=== PATIENT | female | born 2005 | race Caucasian/White ===

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

== ENCOUNTER 2023-03-08 16:07 | Emergency (ER) | payer OTHER, SELFPAY | END 2023-03-08 17:59 | disposition left against medical advice (07) | PROVIDERS: Emergency Provider Emergency Medicine | DX: R10.30 Lower abdominal pain, unspecified (principal) ==

== ENCOUNTER 2023-05-15 05:40 | Emergency (ER) | payer OTHER, SELFPAY ==
--- NOTE | 2023-05-15 | ECG_ITS ---
Test Reason : OVERDOSE Blood Pressure : / mmHG Vent. Rate : 074 BPM Atrial Rate : 074 BPM P-R Int : 146 ms QRS Dur : 082 ms QT Int : 388 ms P-R-T Axes : 053 084 045 degrees QTc Int : 430 ms Normal sinus rhythm Normal ECG When compared with ECG of 26-OCT-2022 12:05, T wave inversion no longer evident in Inferior leads Referred By: Generic ED Physician Electronically Signed By:LORA PALMER
[2023-05-15 05:58] VITALS: BP 118/90; PULSE 114; O2SAT 98; BMI 17.9
[2023-05-15 06:08] VITALS: BP 127/84; PULSE 82; RESP 18; TEMP 36.2; O2SAT 98
[2023-05-15 06:31] LABS: Basophils Percent Auto 0.6 % (0-2); Eosinophils Absolute Auto 0.5 X10*3/uL (0.0-0.4); Eosinophils Percent Auto 7.7 % (0-4); Imm Gran Abs Auto 0.01 X10*3/uL (0.00-0.03); Imm Gran Pct Auto 0.1 % (0.0-0.4); Lymphocytes Absolute Auto 2.5 X10*3/uL (1.2-4.9); Lymphocytes Percent Auto 36.8 % (20-40); MANUAL DIFF FLAG NO; Mean Corpuscular HGB Conc 34.1 g/dl (31.0-35.0); Mean Corpuscular Hemoglobin 27.5 pg (27.0-33.0); Mean Corpuscular Volume 80.6 fL (80.0-98.0); Mean Platelet Volume 10.6 fL (9.4-12.3); Monocytes Absolute Auto 0.4 X10*3/uL (0.1-1.2); Monocytes Percent Auto 6.5 % (2-11); Neutrophils Absolute Auto 3.3 x10*3/uL (2.0-8.3); Neutrophils Percent Auto 48.3 % (45-73); Platelet Count 291 X10*3/uL (160-400); Red Blood Count 5.09 X10*6/uL (4.20-5.50); Red Cell Distribution Width 11.9 % (11.0-16.0); White Blood Count 6.8 X10*3/uL (4.8-10.8)
--- NOTE | 2023-05-15 06:45 | ED.GENADULT ---
HPI - General Adult General Chief complaint: Psychiatric Symptoms Stated complaint: si Time Seen by Provider: 05/15/23 06:41 Source: patient, EMS and RN notes reviewed Mode of arrival: EMS Limitations: no limitations History of Present Illness HPI narrative: 17 year old female with pmhx significant for asthma presents to the ED today via EMS with PD on a section 12 for evaluation of suicidal ideation with attempt to OD. Per patient, she reports taking 3 20 mg prednisone and 4 singular this morning in an attempt to harm herself. Denies previous attempts. Reports thinking about doing this a year ago however did not act on it. Denies SI at present. Denies HI. Denies VH/AH/TH. When asked why she was brought here, she tells me that she thought her mom was having a stroke prompting her to call EMS. History limited. Denies any physical complaints at present. Denies fever, A[place]STA, dizziness, cp, SOB, abd pain, N/V. Related Data Previous Rx's Medication Instructions Recorded albuterol sulfate 90 mcg/actuation 2 puff inhalation Q4-6H PRN 07/06/22 aerosol inhaler shortness of breath or wheezing #6.7 grams prednisone 20 mg tablet 40 mg (2 x 20 mg) PO DAILY 5 days 07/06/22 #10 tabs albuterol sulfate 90 mcg/actuation 2 puff inhalation Q4-6H PRN 08/17/22 aerosol inhaler shortness of breath or wheezing #6.7 grams fluconazole 150 mg tablet 150 mg PO Q3D 2 doses #2 tabs 08/17/22 (Diflucan) nitrofurantoin 100 mg PO Q12H 7 days #14 caps 08/17/22 monohydrate/macrocrystals 100 mg capsule (Macrobid) phenazopyridine 200 mg tablet 200 mg PO TID PRN pain 6 doses #6 08/17/22 (Pyridium) tabs prednisone 20 mg tablet 40 mg (2 x 20 mg) PO DAILY 5 days 08/17/22 #10 tabs albuterol sulfate 2.5 mg/0.5 mL 5 mg inhalation Q4H PRN shortness 08/20/22 solution for nebulization of breath or wheezing #30 ea prednisone 10 mg tablets in a dose See Taper PO DAILY #48 ea 08/20/22 pack albuterol sulfate 90 mcg/actuation 2 inh inhalation Q4-6H PRN 10/26/22 breath activated powder inhaler shortness of breath #1 ea doxycycline hyclate 100 mg capsule 100 mg PO BID 10 days #20 caps 10/26/22 prednisone 20 mg tablet 40 mg (2 x 20 mg) PO DAILY 5 days 10/26/22 #10 tabs Allergies Allergy/AdvReac Type Severity Reaction Status Date / Time Seasonal Allergies Allergy Runny Nose Verified 12/11/22 11:30 Review of Systems Review of Systems: Constitutional: No fever, chills, fatigue, night sweats, weight changes ENT/Mouth: No ear pain, hearing loss, nasal congestion, sinus pain, rhinorrhea, sore throat Eyes: No eye pain, swelling, redness, vision changes, discharge Cardio: No chest pain, palpitations, BOND, orthopnea, peripheral edema Pulm: No SOB, cough, sputum, wheezing, dyspnea, hemoptysis GI: No nausea, vomiting, hematemesis, abdominal pain, diarrhea, constipation, hematochezia, melena : No irregular bleeding, dysuria, frequency, urgency, hesitancy, hematuria, flank pain, urinary flow changes, urinary incontinence or retention MSK: No back pain, neck pain, joint pain, myalgias Skin: No lesions, rashes Neuro: No weakness, numbness, paresthesias, LOC, dizziness, headache All other systems reviewed and are negative. [facility] Past Medical History Attestation statement: The following information was validated with the patient. Source: old records reviewed and nursing notes reviewed Social History Social History Alcohol intake: never Advance Directives: No Advance Directives Information Provided: No Healthcare Proxy: No Guardian: No Physical Exam ED Vital Signs: Vital Signs - 24 hr 05/15/23 06:08 05/15/23 10:00 Temperature 97.2 F 98.4 F Pulse Rate 82 83 Respiratory Rate 18 16 Blood Pressure 127/84 113/61 Pulse Oximetry 98 98 Oxygen Delivery Method Room Air Room Air BMI result Body Mass Index 17.9 Vital signs stable Const Other: Patient is nontoxic appearing and in no acute distress. Calm. Cooperative. Tearful on exam. General: healthy appearing, no acute distress, alert and awake Orientation/consciousness: patient oriented x3 Limitations: no limitations HENMT Head: Yes normal to inspection Eyes General: appearance normal, both eyes and all related structures Conjunctivae: conjunctivae normal Sclerae: sclerae normal Pupils: Equal, round and reactive pupils present Neck Neck: Yes normal visual inspection Resp Effort & Inspection: normal respiratory effort, able to speak in complete sentences, no respiratory distress and no use of accessory muscles Auscultation: clear to auscultation bilaterally and no wheezes Cardio Rate: regular rate Rhythm: regular rhythm Peripheral pulses: radial pulses present GI Inspection: Yes normal to inspection Palpation (GI): Soft to palpation, nontender and no guarding General: Yes no CVA tenderness Back/Spine/Pelvis Back: no CVA tenderness Skin General skin exam: no rashes or lesions noted Neuro General: patient oriented x3, gait normal and moves all extremities Cranial nerves: Yes Equal, round and reactive pupils present Extrem General: Yes normal to inspection Course Course Course Narrative: 726-- CBC without leukocytosis or anemia. H&H stable. Chemistry without acute electrolyte abnormality requiring intervention. Normal liver function. Beta hCG negative. Toxicology with undetectable salicylates, acetaminophen, ethyl alcohol. EKG showing normal sinus rhythm with a rate of 74 beats per minute, QT 388, QTC 430, no acute ischemic changes or ST elevations. >> awaiting UA/ UDS Medical Decision Making Medical Decision Making [facility] Narrative: 17 year old female with pmhx significant for asthma presents to the ED today via EMS with PD on a section 12 for evaluation of suicidal ideation with attempt to OD. Vital signs stable. Patient is nontoxic appearing and in no acute distress. Calm. Cooperative. RRR. Lungs CTA bilaterally. Abd soft, ND/NT, no rebound or guarding. Normoactive BS x4. Exam is nonfocal. Ambulating with steady gait. Concern for SI, attempt. Low suspicion for acute overdose or toxicity. Plan for medical clearance and care team evaluation. Differential Diagnosis Differential Diagnoses: The differential diagnosis associated with the presentation includes As above. Admission/Observation Consideration of admission/observation: Escalation of care including admission/observation considered In this patient with attempt OD and suicidal ideation, admission was considered. Lab Data [facility] Lab Attestation statement: I reviewed the patient's lab results. as above. 05/15/23 06:25 05/15/23 06:25 Labs: Lab Results 05/15/23 05/15/23 Range/Units 06:25 11:50 WBC 6.8 (4.8-10.8) X10*3/uL RBC 5.09 (4.20-5.50) X10*6/uL Hgb 14.0 (12.0-16.0) g/dl Hct 41.0 (37.0-47.0) % MCV 80.6 (80.0-98.0) fL MCH 27.5 (27.0-33.0) pg MCHC 34.1 (31.0-35.0) g/dl RDW 11.9 (11.0-16.0) % Plt Count 291 (160-400) X10*3/uL MPV 10.6 (9.4-12.3) fL Immature Gran % (Auto) 0.1 (0.0-0.4) % Neut % (Auto) 48.3 (45-73) % Lymph % (Auto) 36.8 (20-40) % [place] % (Auto) 6.5 (2-11) % Eos % (Auto) 7.7 H (0-4) % Baso % (Auto) 0.6 (0-2) % Lymph # (Auto) 2.5 (1.2-4.9) X10*3/uL [place] # (Auto) 0.4 (0.1-1.2) X10*3/uL Eos # (Auto) 0.5 H (0.0-0.4) X10*3/uL Baso # (Auto) 0.0 (0.0-0.2) X10*3/uL Abs Immat Gran (auto) 0.01 (0.00-0.03) X10*3/uL Absolute Neuts (auto) 3.3 (2.0-8.3) x10*3/uL Absolute Nucleated RBC 0.000 (0.0-0.012) X10*3/uL Nucleated RBC % (auto) 0.0 (0.0-0.2) /100WBC Sodium 137 (135-145) mmol/L Potassium 3.6 D (3.3-5.1) mmol/L Chloride 107 (96-108) mmol/L Carbon Dioxide 20 L (22-29) mmol/L Anion Gap 14 (12-20) BUN 17 H (9-16) mg/dL Creatinine 0.79 (0.5-1.4) mg/dL Estim Creat Clear Calc 93.8 Estimated GFR > 60 Random Glucose 82 (60-115) mg/dL Calcium 9.2 D (8.4-10.2) mg/dL Total Bilirubin 0.8 (0.0-1.0) mg/dL Direct Bilirubin 0.4 (0.0-0.5) mg/dL AST 20 (5-31) U/L ALT 7 (0-31) U/L Alkaline Phosphatase 49 (39-117) U/L Total Protein 7.3 (6.5-8.0) g/dL Albumin 4.1 (3.5-5.0) g/dL Beta HCG, Quant < 2 mIU/mL Urine Color Dark Yellow Urine Appearance Cloudy Urine pH 5.5 (5.0-9.0) Ur Specific [place] 1.025 (1.005-1.025) Urine Protein Negative (Neg-Trace) mg/dL Urine Glucose (UA) Negative (Negative) mg/dL Urine Ketones 80 (Negative) mg/dL Urine Blood Moderate (2+) H (Negative) Urine Nitrite Negative (Negative) Ur Leukocyte Esterase Small (1+) H (Negative) Urine RBC 3-5 H (0-2) /HPF Urine WBC 6-10 H (0-5) /HPF Ur Squamous Epith Cells 6-10 (0-2) /HPF Urine Bacteria 1+ (None Seen) Hyaline Casts 0-2 (0-2) /LPF Salicylates < 5.0 L (15-30) mg/dL Urine Opiates Screen Not Detected (Not Detect) Urine Fentanyl Screen Not Detected (Not Detect) Acetaminophen < 3 (<30) mcg/mL Ur Barbiturates Screen Not Detected (Not Detect) Ur Phencyclidine Scrn Not Detected (Not Detect) Ur Amphetamines Screen Not Detected (Not Detect) U Benzodiazepines Scrn Not Detected (Not Detect) Urine Cocaine Screen Not Detected (Not Detect) U Marijuana (THC) Screen Not Detected (Not Detect) Ethyl Alcohol < 10 mg/dL Independent Interpretation I performed an independent interpretation of an: EKG Interpretation: EKG showing normal sinus rhythm with a rate of 74 beats per minute, QT 388, QTC 430, no acute ischemic changes or ST elevations. Independent Historian Clinical information obtained from an independent historian. History obtained from or confirmed by: EMS External Record Review External record reviewed: Inpatient record Social Determinants Patient?s care significantly limited by Social Determinants of Health including: Other Social Determinant of Health Critical Care Time Critical Care Time Critical Care Time: No Discharge Plan Discharge Clinical Impression: Suicidal ideation, Suicide attempt by substance overdose Patient Disposition: Still a Patient Prescriptions: No Action prednisone 20 mg tablet 40 mg PO DAILY 5 Days Qty: 10 0RF albuterol sulfate 90 mcg/actuation HFA aerosol inhaler 2 puff inhalation Q4-6H PRN (Reason: shortness of breath or wheezing) Qty: 6.7 0RF prednisone 10 mg tablets,dose pack See Taper PO DAILY Qty: 48 0RF Taper: Prednisone 40 mg daily for 1 Day and 0 Hour 30 mg daily for 3 Days and 0 Hour 20 mg daily for 3 Days and 0 Hour 10 mg daily for 3 Days and 0 Hour Rx Instructions: discard remainder albuterol sulfate 2.5 mg/0.5 mL solution for nebulization 5 mg inhalation Q4H PRN (Reason: shortness of breath or wheezing) Qty: 30 0RF doxycycline hyclate 100 mg capsule 100 mg PO BID 10 Days Qty: 20 0RF prednisone 20 mg tablet 40 mg PO DAILY 5 Days Qty: 10 0RF albuterol sulfate 90 mcg/actuation aerosol powdr breath activated 2 inh inhalation Q4-6H PRN (Reason: shortness of breath) Qty: 1 0RF phenazopyridine [Pyridium] 200 mg tablet 200 mg PO TID PRN (Reason: pain) Qty: 6 0RF nitrofurantoin monohyd/m-cryst [Macrobid] 100 mg capsule 100 mg PO Q12H 7 Days Qty: 14 0RF Rx Instructions: must administer with a meal/food prednisone 20 mg tablet 40 mg PO DAILY 5 Days Qty: 10 0RF albuterol sulfate 90 mcg/actuation HFA aerosol inhaler 2 puff inhalation Q4-6H PRN (Reason: shortness of breath or wheezing) Qty: 6.7 0RF fluconazole [Diflucan] 150 mg tablet 150 mg PO Q3D Qty: 2 0RF Interventions: [place]-Suicide Risk Severity Scale Last Done: 05/15/23 06:11
[2023-05-15 06:47] LABS: Acetaminophen LAB < 3 mcg/mL (<30); Salicylate < 5.0 mg/dL (15-30)
[2023-05-15 06:52] LABS: Alanine Aminotransferase 7 U/L (0-31); Albumin Level 4.1 g/dL (3.5-5.0); Alkaline Phosphatase 49 U/L (39-117); Anion Gap 14 (12-20); Aspartate Amino Transferase 20 U/L (5-31); Bilirubin Direct 0.4 mg/dL (0.0-0.5); Bilirubin Total 0.8 mg/dL (0.0-1.0); Blood Urea Nitrogen 17 mg/dL (9-16); Calcium 9.2 mg/dL (8.4-10.2); Carbon Dioxide 20 mmol/L (22-29); Chloride 107 mmol/L (96-108); Creatinine Clr Calc Pharmacy 93.8; Estimated Glomerular Filt Rate > 60; Ethanol < 10 mg/dL; Glucose Random 82 mg/dL (60-115); HCG Quantitative < 2 mIU/mL; Potassium 3.6 mmol/L (3.3-5.1); Sodium 137 mmol/L (135-145); Total Protein 7.3 g/dL (6.5-8.0)
--- NOTE | 2023-05-15 07:42 | PC.NURSE ---
assumed care of pt at 0700. pt a&o x4, calm, and cooperative. pt denies SI to t/w suleiman. 1:1 sitter at bedside. diet order in for pt per VITO Alvarado. pt cleared to eat. pt on bedside monitor, rr even/unlabored. call church within pt reach. awaiting urine sample. plan of care ongoing.
--- NOTE | 2023-05-15 09:58 | PC.NURSE ---
REPORT TO LEEANNE IN POD. ESCORTED BY SECURITY
[2023-05-15 10:00] VITALS: BP 113/61; PULSE 83; RESP 16; TEMP 36.9; O2SAT 98
--- NOTE | 2023-05-15 10:00 | PC.NURSE ---
LATE ENTRY: ASSUMED CARE OF THIS PT AT 1000. PT WAS PREVIOUSLY IN ED 6, MEDICALLY CLEARED AND ESCORTED TO THE POD BH 8 BY SECURITY. PT ALERT AND ORIENTED X3, PLEASANT AND COOPERATIVE, SHE DENIES PAIN, DENIES SI/HI AT THIS TIME. PLAN IS TO MEET WITH CARE TEAM. PT AWARE OF PLAN. WILL CONTINUE TO OBSERVE.
[2023-05-15 11:56] LABS: Appearance Urine Cloudy; Color Urine Dark Yellow; Glucose Urine UA Negative (Negative); Leukocyte Esterase Urine Small (1+) (Negative); Nitrite Urine Negative (Negative); PH 5.5 (5.0-9.0); Specific Gravity - Urine 1.025 (1.005-1.025); UMIC TRIGGER UACC YES; Urine Blood Moderate (2+) (Negative); Urine Ketones 80 mg/dL (Negative); Urine Protein Negative (Neg-Trace)
[2023-05-15 12:09] LABS: Amphetamine Screen Urine Not Detected (Not Detect); Bacteria Urine 1+ (None Seen); Barbiturates, Urine Not Detected (Not Detect); Benzodiazepines Screen Urine Not Detected (Not Detect); Cannabinoid Screen Urine Not Detected (Not Detect); Cocaine Screen Urine Not Detected (Not Detect); Fentanyl, urine Not Detected (Not Detect); Hyaline Casts Urine 0-2 /LPF (0-2); Opiate Screen Urine Not Detected (Not Detect); Phencyclidine Screen Urine Not Detected (Not Detect); UACC Culture Trigger YES
--- NOTE | 2023-05-15 18:00 | PC.NURSE ---
PT PLEASANT, IN COMMON AREA TALKING WITH ANOTHER PT. NO COMPLAINTS AT THIS TIME.
--- NOTE | 2023-05-15 18:11 | PHA.MEDREC ---
Pharmacy Consult ? Medication Reconciliation Pharmacy has completed the medication reconciliation.
--- NOTE | 2023-05-15 18:37 | PC.NURSE ---
MED REC DONE BY PHARMACY, HOME MEDS ORDERED.
[2023-05-15 20:05] VITALS: BP 109/72; PULSE 75; RESP 20; TEMP 37.1; O2SAT 99
[2023-05-15] MEDS: Montelukast Sodium 10 MG TABLET PO (20:29)
--- NOTE | 2023-05-15 22:00 | PC.NURSE ---
PT mom visited. Given room 2 for privacy. Visit was positive with no issues. PT medicated as per MAR. Denies SI/HI at this time. PT resting watching tv. plan of care ongoing
[2023-05-16 06:26] VITALS: BP 108/77; PULSE 86; RESP 15; TEMP 36.7; O2SAT 99
[2023-05-16 07:28] VITALS: PULSE 86; RESP 16; O2SAT 97
[2023-05-16] MEDS: Fluticasone/Vilanterol 200/25 BLST.W.DEV 1 PUFF INHALE (07:28)
[2023-05-16] MEDS: Cholecalciferol (Vitamin D3) 25 MCG TABLET PO (10:43)
--- NOTE | 2023-05-16 11:20 | MHC.CARE ---
RAD team conducted a statewide bedsearch, unfortunately no beds are available statewide. RAD Team will continue bedsearch tomorrow (05/17) if deemed necessary
[2023-05-16 15:33] VITALS: BP 117/67; PULSE 89; RESP 16; TEMP 36.8; O2SAT 98
--- NOTE | 2023-05-16 19:30 | PC.NURSE ---
patient appears to be lounging in [facility] area where she is housed accompanied by mother, patient soon to take shower, patient asked about dc status and was informed about mental status update to happen tomorrow.
== END 2023-05-16 21:15 | disposition home or self-care (01) ==
PROVIDERS: Emergency Provider Emergency Medicine
DX: T38.0X2A Poisoning by glucocorticoids and synthetic analogues, intentional self-harm, initial encounter (principal); T48.6X2A Poisoning by antiasthmatics, intentional self-harm, initial encounter; Y92.9 Unspecified place or not applicable
CPT/HCPCS: 36415; 80053; 80143; 80179; 80307; 81001; 82248; 84702; 85025; 87086; 93005; 94640; 99285; S9485

== ENCOUNTER → 2023-05-15 07:02 | Outpatient (BNV) | payer OTHER, SELFPAY | PROVIDERS: Emergency Provider Emergency Medicine; Visit Provider Internal Medicine | DX: R45.851 Suicidal ideations (principal) | CPT/HCPCS: 93010 ==

== ENCOUNTER 2024-01-09 13:26 | Outpatient (AMB) | payer OTHER, SELFPAY ==
--- NOTE | 2024-01-09 13:32 | MHC.OFFVIS ---
Vital Signs 01/09/24 13:33 Height 5 ft 6 in Weight 121 lb BMI 19.5 BP 118/70 Blood Pressure Location Lt brachial Position Sitting Pulse 90 Pulse Source Pulse Oximeter Pulse Oximetry (%) 96 Oxygen Delivery Method Room Air Intake Visit Reasons: asthma Immigration Specialist Required: No Allergies Seasonal Allergies Allergy (Verified 01/09/24 13:35) Runny Nose HPI Comments Details: The patient is here for pulmonary evaluation. The patient is a 18 year woman with known history of lifelong asthma. The patient initially was been monitor closely by pediatric Pulmonary. Now she is no longer being followed. She had been very stable on her Advair Diskus. Although recently her respiratory symptoms have been worsening. The patient does have underlying allergies. she has required multiple courses of prednisone. Currently she is completing a prednisone taper. When she goes on prednisone his symptoms improved dramatically. The patient did have allergy testing in the past but many years ago and does not remember exactly what she is allergic to. And her blood work in the past she also had elevations in her eosinophil level. 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 Will go ahead and maximize her respiratory therapy. In addition to that she does complaint of nasal congestion in addition to postnasal drip and cough. As far as allergies the patient does have cats and oxygen house. She denies any smoking or vaping. She denies any other exposure to fumes although fairly reason the patient did have an exposure to bleach where did bother her breathing. Denies any mold in the bathroom or in the basement. at this point will going to go ahead and maximize her respiratory therapy by [facility] placing her on Trelegy. In addition to that she undergo PFTs and blood work including allergy testing in order to assess her asthma phenotype and also to further treat her significant asthma symptoms. [facility], [facility] Medical History (Updated 01/09/24 @ 22:38 by Arthur Garcia MD) Chronic allergic rhinitis Asthma Allergies Social History (Updated 01/09/24 @ 13:37 by VALERIA Bowen) Alcohol intake: never Patient Tobacco Use Status: Never used Tobacco Review of Systems Const Denies fever(s) Eyes Reports no additional complaints ENT Reports nasal congestion and Reports nasal discharge Card Denies chest pain Resp Reports cough and Reports wheezing GI Reports no additional complaints Musc Reports no additional complaints Skin/Breast Denies rash Neuro Reports no additional complaints Endo Reports no additional complaints Gallo/Lymph Denies lymphadenopathy Aller/Immun Reports wheezing Physical Exam Vital Signs: Last Vital Signs Pulse 90 01/09/24 13:33 BP 118/70 01/09/24 13:33 Pulse Ox 96 01/09/24 13:33 Oxygen Delivery Method Room Air 01/09/24 13:33 BMI result Body Mass Index 19.5 Const General: comfortable HEENT Head: Yes normocephalic Neck Neck: Yes supple Chest Chest palpation & inspection: normal inspection of the chest Resp Effort & Inspection: normal respiratory effort Auscultation: diminished lung sounds Cardio Heart sounds: S1 normal heart sound present and S2 normal heart sound present GI Palpation (GI): Soft to palpation Skin General skin exam: no rashes or lesions noted Extrem General: Yes no clubbing, cyanosis or edema Assessment & Plan Assessment & Plan (1) Asthma: Code(s): J45.909 - Unspecified asthma, uncomplicated Category: Medical Qualifiers: Asthma severity: moderate Asthma persistence: persistent Asthma complication type: with acute exacerbation Qualified Code(s): J45.41 - Moderate persistent asthma with (acute) exacerbation (2) Allergies: Code(s): T78.40XA - Allergy, unspecified, initial encounter Category: Medical Qualifiers: Encounter type: initial encounter Qualified Code(s): T78.40XA - Allergy, unspecified, initial encounter (3) Chronic allergic rhinitis: Code(s): J30.9 - Allergic rhinitis, unspecified Category: Medical Plan complete prednisone taper stop Advair start Trelegy continue Singulair, monitor for mood changes Bloodwork/allergy testing PFTs nasal therapy as needed anti histamine therapy F/U 2-3 months Orders: Orders Complete Blood Count Auto Diff Today J45.909 - Unspecified asthma, uncomplicated, T78.40XA - Allergy, unspecified, initial encounter Resp Allergy Profile Region I Today J45.909 - Unspecified asthma, uncomplicated, R91.1 - Solitary pulmonary nodule, T78.40XA - Allergy, unspecified, initial encounter Hypersensitive Pneumonitis Prf Today J45.909 - Unspecified asthma, uncomplicated, R91.8 - Other nonspecific abnormal finding of lung field, T78.40XA - Allergy, unspecified, initial encounter Erythrocyte Sedimentation Rate Today J45.909 - Unspecified asthma, uncomplicated, T78.40XA - Allergy, unspecified, initial encounter PFT pulmonary function test Today J45.909 - Unspecified asthma, uncomplicated Immunoglobulin E Today J45.909 - Unspecified asthma, uncomplicated, T78.40XA - Allergy, unspecified, initial encounter Immunoglobulins,IgG IgA IgM Today J45.909 - Unspecified asthma, uncomplicated, T78.40XA - Allergy, unspecified, initial encounter Medications: New hzbzpsummtz-uqvwnobbx-xwlibtti 200-62.5-25 mcg (Trelegy Ellipta) 1 inh inhalation DAILY 60 ea 12RF 30 days Coding Level of Care Code New Pt Level 4 (00968) Diagnoses Moderate persistent asthma with acute exacerbation J45.41 Asthma severity: moderate Asthma persistence: persistent Asthma complication type: with acute exacerbation Allergy, initial encounter T78.40XA Encounter type: initial encounter Chronic allergic rhinitis J30.9 Time Spent (min) 34
[2024-01-09 13:33] VITALS: BP 118/70; PULSE 90; O2SAT 96; BMI 19.5
== END 2024-01-09 13:51 | disposition home or self-care (01) ==
PROVIDERS: PCP Pediatrics; Visit Provider Hospitalist
DX: J45.41 Moderate persistent asthma with (acute) exacerbation (principal); T78.40XA Allergy, unspecified, initial encounter; J30.9 Allergic rhinitis, unspecified
CPT/HCPCS: 99204

== ENCOUNTER → 2024-01-09 13:26 | Outpatient (BNVA) | payer OTHER, SELFPAY | PROVIDERS: PCP Pediatrics; Visit Provider Hospitalist | DX: J45.41 Moderate persistent asthma with (acute) exacerbation (principal); J30.9 Allergic rhinitis, unspecified; T78.40XA Allergy, unspecified, initial encounter | CPT/HCPCS: 99202 ==

== ENCOUNTER 2024-03-09 19:09 | Emergency (ER) | payer OTHER, SELFPAY ==
--- NOTE | ~2024-03-09 | XR_ITS ---
EXAMINATION: XR CHEST CLINICAL INFORMATION: Chest pain COMPARISON: Chest x-ray on 10/26/2022 TECHNIQUE: 2 views of the chest were obtained. FINDINGS: No significant abnormality is noted involving the heart, lungs, mediastinum, bony thorax or soft tissues. XR/XR chest 2V IMPRESSION: Unremarkable examination. Electronically signed by: Bere Baker MD 03/09/2024 09:15 PM EDT RP
--- NOTE | 2024-03-09 19:27 | ED_ITS ---
HPI - Headache General Chief Complaint: Headache Stated Complaint: headache, nausea, vomiting Time Seen by Provider: 03/09/24 21:10 Source: patient Mode of arrival: ambulatory Limitations: no limitations History of Present Illness ED Provider: joaquin PIERRE Narrative: Patient's history of migraines comes here for headache for 2 days mostly behind the eyes with nausea and light sensitivity no fever no chills patient does have cold symptoms since yesterday also Related Data Home Medications ?Medication ?Instructions ?Recorded ?Confirmed albuterol sulfate 90 mcg/actuation 2 puff inhalation Q4H PRN 05/15/23 05/15/23 aerosol inhaler shortness of breath or wheezing cholecalciferol (vitamin D3) 25 25 mcg PO DAILY 05/15/23 05/15/23 mcg (1,000 unit) capsule (Vitamin D3) desogestrel 0.15 mg-ethinyl 1 tab PO DAILY 05/15/23 05/15/23 estradiol 0.03 mg tablet (Isibloom) montelukast 10 mg tablet 10 mg PO BEDTIME 05/15/23 05/15/23 cetirizine 10 mg tablet 10 mg PO DAILY 01/09/24 fluticasone propionate 50 1 spray intranasal Q12H 01/09/24 mcg/actuation nasal spray,suspension nebulizers 01/09/24 Previous Rx's ?Medication ?Instructions ?Recorded fluticasone fur. 200 mcg-umeclid 1 inh inhalation DAILY 30 days #60 01/09/24 62.5 mcg-vilant 25 mcg ea inhalat.powder (Trelegy Ellipta) fopcdxolwz-qtqkkcurcfaic-cmnecyaz 1 tab PO Q6H PRN haeadace #20 tabs 03/10/24 50 mg-325 mg-40 mg tablet ondansetron 4 mg disintegrating 4 mg PO Q6-8H PRN nausea and 03/10/24 tablet vomiting #7 tabs Allergies Allergy/AdvReac Type Severity Reaction Status Date / Time Seasonal Allergies Allergy Runny Nose Verified 03/09/24 19:33 Review of Systems 2 Review of Systems: Yes all other systems are reviewed and are negative PMFSH Past Medical History Medical History Chronic allergic rhinitis Asthma Allergies Social History Social History Alcohol intake: never Patient Tobacco Use Status: Never used Tobacco Advance Directives: No Advance Directives Information Provided: No Physical Exam 2 Vital Signs: Vital Signs: Last Vital Signs Temp 98.2 F 03/10/24 03:25 Pulse 78 03/10/24 03:25 Resp 16 03/10/24 03:25 BP 115/55 L 03/10/24 03:25 Pulse Ox 99 03/10/24 03:25 O2 Del Method Room Air 03/10/24 03:25 BMI result Body Mass Index 19.7 Appearance: Alert. Oriented X3. No acute distress. Light sensitivity+ Eyes: PERRLA, No Nystagmus ENT: Pharynx normal. Oral Mucosa moist no temporal artery tenderness Neck: Normal inspection. Neck supple. CVS: Normal heart rate and rhythm. Pulses normal. Respiratory: No respiratory distress. Equal air entry bilateral, no wheezing/rales/rhonchi Abdomen: Soft and nontender. Bowel sounds are present, no mass palpable, Skin: Skin warm and dry. Normal skin color. Normal skin turgor. Extremities: No lower extremity edema. No calf tenderness Neuro: Oriented X 3. Course Course Course Narrative: This is an RME performed by Loretta Posada TALLOW REFINER: Additional HPI, ROS, PE not included below will be deferred to primary provider. Patient is a 18-year-old female who presents emergency department for evaluation with mother. Mother states that she went to visit patient at work, she thought patient appeared pale and fatigued, patient endorsed having blurred vision in feeling a bit unsteady while walking. Had associated nausea and vomiting at work, followed by another episode of vomiting in the car on the way here. Patient states she also has been experiencing a frontal headache since last night has not taken any OTC medications for this. Has report of diffuse anterior chest pain as well that is ?from asthma? reporting she was recently treated for an asthma exacerbation, shortness of breath or URI symptoms at this time. LMP 03/07/24. Plan: Viral serologies, serum labs, EKG Medications Administered Discontinued Medications Generic Name Dose Route Start Last Admin Trade Name Freq PRN Reason Stop Dose Admin Acetaminophen/Butalbital/Caffeine 1 tab 03/09/24 21:48 03/09/24 22:19 Butalb/Acetamin/Caff 50/325/40 Tablet PO 03/09/24 21:49 1 tab ONCE ONE Administration Dexamethasone Sodium Phosphate 10 mg 03/10/24 00:36 03/10/24 01:23 Dexamethasone Sod Phosphate 10 Mg/Ml Vial IVPUSH 03/10/24 00:37 10 mg ONCE ONE Administration Diphenhydramine HCl 25 mg 03/09/24 23:15 03/10/24 00:07 Diphenhydramine Hcl 50 Mg/Ml Vial IVPUSH 03/09/24 23:16 25 mg ONCE ONE Administration Sodium Chloride 1,000 mls @ 999 mls/hr 03/09/24 23:15 03/10/24 02:00 Ns IV 03/10/24 00:15 Infused .Q1H1M ONE Infusion Ketorolac Tromethamine 30 mg 03/09/24 23:15 03/10/24 00:06 Ketorolac Tromethamine 30 Mg/Ml Vial IVPUSH 03/09/24 23:16 30 mg ONCE ONE Administration Metoclopramide HCl 10 mg 03/09/24 23:15 03/10/24 00:06 Metoclopramide Hcl 10 Mg/2 Ml Vial IVPUSH 03/09/24 23:16 10 mg ONCE ONE Administration Ondansetron HCl 4 mg 03/09/24 21:48 03/09/24 22:16 Ondansetron Odt 4 Mg Tab.Rapdis TRANSLINGU 03/09/24 21:49 4 mg ONCE ONE Administration Sumatriptan Succinate 6 mg 03/09/24 21:48 03/09/24 22:19 Sumatriptan Succinate 6 Mg/0.5 Ml Vial SUBCUT 03/09/24 21:49 6 mg ONCE ONE Administration Medical Decision Making Medical Decision Making MDM Narrative: Patient's migraine headache responded to Fioricet and IV Benadryl and Reglan did not respond to sumatriptan labs are stable Lab Data MDM Lab Attestation statement: I reviewed the patient's lab results. 03/09/24 20:05 03/09/24 20:05 Labs: Lab Results 03/09/24 Range/Units 20:05 WBC 6.7 (4.8-10.8) X10*3/uL RBC 3.85 L D (4.20-5.50) X10*6/uL Hgb 10.9 L D (12.0-16.0) g/dl Hct 31.2 L D (37.0-47.0) % MCV 81.0 (80.0-98.0) fL MCH 28.3 (27.0-33.0) pg MCHC 34.9 (31.0-35.0) g/dl RDW 12.4 (11.0-16.0) % Plt Count 238 (160-400) X10*3/uL MPV 10.8 (9.4-12.3) fL Immature Gran % (Auto) 0.4 (0.0-0.4) % Neut % (Auto) 60.1 (45-73) % Lymph % (Auto) 26.6 (20-40) % Kent % (Auto) 6.2 (2-11) % Eos % (Auto) 6.1 H (0-4) % Baso % (Auto) 0.6 (0-2) % Lymph # (Auto) 1.8 (1.2-4.9) X10*3/uL Kent # (Auto) 0.4 (0.1-1.2) X10*3/uL Eos # (Auto) 0.4 (0.0-0.4) X10*3/uL Baso # (Auto) 0.0 (0.0-0.2) X10*3/uL Abs Immat Gran (auto) 0.03 (0.00-0.03) X10*3/uL Absolute Neuts (auto) 4.0 (2.0-8.3) x10*3/uL Absolute Nucleated RBC 0.000 (0.0-0.012) X10*3/uL Nucleated RBC % (auto) 0.0 (0.0-0.2) /100WBC Sodium 139 (135-145) mmol/L Potassium 4.1 (3.3-5.1) mmol/L Chloride 106 (96-108) mmol/L Carbon Dioxide 26 (22-29) mmol/L Anion Gap 11 L (12-20) BUN 12 (9-16) mg/dL Creatinine 0.74 (0.5-1.4) mg/dL Estim Creat Clear Calc 105.9 Estimated GFR > 60 Random Glucose 101 (60-115) mg/dL Calcium 9.9 D (8.4-10.2) mg/dL Magnesium 2.0 (1.6-2.6) mg/dL Total Bilirubin 0.5 (0.0-1.0) mg/dL AST 27 (5-31) U/L ALT 14 (0-31) U/L Alkaline Phosphatase 50 (39-117) U/L Troponin I High Sens < 2.7 (<3.5-17.0) ng/L Total Protein 7.5 (6.5-8.0) g/dL Albumin 4.5 (3.5-5.0) g/dL Lipase 19 (8-78) U/L Beta HCG, Quant < 2 mIU/mL Influenza Type A (PCR) NEGATIVE (Negative) Influenza Type B (PCR) NEGATIVE (Negative) RSV RNA Qual (PCR) NEGATIVE (Negative) SARS-CoV-2 RNA (RT-PCR) NEGATIVE (Negative) Discharge Plan Discharge Clinical Impression: Migraine Patient Disposition: Home, Self-Care Instructions: Migraine Headache (ED) Additional Instructions: Take Fioricet 1 tablet 3 times a day as needed Medicine for nausea as prescribed zofran for nausea Prescriptions: New jmcroltaat-uudjdzrhwiqpo-tlzg 50-325-40 mg tablet 1 tab PO Q6H PRN (Reason: haeadace) Qty: 20 0RF ondansetron 4 mg tablet,disintegrating 4 mg PO Q6-8H PRN (Reason: nausea and vomiting) Qty: 7 0RF No Action desogestrel-ethinyl estradiol [Isibloom] 0.15-0.03 mg tablet 1 tab PO DAILY montelukast 10 mg tablet 10 mg PO BEDTIME albuterol sulfate 90 mcg/actuation HFA aerosol inhaler 2 puff inhalation Q4H PRN (Reason: shortness of breath or wheezing) cholecalciferol (vitamin D3) [Vitamin D3] 25 mcg (1,000 unit) capsule 25 mcg PO DAILY fluticasone propionate 50 mcg/actuation spray,suspension 1 spray intranasal Q12H Rx Instructions: administer into each nostril cetirizine 10 mg tablet 10 mg PO DAILY (DME) nebulizers Misc See Rx Instructions .ROUTE Rx Instructions: As directed Trelegy Ellipta 200-62.5-25 mcg blister with device 1 inh inhalation DAILY 30 Days Qty: 60 12RF Stand Alone Forms: Work/School Release Interventions: ED Discharge Assessment Last Done: 03/10/24 03:25 Discharge Date/Time: 03/10/24 03:25 Print Language: Yi
[2024-03-09 19:28] VITALS: BP 105/67; PULSE 82; RESP 18; TEMP 36.5; O2SAT 100; BMI 19.7
--- NOTE | 2024-03-09 19:33 | ECG_ITS ---
Test Reason : HEADACHE Blood Pressure : / mmHG Vent. Rate : 077 BPM Atrial Rate : 077 BPM P-R Int : 158 ms QRS Dur : 084 ms QT Int : 382 ms P-R-T Axes : 070 087 064 degrees QTc Int : 432 ms Normal sinus rhythm with sinus arrhythmia Cannot rule out Anterior infarct , age undetermined Abnormal ECG When compared with ECG of 15-MAY-2023 07:02, No significant change was found Referred By: Lashae Posada Electronically Signed By:Ha Hanson
[2024-03-09 20:10] LABS: MANUAL DIFF FLAG NO
[2024-03-09 20:12] LABS: Basophils Percent Auto 0.6 % (0-2); Eosinophils Absolute Auto 0.4 X10*3/uL (0.0-0.4); Eosinophils Percent Auto 6.1 % (0-4); Hematocrit 31.2 % (37.0-47.0); Hemoglobin 10.9 g/dl (12.0-16.0); Imm Gran Abs Auto 0.03 X10*3/uL (0.00-0.03); Imm Gran Pct Auto 0.4 % (0.0-0.4); Lymphocytes Absolute Auto 1.8 X10*3/uL (1.2-4.9); Lymphocytes Percent Auto 26.6 % (20-40); Mean Corpuscular HGB Conc 34.9 g/dl (31.0-35.0); Mean Corpuscular Hemoglobin 28.3 pg (27.0-33.0); Mean Platelet Volume 10.8 fL (9.4-12.3); Monocytes Absolute Auto 0.4 X10*3/uL (0.1-1.2); Monocytes Percent Auto 6.2 % (2-11); Neutrophils Percent Auto 60.1 % (45-73); Platelet Count 238 X10*3/uL (160-400); Red Blood Count 3.85 X10*6/uL (4.20-5.50); Red Cell Distribution Width 12.4 % (11.0-16.0); White Blood Count 6.7 X10*3/uL (4.8-10.8)
[2024-03-09 20:26] LABS: Alanine Aminotransferase 14 U/L (0-31); Albumin Level 4.5 g/dL (3.5-5.0); Alkaline Phosphatase 50 U/L (39-117); Anion Gap 11 (12-20); Aspartate Amino Transferase 27 U/L (5-31); Bilirubin Total 0.5 mg/dL (0.0-1.0); Blood Urea Nitrogen 12 mg/dL (9-16); Calcium 9.9 mg/dL (8.4-10.2); Carbon Dioxide 26 mmol/L (22-29); Chloride 106 mmol/L (96-108); Creatinine Clr Calc Pharmacy 105.9; Estimated Glomerular Filt Rate > 60; Glucose Random 101 mg/dL (60-115); Lipase 19 U/L (8-78); Potassium 4.1 mmol/L (3.3-5.1); Sodium 139 mmol/L (135-145); Total Protein 7.5 g/dL (6.5-8.0)
[2024-03-09 20:36] LABS: Troponin-I High Sensitivity < 2.7 ng/L (<3.5-17.0)
[2024-03-09 20:48] LABS: Influenza A PCR NEGATIVE (Negative); Influenza B PCR NEGATIVE (Negative); Resp Syncy Virus RNA Qual PCR NEGATIVE (Negative); SARS COV2 PCR INHOUSE NEGATIVE (Negative)
--- OUTSIDE RECORDS SUMMARY | 2024-03-09 20:55 | XMS_ITS | Continuity of Care Document ---
Author Organization [facility] Address [address] [place] [id number]- Care Team Providers Care Junk Removal Specialist Name Role Phone Ramsey LEMUS, Marguerite Primary Care Physician Encounter [facility] Date(s): 03/16/21 - 04/15/21 [facility] [address] [place] [id number]- Allergies, Adverse Reactions, Alerts Substance Reaction Severity Status NKA Active Immunizations Given and Recorded Vaccine Date Status Refusal Reason influenza virus vaccine, inactivated 1 04/23/20 Gi sosa influenza virus vaccine, inactivated 05/17/19 Give n influenza virus vaccine, inactivated 2 02/14/18 Gi sosa influenza virus vaccine, inactivated 03/10/16 Give n influenza virus vaccine, inactivated 01/28/15 Give n influenza virus vaccine, inactivated 3 04/08/14 Gi sosa influenza virus vaccine, inactivated 02/08/13 Give n influenza virus vaccine, inactivated 4 03/09/12 Gi sosa influenza virus vaccine, inactivated 01/12/11 Give n influenza virus vaccine, inactivated 08/03/10 Give n influenza virus vaccine, inactivated 5 03/08/07 Gi sosa influenza virus vaccine, inactivated 03/31/05 Give n Meningococcal Conjugate Vaccine 6 10/19/19 Given Meningococcal Conjugate Vaccine 11/05/15 Given Human Papillomavirus Vaccine 7 09/02/17 Given Human Papillomavirus Vaccine 11/05/15 Given Hepatitis A Pediatric Vaccine 8 09/02/17 Given Hepatitis A Pediatric Vaccine 11/05/15 Given tetanus/diphtheria/pertussis, acel(Tdap) 11/05/15 Given influ virus vac, H1N1, inactive(oldterm) 04/15/09 Given Influenza Vaccine (oldterm) 01/28/09 Given Influenza Inactive (IM) (oldterm) 03/04/08 Given Varicella Virus Vaccine 11/08/07 Given Varicella Virus Vaccine 11/11/04 Given Poliovirus Vaccine, Inactivated 11/08/07 Given Poliovirus Vaccine, Inactivated 07/13/04 Given Poliovirus Vaccine, Inactivated 03/02/04 Given Poliovirus Vaccine, Inactivated 03 Given Measles/Mumps/Rubella Virus Vaccine 11/08/07 Given Measles/Mumps/Rubella Virus Vaccine 11/11/04 Given Diphth/Pertussis,Acel/Tetanus (oldterm) 11/08/07 G iven Diphth/Pertussis,Acel/Tetanus (oldterm) 03/31/05 G iven Diphth/Pertussis,Acel/Tetanus (oldterm) 07/13/04 G iven Diphth/Pertussis,Acel/Tetanus (oldterm) 03/02/04 G iven Diphth/Pertussis,Acel/Tetanus (oldterm) 03 G iven Influenza Virus Vaccine (oldterm) 9 03/28/06 Given Pneumococcal Conjugate (PCV7) (oldterm) 03/31/05 G iven Pneumococcal Conjugate (PCV7) (oldterm) 07/13/04 G iven Pneumococcal Conjugate (PCV7) (oldterm) 03/02/04 G iven Pneumococcal Conjugate (PCV7) (oldterm) 03 G iven Haemophilus B Conj Vaccine (oldterm) 11/11/04 Give n Haemophilus B Conj Vaccine (oldterm) 07/13/04 Give n Haemophilus B Conj Vaccine (oldterm) 03/02/04 Give n Haemophilus B Conj Vaccine (oldterm) 03 Give n Hepatitis B Vaccine (old term) 07/13/04 Given Hepatitis B Vaccine (old term) 03 Given Hepatitis B Vaccine (old term) 03 Given 1Result Comment: [id number] 2Result Comment: [id number] 3Admin Note: vis given 01.01.2014 4Early/Late Reason: Other : 5Admin Note: SANOFI 6Result Comment: [facility] [id number] 7Result Comment: [id number] 8Result Comment: [id number] 9Admin Note: MFD BY SANOFI Medications Advair Diskus 500 mcg-50 mcg inhalation powder 1, puffs, Inhalation, 2 times a day, RINSE MOUTH AND THROAT AFTER USE, # 60 each, Refills 5, Tot. Refills 5, Maintenance, 03/04/21 15:25:00 EDT, [id number], 168, cm, 03/04/21 14:47:0... Start Date: 03/04/21 Status: Ordered Aerochamber See Instructions, # 1 each, Maintenance, use with inhaler medications, 01/28/15 13:46:28, Compound Start Date: 01/28/15 Status: Ordered albuterol 0.083% inhalation solution 3 mL = 2.5 mg, Inhalation, Every 6 hours, # 120 each, 2 Refills, Maintenance, 05/23/20 15:08:00 EST, Solution, [facility] #[id number], 171, cm, 04/23/20 17:37:00 EST, Height, 57.3, kg, 04/23/20 17:37:00 EST, Dry Weight Start Date: 05/23/20 Status: Ordered albuterol CFC free 90 mcg/inh inhalation aerosol See Instructions, 2-6 puffs Inhalation Every 4 hours as needed for cough, SOB or wheeze use with spacer chamber, # 1 each, Refills 0, Tot. Refills 0, Maintenance, 03/04/21 15:25:00 EDT, Instructions Replace Required Details, Route to Pharmacy Electr... Start Date: 03/04/21 Status: Ordered fluvoxaMINE 50 mg oral tablet 1 tablet = 50 mg, By Mouth, Daily at bedtime, # 30 tablet, 0 Refills, Maintenance, 03/05/21 16:16:00 EDT, Tablet, [facility] #[id number], Partial fill upon patient request if the prescription isfor a schedule II opioid drug., 168, cm, 03/04/21 1... Start Date: 03/05/21 Status: Ordered ketoconazole 2% topical shampoo 1 application, Topically, Once, Three times weekly, # 120 mL, 3 Refills, Soft Stop, 03/16/21 17:24:00 EDT, [facility] #[id number], Partial fill upon patient request if the prescription is for a schedule II opioid drug., 1 application Top... Start Date: 03/16/21 Status: Ordered montelukast 10 mg oral tablet 10 mg, 1, tablet, By Mouth, Daily, # 30 tablet, Refills 5, Tot. Refills 5, Maintenance, 03/04/21 15:25:00 EDT, Route to Pharmacy Electronically, [facility] #[id number], 168, cm, 03/04/21 14:47:00 EDT, Height, 55.5, kg, 03/04/21 14:47:00 EDT, Dry... Start Date: 03/04/21 Status: Ordered spacer chamber spacer chamber, See Instructions, # 1 each, Refills 0, Tot. Refills 0, Maintenance, Use with Albuterol Inhaler, 11/05/20 15:34:00 EDT, Supply, 168.7, cm, 11/05/20 15:05:00 EDT, Height, 55.2, kg, 11/05/20 15:05:00 EDT, Dry Weight Start Date: 11/05/20 Status: Ordered ZyrTEC 10 mg oral tablet 1 tablet = 10 mg, By Mouth, Daily, # 30 tablet, 3 Refills, Maintenance, 04/14/20 8:49:00 EST, Tablet, [facility] #[id number], 168.5, cm, 02/20/20 15:15:00 EDT, Height, 58.7, kg, 02/20/20 15:15:00 EDT, Dry Weight Start Date: 04/14/20 Status: Ordered Problem List Condition Effective Dates Status Health Status Inform ant ADHD (attention deficit hype ractivity disorder)(Confirmed) 1, 2 Active Allergic rhinitis(Confirmed) 3 Active Asthma(Confirmed) 4, 5, 6, 7 Active Tourette syndrome(Confirmed) Active Hurthle cell adenoma of thyroid(Confirmed) Active Migraine headache without aura(Confirmed) Active Anxiety and depression(Confirmed) Active Simple tics(Confirmed) 8 Active 1Now followed by Viridiana Sim 2Seen my Savannah Keita and started on Adderall 10mg XR 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
--- OUTSIDE RECORDS SUMMARY | 2024-03-09 20:55 | XMS_ITS | Continuity of Care Document ---
Author Organization [facility] Address [address] [place] [id number]- Care Team Providers Care Hemodialysis Charge Nurse Name Role Phone Marguerite Mustafa MD Primary Care Physician [phone] Encounter [facility] Date(s): 11/04/20 - 12/04/20 [facility] [address] [place] [id number]- Attending Physician: Admtr, Frank Allergies, Adverse Reactions, Alerts Substance Reaction Severity [...] H1N1, inactive(oldterm) 04/15/09 Given Influenza Vaccine (oldterm) 9/15/09 Given Influenza Inactive (IM) (oldterm) 03/04/08 Given [...] Vaccine (old term) 03 Given 1Result Comment: [id number] 2Result Comment: [id number] 3Admin Note: vis given 01.01.2014 4Early/Late Reason: Other : 5Admin Note: SANOFI 6Result Comment: [facility] [id number] 7Result Comment: [id number] 8Result Comment: [id number] 9Admin Note: MFD BY SANOFI Medications Advair Diskus 500 mcg-50 mcg inhalation powder 1, puffs, Inhalation, 2 times a day, RINSE MOUTH AND THROAT AFTER USE, # 60 each, Refills 3, Tot. Refills 0, Maintenance, 11/14/20 11:11:00 EDT, Route to Pharmacy Electronically, [id number], [facility] #[id number], 168.7, cm, 11/05/20 15:05... Start Date: 11/14/20 Status: Ordered Aerochamber See Instructions, # 1 each, Maintenance, use with inhaler medications, 01/28/15 13:46:28, Compound Start Date: 01/28/15 Status: Ordered albuterol 0.083% inhalation solution 3 mL = 2.5 mg, Inhalation, Every 6 hours, # 120 each, 2 Refills, Maintenance, 05/23/20 15:08:00 EST, Solution, [facility] #[id number], 171, cm, 04/23/20 17:37:00 EST, Height, 57.3, kg, 04/23/20 17:37:00 EST, Dry Weight Start Date: 05/23/20 Status: Ordered albuterol CFC free 90 mcg/inh inhalation aerosol See Instructions, 2-6 puffs Inhalation Every 4 hours as needed for cough, SOB or wheeze use with spacer chamber, # 1 each, Refills 0, Tot. Refills 0, Maintenance, 11/05/20 15:34:00 EDT, Instructions Replace Required Details, Route to Pharmacy Electr... Start Date: 11/05/20 Status: Ordered montelukast 10 mg oral tablet 10 mg, 1, tablet, By Mouth, Daily, # 30 tablet, Refills 3, Tot. Refills 3, Maintenance, 11/05/20 15:34:00 EDT, Route to Pharmacy Electronically, [facility] #[id number], 168.7, cm, 11/05/20 15:05:00 EDT, Height, 55.2, kg, 11/05/20 15:05:00 EDT, Start Date: 11/05/20 Status: Ordered PROzac 10 mg oral capsule See Instructions, Take 1 daily for 7 days, then increase to 2 daily, # 60 capsule, Refills 3, Tot. Refills 3, Maintenance, 04/16/20 16:36:00 EST, Instructions Replace Required Details, Route to Pharmacy Electronically, [facility] #[id number], Par... Start Date: 04/16/20 Status: Ordered PROzac 10 mg oral capsule 10 mg, 1, capsule, By Mouth, Daily, # 30 capsule, Refills 1, Tot. Refills 1, Maintenance, 12/04/20 16:15:00 EDT, Route to Pharmacy Electronically, [facility] #[id number], Partial fill upon patient request if the prescription is for a schedule II... Start Date: 12/04/20 Stop Date: 02/02/21 Status: Ordered spacer chamber spacer chamber, See Instructions, # 1 each, Refills 0, Tot. Refills 0, Maintenance, Use with Albuterol Inhaler, 11/05/20 15:34:00 EDT, Supply, 168.7, cm, 11/05/20 15:05:00 EDT, Height, 55.2, kg, 11/05/20 15:05:00 EDT, Dry Weight Start Date: 11/05/20 Status: Ordered Vistaril pamoate 25 mg oral capsule 1 capsule = 25 mg, By Mouth, 4 times a day, PRN for anxiety, can take second pill (total of 50mg) if one is ineffective), # 40 capsule, 0 Refills, Acute 01/08/21 16:15:00 EDT, 12/04/20 16:14:00 EDT, Capsule, [facility] #[id number], Partial fill u... 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
--- OUTSIDE RECORDS SUMMARY | 2024-03-09 20:55 | XMS_ITS | Continuity of Care Document ---
Author Organization [facility] Address [address] [place] [address]- Care Team Providers Care Licensed Esthetician Name Role Phone Fouzia Moreno Primary Care Physician [phone] Encounter [facility] Date(s): 10/10/19 - 10/17/19 [facility] [address] [place] [phone]- [facility] Attending Physician: Ernst Wilson MD Allergies, Adverse Reactions, Alerts Substance Reaction Severity Status NKA Active Immunizations Given and Recorded Vaccine Date Status Refusal Reason influenza virus vaccine, inactivated 05/17/19 Give n influenza virus vaccine, inactivated 1 02/14/18 Gi sosa influenza virus vaccine, inactivated 03/10/16 Give n influenza virus vaccine, inactivated 01/28/15 Give n influenza virus vaccine, inactivated 2 04/08/14 Gi sosa influenza virus vaccine, inactivated 02/08/13 Give n influenza virus vaccine, inactivated 3 03/09/12 Gi sosa influenza virus vaccine, inactivated 01/12/11 Give n influenza virus vaccine, inactivated 08/03/10 Give n influenza virus vaccine, inactivated 03/31/05 Give n Human Papillomavirus Vaccine 4 09/02/17 Given Human Papillomavirus Vaccine 11/05/15 Given Hepatitis A Pediatric Vaccine 5 09/02/17 Given Hepatitis A Pediatric Vaccine 11/05/15 Given tetanus/diphtheria/pertussis, acel(Tdap) 11/05/15 Given Meningococcal Conjugate Vaccine 11/05/15 Given influ virus vac, H1N1, inactive(oldterm) 04/15/09 Given Influenza Vaccine (oldterm) 01/28/09 Given Influenza Inactive (IM) (oldterm) 03/04/08 Given Varicella Virus Vaccine 11/08/07 Given Poliovirus Vaccine, Inactivated 11/08/07 Given Poliovirus Vaccine, Inactivated 07/13/04 Given Poliovirus Vaccine, Inactivated 03/02/04 Given Poliovirus Vaccine, Inactivated 03 Given Diphth/Pertussis,Acel/Tetanus (oldterm) 11/08/07 G iven Diphth/Pertussis,Acel/Tetanus (oldterm) 03/31/05 G iven Diphth/Pertussis,Acel/Tetanus (oldterm) 07/13/04 G iven Diphth/Pertussis,Acel/Tetanus (oldterm) 03/02/04 G iven Diphth/Pertussis,Acel/Tetanus (oldterm) 03 G iven Influenza Virus Vaccine (oldterm) 6 03/28/06 Given Pneumococcal Conjugate (PCV7) (oldterm) 03/31/05 G iven Pneumococcal Conjugate (PCV7) (oldterm) 07/13/04 G iven Pneumococcal Conjugate (PCV7) (oldterm) 03/02/04 G iven Pneumococcal Conjugate (PCV7) (oldterm) 03 G iven Hepatitis B Vaccine (old term) 07/13/04 Given Hepatitis B Vaccine (old term) 03 Given Hepatitis B Vaccine (old term) 03 Given Haemophilus B Conj Vaccine (oldterm) 03/02/04 Give n Haemophilus B Conj Vaccine (oldterm) 03 Give n 1Result Comment: [id number] 2Admin Note: vis given 01.01.2014 3Early/Late Reason: Other : 4Result Comment: [id number] 5Result Comment: [id number] 6Admin Note: MFD BY [employer] Medications Adderall XR 15 mg oral capsule, extended release 1 capsule = 15 mg, By Mouth, Daily in AM, # 30 capsule, 0 Refills, Maintenance, 07/05/19 17:28:00 EST, CR Capsule, [facility] #[id number], 1 capsule By Mouth Daily in AM, 167.7, cm, 06/20/19 14:57:00 EST, Height, 54.1, kg, 06/20/19 14:57:00 EST,... Start Date: 07/05/19 Status: Ordered Aerochamber See Instructions, # 1 each, Maintenance, use with inhaler medications, 01/28/15 13:46:28, Compound Start Date: 01/28/15 Status: Ordered AirDuo RespiClick 232 mcg-14 mcg/inh inhalation powder 1, puffs, Inhalation, 2 times a day, rinse mouth and throat after use, # 1 each, Refills 2, Tot. Refills 2, Maintenance, 10/10/19 16:03:00 EDT, Powder, Route to Pharmacy Electronically, NYPDP_[id number], [facility] #[id number], 167.7, cm, ... Start Date: 10/10/19 Status: Ordered albuterol 0.083% inhalation solution 3 mL = 2.5 mg, Inhalation, Every 6 hours, # 120 each, 0 Refills, Maintenance, 07/26/19 15:30:00 EDT, Solution, [facility] #[id number], 167.7, cm, 06/20/19 14:57:00 EST, Height, 54.1, kg, 06/20/19 14:57:00 EST, Dry Weight Start Date: 07/26/19 Status: Ordered albuterol CFC free 90 mcg/inh inhalation aerosol See Instructions, inhale 2 to 8 puffs by mouth and INTO THE LUNGS every 4 hours if needed for wheezing and as directed 15 MINUTES BEFORE EXERCISE, # 17 Gm, Refills 0, Tot. Refills 0, Maintenance, 08/28/19 11:01:00 EDT, Instructions Replace Required De... Start Date: 08/28/19 Status: Ordered albuterol CFC free 90 mcg/inh inhalation aerosol See Instructions, inhale 2 to 8 puffs by mouth INTO THE LUNGS every 4 hours if needed for wheezing and as directed 15 MINUTES BEFORE EXERCISE, # 17 Gm, Refills 2, Tot. Refills 2, Maintenance, 10/10/19 15:42:00 EDT, Instructions Replace Required Detail... Start Date: 10/10/19 Status: Ordered Intuniv 1 mg oral tablet, extended release 1 tablet = 1 mg, By Mouth, Daily in AM, # 30 tablet, 1 Refills, Maintenance, 04/09/19 15:39:14 EST Start Date: 04/09/19 Status: Ordered montelukast 10 mg oral tablet 10 mg, 1, tablet, By Mouth, Daily, # 30 tablet, Refills 2, Tot. Refills 2, Maintenance, 10/10/19 16:02:00 EDT, Route to Pharmacy Electronically, [facility] #[id number], 167.7, cm, 06/20/19 14:57:00 EST, Height, 54.1, kg, 06/20/19 14:57:00 EST, . Start Date: 10/10/19 Status: Ordered Pepto-Bismol 262 mg oral tablet, chewable 2 tablet = 524 mg, Chew, 4 times a day, PRN for dyspepsia, # 48 tablet, 0 Refills, Maintenance, 05/17/19 13:26:00 EST, Chew Tablet, [facility] [address], 169, cm, 05/12/19 4:40:00 EST, Height, 51.4, kg, 05/17/19 13:14:00 EST, Dry Weight Start Date: 05/17/19 Status: Ordered ZyrTEC 10 mg oral tablet 1 tablet = 10 mg, By Mouth, Daily, # 30 tablet, 2 Refills, Maintenance, 10/10/19 16:02:00 EDT, Tablet, [facility] #[id number], 167.7, cm, 06/20/19 14:57:00 EST, Height, 54.1, kg, 06/20/19 14:57:00 EST, Dry Weight Start Date: 10/10/19 Status: Ordered Problem List Condition Effective Dates Status Health Status Inform ant ADHD (attention deficit hype ractivity disorder)(Confirmed) 1, 2 Active Allergic rhinitis(Confirmed) 3 Active Asthma(Confirmed) 4, 5, 6, 7 Active Tourette syndrome(Confirmed) Active Migraine headache without aura(Confirmed) Active Simple tics(Confirmed) 8 Active 1Now followed by Viridiana Sim 2Seen my Savannah Keita and started on Adderall 10mg XR 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
--- OUTSIDE RECORDS SUMMARY | 2024-03-09 20:55 | XMS_ITS | Continuity of Care Document ---
Author Organization [facility] Address [address] [place] [address]- Care Team Providers Care Radio Station Engineer Name Role Phone Ramsey LEMUS, Marguerite Primary Care Physician Encounter [facility] Date(s): 12/22/23 - 01/21/24 [facility] [address] [place] [address]- Allergies, Adverse Reactions, Alerts No Known Allergies Immunizations Given and Recorded Vaccine Date Status Refusal Reason SARS-CoV-2 (COVID-19) mRNA-1273 vaccine 01/11/22 R ecorded influenza virus vaccine, inactivated 1 04/23/20 Gi sosa influenza virus vaccine, inactivated 05/17/19 Give n influenza virus vaccine, inactivated 2 02/14/18 Gi sosa influenza virus vaccine, inactivated 01/26/17 Stan rded influenza virus vaccine, inactivated 03/10/16 Give n [...] Vaccine (old term) 03 Given 1Result Comment: [id number] 2Result Comment: [id number] 3Admin Note: vis given 01.01.2014 4Early/Late Reason: Other : 5Admin Note: SANOFI 6Result Comment: [facility] [id number] 7Result Comment: [phone] 8Result Comment: [id number] 9Admin Note: MFD BY [facility] Medications Advair Diskus 500 mcg-50 mcg inhalation powder 1, puffs, Inhalation, 2 times a day, RINSE MOUTH AND THROAT AFTER USE, # 60 each, Refills 5, Tot. Refills 5, Maintenance, 10/25/23 8:24:00 EDT, Route to Pharmacy Electronically, MAPDP_[id number], [facility] #[id number], 170, cm, 09/19/23 15:34:00... Start Date: 10/25/23 Status: Ordered cetirizine 10 mg oral tablet 1 tablet = 10 mg, By Mouth, Daily, # 90 tablet, 1 Refills, Maintenance, 10/25/23 8:25:00 EDT, Tablet, [facility] #[id number], Partial fill upon patient request if the prescription is for a schedule II opioid drug., 170, cm, 09/19/23 15:34:00 EDT,... Start Date: 10/25/23 Status: Ordered Flonase Allergy Relief 50 mcg/inh nasal spray 1 sprays, Nares, Both, Daily, # 1 each, 0 Refills, Maintenance, 10/25/23 8:24:00 EDT, [facility] #[id number], Partial fill upon patient request if the prescription is for a schedule II opioid drug., 170, cm, 09/19/23 15:34:00 EDT, Height, 54, kg,... Start Date: 10/25/23 Status: Ordered Isibloom 0.15 mg-0.03 mg oral tablet 1 tablet, By Mouth, Daily, # 28 tablet, 5 Refills, Maintenance, 09/12/23 12:45:00 EDT, [facility] #[id number], 28, TAKE 1 TABLET BY MOUTH DAILY TAKE AT THE SAME TIME DAILY, 170, cm, 08/20/23 1:30:00 EDT, Height, 54, kg, 08/20/23 1:30:00 EDT, Dry... Start Date: 09/12/23 Status: Ordered montelukast 10 mg oral tablet 1, tablet, By Mouth, Daily, # 90 tablet, Refills 0, Tot. Refills 0, Maintenance, 10/25/23 8:24:00 EDT, Route to Pharmacy Electronically, [facility] #[id number], 170, cm, 09/19/23 15:34:00 EDT, Height, 54, kg, 10/24/23 16:05:00 EDT, Dry Weight Start Date: 10/25/23 Status: Ordered SUMAtriptan 50 mg oral tablet 1 tablet = 50 mg, By Mouth, Daily, PRN for migraine headache, # 9 tablet, 1 Refills, Maintenance, 02/03/23 18:55:00 EDT, Tablet, [facility] #[id number], Partial fill upon patient request if the prescription is for a schedule II opioid drug., 167.... Start Date: 02/03/23 Status: Ordered Ventolin HFA 108 mcg/inh inhalation aerosol with adapter 2 puffs, Inhalation, Every 4 hours, PRN NEEDED FOR WHEEZING, # 18 Gm, 0 Refills, Maintenance, 12/23/23 15:33:00 EDT, [facility] #[id number], 170, cm, 09/19/23 15:34:00 EDT, Height, 54, kg, 10/24/23 16:05:00 EDT, Dry Weight Start Date: 12/23/23 Status: Ordered Problem List Condition Confirmation Course Effective Dates Status H ealth Status Informant ADHD (attention deficit hyperactivity disorder) 1, 2 Confirmed Active Allergic rhinitis 3 Confirmed Active Asthma 4, 5, 6, 7 Confirmed Active Tourette syndrome Confirmed Active 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 Migraine headache without aura Confirmed Active Anxiety and depression Confirmed Active Simple tics 8 Confirmed Active 1Now followed by Viridiana Sim 2Seen my Savannah Keita and started on Adderall 10mg XR 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, 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, allergy to pollen, dust mite, animal dander- Cetirizine and Flunisolide 4Saw Pulm- Increased Advair and added Qnasal; Given oral steroids 2/2 URI triggering her asthma 5Saw Pulm 11/2016- normal spirometry; continue Advair and Singulair - Saw pulm Still on Advair and Singulair; Added Flonase for seasonal allergies - Saw Pulm; On Advair and Singulair 8Seen my Neuro and Savannah Keita ([facility]) started on Clonidine Social History Social History Type Response Smoking Status Never (less than 100 in lifetime) entered on: 11/04/20 Sex Female Patient Care team information Care Team Personnel Name: Alley Evans RN Position: [facility] RN Member Role: Primary Care Nurse Name: Marguerite Mustafa MD Position: [facility] Physician - Primary Care Member Role: PCP Address: Address: [address] [place] [address]- Care Team Related Persons Name: TAMMY VALENTE Address: [place] [address] Name: OSMAN VALENTE Address: [address] [place] [address] Name: REGINALDO BAXTER Address: [address] [place] [address] Name: REGINALDO BAXTER Address: [address] [place] [address] Name: SAMANTHA RDZ Address: home [address] [place] [address]
--- OUTSIDE RECORDS SUMMARY | 2024-03-09 20:55 | XMS_ITS | Continuity of Care Document ---
Author Organization [facility] ter Address [address] [place] [address]- Care Team Providers Care Poultry Processor Name Role Phone Ramsey LEMUS, Marguerite Primary Care Physician [phone] [facility]counter [facility] Date[facility]): 08/20/23 - 08/20/[address] [address]- Discharge Disposition: A-D/C Walkout Attending Physician: Not on Staff, Attending MD Admitting Physician: Not on Staff, Admitting MD Referring Physician: Not on Staff, Referring MD Allergies, Adverse Reactions, Alerts No Known Allergies Immunizations Given and Recorded Vaccine Date Status Refusal Reason SARS-CoV-2 (COVID-19) mRNA-3333 vaccine 01/11/22 R ecorded influenza virus vaccine, [...] Vaccine (old term) 03 Given 1Result Comment: 25152-078-70 2Result Comment: [id number] 3Admin Note: vis given 01.01.2014 4Early/Late Reason: Other : 5Admin Note: SANOFI 6Result Comment: [facility] [id number] 7Result Comment: [id number] 8Result Comment: [id number] 9Admin Note: MFD BY SANOFI Medications Advair Diskus 500 mcg-50 mcg inhalation powder 1, puffs, Inhalation, 2 times a day, RINSE MOUTH AND THROAT AFTER USE, # 60 each, Refills 5, Tot. Refills 5, Maintenance, 03/11/23 13:16:00 EDT, [id number] #[id number], 167.5, cm, 02/03/23 18:02... Start Date: 03/11/23 Status: Ordered Apri 0.15 mg-0.03 mg oral tablet 1 tablet, By Mouth, Daily, take same time dialy, # 28 tablet, 12 Refills, Maintenance, 03/17/22 9:23:00 EDT, Tablet, [facility] #[id number], Partial fill upon patient request if the prescriptionis for a schedule II opioid drug., 1 tablet By Mout... Start Date: 03/17/22 Status: Ordered Flonase Allergy Relief 50 mcg/inh nasal spray 1 sprays, Nares, Both, Daily, # 1 each, 0 Refills, Maintenance, 02/03/23 19:09:00 EDT, [facility] #[id number], Partial fill upon patient request if the prescription is for a schedule II opioid drug., 167.5, cm, 02/03/23 18:02:00 EDT, Height, 53.8... Start Date: 02/03/23 Status: Ordered montelukast 10 mg oral tablet 1, tablet, By Mouth, Daily, # 90 tablet, Refills 0, Maintenance, 03/11/23 14:23:00 EDT, Route to Pharmacy Electronically, [facility] #[id number], 167.5, cm, 02/03/23 18:02:00 EDT, Height, 52.2, kg, 03/10/23 10:34:00 EDT, Dry Weight Start Date: 03/11/23 Status: Ordered predniSONE 20 mg oral tablet 2 tablet = 40 mg, By Mouth, Daily, # 10 tablet, 0 Refills, Maintenance, 03/11/23 13:16:00 EDT, Tablet, [facility] #[id number], Partial fill upon patient request if the prescription is for a schedule II opioid drug., 167.5, cm, 02/03/23 18:02:00 E... Start Date: 03/11/23 Stop Date: 03/16/23 Status: Ordered SUMAtriptan 50 mg oral tablet 1 tablet = 50 mg, By Mouth, Daily, PRN for migraine headache, # 9 tablet, 1 Refills, Maintenance, 02/03/23 18:55:00 EDT, Tablet, [facility] #[id number], Partial fill upon patient request if the prescription is for a schedule II opioid drug., 167.... 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, allergy to pollen, dust mite, animal dander- Cetirizine and Flunisolide 4Saw Pulm- Increased Advair and added Qnasal; Given oral steroids 2/2 URI triggering her asthma 5Saw Pulm 11/2016- normal spirometry; continue Advair and Singulair - Saw pulm Still on Advair and Singulair; Added Flonase for seasonal allergies - Saw Pulm; On Advair and Singulair 8Seen my Neuro and Savannahlupe Keita (N) started on Clonidine Results Radiology Reports * Exam Date Time Procedure Performing Provider Status 08/20/23 2:00 AM Chest 2 Views Frontal and Lat Hawa Diane (Verified) Notes: (Chest 2 Views Frontal and Lat) Reason For Exam: Shortness of Breath RESULT: Chest 2 Views Frontal and Lat PROCEDURE: Chest 2 Views Frontal and Lat INDICATION: 17 years old Female with shortness of breath d t allergies. Received neb enroute and now feeling better. No wheezes per EMS. Pt reports was around recent triggers lately i e cold air (recent snow), stayed at friend's house, friends brother smokes and they have dogs etc; Reason: Shortness of Breath; Clinical Question(s): Pneumonia; Special Instructions: This is a protocol film. COMPARISON: None. FINDINGS: PA and lateral upright views of the chest obtained. Lines and tubes:None. Lungs and pleura: Lungs are clear. No pleural effusions.No evidence of pneumothorax. Heart, mediastinum and steven: The cardiomediastinal silhouette and pulmonary vasculature are unremarkable. No cardiomegaly or pulmonary venous hypertension. Bones and soft tissues: Brassiere metallic portions noted. IMPRESSION: 1. No evidence of acute cardiopulmonary disease. Thank you for allowing me to participate in the care of this patient. WSN: [id number] Ordering Physician: May Goldstein Dictated By: Armando Shen MD Dictated Date/Time: 08/20/23 7:53 am Reviewed By: Armando Shen MD Signed By: Armando Shen MD Signed Date/Time: 08/20/23 7:53 am Transcribed By: YAMINI Transcribed Date/Time: 08/20/23 7:51 am Vital Signs Most recent to oldest [Reference Range]: 1 Height 170 cm (08/20/23 1:30 AM) Weight 54 kg (08/20/23 1:30 AM) Oxygen Saturation [94-100 %] 98 % (08/20/23 1:30 AM) Pulse Rate [55-90 bpm] 100 bpm *H* (08/20/23 1:30 AM) Body Mass Index [18.5-24.99 kg/m2] 18.69 kg/m2 (08/20/23 1:30 AM) Blood Pressure [90-138/55-84 mm Hg] 121/ 80mm Hg (08/20/23 1:30 AM) Respiratory Rate [16-30 br/min] 16 br/mi n (08/20/23 1:30 AM) Temperature [96.8-100.4 DegF] 97.9 DegF (08/20/23 1:30 AM) Mode of Delivery (Oxygen) Room air (08/20/23 1:30 AM) Blood pressure sites Arm, right (08/20/23 1:30 AM) Temperature Route Oral (08/20/23 1:30 AM) Dry Weight 54 kg (08/20/23 1:30 AM) Weight Obtained Via Standing scale (08/20/23 1:30 AM) Dry Weight Obtained Via Standing scale (08/20/23 1:30 AM) Height Percentile 84.91 % 1 (08/20/23 1:30 AM) Height ZScore 1.03 2 (08/20/23 1:30 AM) Weight Percentile Per Age 31.86 % 3 (08/20/23 1:30 AM) BMI Percentile 11.99 4 (08/20/23 1:30 AM) BMI ZScore -1.18 5 (08/20/23 1:30 AM) Weight ZScore -0.47 6 (08/20/23 1:30 AM) 1Result Comment: ^~:!Percentile Source -CDC/WHO 2Result Comment: ^~:!ZScore Source -CDC/WHO 3Result Comment: ^~:!Percentile Source -CDC/WHO 4Result Comment: ^~:!Percentile Source -CDC/WHO 5Result Comment: ^~:!ZScore Source -CDC/WHO 6Result Comment: ^~:!ZScore Source -CDC/WHO Social History Social History Type Response Smoking Status Never (less than 100 in lifetime) entered on: 11/04/20 Sex Female Patient Care team information Care Team Personnel Name: Alley Evans RN Position: S RN Member Role: Primary Care Nurse Name: Marguerite Mustafa MD Position: S Physician - Primary Care Member Role: PCP Address: Address: [address] [place] [address] [place] [address]- Care Team Related Persons Name: TAMMY VALENTE Address: [place] [address] Name: SIDRA DEEDEEEUSEBIA Address: [address] [place] [address] Name: REGINALDO BAXTER Address: home [address] [place] [address] Name: REGINALDO BAXTER Address: [address] [place] [address] Name: SAMANTHA RDZ Address: home [address] [place] [address]
--- OUTSIDE RECORDS SUMMARY | 2024-03-09 20:55 | XMS_ITS | Continuity of Care Document ---
Author Organization [facility] ter Address [address] [place] [address]- Care Team Providers Care Correctional Treatment Specialist Name Role Phone Ramsey LEMUS, Marguerite Primary Care Physician [facility] Date[facility]): 01/14[facility] - 02/27/[address] [address] Attending Physician: Marguerite Mustafa MD Admitting Physician: Marguerite Mustafa MD Referring Physician: Shelly Aden DO Allergies, Adverse Reactions, Alerts Substance Reaction Severity [...] Vaccine (old term) 03 Given 1Result Comment: [id number] 2Result Comment: [id number] 3Admin Note: vis given 01.01.2014 4Early/Late Reason: Other : 5Admin Note: SANOFI 6Result Comment: [facility] [id number] 7Result Comment: [id number] 8Result Comment: [id number] 9Admin Note: MFD BY [email or web address] Medications Advair Diskus 500 mcg-50 mcg inhalation powder 1, puffs, Inhalation, 2 times a day, RINSE MOUTH AND THROAT AFTER USE, # 60 each, Refills 3, Tot. Refills 0, Maintenance, 11/14/20 11:11:00 EDT, Route to Pharmacy Electronically, [id number], [facility] #[id number], 168.7, cm, 11/05/20 15:05... Start Date: 11/14/20 Status: Ordered Aerochamber See Instructions, # 1 each, Maintenance, use with inhaler medications, 01/28/15 13:46:28, Compound Start Date: 01/28/15 Status: Ordered albuterol 0.083% inhalation solution 3 mL = 2.5 mg, Inhalation, Every 6 hours, # 120 each, 2 Refills, Maintenance, 05/23/20 15:08:00 EST, Solution, [facility] #[id number], 171, cm, 04/23/20 17:37:00 EST, Height, 57.3, [...] Pharmacy Electr... Start Date: 11/05/20 Status: Ordered fluvoxaMINE 25 mg oral tablet 1 tablet = 25 mg, By Mouth, Daily at bedtime, # 30 tablet, 0 Refills, Maintenance, 01/15/21 16:51:00 EDT, Tablet, [facility] #[id number], Partial fill upon patient request if the prescription isfor a schedule II opioid drug., 168.7, cm, 11/05/20... Start Date: 01/15/21 Stop Date: 02/14/21 Status: Ordered montelukast 10 mg oral tablet 10 mg, 1, tablet, By Mouth, Daily, # 30 tablet, Refills 3, Tot. Refills 3, Maintenance, 11/05/20 15:34:00 EDT, Route to Pharmacy Electronically, [facility] #[id number], 168.7, cm, 11/05/20 15:05:00 EDT, Height, 55.2, kg, 11/05/20 15:05:00 EDT, . 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
--- OUTSIDE RECORDS SUMMARY | 2024-03-09 20:55 | XMS_ITS | Continuity of Care Document ---
Author Organization [facility] Address [address] [place] [address]- Care Team Providers Care Caustic Strength Inspector Name Role Phone Ramsey LEMUS, Marguerite Primary Care Physician [facility] Date[facility]s): 02/05/20 - 03/06/20 [facility] [address] [place] [address]- [facility] Allergies, Adverse Reactions, Alerts Substance Reaction Severity [...] 08/03/10 Give n influenza virus vaccine, inactivated 4 03/08/07 Gi sosa influenza virus vaccine, inactivated 03/31/05 Give n Human Papillomavirus Vaccine 5 09/02/17 Given Human Papillomavirus Vaccine 11/05/15 Given Hepatitis A Pediatric Vaccine 6 09/02/17 Given Hepatitis A Pediatric Vaccine 11/05/15 Given Varicella Virus Vaccine 11/08/07 Given Varicella Virus Vaccine 11/11/04 Given Measles/Mumps/Rubella Virus Vaccine 11/08/07 Given Measles/Mumps/Rubella Virus Vaccine 11/11/04 Given Influenza Virus Vaccine (oldterm) 7 03/28/06 Given Pneumococcal Conjugate (PCV7) (oldterm) 03/31/05 G iven Pneumococcal Conjugate (PCV7) (oldterm) 07/13/04 G iven Pneumococcal Conjugate (PCV7) (oldterm) 03/02/04 G iven Pneumococcal Conjugate (PCV7) (oldterm) 03 G iven Diphth/Pertussis,Acel/Tetanus (oldterm) 03/31/05 G iven Diphth/Pertussis,Acel/Tetanus (oldterm) 07/13/04 G iven Diphth/Pertussis,Acel/Tetanus (oldterm) 03/02/04 G iven Diphth/Pertussis,Acel/Tetanus (oldterm) 03 G iven Haemophilus B Conj Vaccine (oldterm) 11/11/04 Give n Haemophilus B Conj Vaccine (oldterm) 07/13/04 Give n Haemophilus B Conj Vaccine (oldterm) 03/02/04 Give n Haemophilus B Conj Vaccine (oldterm) 03 Give n Poliovirus Vaccine, Inactivated 07/13/04 Given Poliovirus Vaccine, Inactivated 03/02/04 Given Poliovirus Vaccine, Inactivated 03 Given Hepatitis B Vaccine (old term) 07/13/04 Given Hepatitis B Vaccine (old term) 03 Given Hepatitis B Vaccine (old term) 03 Given 1Result Comment: [id number] 2Admin Note: vis given 01.01.2014 3Early/Late Reason: Other : 4Admin Note: SANOFI 5Result Comment: [id number] 6Result Comment: [id number] 7Admin Note: MFD BY SANOFI Medications Adderall XR 15 mg oral capsule, extended release 1 capsule = 15 mg, By Mouth, Daily in AM, # 30 capsule, 0 Refills, Maintenance, 07/05/19 17:28:00 EST, CR Capsule, [facility] #[id number], 1 capsule By Mouth Daily in AM, [...] throat after use, # 1 each, Refills 3, Tot. Refills 3, Maintenance, 12/13/19 13:20:00 EDT, Powder, Route to Pharmacy Electronically, [id number], [facility] #[id number], 169.1, cm, ... Start Date: 12/13/19 Status: Ordered albuterol 0.083% inhalation solution 3 mL = 2.5 mg, Inhalation, Every 6 hours, # 120 each, 2 Refills, Maintenance, 12/14/19 14:25:00 EDT, Solution, [facility] #[id number], 169.1, cm, 12/13/19 10:35:00 EDT, Height, 58, kg, 12/13/19 10:35:00 EDT, Dry Weight Start Date: 12/14/19 Status: Ordered albuterol CFC free 90 mcg/inh inhalation aerosol See Instructions, inhale 2 to 8 puffs by mouth INTO THE LUNGS every 4 hours if needed for wheezing and as directed 15 MINUTES BEFORE EXERCISE, # 17 Gm, Refills 3, Tot. Refills 3, Maintenance, 03/04/20 14:08:00 EDT, Instructions Replace Required Detail... Start Date: 03/04/20 Status: Ordered albuterol CFC free 90 mcg/inh inhalation aerosol See Instructions, inhale 2 to 8 puffs by mouth and INTO THE LUNGS every 4 hours if needed for wheezing and as directed 15 MINUTES BEFORE EXERCISE, # 17 Gm, Refills 0, Tot. Refills 0, Maintenance, 08/28/19 11:01:00 EDT, Instructions Replace Required De... Start Date: 08/28/19 Status: Ordered montelukast 10 mg oral tablet 10 mg, 1, tablet, By Mouth, Daily, # 30 tablet, Refills 3, Tot. Refills 3, Maintenance, 12/13/19 13:21:00 EDT, Route to Pharmacy Electronically, [facility] #[id number], 169.1, cm, 12/13/19 10:35:00 EDT, Height, 58, kg, 12/13/19 10:35:00 EDT, Dry... Start Date: 12/13/19 Status: Ordered ZyrTEC 10 mg oral tablet 1 tablet = 10 mg, By Mouth, Daily, # 30 tablet, 3 Refills, Maintenance, 12/13/19 13:21:00 EDT, Tablet, [facility] #[id number], 169.1, cm, 12/13/19 10:35:00 EDT, Height, 58, kg, 12/13/19 10:35:00EDT, Dry Weight Start Date: 12/13/19 Status: Ordered Problem List Condition Effective Dates Status Health Status Inform ant ADHD (attention deficit hype ractivity disorder)(Confirmed) 1, 2 Active Allergic rhinitis(Confirmed) 3 Active Asthma(Confirmed) 4, 5, 6, 7 Active Tourette syndrome(Confirmed) Active Migraine headache without aura(Confirmed) Active Simple tics(Confirmed) 8 Active 1Now followed by Viridiana Sim 2Seen my Savannah Keita and started on Adderall 10mg XR 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
--- OUTSIDE RECORDS SUMMARY | 2024-03-09 20:55 | XMS_ITS | Continuity of Care Document ---
Author Organization [facility] Address [address] [place] [address]- Care Team Providers Care Linseed Oil Press Tender Name Role Phone Ramsey LEMUS, Marguerite Primary Care Physician [phone] [facility]s): 03/26/22 - 07/24/22 [facility] [address] [place] [address]- Attending Physician: Ernst Wilson MD Admitting Physician: Ernst Wilson MD Allergies, Adverse Reactions, Alerts No Known [...] Vaccine (old term) 03 Given 1Result Comment: [id number] 2Result Comment: [id number] 3Admin Note: vis given 01.01.2014 4Early/Late Reason: Other : 5Admin Note: SANOFI 6Result Comment: [facility] [id number] 7Result Comment: [id number] 8Result Comment: [id number] 9Admin Note: MFD BY [employer] Medications Advair Diskus 500 mcg-50 mcg inhalation powder 1, puffs, Inhalation, 2 times a day, RINSE MOUTH AND THROAT AFTER USE, # 60 each, Refills 5, Tot. Refills 5, Maintenance, 08/19/21 16:30:00 EDT, Route to Pharmacy Electronically, NCPDP_[id number], [facility] #[id number], 168.4, cm, 08/19/21 16:16... Start Date: 08/19/21 Status: Ordered Aerochamber See Instructions, # 1 each, Maintenance, use with inhaler medications, 06/24/21 15:05:00 EST, Compound, 167.4, cm, 06/24/21 14:42:00 EST, Height, 56.09, kg, 06/24/21 14:42:00 EST, Dry Weight Start Date: 06/24/21 Status: Ordered albuterol CFC free 90 mcg/inh inhalation aerosol See Instructions, PRN, 2-6 puffs Inhalation Every 4 hours as needed use with spacer chamber, # 1 each, Refills 1, Tot. Refills 1, Maintenance, 06/04/22 8:47:00 EST, Instructions Replace Required Details, Route to Pharmacy Electronically, [id number]... Start Date: 06/04/22 Status: Ordered Apri 0.15 mg-0.03 mg oral tablet 1 tablet, By Mouth, Daily, take same time dialy, # 28 tablet, 12 Refills, Maintenance, 03/17/22 9:23:00 EDT, Tablet, [facility] #[id number], Partial fill upon patient request if the prescriptionis for a schedule II opioid drug., 1 tablet By Mout... Start Date: 03/17/22 Status: Ordered cetirizine 10 mg oral tablet 1 tablet = 10 mg, By Mouth, Daily, # 30 tablet, 0 Refills, Maintenance, 08/19/21 16:32:00 EDT, Tablet, [facility] #[id number], Partial fill upon patient request if the prescription is for a schedule II opioid drug., 168.4, cm, 08/19/21 16:16:00 E... Start Date: 08/19/21 Status: Ordered fluvoxaMINE 50 mg oral tablet 1 tablet = 50 mg, By Mouth, Daily at bedtime, # 30 tablet, 2 Refills, Maintenance, 04/05/22 12:27:00 EST, Tablet, [facility] #[id number], Partial fill upon patient request if the prescription isfor a schedule II opioid drug., 169.5, cm, 03/17/22... Start Date: 04/05/22 Stop Date: 07/04/22 Status: Ordered montelukast 10 mg oral tablet 1, tablet, By Mouth, Daily, # 30 tablet, Refills 1, Maintenance, 06/18/22 13:28:00 EST, Route to Pharmacy Electronically, [facility] #[id number], 169.5, cm, 03/17/22 9:15:00 EDT, Height, 53.7, kg, 02/25/22 13:16:00 EDT, Dry Weight Start Date: 06/18/22 Status: Ordered Vitamin D3 1000 intl units oral capsule 1 capsule = 25 mcg, By Mouth, Daily, # 30 capsule, 4 Refills, Maintenance, 08/19/21 16:30:00 EDT, Capsule, [facility] #[id number], Partial fill upon patient request if the prescription is for a schedule II opioid drug., 168.4, cm, 08/19/21 16:16:... 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, allergy to pollen, dust mite, animal dander- Cetirizine and Flunisolide 4Saw Pulm- Increased Advair and added Qnasal; Given oral steroids 2/2 URI triggering her asthma 5Saw Pulm 11/2016- normal spirometry; continue Advair and Singulair - Saw pulm Still on Advair and Singulair; Added Flonase for seasonal allergies - Saw Pulm; On Advair and Singulair 8Seen my Neuro and Savannah Keita ([facility]) started on Clonidine Social History Social History Type Response Smoking Status Never (less than 100 in lifetime) entered on: 11/04/20 Sex Patient Care team information Care Team Personnel Name: Marguerite Mustafa MD Position: [facility] Primary Care Physician Member Role: PCP Address: Address: [address] [place] [address] [place] [address]- Care Team Related Persons Name: TAMMY VALENTE Address: [place] [address] Name: OSMAN VALENTE Address: [address] [place] [address] Name: REGINALDO BAXTER Address: [address] [place] [address] Name: REGINALDO BAXTER Address: [address] [place] [address] Name: SAMANTHA RDZ Address: home [address] [place] [address]
--- OUTSIDE RECORDS SUMMARY | 2024-03-09 20:55 | XMS_ITS | Continuity of Care Document ---
Author Organization [facility] Address [address] [place] [id number]- Care Team Providers Care Cotton Ball Bagger Name Role Phone Ramsey LEMUS, Marguerite Primary Care Physician [facility] Date([facility]): 01/03/24 - 02/02/24 [facility] [address] [place] [id number]- Allergies, Adverse Reactions, Alerts No Known Allergies [...] Vaccine (old term) 03 Given 1Result Comment: [id number] 2Result Comment: [id number] 3Admin Note: vis given 01.01.2014 4Early/Late Reason: Other : 5Admin Note: SANOFI 6Result Comment: [facility] [id number] 7Result Comment: [id number] 8Result Comment: [id number] 9Admin Note: MFD BY [employer] Medications Advair Diskus 500 mcg-50 mcg inhalation powder 1, puffs, Inhalation, 2 times a day, RINSE MOUTH AND THROAT AFTER USE, # 60 each, Refills 5, Tot. Refills 5, Maintenance, 10/25/23 8:24:00 EDT, Route to Pharmacy Electronically, [id number]_[id number], [facility] #[id number], 170, cm, 09/19/23 15:34:00... Start Date: 10/25/23 Status: Ordered cetirizine 10 mg oral tablet 1 tablet = 10 mg, By Mouth, Daily, # 90 tablet, 1 Refills, Maintenance, 10/25/23 8:25:00 EDT, Tablet, [facility] #[id number], Partial fill upon patient request if the prescription is for a schedule II opioid drug., 170, cm, 09/19/23 15:34:00 EDT,... Start Date: 10/25/23 Status: Ordered Flonase Allergy Relief 50 mcg/inh nasal spray 1 sprays, Nares, Both, Daily, # 1 each, 0 Refills, Maintenance, 10/25/23 8:24:00 EDT, [facility] #[id number], Partial fill upon patient request if the prescription is for a schedule II opioid drug., 170, cm, 09/19/23 15:34:00 EDT, Height, 54, kg,... Start Date: 10/25/23 Status: Ordered Isibloom 0.15 mg-0.03 mg oral tablet 1 tablet, By Mouth, Daily, # 28 tablet, 5 Refills, Maintenance, 09/12/23 12:45:00 EDT, [facility] #[id number], 28, TAKE 1 TABLET BY MOUTH DAILY TAKE AT THE SAME TIME DAILY, 170, cm, 08/20/23 1:30:00 EDT, Height, 54, kg, 08/20/23 1:30:00 EDT, Dry... Start Date: 09/12/23 Status: Ordered montelukast 10 mg oral tablet 1, tablet, By Mouth, Daily, # 90 tablet, Refills 0, Tot. Refills 0, Maintenance, 10/25/23 8:24:00 EDT, Route to Pharmacy Electronically, [facility] #[id number], 170, cm, 09/19/23 15:34:00 EDT, Height, 54, kg, 10/24/23 16:05:00 EDT, Dry Weight Start Date: 10/25/23 Status: Ordered SUMAtriptan 50 mg oral tablet 1 tablet = 50 mg, By Mouth, Daily, PRN for migraine headache, # 9 tablet, 1 Refills, Maintenance, 02/03/23 18:55:00 EDT, Tablet, [facility] #[id number], Partial fill upon patient request if the prescription is for a schedule II opioid drug., 167.... 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, allergy to pollen, dust mite, animal dander- Cetirizine and Flunisolide 4Saw Pulm- Increased Advair and added Qnasal; Given oral steroids 2/2 URI triggering her asthma 5Saw Pulm 11/2016- normal spirometry; continue Advair and Singulair - Saw pulm Still on Advair and Singulair; Added Flonase for seasonal allergies - Saw Pulm; On Advair and Singulair 8Seen my Neuro and [place] Keita ([facility]) started on Clonidine Social History Social History Type Response Smoking Status Never (less than 100 in lifetime) entered on: 11/04/20 Sex Female Patient Care team information Care Team Personnel Name: Alley Evans RN Position: [facility] RN Member Role: Primary Care Nurse Name: Marguerite Mustafa MD Position: [facility] Physician - Primary Care Member Role: PCP Address: Address: [address] [place] [address]- Care Team Related Persons Name: TAMMY VALENTE Address: [place] [address] Name: OSMAN VALENTE Address: [address] [place] [address] Name: REGINALDO BAXTER Address: [address] [place] [address] Name: REGINALDO BAXTER Address: [address] [place] [address] Name: SAMANTHA RDZ Address: [address] [place] [address]
--- OUTSIDE RECORDS SUMMARY | 2024-03-09 20:55 | XMS_ITS | Continuity of Care Document ---
Author Organization [facility] Address [address] [place] [address]- Care Team Providers Care Keno Manager Name Role Phone Ramsey LEMUS, Marguerite Primary Care Physician [facility] Date[facility]s): 05/23/20 - 06/22/20 [facility] [address] [place] [id number]- Attending Physician: Admtr, Ar8 Allergies, Adverse Reactions, Alerts Substance Reaction Severity [...] Vaccine (old term) 03 Given 1Result Comment: [id number] 2Result Comment: [id number] 3Admin Note: vis given 01.01.2014 4Early/Late Reason: Other : 5Admin Note: SANOFI 6Result Comment: [facility] [id number] 7Result Comment: [id number] 8Result Comment: [id number] 9Admin Note: MFD BY SANOFI Medications Advair Diskus 500 mcg-50 mcg inhalation powder 1, inhalation, Inhalation, 2 times a day, rinse mouth and throat after use, # 1 each, Refills 3, Tot. Refills 3, Maintenance, 06/06/20 9:57:00 EST, Powder, Route to Pharmacy Electronically, UTPDP_[id number], [facility] #[id number], 171, cm, 05/28... Start Date: 06/06/20 Status: Ordered Aerochamber See Instructions, # 1 each, Maintenance, use with inhaler medications, 01/28/15 13:46:28, Compound Start Date: 01/28/15 Status: Ordered albuterol 0.083% inhalation solution 3 mL = 2.5 mg, Inhalation, Every 6 hours, # 120 each, 2 Refills, Maintenance, 05/23/20 15:08:00 EST, Solution, [facility] #[id number], 171, cm, 04/23/20 17:37:00 EST, Height, 57.3, kg, 04/23/20 17:37:00 EST, Dry Weight Start Date: 05/23/20 Status: Ordered albuterol CFC free 90 mcg/inh inhalation aerosol See Instructions, inhale 2 to 8 puffs by mouth and INTO THE LUNGS every 4 hours if needed for wheezing and as directed 15 MINUTES BEFORE EXERCISE, # 17 Gm, Refills 0, Tot. Refills 0, Maintenance, 05/28/20 14:44:00 EST, Instructions Replace Required De... Start Date: 05/28/20 Status: Ordered montelukast 10 mg oral tablet 10 mg, 1, tablet, By Mouth, Daily, # 30 tablet, Refills 3, Tot. Refills 3, Maintenance, 05/28/20 14:44:00 EST, Route to Pharmacy Electronically, [facility] #[id number], 171, cm, 05/28/20 13:50:00 EST, Height, 57.3, kg, 05/28/20 13:50:00 EST, Dry... Start Date: 05/28/20 Status: Ordered PROzac 10 mg oral capsule See Instructions, Take 1 daily for 7 days, then increase to 2 daily, # 60 capsule, Refills 3, Tot. Refills 3, Maintenance, 04/16/20 16:36:00 EST, Instructions Replace Required Details, Route to Pharmacy Electronically, [facility] #[id number], [place]... Start Date: 04/16/20 Status: Ordered ZyrTEC 10 mg oral tablet 1 tablet = 10 mg, By Mouth, Daily, # 30 tablet, 3 Refills, Maintenance, 04/14/20 8:49:00 EST, Tablet, [facility] #[id number], 168.5, cm, 02/20/20 15:15:00 EDT, Height, 58.7, kg, 02/20/20 15:15:00 EDT, Dry Weight Start Date: 04/14/20 Status: Ordered Problem List Condition Effective Dates Status Health Status Inform ant ADHD (attention deficit hype ractivity disorder)(Confirmed) 1, 2 Active Allergic rhinitis(Confirmed) 3 Active Asthma(Confirmed) 4, 5, 6, 7 Active Tourette syndrome(Confirmed) Active Migraine headache without aura(Confirmed) Active Anxiety and depression(Confirmed) Active Simple tics(Confirmed) 8 Active 1Now followed by Vriidiana Sim 2Seen my [place] Keita and started on Adderall 10mg XR 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
--- OUTSIDE RECORDS SUMMARY | 2024-03-09 20:55 | XMS_ITS | Continuity of Care Document ---
Author Organization [facility] Address [address] [place] [address]- Care Team Providers Care Make Up Operator Name Role Phone Ramsey LEMUS, Marguerite Primary Care Physician [facility] 09[facility]14[facility]21 - 11/27/21 [facility] [address] [place] [address]- Attending Physician: Ernst Wilson MD Admitting Physician: [...] Vaccine (old term) 03 Given 1Result Comment: [id number] 2Result Comment: [id number] 3Admin Note: vis given 01.01.2014 4Early/Late Reason: Other : 5Admin Note: SANOFI 6Result Comment: [facility] [id number] 7Result Comment: [id number] 8Result Comment: [id number] 9Admin Note: MFD BY SANOFI Medications Advair Diskus 500 mcg-50 mcg inhalation powder 1, puffs, Inhalation, 2 times a day, RINSE MOUTH AND THROAT AFTER USE, # 60 each, Refills 5, Tot. Refills 5, Maintenance, 08/19/21 16:30:00 EDT, [id number] #[id number], 168.4, cm, 08/19/21 16:16... Start Date: 08/19/21 Status: Ordered Aerochamber See Instructions, # 1 each, Maintenance, use with inhaler medications, 06/24/21 15:05:00 EST, Compound, 167.4, cm, 06/24/21 14:42:00 EST, Height, 56.09, kg, 06/24/21 14:42:00 EST, Dry Weight Start Date: 06/24/21 Status: Ordered albuterol 0.083% inhalation solution 3 mL = 2.5 mg, Inhalation, Every 6 hours, # 120 each, 2 Refills, Maintenance, 08/19/21 16:30:00 EDT, Solution, [facility] #[id number], 168.4, cm, 08/19/21 16:16:00 EDT, Height, 56, kg, 08/19/21 16:16:00 EDT, Dry Weight Start Date: 08/19/21 Status: Ordered albuterol CFC free 90 mcg/inh inhalation aerosol See Instructions, 2-6 puffs Inhalation Every 4 hours as needed for cough, SOB or wheeze use with spacer chamber, # 1 each, Refills 1, Tot. Refills 1, Maintenance, 08/19/21 16:30:00 EDT, Instructions Replace Required Details, Route to Pharmacy Electr... Start Date: 08/19/21 Status: Ordered cetirizine 10 mg oral tablet 1 tablet = 10 mg, By Mouth, Daily, # 30 tablet, 0 Refills, Maintenance, 08/19/21 16:32:00 EDT, Tablet, [facility] #[id number], Partial fill upon patient request if the prescription is for a schedule II opioid drug., 168.4, cm, 08/19/21 16:16:00 E... Start Date: 08/19/21 Status: Ordered fluvoxaMINE 50 mg oral tablet 1 tablet = 50 mg, By Mouth, Daily at bedtime, # 30 tablet, 2 Refills, Maintenance, 10/04/21 11:40:00 EDT, Tablet, [facility] #[id number], Partial fill upon patient request if the prescription isfor a schedule II opioid drug., 168.4, cm, 09/15/21... Start Date: 10/04/21 Stop Date: 01/02/22 Status: Ordered montelukast 10 mg oral tablet 10 mg, 1, tablet, By Mouth, Daily in PM, # 30 tablet, Refills 3, Tot. Refills 3, Maintenance, 08/19/21 16:30:00 EDT, Route to Pharmacy Electronically, [facility] #[id number], Partial fill upon patient request if the prescription is for a schedule... Start Date: 08/19/21 Status: Ordered Vitamin D3 1000 intl units oral capsule 1 capsule = 25 mcg, By Mouth, Daily, # 30 capsule, 4 Refills, Maintenance, 08/19/21 16:30:00 EDT, Capsule, [facility] #[id number], Partial fill upon patient request if the prescription is for a schedule II opioid drug., 168.4, cm, 08/19/21 16:16:... 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
--- OUTSIDE RECORDS SUMMARY | 2024-03-09 20:55 | XMS_ITS | Continuity of Care Document ---
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 Name Role Phone Ramsey LEMUS, Marguerite Primary Care Physician Encounter [facility] Date(s): 10/28/22 - 10/31/[address] [id number]- Encounter Diagnosis Asthma exacerbation(Final) - 10/28/22 Discharge Disposition: A-D/C Home Attending Physician: Noman Gallego MD Admitting Physician: Noman Gallego MD Referring Physician: Not on Staff, Referring MD Allergies, Adverse Reactions, Alerts No Known Allergies Immunizations Given and Recorded Vaccine Date Status Refusal Reason SARS-CoV-2 (COVID-19) [id number] vaccine 01/11/22 R ecorded influenza virus vaccine, [...] Vaccine (old term) 03 Given 1Result Comment: [id number] 2Result Comment: [id number] 3Admin Note: vis given 01.01.2014 4Early/Late Reason: Other : 5Admin Note: SANOFI 6Result Comment: [facility] [id number] 7Result Comment: [id number] 8Result Comment: [id number] 9Admin Note: MFD BY SANOFI Medications Advair Diskus 500 mcg-50 mcg inhalation powder 1, puffs, Inhalation, 2 times a day, RINSE MOUTH AND THROAT AFTER USE, # 60 each, Refills 5, Tot. Refills 5, Maintenance, 08/19/21 16:30:00 EDT, Route to Pharmacy Electronically, [id number], [facility] #[id number], 168.4, cm, 08/19/21 16:16... Start Date: 08/19/21 [...] 12 Refills, Maintenance, 03/17/22 9:23:00 EDT, Tablet, [facility] #[id number], Partial fill upon patient request if the prescriptionis for a schedule II opioid drug., 1 tablet By Mout... Start Date: 03/17/22 Status: Ordered cetirizine 10 mg oral tablet 1 tablet = 10 mg, By Mouth, Daily, # 30 tablet, 0 Refills, Maintenance, 08/19/21 16:32:00 EDT, Tablet, [facility] #[id number], Partial fill upon patient request if the prescription is for a schedule II opioid drug., 168.4, cm, 08/19/21 16:16:00 E... Start Date: 08/19/21 Status: Ordered fluvoxaMINE 50 mg oral tablet 1 tablet = 50 mg, By Mouth, Daily at bedtime, # 30 tablet, 2 Refills, Maintenance, 04/05/22 12:27:00 EST, Tablet, [facility] #[id number], Partial fill upon patient request if the prescription isfor a schedule II opioid drug., 169.5, cm, 03/17/22... Start Date: 04/05/22 Stop Date: 07/04/22 Status: Ordered montelukast 10 mg oral tablet 1, tablet, By Mouth, Daily, # 30 tablet, Refills 1, Maintenance, 06/18/22 13:28:00 EST, Route to Pharmacy Electronically, [facility] #[id number], 169.5, cm, 03/17/22 9:15:00 EDT, Height, 53.7, kg, 02/25/22 13:16:00 EDT, Dry Weight Start Date: 06/18/22 Status: Ordered Vitamin D3 1000 intl units oral capsule 1 capsule = 25 mcg, By Mouth, Daily, # 30 capsule, 4 Refills, Maintenance, 08/19/21 16:30:00 EDT, Capsule, [facility] #[id number], Partial fill upon patient request if the [...] and started on Adderall 10mg XR 3Saw nutter up, Dr Gorman, allergy to pollen, dust mite, animal dander- Cetirizine and Flunisolide 4Saw Pulm- Increased Advair and added Qnasal; Given oral steroids 2/2 URI triggering her asthma 5Saw Pulm 11/2016- normal spirometry; continue Advair and Singulair - Saw pulm Still on Advair and Singulair; Added Flonase for seasonal allergies - Saw Pulm; On Advair and Singulair 8Seen my Neuro and Savannah Keita ([facility]) started on Clonidine Vital Signs Most recent to oldest [Reference Range]: 1 2 3 Height 168 cm (10/31/22 8:30 AM) 168 cm (10/30/22 8:30 AM) 168 cm (10/29/22 4:18 PM) Weight 53.8 kg (10/28/22 1:37 PM) 54.2 kg (10/28/22 12:34 PM) 54.2 kg (10/28/22 9:40 AM) Oxygen Saturation [94-100 %] 95 % (10/31/22 8:30 AM) 95 % (10/31/22 4:36 AM) 94 % (10/31/22 12:33 AM) Pulse Rate [55-90 bpm] 85 bpm (10/31/22 8:30 AM) 73 bpm (10/31/22 4:36 AM) 78 bpm (10/31/22 12:33 AM) Body Mass Index [18.5-24.99 kg/m2] 19.06 kg/m2 (10/28/22 1:37 PM) Blood Pressure [90-138/55-84 mm Hg] 100/79mm Hg (10/31/22 8:30 AM) 123/71mm Hg (10/31/22 4:36 AM) 112/67mm Hg (10/31/22 12:33 AM) Respiratory Rate [16-30 br/min] 20 br/min (10/31/22 8:30 AM) 18 br/min (10/31/22 4:36 AM) 20 br/min (10/31/22 12:33 AM) Temperature [96.8-100.4 DegF] 97.5 DegF (10/31/22 8:30 AM) 98.0 DegF (10/31/22 4:36 AM) 98.1 DegF (10/31/22 12:33 AM) Mode of Delivery (Oxygen) Room air (10/31/22 8:30 AM) Room air (10/31/22 4:36 AM) Room air (10/31/22 12:33 AM) Blood pressure sites Arm, right (10/31/22 8:30 AM) Arm, right (10/31/22 4:36 AM) Arm, right (10/31/22 12:33 AM) Temperature Route Oral (10/31/22 8:30 AM) Oral (10/31/22 4:36 AM) Oral (10/31/22 12:33 AM) Dry Weight 53.8 kg (10/28/22 1:37 PM) 54.2 kg (10/28/22 12:34 PM) 54.2 kg (10/28/22 9:40 AM) Weight Obtained Via Standing scale (10/28/22 1:37 PM) Standing scale (10/28/22 7:29 AM) Dry Weight Obtained Via Standing scale (10/28/22 7:29 AM) Height Percentile 76.83 % 1 (10/31/22 8:30 AM) 76.83 % 2 (10/30/22 8:30 AM) 76.83 % 3 (10/29/22 4:18 PM) Height ZScore 0.73 4 (10/31/22 8:30 AM) 0.73 5 (10/30/22 8:30 AM) 0.73 6 (10/29/22 4:18 PM) Weight Percentile Per Age 33.95 % 7 (10/28/22 1:37 PM) 35.81 % 8 (10/28/22 12:34 PM) 35.81 % 9 (10/28/22 9:40 AM) BMI Percentile 16.91 10 (10/28/22 1:37 PM) BMI ZScore -0.96 11 (10/28/22 1:37 PM) Weight ZScore -0.41 12 (10/28/22 1:37 PM) -0.36 13 (10/28/22 12:34 PM) -0.36 14 (10/28/22 9:40 AM) 1Result Comment: ^~:!Percentile Source -CDC/WHO 2Result Comment: ^~:!Percentile Source -CDC/WHO 3Result Comment: ^~:!Percentile Source -CDC/WHO 4Result Comment: ^~:!ZScore Source -CDC/WHO 5Result Comment: ^~:!ZScore Source -CDC/WHO 6Result Comment: ^~:!ZScore Source -CDC/WHO 7Result Comment: ^~:!Percentile Source -CDC/WHO 8Result Comment: ^~:!Percentile Source -CDC/WHO 9Result Comment: ^~:!Percentile Source -CDC/WHO 10Result Comment: ^~:!Percentile Source -CDC/WHO 11Result Comment: ^~:!ZScore Source -CDC/WHO 12Result Comment: ^~:!ZScore Source -CDC/WHO 13Result Comment: ^~:!ZScore Source -CDC/WHO 14Result Comment: ^~:!ZScore Source -CDC/WHO Social History Social History Type Response Smoking Status Never (less than 100 in lifetime) entered on: 11/04/20 Sex Female Admission evaluation note * Julián LEMUS, Noman Vallejo: PERFORM, MODIFY Janelle Preciado: MODIFY Event Display: Admission Note Authored Date: [id number] Patient: ??MADAY VALENTE ? Age:??17 Years?Sex:??Female?:??2005?? Subjective CC: increased dyspnea, cough x 1 day ?? HPI: 17F with history of poorly controlled moderate to severe asthma presents with acute onset shortness of breath x 1 day following several days of myalgias, chills and cough. ?? Maday has a history of asthma with??current medication regimen consisting of albuterol 7.5mg PRN, Advair 500/50mg bid, and montelukast 10mg qd. Of note, she uses her Advair on average of once a day and only takes montelukast when she remembers to take her Advair. She was in her usual state of health until 4-5 days ago when she experienced myalgias, chills, and a cough. She does not recall any sick contacts. These initial symptoms resolved without intervention, however 1 day ago she experienced an acute onset of left-sided chest pain, shortness of breath, whe ezing, and cough productive of yellow sputum. She denies left arm pain, palpitations, diaphoresis. She used her recuse inhaler at home q2hr for several hours until the morning, when she and her mother decided to present to the ED. While she does not recall any concrete triggers preceding this specific episode, her asthma is generally worst following exercise and she also notes second-hand smoke exposure though 2 brothers who smoke cigarettes and cannabis. She takes a combined OCP for contraception. ?? At the ED, she was treated for presumed asthma exacerbation with albuterol nebulizer x3 (5mg, 7.5mg, 7.5mg), IV magnesium, and PO prednisone 20mg. She notes??a good improvement in SOB symptoms, although??she still has a??productive cough. Review of Systems Constitutional:??No fever, +chills and myalgias 3-4 days ago. HEENT:??No headache, rhinorrhea, sore throat, or neck pain. Respiratory:??+cough productive of yellow sputum, some difficulty breathing that is improving s/p nebulizer treatment in the ED. Cardiovascular:??No chest pain, palpitations, diaphoresis.?? Gastrointestinal:??No abdominal pain, nausea, vomiting, diarrhea. Musculoskeletal:??No arthralgias. Allergies Allergies ?(Active and Proposed Allergies Only) NKA? (Severity: Unknown severity, Onset: Unknown) ? Past Medical History Active Problems??(8) ADHD (attention deficit hyperactivity disorder) Allergic rhinitis Anxiety and depression Asthma Hurthle cell adenoma of thyroid Migraine headache without aura Simple tics Tourette syndrome ? Past Surgical History Right thyroid lobectomy: 01/04/20 ? Social History Home/Environment Details:??Other: mom and brother. Tobacco Details:??Use: Never (less than 100 in lifetime). ? Family History Mother: Arthritis ? 28-FEB-2016 02:49:53<$>; Diabetes mellitustype II; Hearing loss; Hyperlipidemia; Menieres disease Father: Diabetes mellitus type II; Migraine Brother: Asthma; Tics ? Objective Vital Signs?? Temperature: 97.6 DegF (10/28/22 13:37:00) Temperature Route: Oral (10/28/22 13:37:00) Pulse Rate:??115 bpm??High (10/28/22 13:37:00) Respiratory Rate: 19 br/min (10/28/22 13:37:00) Systolic Blood Pressure: 113 mm Hg (10/28/22 13:37:00) Diastolic Blood Pressure: 67 mm Hg (10/28/22 13:37:00) Blood pressure sites: Arm, left (10/28/22 13:37:00) Mean Arterial Pressure: 82 mm Hg (10/28/22 13:37:00) Pulse Pressure: 46 mm Hg (10/28/22 13:37:00) Oxygen Saturation: 95 % (10/28/22 13:37:00) Mode of Delivery (Oxygen): Room air (10/28/22 13:37:00) Early Warning Score: 5 (10/28/22 12:34:47) ? Intake/Output? 10/28 06:37 10/28 07:00 10/27 07:00 10/26 07:00 10/25 07:00 ?? 10/28 15:36 10/28 15:36 10/28 06:59 10/27 06:59 06/13 06:59 Intake ?230 ?230 ?0 ?0 ?0 Output ?0 ?0 ?0 ?0 ?0 Net Total ?230 ?230 ?0 ?0 ?0 ? Urine Count ?1 ?1 ?0 ?0 ?0 ? Physical Exam General:??Well-appearing. No acute distress. HEENT:??Normocephalic. Atraumatic. PERRL. EOMI. Nares patent bilaterally. Moist mucous membranes. Respiratory:??Insp/exp biphasic wheezing, good air exchange, no rales/crackles Cardiovascular:??tachycardia, regular rhythm. S1, S2 normal. No murmurs, rubs, or gallops. Peripheral pulses are 2+ bilaterally. Capillary refill is < 2 sec.?? Gastrointestinal:??Soft. Non-distended. Normoactive bowel sounds. Non-tender. No rebound or guarding.?? Extr: no edema, warm and well perfused Skin: no rashes noted Neuro: no notable neurologic deficits _ Home Medications Albuterol (albuterol CFC free 90 mcg/inh inhalation aerosol)?See Instructions?as needed?2-6 puffs Inhalation Every 4 hours as needed use with spacer chamber?Wheezing/Shortness of Breath Cetirizine (cetirizine 10 mg oral tablet)?1?tab(s)?10?Milligram?By Mouth?Daily Cholecalciferol (Vitamin D3 1000 intl units oral capsule)?1?capsule?25?Microgram?By Mouth?Daily Desogestrel-Ethinyl Estradiol (Apri 0.15 mg-0.03 mg oral tablet)?1?tab(s)?By Mouth?Daily?take same time dialy Durable Medical Equipment (Aerochamber)?See Instructions?use with inhaler medications Fluticasone-Salmeterol (Advair Diskus 500 mcg-50 mcg inhalation powder)?1?puff(s)?Inhalation?2 times a day?RINSE MOUTH AND THROAT AFTER USE Fluvoxamine (fluvoxaMINE 50 mg oral tablet)?1?tab(s)?50?Milligram?By Mouth?Daily at bedtime?for 30?Days Montelukast (montelukast 10 mg oral tablet)?1?tablet?By Mouth?Daily ? Inpatient Medications Medications (4) Active SCHEDULED: (2) Albuterol 0.083% Inhalation Solution (Albuterol 0.083% inhalation jad) ??7.5 mg 9 mL, BAND Nebulizer, Every 4 hours PredniSONE 20 mg Tablet (predniSONE 20 mg oral tablet) ??60 mg, By Mouth, Daily in AM CONTINUOUS: (0) PRN: (2) Albuterol 0.083% Inhalation Solution (Albuterol 0.083% inhalation jad) ??7.5 mg 9 mL, BAND Nebulizer, Every 4 hours Lidocaine / Prilocaine Cream (Lidocaine/ Prilocaine Topical) ??1 application, Topically, Once ? Results Recent Labs VIROLOGY COVID-19 POC Result NEGATIVE ()?? 10/28/2022 12:14 ? Assessment/Plan Chief Complaint: Pt arriving after inc WOB around 0400 at home. Updraft at home, no relief, called EMS. Wheezy, tight, 2nd updraft with EMS with little improvement. Family on their way ?? Diagnoses Asthma exacerbation ??(J45.901) ?? Assessment:? # Asthma exacerbation of underlying severe persistent asthma with medical noncompliance with controller therapy ?? 17F with history of poorly controlled moderate to severe asthma that is not adherent to current therapy regimen complaining of acute SOB and productive cough 4 days after short course of myalgias, chills, and cough. Good relief with nebulized albuterol treatments, IV Mg, PO pred??is reassuring for asthma exacerbation, possibly following a??viral URI.??However, differential remains broad and cannot exclude superimposed bacterial pneumonia especially with productive cough. PE unlikely given absence of lower extremity swelling and erythema and history of improvement since onset. Will also require higher index of suspicion for future??DVT/PE considering COCP use and second-handsmoke exposure. Will need to discuss medication compliance for future symptomatic control, especially as she seems to be somewhat aware of??importance of pharmacotherapy. Will??attempt course of medication adherenceprior to consideration for??outpatient pulmonology??for adjustment. ?? Plan: - Continue nebulized albuterol treatments now at 5mg weaned to q4hrs?? - Continue PO prednisone x 5 days, 60mg given today - Review medication adherence, education with pulm rehab consult - Consider CXR if further evidence of pneumonia develops (fever, desatting) and initiation of antibiotic therapy if indicated - resp viral panel given productive??cough - assess for mycoplasma infection ? Quality measures: - consider pharmacologic VTEP if admitted > 24 hours ?? Status: inpatient ?? Attending Attestation ?? I verified the medical student???s documentation in the medical record. I personally performed a physical exam and medical decision making. I made appropriate changes to the documentation and the assessment and plan based on my verification, exam and medical decision making.? Noman Gallego MD Attending Pediatric Hospitalist ? Hospital Progress note * Glen DRISCOLL, Janice: PERFORM, SIGN, VERIFY Event Display: Progress Note Hospital Authored Date: Patient: MADAY VALENTE Age: 17 years Sex: Female : 2005 Associated Diagnoses: None Author: Janice Carroll RN Findings Problem Related to Alteration in Genitourinary : Alteration in Genitourinary Function/new 10/31/2022 10:00 EDT Alteration in Status Related to Other: vaginal bleeding Goals & Outcomes, Genitourinary Pt will achieve normal/improved fluid balance, Pt will maintainadequate GI function appropriate for pt, Pt will maintain adequate function appropriate for pt, Pt will maintain normal fluid balance, Pt will resume normal pattern of elimination Interventions, Other: assess urine,, Goals/Interventions, Genitourinary Yes Genitourinary, Problem Start 10/30/2022 5:09 Reviewed Plan with, Genitourinary Patient Patient Progression, Genitourinary Patient progressing according to plan Genitourinary, Problem Ongoing Yes . Alteration in Respiratory Function (new) : Alteration in Respiratory Function/new 10/31/2022 10:00 EDT Alteration in Resp Status Related to Asthma Goals & Outcomes, Respiratory Pt will maintain/resume baseline physical assessment, Pt will notdevelop complications r/t mechanical ventilation, Pt will maintain adequate nutritional intake, Pt will maintain/resume normal fluid/electrolyte balance, Pt will not develop complications r/t immobility, Pt will demonstrate proper technique w/self care procedures Interventions, Respiratory Assess for and report S&S of respiratory distress, Teach the proper use of inhalers Goals/Interventions, Respiratory Yes Respiratory, Problem Start 10/28/2022 14:00 Reviewed Plan with, Respiratory Patient Patient Progression, Respiratory Patient progressing according to plan . Evaluation VSS, afebrile, good o2 sat on room air, patient states some SOB when up to bathroom and slight SOB at times while in bed, toleraing regular diet, lungs with scattered inspiratory and expiratory wheezing, patient states she is feeling much better and is ready to go home, contact/ droplet precautions maintained, patient taking albuterol puffer correctly as ordered, patient will be discharged to home.. * He DRISCOLL, Elena: PERFORM, MODIFY, SIGN, VERIFY Event Display: Progress Note Hospital Authored Date: [id number] Patient: MADAY VALENTE Age: 17 years Sex: Female : 2005 Associated Diagnoses: None Author: Elena Cutler RN Findings Problem Related to Alteration in Respiratory Function (new) : Alteration in Respiratory Function/new 10/30/2022 23:00 EDT Alteration in Resp Status Related to Asthma Goals & Outcomes, Respiratory Pt will maintain/resume baseline physical assessment, Pt will notdevelop complications r/t mechanical ventilation, Pt will maintain adequate nutritional intake, Pt will maintain/resume normal fluid/electrolyte balance, Pt will not develop complications r/t immobility, Pt will demonstrate proper technique w/self care procedures Interventions, Respiratory Assess for and report S&S of respiratory distress, Position for comfort & optimal oxygenation BH Goals/Interventions, Respiratory Yes Respiratory, Problem Start 10/28/2022 14:00 Reviewed Plan with, Respiratory Patient Patient Progression, Respiratory Patient progressing according to plan . Nursing Data Genitourinary Data. : Genitourinary Data. 10/30/2022 20:25 EDT Genitourinary Comment Noted to have started menses WNL except . Neurological Data. : Neurological Data. 10/30/2022 20:25 EDT Neurological Symptoms Headache: persistent, changing or sudden Level of Consciousness Full Consciousness Orientated to person, place, time Person, Place, Time, Event PERRLA Yes Pupil description, left Regular Pupil description, right Regular Pupil reaction, left Brisk Pupil reaction, right Brisk Neuro WNL except . Respiratory/Pulmonary Data. : Respiratory/Pulmonary Data. 10/30/2022 20:25 EDT Respiratory Symptoms Other: dyspnea slightly at rest, increased with ambulation/coughing fit Respiratory effort Unlabored Respiratory Assessment Comment Per patient bloody sputum noted during the day, lorenzo LEMUS made aware Cough Productive, Loose, Occasional Respiratory pattern Regular All Lobes Breath Sounds Coarse crackles, Wheezing, expiratory Respiratory WNL except . Vital Signs : VITAL SIGNS SECTION 10/31/2022 0:33 EDT Temperature 98.1 DegF Temperature Route Oral Pulse Rate 78 bpm Respiratory Rate 20 br/min Systolic Blood Pressure 112 mm Hg Diastolic Blood Pressure 67 mm Hg Blood pressure sites Arm, right Pulse Pressure 45 mm Hg Oxygen Saturation 94 % Mode of Delivery (Oxygen) Room air 10/30/2022 20:29 EDT Oxygen Saturation 94 % Mode of Delivery (Oxygen) Room air 10/30/2022 20:00 EDT Temperature 97.7 DegF Temperature Route Oral Pulse Rate 98 bpm H Respiratory Rate 20 br/min Systolic Blood Pressure 118 mm Hg Diastolic Blood Pressure 67 mm Hg Blood pressure sites Arm, right Pulse Pressure 51 mm Hg Oxygen Saturation 92 % L Mode of Delivery (Oxygen) Room air Early Warning Score (Pedi) 0 . Evaluation Patient AAOX4, pleasant and cooperative. PERRLA. C/O ACOSTA X 1, tylenol with positive effect. VSS, afebrile. Lung sounds coarse with expiratory wheeze throughout, however moving good air. Patient reports occasional productive cough and slight dyspnea at all times that is worsened with coughing fits and ambulation. However overall patient reports improvement. Patient administering MDI with good technique as ordered. ABD soft with +BSX4 quadrants. Tolerating PO. +UO, appears to be starting menses due to missed control. Mom to bring in medication possibly tomorrow. No visits or calls from family overnight. Patient resting comfortably between interventions. . * Glen DRISCOLL, Janice: VERIFY, PERFORM, SIGN Event Display: Progress Note Hospital Authored Date: [id number] Patient: MADAY VALENTE Age: 17 years Sex: Female : 2005 Associated Diagnoses: None Author: Janice Carroll RN Findings Problem Related to Alteration in Genitourinary : Alteration in Genitourinary Function/new 10/30/2022 18:00 EDT Alteration in Status Related to Other: vaginal bleeding Goals & Outcomes, Genitourinary Pt will achieve normal/improved fluid balance, Pt will maintainadequate GI function appropriate for pt, Pt will maintain adequate function appropriate for pt, Pt will maintain normal fluid balance, Pt will resume normal pattern of elimination Interventions, Assess/monitor/maintain Genitourinary status, Assist & encourage pt with meticulous yanely care, Encourage PO fluid intake as allowed by diet BH Goals/Interventions, Genitourinary Yes Genitourinary, Problem Start 10/30/2022 5:09 Reviewed Plan with, Genitourinary Patient Patient Progression, Genitourinary Patient progressing according to plan Genitourinary, Problem Ongoing Yes . Alteration in Respiratory Function (new) : Alteration in Respiratory Function/new 10/30/2022 18:00 EDT Alteration in Resp Status Related to Asthma Goals & Outcomes, Respiratory Pt will maintain/resume baseline physical assessment, Pt will notdevelop complications r/t mechanical ventilation, Pt will maintain adequate nutritional intake, Pt will maintain/resume normal fluid/electrolyte balance, Pt will not develop complications r/t immobility, Pt will demonstrate proper technique w/self care procedures Interventions, Respiratory Assess for and report S&S of respiratory distress, Teach the proper use of inhalers BH Goals/Interventions, Respiratory Yes Respiratory, Problem Start 10/28/2022 14:00 Reviewed Plan with, Respiratory Patient Patient Progression, Respiratory Patient progressing according to plan . Evaluation VSS, afebrile, patient with some SOB in bed later in day and had some SOB with OOB to bathroom at times, contact droplet precautions maintained, productive cough at times, having blood in urine, patient has not been taken her birthcontrol pills, patient's mother to bring them in, patient toleratingregular diet well, had headache x 1, tylenol given with good effect, and headache subsided, lungs with inspiratory and expiratory scattered wheezes throughout, patient weaned to 6 puffs of MDI every 4 hours.. Note * Jaylene LEMUS, Stacy Bettencourt: PERFORM Event Display: Discharge/Transfer Note Hospital Authored Date: [id number] Patient: ??MADAY VALENTE ? Age:??17 Years?Sex:??Female?:??2005?? Patient Information Discharge Location: [facility] Primary Care Physician: Marguerite Mustafa MD Admit Date/Time: 10/28/22 06:37 Discharge Disposition Discharge Disposition: Home: No Services Discharge Diagnosis Asthma exacerbation (J45.901) ?? _ Discharge Medications Albuterol (albuterol CFC free 90 mcg/inh inhalation aerosol)?See Instructions?as needed?2-6 puffs Inhalation Every 4 hours as needed use with spacer chamber?Wheezing/Shortness of Breath Cetirizine (cetirizine 10 mg oral tablet)?1?tab(s)?10?Milligram?By Mouth?Daily Cholecalciferol (Vitamin D3 1000 intl units oral capsule)?1?capsule?25?Microgram?By Mouth?Daily Desogestrel-Ethinyl Estradiol (Apri 0.15 mg-0.03 mg oral tablet)?1?tab(s)?By Mouth?Daily?take same time dialy Durable Medical Equipment (Aerochamber)?See Instructions?use with inhaler medications Fluticasone-Salmeterol (Advair Diskus 500 mcg-50 mcg inhalation powder)?1?puff(s)?Inhalation?2 times a day?RINSE MOUTH AND THROAT AFTER USE Fluvoxamine (fluvoxaMINE 50 mg oral tablet)?1?tab(s)?50?Milligram?By Mouth?Daily at bedtime?for 30?Days Montelukast (montelukast 10 mg oral tablet)?1?tablet?By Mouth?Daily ? Medications Started None Medications Discontinued None Doses Changed None Allergies Allergies ?(Active and Proposed Allergies Only) NKA? (Severity: Unknown severity, Onset: Unknown) ? PCP Follow-Up/Heads-Up Patient was admitted for asthma exacerbation, please continue discussions regarding adherence of controller medications with Advair and montelukast. Please follow up on chronic pelvic pain and result of GC/chlamydia and vaginitis panel Hospital Course Maday is a 17-year-old woman with a history of moderate to poorly controlled asthma??with poor medicine adherence, thyroid lobectomy in 2019 with post- operative vocal cord dysfunction who presented with asthma exacerbation. Current home asthma regimen (Advair 500-50mcg 1 puff bid, montelukast 10mg qd, and albuterol inhaler PRN). ?? 1 week ago, she experienced a mild cough, myalgias, and chills. These symptoms self-resolved until 2 days ago whene she experienced a more acute onset of SOB, wheezing, and cough productive of yellow-sergey sputum. She presented to OSH ED where she received a some nebulized albuterol, PO prednisone 60mg. There was some concern for an atypical PNA vs URI??and she underwent CXR, which showed no pneumonia, but??was started PO doxycycline 100mg bid. She was discharged home with good improvement in symptoms. At home, Maday's symptoms worsened and she used her rescue albuterol inhaler and nebulizerat home [id number] without much improvement, at which she presented to [facility] ED with SOB, wheezing,dyspnea, and productive cough. She received nebulized albuterol x3 (5mg, 7.5gmg x2), IV Mg, and PO prednisone 60mg. She was admitted to the inpatient pediatric service for asthma exacerbation with possible concern for URI??vs??atypical PNA triggered asthma exacerbation. ?? On DOA2 she was switched to MDI albuterol but continued to??weaned to inhaled albuterol 8 puffs [id number]. Viral panel returned positive for parainfluenza 3, likely cause for exacerbation. Patient continued to have SOB and significant bilateral wheezing and was not able to wean. Observed overnight, was weaned to 6 puffs q4. Completed 5 day course started at OSH during admission. ?? Also has history of chronic pelvic pain that she was endorsing in hospital. Has had repeated workupat PCP and previous ED visits including pelvic U/S and CT abdomen and pelvis that have been normal.Endorsing green/yellow vaginal discharge at recent ED presentation with c/f trich vs BV. No testingor treatment done.??During this??hospitalization, patient??started noticing spotting and vaginal bleeding. Last menstrual period at beginning of October. Urine negative. Not currently sexuallyactive for several year as has intentionally avoided intercourse with pelvic pain. PCP started OCP due to irregular periods and to try to lessen menstrual symptoms. Has been taking inconsistently, not taken for last few days, so that seems most likely explanation of bleeding.??No evidence of UTI. ?? # Asthma exacerbation of underlying severe persistent asthma # Medical non-adherence with controller therapy # Parainfluenza infection #Vocal cord dysfunction 2/2 thyroid lobectomy ?Recommendations: ??- albuterol MDI 8 puffs q4 for first 24 hours,??then back to??4-6 puffs PRN ??- continue Advair 1 puff BID ??- continue Montelukast qd ?? # Chronic pelvic pain # Vaginal bleeding # Vaginal discharge ?? Recommendations: - restart home OCP, encourage regular medication schedule - please follow up on GC/chlamydia screen and vaginitis swab - close follow up with PCP and fire and safety helper outpatient - consider thyroid screening when recovered from illness in setting of lobectomy and menstrual irregularity ?? Objective Vital Signs?? Temperature: 97.5 DegF (10/31/22 08:30:00) Temperature Route: Oral (10/31/22 08:30:00) Pulse Rate: 85 bpm (10/31/22 08:30:00) Respiratory Rate: 20 br/min (10/31/22 08:30:00) Systolic Blood Pressure: 100 mm Hg (10/31/22 08:30:00) Diastolic Blood Pressure: 79 mm Hg (10/31/22 08:30:00) Blood pressure sites: Arm, right (10/31/22 08:30:00) Mean Arterial Pressure: 86 mm Hg (10/31/22 08:30:00) Pulse Pressure: 21 mm Hg (10/31/22 08:30:00) Oxygen Saturation: 95 % (10/31/22 08:30:00) Mode of Delivery (Oxygen): Room air (10/31/22 08:30:00) Early Warning Score (Pedi): 0 (10/31/22 08:30:00) ? . Physical Exam General: Patient in no acute distress?? HEENT: normocephalic, EOMI, moist mucous membranes with no oral lesions. No lymphadenopathy or thyromegaly appreciated.?? Respiratory: No increased work of breathing, good air movement, expiratory wheezing present. CVS: regular rate and rhythm, S1 and S2 present, no murmurs Abdomen: soft, non tender, non distended Neuro: Moving all extremities spontaneously. Normal tones, following simple commands.?? Consultants None Pending Results ?? Chlamydia/N. Gonorrhoeae TMA (NAAT) ordered on 10/29/2022 Vaginosis Vaginitis Panel (BV, CV/TV) ordered on 10/29/2022 Follow-Up Appointments Added Follow Up ?Time Frame ?Comments Ramsey LEMUS, Marguerite?2 to 3 days?Please call for appointment Patient Instructions Maday??was admitted to the hospital due to cough, wheezing and difficulty breathing, likely due to asthma exacerbation caused by viral infection. She improved with albuterol treatments and oral steroids. ?? Home instructions: - Continue albuterol inhaler 6 puffs every 4 hours scheduled for the next 24 hours, can use as needed after - Continue Advair and montelukast - Please follow up with your cabinet finisher - Please seek urgent evaluation if she develops worsening difficulty breathing, or needing albuterol inhaler more often than every 4 hours - Can give tylenol or motrin for fever or discomfort Post Discharge Care Discharge ?10/31/22 9:13:00 EDT Home Health Face to Face ^HomeHealthFTF Results Discharge Labs UA/URINALYSIS Appear/Color, Urine COLORLESS ()?? 10/29/2022 22:43 Clarity CLEAR ()?? 10/29/2022 22:43 Specific Irwin, Urine 1.011 ()?? 10/29/2022 22:43 pH, Urine 7.5 ()?? 10/29/2022 22:43 Albumin, Urine NEGATIVE ()?? 10/29/2022 22:43 Glucose, Urine NEGATIVE ()?? 10/29/2022 22:43 Ketones, Urine NEGATIVE ()?? 10/29/2022 22:43 Bilirubin, Urine NEGATIVE ()?? 10/29/2022 22:43 Hemoglobin, Urine 1+ (Abnormal)?? 10/29/2022 22:43 Nitrite, Urine NEGATIVE ()?? 10/29/2022 22:43 Leukocyte, Urine NEGATIVE ()?? 10/29/2022 22:43 Urobilinogen NORMAL mg/dL ()?? 10/29/2022 22:43 WBC's, Urine <1 /HPF ()?? 10/29/2022 22:43 RBC's, Urine 1 /HPF ()?? 10/29/2022 22:43 Bacteria SLIGHT HPF (Abnormal)?? 10/29/2022 22:43 Squamous Epith 1 /HPF ()?? 10/29/2022 22:43 Mucus SLIGHT /LPF ()?? 10/29/2022 22:43 Culture Indication CULTURE NOT INDICATED ()?? 10/29/2022 22:43 ?? URINE OTHER Urine, NEGATIVE (N)?? 10/29/2022 22:43 ? VIROLOGY Adenovirus by PCR NEGATIVE ()?? 10/29/2022 09:55 Coronavirus 229E by PCR (not COVID-19) NEGATIVE ()?? 10/29/2022 09:55 Coronavirus HKU1 by PCR (not COVID-19) NEGATIVE ()?? 10/29/2022 09:55 Coronavirus NL63 by PCR (not COVID-19) NEGATIVE ()?? 10/29/2022 09:55 Coronavirus OC43 by PCR (not COVID-19) NEGATIVE ()?? 10/29/2022 09:55 Human Metapneumovirus by PCR NEGATIVE ()?? 10/29/2022 09:55 Rhinovirus/Enterovirus by PCR NEGATIVE ()?? 10/29/2022 09:55 Influenza A by PCR NEGATIVE ()?? 10/29/2022 09:55 Influenza B by PCR NEGATIVE ()?? 10/29/2022 09:55 Parainfluenza 1 by PCR NEGATIVE ()?? 10/29/2022 09:55 Parainfluenza 2 by PCR NEGATIVE ()?? 10/29/2022 09:55 Parainfluenza 3 by PCR POSITIVE (Abnormal)?? 10/29/2022 09:55 Parainfluenza 4 by PCR NEGATIVE ()?? 10/29/2022 09:55 RSV by PCR NEGATIVE ()?? 10/29/2022 09:55 Bordetella Pertussis by PCR NEGATIVE ()?? 10/29/2022 09:55 Chlamydophila Pneumoniae by PCR NEGATIVE ()?? 10/29/2022 09:55 Mycoplasma Pneumoniae by PCR NEGATIVE ()?? 10/29/2022 09:55 COVID-19 POC Result NEGATIVE ()?? 10/28/2022 12:14 COVID-19 (SARS-CoV-2) by PCR NEGATIVE ()?? 10/29/2022 09:55 Bordetella Parapertussis by PCR NEGATIVE ()?? 10/29/2022 09:55 ? Microbiology ?? Respiratory Pathogen PCR with COVID-19?? Completed?? Source: Nasopharyngeal Swab Body Site: Nasopharyngeal Collected Dt/Tm: 10/29/2022 10:02 Last Updated Dt/Tm: 10/29/2022 13:58 ? Patient case and plan discussed with Dr. Rios ?? Stacy Mariee MD?? Internal Medicine-Pediatrics PGY-3 Pager: [phone]? 35??minutes spent on discharge * Janice Carroll RN: PERFORM Event Display: Discharge/Transfer Note Hospital Authored Date: [id number] Nursing Discharge Note Entered On: 10/31/2022 10:54 EDT Performed On: 10/31/2022 10:53 EDT by Janice Carroll RN Nursing Discharge Note 2 Discharge Time : 10/31/2022 10:50 EDT Discharge Level of Care at Discharge : Home/Prison/Foster Care Patient Left Unit Via : Ambulatory Patient Accompanied Off Unit with : Other: our PCT DC Instructions Provided & Signed by Pt : Yes Patient Understands D/C Instructions : Yes Patient Instructions Discharge Signed : Yes Did Pt have Specialty Bed or Wound Vac : No Janice Carroll RN - 10/31/2022 10:53 EDT * Janice Carroll RN: PERFORM Event Display: Patient Education/Instruction Authored Date: [id number] Inpatient Pedi Discharge Instructions [address] [address] Name: MADAY VALENTE : 2005 Visit: 10/28/2022 06:37:00 Current Date: 10/31/2022 09:20 Account: [id number] Inpatient Pedi Discharge Instructions We would like to thank you for allowing us to assist you with your healthcare needs. The following includes patient education materials and information regarding your injury/illness. Our entire staffstrives to provide an excellent experience for our patients and their families. PLEASE ENSURE YOU FOLLOW-UP PER THE INSTRUCTIONS BELOW! ?? YOUR OPINION IS IMPORTANT TO US! Please complete the survey you may receive by mail or email. Your feedback will be used to make improvements to the healthcare experiences of our patients and their families. Surveys are administered by [employer] ?? If further treatment with your primary care physician or another doctor is recommended, it is important for you to keep the appointment. Call your primary care physician or return to the Emergency Department immediately if your condition worsens, fails to improve, or new symptoms develop. If you need to find a doctor, you can call [facility] for a referral at [phone] or toll free at [phone]) or log in to [email or web address].. ?? You can view and manage your care through the patient portal or by using a health care [facility] of your choosing. [employer] is a website that allows you to securely view your medical information including your hospital discharge summary, office visit summaries, medications and follow-up visits. You can also request appointments, renew medications, and request access to your medical information using a health care [facility] of your choosing, or just ask a question. You can enroll at [email or web address] or register during your next office visit. You have been discharged from [facility], Patient Care Unit: [facility]. If you have any questions regarding these instructions after you leave, please call us and we will be happy to assist you. [facility] Your Care Team Attending Physician Julián LEMUS, Noman Vallejo Discharging Providers Stacy Mariee MD Reason for Admission Pt arriving after inc WOB around 0400 at home. Updraft at home, no relief, called EMS. Wheezy, tight, 2nd updraft with EMS with little improvement. Family on their way Your Diagnosis Asthma exacerbation Tests Performed Below is a partial list of the tests performed during your hospitalization. You may have had other tests and procedures not included in this list. Please discuss all test results with your provider. COVID-19 RNA POC Test Urine Respiratory Pathogen PCR with COVID-19 Urinalysis Complete/Reflex Culture Primary Care Provider Marguerite Mustafa MD Advance Directive Health Care Proxy on File No Patient refuses to discuss Discharge Vitals Temperature: 97.5 DegF Height: 168 cm Pulse Rate: 85 bpm Weight: 53.8 kg Respiratory Rate: 20 br/min Body Mass Index: 19.06 kg/m2 Systolic Blood Pressure: 100 mm Hg BMI Percentile: 16.91 Diastolic Blood Pressure: 79 mm Hg Body surface area: 1.58 Oxygen Saturation: 95 % BSA Sanchez: 1.6 Studies Pending All tests and labs ordered during this hospital stay have been completed unless listed below. Please discuss all pending results with your provider listed above in these instructions. ?? Add On Lab Order COVID-19 (Novel Coronavirus), Rapid PCR Chlamydia/N. Gonorrhoeae TMA (NAAT) Vaginosis Vaginitis Panel (BV, CV/TV) What to do next Instructions From Your Doctor Maday??was admitted to the hospital due to cough, wheezing and difficulty breathing, likely due to asthma exacerbation caused by viral infection. She improved with albuterol treatments and oral steroids. ?? Home instructions: - Continue albuterol inhaler 6 puffs every 4 hours scheduled for the next 24 hours, can use as needed after - Continue Advair and montelukast - Please follow up with your cabinet finisher - Please seek urgent evaluation if she develops worsening difficulty breathing, or needing albuterol inhaler more often than every 4 hours - Can give tylenol or motrin for fever or discomfort Discharge Orders You Need to Schedule the Following Appointments Follow Up with??Marguerite Mustafa MD When:??Within 2 to 3 days Why: Please call for appointment Where: [address] [place] [address] [place] [address]- Discharge Medications SIDRA MADAY :2005 Visit Date:10/28/2022 Medications: Please continue your medications until treatment is completed or stopped by your provider. Medications not listed below should be discontinued. Discuss any questions related to medications with your provider. What How Much When Why Instructions Next Dose Unchanged Albuterol (albuterol CFC free 90 mcg/ inh inhalation aerosol) See instructions 2-6 puffs Inhalation Every 4 hours as needed use with spacer chamber, As needed for Wheezing/ Shortness of Breath ?? 12:30 next dose..take 6 puffs or next 24 hrs every 4 hours Unchanged Cetirizine (cetirizine 10 mg oral tablet) 1 tab(s) Oral Daily anytime Unchanged Cholecalciferol (Vitamin D3 1000 intl units oral capsule) 1 capsule Oral Daily anytime Unchanged Desogestrel-Ethinyl Estradiol (Apri 0.15 mg-0.03 mg oral tablet) 1 tab(s) Oral Daily Oral contraceptive prescribed take same time dialy ?? anytime Unchanged Durable Medical Equipment (Aerochamber) See instructions use with inhaler medications ?? take with puffer at 12:30 Unchanged Fluticasone-Salmeterol (Advair Diskus 500 mcg-50 mcg inhalation powder) 1 puff(s) Inhalation Twice a day RINSE MOUTH AND THROAT AFTER USE ?? anytime Unchanged Fluvoxamine (fluvoxaMINE 50 mg oral tablet) 1 tab(s) Oral Daily at Bedtime Duration: 30 Days anytime Unchanged Montelukast (montelukast 10 mg oral tablet) 1 tab(s) Oral Daily anytime Test Results Below is a partial list of the most recent Laboratory test results done prior to this discharge. You may have had other tests and procedures not included in this list. Please discuss all test resultswith your provider. COVID-19 RNA POC (10/28/2022) ???COVID-19 POC Result - NEGATIVE Test Urine (10/29/2022) ???Urine, - NEGATIVE Respiratory Pathogen PCR with COVID-19 (10/29/2022) ???Adenovirus by PCR - NEGATIVE???Coronavirus 229E by PCR (not COVID-19) - NEGATIVE???Coronavirus HKU1 by PCR (not COVID-19) - NEGATIVE???Coronavirus NL63 by PCR (not COVID-19) - NEGATIVE???Coronavirus OC43 by PCR (not COVID-19) - NEGATIVE???Human Metapneumovirus by PCR - NEGATIVE???Rhinovirus/Enterovirus by PCR - NEGATIVE???Influenza A by PCR - NEGATIVE???Influenza B by PCR - NEGATIVE???Parainfluenza 1 by PCR - NEGATIVE???Parainfluenza 2 by PCR - NEGATIVE???Parainfluenza 3 by PCR - POSITIVE???Parainfluenza 4 by PCR - NEGATIVE???RSV by PCR - NEGATIVE???Bordetella Pertussis by PCR - NEGATIVE??? Chlamydophila Pneumoniae by PCR - NEGATIVE???Mycoplasma Pneumoniae by PCR - NEGATIVE???COVID-19 (SARS-CoV-2) by PCR - NEGATIVE???Bordetella Parapertussis by PCR - NEGATIVE Urinalysis Complete/Reflex Culture (10/29/2022) ???Appear/Color, Urine - COLORLESS???Clarity - CLEAR???Specific Irwin, Urine - 1.011???pH, Urine - 7.5???Albumin, Urine - NEGATIVE???Glucose, Urine - NEGATIVE???Ketones, Urine - NEGATIVE???Bilirubin, Urine - NEGATIVE???Hemoglobin, Urine - 1+???Nitrite, Urine - NEGATIVE???Leukocyte, Urine - NEGATIVE? ?Urobilinogen - NORMAL? ?WBC's, Urine - <1 /HPF? ?RBC's, Urine - 1 /HPF? ?Bacteria - SLIGHT? ?Squamous Epith - 1 /HPF???Mucus - SLIGHT???Culture Indication - CULTURE NOT INDICATED Allergies (NKA means No Known Allergies) NKA Problems Active Problems??(8) ADHD (attention deficit hyperactivity disorder)?? Allergic rhinitis?? Anxiety and depression?? Asthma?? Hurthle cell adenoma of thyroid?? Migraine headache without aura?? Simple tics?? Tourette syndrome?? Education Materials Below is the list of Educational Leaflet Providered with your Discharge Instructions. Valuables and Belongings I fully understand and agree that [facility] accepts no responsibility for all my personal property including clothing, toilet articles, radios, jewelry, dentures, hearing aids, rings, money, or any other property that is in my possession or is brought to me after admission. I understand certain valuables may be placed in a hospital safe for a short period of time. I understand that the hospital is not liable for loss or damage due to accident, fire, or other natural occurrence while said property is in the safe. I accept full responsibility for any personal property that I keep with me, and will not hold the hospital responsible in case of loss or disappearance. I acknowledge that i have been encouraged to send valuables and belongings home. ?? Date for Pt to Sign Valuables/Belongings: 10/28/22 16:01:00 ?? Other Discharge Information ? Pulmonary Rehab Status?? Pulmonary Rehab Discharge Status?? Respiratory Rate: 20 br/min ? Common Emergency Awareness Tips IS IT A STROKE? Act FAST and Check for these signs: FACE Does the face look uneven? ARM Does one arm drift down? SPEECH Does their speech sound strange? TIME Call at any sign of stroke ?? Heart Attack Signs Chest discomfort: Most heart attacks involve discomfort in the center of the chest and lasts more than a few minutes, or goes away and comes back. It can feel like uncomfortable pressure, squeezing, fullness or pain. Discomfort in upper body: Symptoms can include pain or discomfort in one or both arms, back, neck, jaw or stomach. Shortness of breath: With or without discomfort. Other signs: Breaking out in a cold sweat, nausea, or lightheaded. Remember, MINUTES DO MATTER. If you experience any of these heart attack warning signs, call to get immediate medical attention! ?? Smoking can increase your chances of developing chronic health problems and can cause harmful effects to other family members in your house. If you smoke, you are strongly encouraged to quit. Please call [facility] [employer] [facility] at [phone] or [phone] ([phone]) or log in to [email or web address] for referrals to smoking cessation programs. ?? 110 Suicide & Crisis Lifeline is available 06/12 if you or someone you know needs to find a reason to keep living. By calling 927 you'll be connected to a skilled, trained counselor at a crisis center in your area. INPATIENT DISCHARGE INSTRUCTIONS SIGNATURE PAGE MADAY VALENTE Location:[facility] Registration Date and Time:10/28/2022 06:37 EDT Primary Care Physician: Ramsey LEMUS, Marguerite, Attending Physician: Julián LEMUS, Noamn Vallejo, Vinicius MADAY VALENTE, have received the above patient education materials/instructions and have verbalized understanding. If ambulance or transport services are being used I further acknowledge being given a choice of service. ?? If you need to contact me, please call me at this number: . Patient/Head Of Strategy Name: Patient/Head Of Strategy Signature: Relationship to Patient: Witness Name/Signature: Date: * Janice Carroll RN: PERFORM Event Display: Discharge/Transfer Note Hospital Authored Date: [id number] Discharge Planning Nursing Entered On: 10/30/2022 9:56 EDT Performed On: 10/30/2022 9:55 EDT by Janice Carroll RN Discharge Planning Nursing Anticipated discharge : Home Janice Carroll RN - 10/30/2022 9:55 EDT Indicator(s) for VNA/Home Care Services Able to safely function at home Able to safely ambulate at home : Yes Able to safely function at home : Yes Able to obtain meds: fill prescriptions : Yes Understands home medications : Yes Has food available at home : Yes Able to prepare/obtain meals : Yes Able to arrange transportation home : Yes Able to gain entry into home : Yes Exhibits impaired orientation : No Exhibits impaired comprehension : No Exhibits impaired judgement : No Caregiver willing to support patient : Yes Caregiver available to support patient : Yes Caregiver capable to support patient : Yes Janice Carroll RN 10/30/2022 9:55 EDT New/changed/complex medication regime Recent change in mental health status : No Change in functional status : No New/changed/complex medication regime : No New Diagnosis : No Recent change in diet : No Catheter and/or Drain present : No Wound care / Colostomy care needed : No New injections : No IV therapy/TPN : No Impaired speech, swallow, communication : No Social problems or barriers : No Overwhelmed or noncompliant caregiver : No New DME Needed for Home : No Oxygen need at home or to transport home : No Janice Carroll RN 10/30/2022 9:55 EDT Patient Care team information Care Team Personnel Name: Alley Lilly RN Position: [facility] RN Member Role: Primary Care Nurse Name: Marguerite Mustafa MD Position: [facility] Physician - Primary Care Member Role: PCP Address: Address: [address] [place] [address] Name: Jevon Max MD Position: [facility] ED Medicine MD Address: Address: [address] [place] [address] Name: John Solo RN Position: [facility] ED RN W/OE and Tasks Member Role: Patient Care Provider Name: Harrison Dasilva Position: [facility] ED TA [facility] Member Role: Patient Care Provider Name: Lexy Love MD Position: [facility] Resident Member Role: ED Resident Address: Address: [address] [place] [address] Name: Jossie Byrd RN Position: [facility] ED RN W/OE and Tasks Member Role: Patient Care Provider Care Team Related Persons Name: TAMMY VALENET Address: home [address] [facility] [address] Name: OSMAN VALENTE Address: home [address], [place] Name: REGINALDO BAXTER Address: home [address] [place], [place] Name: REGINALDO BAXTER Address: home [address], [place] Name: SAMANTHA RDZ Address: home [address] [place] [address]
--- OUTSIDE RECORDS SUMMARY | 2024-03-09 20:55 | XMS_ITS | Continuity of Care Document ---
Author Organization [facility] Address [address] [place] [address]- Care Team Providers Care Metal Dealer Name Role Phone Ramsey LEMUS, Marguerite Primary Care Physician [phone] Encounter [facility] Date(s): 07/01/20 - 07/31/20 [facility] [address] [place] [address]- Attending Physician: Admtr, Ar8 Allergies, Adverse Reactions, [...] Vaccine (old term) 03 Given 1Result Comment: [id number] 2Result Comment: [id number] 3Admin Note: vis given 01.01.2014 4Early/Late Reason: Other : 5Admin Note: SANOFI 6Result Comment: [facility] [id number] 7Result Comment: [id number] 8Result Comment: [id number] 9Admin Note: MFD BY SANOFI Medications Advair Diskus 500 mcg-50 mcg inhalation powder 1, inhalation, Inhalation, 2 times a day, rinse mouth and throat after use, # 1 each, Refills 3, Tot. Refills 3, Maintenance, 06/06/20 9:57:00 EST, Powder, Route to Pharmacy Electronically, AKPDP_[id number], [facility] #[id number], 171, cm, 05/28... Start Date: 06/06/20 Status: Ordered Aerochamber See Instructions, # 1 each, Maintenance, use with inhaler medications, 01/28/15 13:46:28, Compound Start Date: 01/28/15 Status: Ordered albuterol 0.083% inhalation solution 3 mL = 2.5 mg, Inhalation, Every 6 hours, # 120 each, 2 Refills, Maintenance, 05/23/20 15:08:00 EST, Solution, [facility] #[id number], 171, cm, 04/23/20 17:37:00 EST, Height, 57.3, kg, 04/23/20 17:37:00 EST, Dry Weight Start Date: 05/23/20 Status: Ordered albuterol CFC free 90 mcg/inh inhalation aerosol See Instructions, inhale 2 to 8 puffs by mouth and INTO THE LUNGS every 4 hours if needed for wheezing and as directed 15 MINUTES BEFORE EXERCISE, # 17 Gm, Refills 0, Tot. Refills 0, Maintenance, 07/09/20 8:28:00 EST, Instructions Replace Required Det... Start Date: 07/09/20 Status: Ordered montelukast 10 mg oral tablet 10 mg, 1, tablet, By Mouth, Daily, # 30 tablet, Refills 3, Tot. Refills 3, Maintenance, 05/28/20 14:44:00 EST, Route to Pharmacy Electronically, [facility] #[id number], 171, cm, 05/28/20 13:50:00 EST, Height, 57.3, kg, 05/28/20 13:50:00 EST, Dry... Start Date: 05/28/20 Status: Ordered PROzac 10 mg oral capsule See Instructions, Take 1 daily for 7 days, then increase to 2 daily, # 60 capsule, Refills 3, Tot. Refills 3, Maintenance, 04/16/20 16:36:00 EST, Instructions Replace Required Details, Route to Pharmacy Electronically, [facility] #[id number], [place]... 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
--- OUTSIDE RECORDS SUMMARY | 2024-03-09 20:55 | XMS_ITS | Continuity of Care Document ---
Author Organization [facility] Address [address] [place] [address]- Care Team Providers Care Environmental Engineering Intern Name Role Phone Marguerite Mustafa MD Primary Care Physician [phone] Encounter [facility] Date(s): 03/07/23 - 04/06/[address] [address]- Allergies, Adverse Reactions, Alerts No Known Allergies [...] influenza virus vaccine, inactivated 3 04/08/14 Gi ossa influenza virus vaccine, inactivated 02/08/13 Give n [...] Vaccine (old term) 03 Given 1Result Comment: [id number] 2Result Comment: [id number] 3Admin Note: vis given 01.01.2014 4Early/Late Reason: Other : 5Admin Note: SANOFI 6Result Comment: [facility] [id number] 7Result Comment: [id number] 8Result Comment: [id number] 9Admin Note: MFD BY SANOFI Medications Advair Diskus 500 mcg-50 mcg inhalation powder 1, puffs, Inhalation, 2 times a day, RINSE MOUTH AND THROAT AFTER USE, # 60 each, Refills 5, Tot. Refills 5, Maintenance, 03/11/23 13:16:00 EDT, Route to Pharmacy Electronically, NCPDP_[id number], [facility] #[id number], 167.5, cm, 02/03/23 18:02... Start Date: 03/11/23 Status: Ordered albuterol CFC free 90 mcg/inh inhalation aerosol See Instructions, PRN, 2-6 puffs Inhalation Every 4 hours as needed use with spacer chamber, # 1 each, Refills 1, Tot. Refills 1, Maintenance, 06/04/22 8:47:00 EST, Instructions Replace Required Details, Route to Pharmacy Electronically, NCPDP_ID-[id number]... Start Date: 06/04/22 Status: Ordered albuterol CFC free 90 mcg/inh inhalation aerosol 2, puffs, Inhalation, Every 4 hours, PRN, # 18 Gm, Refills 0, Tot. Refills 0, Maintenance, 03/10/2311:02:00 EDT, Aerosol, Route to Pharmacy Electronically, NCPDP_[id number], [facility] #[id number], 167.5, cm, 02/03/23 18:02:00 EDT, Height, 52.2,... Start Date: 03/10/23 Status: Ordered Apri 0.15 mg-0.03 mg oral tablet 1 tablet, By Mouth, Daily, take same time dialy, # 28 tablet, 12 Refills, Maintenance, 03/17/22 9:23:00 EDT, Tablet, [facility] #[id number], Partial fill upon patient request if the prescriptionis for a schedule II opioid drug., 1 tablet By Mout... Start Date: 03/17/22 Status: Ordered Flonase Allergy Relief 50 mcg/inh nasal spray 1 sprays, Nares, Both, Daily, # 1 each, 0 Refills, Maintenance, 02/03/23 19:09:00 EDT, [facility] #[id number], Partial fill upon patient request if the prescription is for a schedule II opioid drug., 167.5, cm, 02/03/23 18:02:00 EDT, Height, 53.8... Start Date: 02/03/23 Status: Ordered montelukast 10 mg oral tablet 1, tablet, By Mouth, Daily, # 90 tablet, Refills 0, Maintenance, 03/11/23 14:23:00 EDT, Route to Pharmacy Electronically, [facility] #[id number], 167.5, cm, 02/03/23 18:02:00 EDT, Height, 52.2, kg, 03/10/23 10:34:00 EDT, Dry Weight Start Date: 03/11/23 Status: Ordered predniSONE 20 mg oral tablet 2 tablet = 40 mg, By Mouth, Daily, # 10 tablet, 0 Refills, Maintenance, 03/11/23 13:16:00 EDT, Tablet, [facility] #[id number], Partial fill upon patient request if the prescription is for a schedule II opioid drug., 167.5, cm, 02/03/23 18:02:00 E... Start Date: 03/11/23 Stop Date: 03/16/23 Status: Ordered SUMAtriptan 50 mg oral tablet 1 tablet = 50 mg, By Mouth, Daily, PRN for migraine headache, # 9 tablet, 1 Refills, Maintenance, 02/03/23 18:55:00 EDT, Tablet, [facility] #[id number], Partial fill upon patient request if the prescription is for a schedule II opioid drug., 167.... Start Date: 02/03/23 Status: Ordered Ventolin HFA 108 mcg/inh inhalation aerosol with adapter 2 puffs, Inhalation, Every 4 hours, PRN for wheezing, # 1 each, 0 Refills, Maintenance, 03/02/23 18:34:00 EDT, Aerosol, [facility] #[id number], Partial fill upon patient request if the prescription is for a schedule II opioid drug., 167.5, cm, 09... 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, allergy to pollen, dust mite, animal dander- Cetirizine and Flunisolide 4Saw Pulm- Increased Advair and added Qnasal; Given oral steroids 2/2 URI triggering her asthma 5Saw Pulm 11/2016- normal spirometry; continue Advair and Singulair - Saw pulm Still on Advair and Singulair; Added Flonase for seasonal allergies - Saw Pulm; On Advair and Singulair 8Seen my Neuro and Savannah Keita ([facility]) started on Clonidine Social History Social History Type Response Smoking Status Never (less than 100 in lifetime) entered on: 11/04/20 Sex Female Patient Care team information Care Team Personnel Name: Alley Evans RN Position: [facility] RN Member Role: Primary Care Nurse Name: Marguerite Mustafa MD Position: [facility] Physician - Primary Care Member Role: PCP Address: Address: [address] [place] [address] [place] [address]- Care Team Related Persons Name: TAMMY VALENTE Address: [place] [address] Name: OSMAN VALENTE Address: home [address], [place] Name: REGINALDO BAXTER Address: home [address], [place] Name: REGINALDO BAXTER Address: home [address], [place] Name: SAMANTHA RDZ Address: home [address] [place] [address]
--- OUTSIDE RECORDS SUMMARY | 2024-03-09 20:56 | XMS_ITS | Continuity of Care Document ---
Author Organization [facility] Address [address] [place] [address]- Care Team Providers Care Dynamicist Name Role Phone Ramsey LEMUS, Marguerite Primary Care Physician Encounter [facility] Date(s): 03/22/23 - 04/21/23 [facility] [address] [place] [address]- Attending Physician: Admtr, Ar8 Allergies, Adverse Reactions, Alerts No Known Allergies [...] Vaccine (old term) 03 Given 1Result Comment: [id number] 2Result Comment: [id number] 3Admin Note: vis given 01.01.2014 4Early/Late Reason: Other : 5Admin Note: SANOFI 6Result Comment: [facility] [id number] 7Result Comment: [id number] 8Result Comment: [id number] 9Admin Note: MFD BY [facility] Medications Advair Diskus 500 mcg-50 mcg inhalation powder 1, puffs, Inhalation, 2 times a day, RINSE MOUTH AND THROAT AFTER USE, # 60 each, Refills 5, Tot. Refills 5, Maintenance, 03/11/23 13:16:00 EDT, Route to Pharmacy Electronically, NCPDP_[id number], [facility] #[id number], 167.5, cm, 02/03/23 18:02... Start Date: 03/11/23 [...] 03/10/2311:02:00 EDT, Aerosol, Route to Pharmacy Electronically, NCPDP_[id number], [facility] #[id number], 167.5, cm, 02/03/23 18:02:00 EDT, Height, 52.2,... Start Date: 03/10/23 Status: Ordered Apri 0.15 mg-0.03 mg oral tablet 1 tablet, By Mouth, Daily, take same time dialy, # 28 tablet, 12 Refills, Maintenance, 03/17/22 9:23:00 EDT, Tablet, [facility] #[id number], Partial fill upon patient request if the prescriptionis for a schedule II opioid drug., 1 tablet By Mout... Start Date: 03/17/22 Status: Ordered Flonase Allergy Relief 50 mcg/inh nasal spray 1 sprays, Nares, Both, Daily, # 1 each, 0 Refills, Maintenance, 02/03/23 19:09:00 EDT, [facility] #[id number], Partial fill upon patient request if the prescription is for a schedule II opioid drug., 167.5, cm, 02/03/23 18:02:00 EDT, Height, 53.8... Start Date: 02/03/23 Status: Ordered montelukast 10 mg oral tablet 1, tablet, By Mouth, Daily, # 90 tablet, Refills 0, Maintenance, 03/11/23 14:23:00 EDT, Route to Pharmacy Electronically, [facility] #[id number], 167.5, cm, 02/03/23 18:02:00 EDT, Height, 52.2, kg, 03/10/23 10:34:00 EDT, Dry Weight Start Date: 03/11/23 Status: Ordered predniSONE 20 mg oral tablet 2 tablet = 40 mg, By Mouth, Daily, # 10 tablet, 0 Refills, Maintenance, 03/11/23 13:16:00 EDT, Tablet, [email or web address] #[id number], Partial fill upon patient request if the prescription is for a schedule II opioid drug., 167.5, cm, 02/03/23 18:02:00 E... Start Date: 03/11/23 Stop Date: 03/16/23 Status: Ordered SUMAtriptan 50 mg oral tablet 1 tablet = 50 mg, By Mouth, Daily, PRN for migraine headache, # 9 tablet, 1 Refills, Maintenance, 02/03/23 18:55:00 EDT, Tablet, [email or web address] #[email or web address], Partial fill upon patient request if the prescription is for a schedule II opioid drug., 167.... 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, allergy to pollen, dust mite, animal dander- Cetirizine and Flunisolide 4Saw Pulm- Increased Advair and added Qnasal; Given oral steroids 2/2 URI triggering her asthma 5Saw Pulm 11/2016- normal spirometry; continue Advair and Singulair - Saw pulm Still on Advair and Singulair; Added Flonase for seasonal allergies - Saw Pulm; On Advair and Singulair 8Seen my Neuro and Savannah Bossman ([facility]) started on Clonidine Social History Social History Type Response Smoking Status Never (less than 100 in lifetime) entered on: 11/04/20 Sex Female Patient Care team information Care Team Personnel Name: Nathan DRISCOLL, Alley Position: [facility] RN Member Role: Primary Care Nurse Name: Marguerite Mustafa MD Position: [facility] Physician - Primary Care Member Role: PCP Address: Address: [address] [place] [address] [place] [address]- Care Team Related Persons Name: TAMMY VALENTE Address: [place] [address] Name: OSMAN VALENTE Address: home [address], [place] Name: REGINALDO BAXTER Address: [address] [place], [place] Name: REGINALDO BAXTER Address: [address], [place] Name: SAMANTHA RDZ Address: [address] [place] [address]
--- OUTSIDE RECORDS SUMMARY | 2024-03-09 20:56 | XMS_ITS | Continuity of Care Document ---
Author Organization [facility] Address [address] [place] [address]- Care Team Providers Care Pancake Professional Name Role Phone Marguerite Mustafa MD Primary Care Physician [phone] Encounter [facility] Date(s): 02/08/23 - 03/10/23 [facility] [address] [place] [address]- Allergies, Adverse Reactions, Alerts No Known Allergies [...] Vaccine (old term) 03 Given 1Result Comment: [id number] 2Result Comment: [id number] 3Admin Note: vis given 01.01.2014 4Early/Late Reason: Other : 5Admin Note: SANOFI 6Result Comment: [facility] [id number] 7Result Comment: [id number] 8Result Comment: [id number] 9Admin Note: MFD BY [facility] Medications Advair Diskus 500 mcg-50 mcg inhalation powder 1, puffs, Inhalation, 2 times a day, RINSE MOUTH AND THROAT AFTER USE, # 60 each, Refills 5, Tot. Refills 5, Maintenance, 08/19/21 16:30:00 EDT, Route to Pharmacy Electronically, NCPDP_[id number], [facility] #[id number], 168.4, cm, 08/19/21 16:16... Start Date: 08/19/21 Status: Ordered albuterol CFC [...] 03/10/2311:02:00 EDT, Aerosol, Route to Pharmacy Electronically, NCPDP_[id number], [facility] #[id number], 167.5, cm, 02/03/23 18:02:00 EDT, Height, 52.2,... Start Date: 03/10/23 Status: Ordered Apri 0.15 mg-0.03 mg oral tablet 1 tablet, By Mouth, Daily, take same time dialy, # 28 tablet, 12 Refills, Maintenance, 03/17/22 9:23:00 EDT, Tablet, [facility] #[id number], Partial fill upon patient request if the prescriptionis for a schedule II opioid drug., 1 tablet By Mout... Start Date: 03/17/22 Status: Ordered Flonase Allergy Relief 50 mcg/inh nasal spray 1 sprays, Nares, Both, Daily, # 1 each, 0 Refills, Maintenance, 02/03/23 19:09:00 EDT, [facility] #[id number], Partial fill upon patient request if the prescription is for a schedule II opioid drug., 167.5, cm, 02/03/23 18:02:00 EDT, Height, 53.8... Start Date: 02/03/23 Status: Ordered montelukast 10 mg oral tablet 1, tablet, By Mouth, Daily, # 30 tablet, Refills 1, Maintenance, 06/18/22 13:28:00 EST, Route to Pharmacy Electronically, [facility] #[id number], 169.5, cm, 03/17/22 9:15:00 EDT, Height, 53.7, kg, 02/25/22 13:16:00 EDT, Dry Weight Start Date: 06/18/22 Status: Ordered SUMAtriptan 50 mg oral tablet 1 tablet = 50 mg, By Mouth, Daily, PRN for migraine headache, # 9 tablet, 1 Refills, Maintenance, 02/03/23 18:55:00 EDT, Tablet, [facility] #[id number], Partial fill upon patient request if the prescription is for a schedule II opioid drug., 167.... 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, allergy to pollen, dust mite, animal dander- Cetirizine and Flunisolide 4Saw Pulm- Increased Advair and added Qnasal; Given oral steroids 2/2 URI triggering her asthma 5Saw Pulm 11/2016- normal spirometry; continue Advair and Singulair - Saw pulm Still on Advair and Singulair; Added Flonase for seasonal allergies - Saw Pulm; On Advair and Singulair 8Seen my Neuro and Savannah Keita ([facility]) started on Clonidine Social History Social History Type Response Smoking Status Never (less than 100 in lifetime) entered on: 11/04/20 Sex Female Patient Care team information Care Team Personnel Name: Nathan RN, Alley Position: [facility] RN Member Role: Primary Care Nurse Name: Marguerite Mustafa MD Position: [facility] Physician - Primary Care Member Role: PCP Address: Address: [address] [place] [address] [place] [address]- Care Team Related Persons Name: TAMMY VALENTE Address: [place] [address] Name: OSMAN VALENTE Address: [address] [place] [address] Name: REGINALDO BAXTER Address: [address] [place] [address] Name: REGINALDO BAXTER Address: [address] [place] [address] Name: SAMANTHA RDZ Address: home [address] [place] [address]
--- OUTSIDE RECORDS SUMMARY | 2024-03-09 20:56 | XMS_ITS | Continuity of Care Document ---
Author Organization [facility] Address [address] [place] [address]- Care Team Providers Care Bread Wrapper Operator Name Role Phone Ramsey LEMUS, Marguerite Primary Care Physician [facility] Date(s): 01/11/22 - 02/10/22 [facility] [address] [place] [address]- Attending Physician: Admtr, Ar8 Allergies, Adverse Reactions, [...] Vaccine (old term) 03 Given 1Result Comment: [id number] 2Result Comment: [id number] 3Admin Note: vis given 01.01.2014 4Early/Late Reason: Other : 5Admin Note: SANOFI 6Result Comment: [facility] [id number] 7Result Comment: [id number] 8Result Comment: [id number] 9Admin Note: MFD BY SANOFI Medications Advair Diskus 500 mcg-50 mcg inhalation powder 1, puffs, Inhalation, 2 times a day, RINSE MOUTH AND THROAT AFTER USE, # 60 each, Refills 5, Tot. Refills 5, Maintenance, 08/19/21 16:30:00 EDT, Route to Pharmacy Electronically, NDPDP_[id number], [facility] #[id number], 168.4, cm, 08/19/21 16:16... Start Date: 08/19/21 [...] 2 Refills, Maintenance, 08/19/21 16:30:00 EDT, Solution, [facility] #[id number], 168.4, cm, 08/19/21 16:16:00 EDT, Height, 56, [...] Pharmacy Electr... Start Date: 08/19/21 Status: Ordered Apri 0.15 mg-0.03 mg oral tablet 1 tablet, By Mouth, Daily, # 28 tablet, 12 Refills, Maintenance, 01/14/22 15:31:00 EDT, Tablet, [facility] #[id number], Partial fill upon patient request if the prescription is for a schedule IIopioid drug., 1 tablet By Mouth Daily, 169.5, cm, 0... Start Date: 01/14/22 Status: Ordered cetirizine 10 mg oral tablet 1 tablet = 10 mg, By Mouth, Daily, # 30 tablet, 0 Refills, Maintenance, 08/19/21 16:32:00 EDT, Tablet, [facility] #[id number], Partial fill upon patient request if the prescription is for a schedule II opioid drug., 168.4, cm, 08/19/21 16:16:00 E... Start Date: 08/19/21 Status: Ordered fluvoxaMINE 50 mg oral tablet 1 tablet = 50 mg, By Mouth, Daily at bedtime, for 30 days, # 30 tablet, 2 Refills, Hard Stop 03/08/22 12:27:00 EDT, 12/08/21 12:27:00 EDT, Tablet, [facility] #[id number], Partial fill upon patient request if the prescription is for a schedule II... Start Date: 12/08/21 Stop Date: 03/08/22 Status: Ordered fluvoxaMINE 50 mg oral tablet 1 tablet = 50 mg, By Mouth, Daily at bedtime, for 30 days, # 30 tablet, 2 Refills, Hard Stop 06/06/22 12:27:00 EST, 03/08/22 12:27:00 EDT, Tablet, [facility] #[id number], Partial fill upon patient request if the prescription is for a schedule II... Start Date: 03/08/22 Stop Date: 06/06/22 Status: Ordered montelukast 10 mg oral tablet 10 mg, 1, tablet, By Mouth, Daily in PM, # 30 tablet, Refills 3, Tot. Refills 3, Maintenance, 08/19/21 16:30:00 EDT, Route to Pharmacy Electronically, [facility] #[id number], Partial fill upon patient request if the prescription is for a schedule... 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, allergy to pollen, dust mite, animal dander- Cetirizine and Flunisolide 4Saw Pulm- Increased Advair and added Qnasal; Given oral steroids 2/2 URI triggering her asthma 5Saw Pulm 11/2016- normal spirometry; continue Advair and Singulair - Saw pulm Still on Advair and Singulair; Added Flonase for seasonal allergies - Saw Pulm; On Advair and Singulair 8Seen my Neuro and Savannah Keita ([facility]) started on Clonidine Social History Social History Type Response Smoking Status Never (less than 100 in lifetime) entered on: 11/04/20 Sex Patient Care team information Personnel Name: Marguerite Mustafa MD Address: Address: [address] [place] [address] [place] [address]-
--- OUTSIDE RECORDS SUMMARY | 2024-03-09 20:56 | XMS_ITS | Continuity of Care Document ---
Author Organization [facility] Address [address] [place] [address]- Care Team Providers Care Youth Probation Officer Name Role Phone Ramsey LEMUS, Marguerite Primary Care Physician [phone] Encounter [facility] Date(s): 10/01/20 - 10/31/20 [facility] [address] [place] [address]- Attending Physician: Admtr, Ar8 Allergies, Adverse Reactions, [...] Vaccine (old term) 03 Given 1Result Comment: 32781-379-02 2Result Comment: [id number] 3Admin Note: vis given 01.01.2014 4Early/Late Reason: Other : 5Admin Note: SANOFI 6Result Comment: [facility] [id number] 7Result Comment: [phone] 8Result Comment: [id number] 9Admin Note: MFD BY SANOFI Medications Advair Diskus 500 mcg-50 mcg inhalation powder 1, inhalation, Inhalation, 2 times a day, rinse mouth and throat after use, # 1 each, Refills 3, Tot. Refills 3, Maintenance, 06/06/20 9:57:00 EST, Powder, Route to Pharmacy Electronically, [id number]_[id number], [facility] #[id number], 171, cm, 05/28... Start Date: 06/06/20 Status: Ordered Aerochamber See Instructions, # 1 each, Maintenance, use with inhaler medications, 01/28/15 13:46:28, Compound Start Date: 01/28/15 Status: Ordered albuterol 0.083% inhalation solution 3 mL = 2.5 mg, Inhalation, Every 6 hours, # 120 each, 2 Refills, Maintenance, 05/23/20 15:08:00 EST, Solution, [facility] #[id number], 171, cm, 04/23/20 17:37:00 EST, Height, 57.3, kg, 04/23/20 17:37:00 EST, Dry Weight Start Date: 05/23/20 Status: Ordered albuterol CFC free 90 mcg/inh inhalation aerosol See Instructions, inhale 2 to 6 puffs by mouth and INTO THE LUNGS every 4 hours if needed for wheezing and as directed 15 MINUTES BEFORE EXERCISE, # 17 Gm, Refills 2, Tot. Refills 2, Maintenance, 09/15/20 10:41:00 EDT, Instructions Replace Required De... Start Date: 09/15/20 Status: Ordered montelukast 10 mg oral tablet 10 mg, 1, tablet, By Mouth, Daily, # 30 tablet, Refills 3, Tot. Refills 3, Maintenance, 08/06/20 15:22:00 EDT, Route to Pharmacy Electronically, [facility] #[id number], 168.5, cm, 08/06/20 14:37:00 EDT, Height, 56.5, kg, 08/06/20 14:37:00 EDT, Start Date: 08/06/20 Status: Ordered PROzac 10 mg oral capsule See Instructions, Take 1 daily for 7 days, then increase to 2 daily, # 60 capsule, Refills 3, Tot. Refills 3, Maintenance, 04/16/20 16:36:00 EST, Instructions Replace Required Details, Route to Pharmacy Electronically, [facility] #[id number], Par... 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
--- OUTSIDE RECORDS SUMMARY | 2024-03-09 20:56 | XMS_ITS | Continuity of Care Document ---
Author Organization [facility] Address [address] [place] [address]- Care Team Providers Care Catalyst Impregnator Name Role Phone Fouzia Moreno Primary Care Physician [phone] Encounter [facility] Date(s): 11/15/19 - 11/22/19 [facility] [address] [place] [address]- [facility] Attending Physician: Adeola Hill MD Referring Physician: Fouzia Moreno Allergies, Adverse Reactions, Alerts Substance Reaction Severity [...] Vaccine (old term) 03 Given 1Result Comment: 52135-568-97 2Admin Note: vis given 01.01.2014 3Early/Late Reason: Other : 4Admin Note: SANOFI 5Result Comment: [id number] 6Result Comment: [id number] 7Admin Note: MFD BY SANOFI Medications Adderall XR 15 mg oral capsule, extended release 1 capsule = 15 mg, By Mouth, Daily in AM, # 30 capsule, 0 Refills, Maintenance, 07/05/19 17:28:00 EST, CR Capsule, [facility] #[id number], 1 capsule By Mouth Daily in AM, [...] 16:03:00 EDT, Powder, Route to Pharmacy Electronically, [id number], [facility] #[id number], 167.7, cm, ... Start Date: 10/10/19 Status: Ordered albuterol 0.083% inhalation solution 3 mL = 2.5 mg, Inhalation, Every 6 hours, # 120 each, 0 Refills, Maintenance, 07/26/19 15:30:00 EDT, Solution, [facility] #[id number], 167.7, cm, 06/20/19 14:57:00 EST, Height, 54.1, [...] 10/10/19 16:02:00 EDT, Route to Pharmacy Electronically, [facility] #[id number], 167.7, cm, 06/20/19 14:57:00 EST, Height, 54.1, kg, 06/20/19 14:57:00 EST, . 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
--- OUTSIDE RECORDS SUMMARY | 2024-03-09 20:56 | XMS_ITS | Continuity of Care Document ---
Author Organization [facility] Address [address] [place] [address]- Care Team Providers Care Refrigeration Supervisor Name Role Phone Marguerite Mustafa MD Primary Care Physician [phone] Encounter [facility] Date(s): 03/17/22 - 06/10/[address] [address]- Attending Physician: Not on Staff, Attending MD Allergies, Adverse Reactions, Alerts No Known Allergies Immunizations Given and Recorded Vaccine Date Status Refusal Reason SARS-CoV-2 (COVID-19) mRNA-2393 vaccine 01/11/22 R ecorded influenza virus vaccine, [...] Vaccine (old term) 03 Given 1Result Comment: [id number] 2Result Comment: [id number] 3Admin Note: vis given 01.01.2014 4Early/Late Reason: Other : 5Admin Note: SANOFI 6Result Comment: [facility] [id number] 7Result Comment: [id number] 8Result Comment: [id number] 9Admin Note: MFD BY SANOFI Medications Advair Diskus 500 mcg-50 mcg inhalation powder 1, puffs, Inhalation, 2 times a day, RINSE MOUTH AND THROAT AFTER USE, # 60 each, Refills 5, Tot. Refills 5, Maintenance, 08/19/21 16:30:00 EDT, Route to Pharmacy Electronically, NCPDP_[id number], [facility] #22271, 168.4, cm, 08/19/21 16:16... Start Date: 08/19/21 [...] 12 Refills, Maintenance, 03/17/22 9:23:00 EDT, Tablet, [facility] #68248, Partial fill upon patient request if the prescriptionis for a schedule II opioid drug., 1 tablet By Mout... Start Date: 03/17/22 Status: Ordered cetirizine 10 mg oral tablet 1 tablet = 10 mg, By Mouth, Daily, # 30 tablet, 0 Refills, Maintenance, 08/19/21 16:32:00 EDT, Tablet, [facility] #33528, Partial fill upon patient request if the prescription is for a schedule II opioid drug., 168.4, cm, 08/19/21 16:16:00 E... Start Date: 08/19/21 Status: Ordered fluvoxaMINE 50 mg oral tablet 1 tablet = 50 mg, By Mouth, Daily at bedtime, # 30 tablet, 2 Refills, Maintenance, 04/05/22 12:27:00 EST, Tablet, [facility] #[id number], Partial fill upon patient request if the prescription isfor a schedule II opioid drug., 169.5, cm, 03/17/22... Start Date: 04/05/22 Stop Date: 07/04/22 Status: Ordered montelukast 10 mg oral tablet 1, tablet, By Mouth, Daily, # 30 tablet, Refills 0, Maintenance, 03/22/22 9:08:00 EST, Route to Pharmacy Electronically, [facility] #[id number], 169.5, cm, 03/17/22 9:15:00 EDT, Height, 53.7, kg, 02/25/22 13:16:00 EDT, Dry Weight Start Date: 03/22/22 Status: Ordered Vitamin D3 1000 intl units oral capsule 1 capsule = 25 mcg, By Mouth, Daily, # 30 capsule, 4 Refills, Maintenance, 08/19/21 16:30:00 EDT, Capsule, [facility] #26361, Partial fill upon patient request if the [...] and started on Adderall 10mg XR 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, 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 Neuro and Savannah Keita ([facility]) started on Clonidine Social History Social History Type Response Smoking Status Never (less than 100 in lifetime) entered on: 11/04/20 Sex Patient Care team information Care Team Personnel Name: Ramsey LEMUS, Marguerite Position: [facility] Primary Care Physician Member Role: PCP Address: Address: [address] [place] [address]- [place] Care Team Related Persons Name: TAMMY VALENTE Address: [place] [address] Name: OSMAN VALENTE Address: home [address] [place] [address] Name: REGINALDO BAXTER Address: [address] [place] [address] Name: REGINALDO BAXTER Address: [address] [place] [address] Name: SAMANTHA RDZ Address: home [address] [place] [address]
--- OUTSIDE RECORDS SUMMARY | 2024-03-09 20:56 | XMS_ITS | Continuity of Care Document ---
Author Organization [facility] Address [address] [place] [address]- Care Team Providers Care Telescope Repairer Name Role Phone Marguerite Mustafa MD Primary Care Physician Encounter [facility] Date(s): 10/10/20 - 11/09/20 [facility] [address] [place] [address]- Allergies, Adverse Reactions, Alerts Substance Reaction Severity [...] Vaccine (old term) 03 Given 1Result Comment: [id number] 2Result Comment: [id number] 3Admin Note: vis given 01.01.2014 4Early/Late Reason: Other : 5Admin Note: SANOFI 6Result Comment: [facility] [id number] 7Result Comment: [id number] 8Result Comment: [id number] 9Admin Note: MFD BY SANOFI Medications Advair Diskus 500 mcg-50 mcg inhalation powder 1, inhalation, Inhalation, 2 times a day, rinse mouth and throat after use, # 1 each, Refills 3, Tot. Refills 3, Maintenance, 11/05/20 15:34:00 EDT, Powder, Route to Pharmacy Electronically, [id number]_[id number], [facility] #49292, 168.7, cm, 06... Start Date: 11/05/20 Status: Ordered Aerochamber See Instructions, # 1 each, Maintenance, use with inhaler medications, 01/28/15 13:46:28, Compound Start Date: 01/28/15 Status: Ordered albuterol 0.083% inhalation solution 3 mL = 2.5 mg, Inhalation, Every 6 hours, # 120 each, 2 Refills, Maintenance, 05/23/20 15:08:00 EST, Solution, [facility] #[id number], 171, cm, 04/23/20 17:37:00 EST, Height, 57.3, [...] 11/05/20 15:34:00 EDT, Route to Pharmacy Electronically, [facility] #[id number], 168.7, cm, 11/05/20 15:05:00 EDT, Height, 55.2, kg, 11/05/20 15:05:00 EDT, Start Date: 11/05/20 Status: Ordered PROzac 10 mg oral capsule See Instructions, Take 1 daily for 7 days, then increase to 2 daily, # 60 capsule, Refills 3, Tot. Refills 3, Maintenance, 04/16/20 16:36:00 EST, Instructions Replace Required Details, Route to Pharmacy Electronically, [facility] #05163, Par... 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
--- OUTSIDE RECORDS SUMMARY | 2024-03-09 20:56 | XMS_ITS | Continuity of Care Document ---
Author Organization [facility] Address [address] [place] [address]- Care Team Providers Care Bar Manager Name Role Phone Marguerite Mustafa MD Primary Care Physician [phone] Encounter [facility] Date(s): 09/22/20 - 10/22/20 [facility] [address] [place] [address]- Attending Physician: Frank Stein Admitting Physician: Frank Stein Referring Physician: AdmtrFrank Allergies, Adverse Reactions, Alerts Substance Reaction Severity [...] Vaccine (old term) 03 Given 1Result Comment: [id number] 2Result Comment: [id number] 3Admin Note: vis given 01.01.2014 4Early/Late Reason: Other : 5Admin Note: SANOFI 6Result Comment: [facility] [id number] 7Result Comment: [phone] 8Result Comment: [id number] 9Admin Note: MFD BY [employer] Medications Advair Diskus 500 mcg-50 mcg inhalation powder 1, inhalation, Inhalation, 2 times a day, rinse mouth and throat after use, # 1 each, Refills 3, Tot. Refills 3, Maintenance, 06/06/20 9:57:00 EST, Powder, Route to Pharmacy Electronically, [id number]_[id number], [facility] #[id number], 171, cm, 05/28... Start Date: 06/06/20 Status: Ordered Aerochamber See Instructions, # 1 each, Maintenance, use with inhaler medications, 01/28/15 13:46:28, Compound Start Date: 01/28/15 Status: Ordered albuterol 0.083% inhalation solution 3 mL = 2.5 mg, Inhalation, Every 6 hours, # 120 each, 2 Refills, Maintenance, 05/23/20 15:08:00 EST, Solution, [facility] #[id number], 171, cm, 04/23/20 17:37:00 EST, Height, 57.3, [...] 08/06/20 15:22:00 EDT, Route to Pharmacy Electronically, [facility] #68066, 168.5, cm, 08/06/20 14:37:00 EDT, Height, 56.5, kg, 08/06/20 14:37:00 EDT, Start Date: 08/06/20 Status: Ordered PROzac 10 mg oral capsule See Instructions, Take 1 daily for 7 days, then increase to 2 daily, # 60 capsule, Refills 3, Tot. Refills 3, Maintenance, 04/16/20 16:36:00 EST, Instructions Replace Required Details, Route to Pharmacy Electronically, [facility] #34395, Par... 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
--- OUTSIDE RECORDS SUMMARY | 2024-03-09 20:56 | XMS_ITS | Continuity of Care Document ---
Author Organization [facility] Address [address] [place] [address]- Care Team Providers Care District Manager Name Role Phone Marguerite Mustafa MD Primary Care Physician [facility]counter [facility] Date(s): 02/02/21 - 03/04/21 [facility] [address] [place] [address]- Allergies, Adverse Reactions, Alerts Substance Reaction Severity [...] Vaccine (old term) 03 Given 1Result Comment: [id number] 2Result Comment: [id number] 3Admin Note: vis given 01.01.2014 4Early/Late Reason: Other : 5Admin Note: SANOFI 6Result Comment: [facility] [id number] 7Result Comment: [id number] 8Result Comment: [id number] 9Admin Note: MFD BY SANOFI Medications Advair Diskus 500 mcg-50 mcg inhalation powder 1, puffs, Inhalation, 2 times a day, RINSE MOUTH AND THROAT AFTER USE, # 60 each, Refills 5, Tot. Refills 5, Maintenance, 03/04/21 15:25:00 EDT, Route to Pharmacy Electronically, [place]PDP_[id number], [facility] #77696, 168, cm, 03/04/21 14:47:0... Start Date: 03/04/21 Status: Ordered Aerochamber See Instructions, # 1 each, Maintenance, use with inhaler medications, 01/28/15 13:46:28, Compound Start Date: 01/28/15 Status: Ordered albuterol 0.083% inhalation solution 3 mL = 2.5 mg, Inhalation, Every 6 hours, # 120 each, 2 Refills, Maintenance, 05/23/20 15:08:00 EST, Solution, [facility] #30722, 171, cm, 04/23/20 17:37:00 EST, Height, 57.3, [...] Electr... Start Date: 03/04/21 Status: Ordered fluvoxaMINE 25 mg oral tablet 1 tablet = 25 mg, By Mouth, Daily at bedtime, # 30 tablet, 0 Refills, Maintenance, 01/15/21 16:51:00 EDT, Tablet, [facility] #67939, Partial fill upon patient request if the prescription isfor a schedule II opioid drug., 168.7, cm, 11/05/20... Start Date: 01/15/21 Stop Date: 02/14/21 Status: Ordered montelukast 10 mg oral tablet 10 mg, 1, tablet, By Mouth, Daily, # 30 tablet, Refills 5, Tot. 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
--- OUTSIDE RECORDS SUMMARY | 2024-03-09 20:56 | XMS_ITS | Continuity of Care Document ---
Author Organization [facility] Address [address] [place] [address]- Care Team Providers Care Paste Up Artist Apprentice Name Role Phone Ramsey LEMUS, Marguerite Primary Care Physician [phone] Encounter [facility] Date(s): 08/10/23 - 09/09/23 [facility] [address] [place] [address]- Attending Physician: Frank Stein Admitting Physician: AdmtrFrank Referring Physician: Admtr, Ar8 Allergies, Adverse Reactions, Alerts [...] Vaccine (old term) 03 Given 1Result Comment: [id number] 2Result Comment: [id number] 3Admin Note: vis given 01.01.2014 4Early/Late Reason: Other : 5Admin Note: SANOFI 6Result Comment: [facility] [phone] 7Result Comment: [id number] 8Result Comment: [id number] 9Admin Note: MFD BY [employer] Medications Advair Diskus 500 mcg-50 mcg inhalation powder 1, puffs, Inhalation, 2 times a day, RINSE MOUTH AND THROAT AFTER USE, # 60 each, Refills 5, Tot. Refills 5, Maintenance, 03/11/23 13:16:00 EDT, [id number][id number], 167.5, cm, 02/03/23 18:02... Start Date: 03/11/23 Status: Ordered Apri 0.15 mg-0.03 mg oral tablet 1 tablet, By Mouth, Daily, take same time dialy, # 28 tablet, 12 Refills, Maintenance, 03/17/22 9:23:00 EDT, Tablet, [facility] #[id number], Partial fill upon patient request if the prescriptionis for a schedule II opioid drug., 1 tablet By Mout... Start Date: 03/17/22 Status: Ordered Flonase Allergy Relief 50 mcg/inh nasal spray 1 sprays, Nares, Both, Daily, # 1 each, 0 Refills, Maintenance, 02/03/23 19:09:00 EDT, [facility] #53706, Partial fill upon patient request if the prescription is for a schedule II opioid drug., 167.5, cm, 02/03/23 18:02:00 EDT, Height, 53.8... Start Date: 02/03/23 Status: Ordered montelukast 10 mg oral tablet 1, tablet, By Mouth, Daily, # 90 tablet, Refills 0, Maintenance, 03/11/23 14:23:00 EDT, Route to Pharmacy Electronically, [facility] #[id number], 167.5, cm, 02/03/23 18:02:00 EDT, Height, 52.2, kg, 03/10/23 10:34:00 EDT, Dry Weight Start Date: 03/11/23 Status: Ordered predniSONE 20 mg oral tablet 2 tablet = 40 mg, By Mouth, Daily, # 10 tablet, 0 Refills, Maintenance, 03/11/23 13:16:00 EDT, Tablet, [facility] #47266, Partial fill upon patient request if the prescription is for a schedule II opioid drug., 167.5, cm, 02/03/23 18:02:00 E... Start Date: 03/11/23 Stop Date: 03/16/23 Status: Ordered SUMAtriptan 50 mg oral tablet 1 tablet = 50 mg, By Mouth, Daily, PRN for migraine headache, # 9 tablet, 1 Refills, Maintenance, 02/03/23 18:55:00 EDT, Tablet, [facility] #53195, Partial fill upon patient request if the prescription is for a schedule II opioid drug., 167.... 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, allergy to pollen, dust mite, animal dander- Cetirizine and Flunisolide 4Saw Pulm- Increased Advair and added Qnasal; Given oral steroids 2/2 URI triggering her asthma 5Saw Pulm 11/2016- normal spirometry; continue Advair and Singulair - Saw pulm Still on Advair and Singulair; Added Flonase for seasonal allergies - Saw Pulm; On Advair and Singulair 8Seen my Neuro and Savannah Keita ([facility]) started on Clonidine Social History Social History Type Response Smoking Status Never (less than 100 in lifetime) entered on: 11/04/20 Sex Female Patient Care team information Care Team Personnel Name: Alley Evans RN Position: S RN Member Role: Primary Care Nurse Name: Marguerite Mustafa MD Position: [facility] Physician - Primary Care Member Role: PCP Address: Address: [address] [place] [address]- Care Team Related Persons Name: TAMMY VALENTE Address: [place] [address] Name: OSMAN VALENTE Address: home [address] [place] [address] Name: REGINALDO BAXTER Address: [address] [place] [address] Name: REGINALDO BAXTER Address: [address] [place] [address] Name: SAMANTHA RDZ Address: home [address] [place] [address]
--- OUTSIDE RECORDS SUMMARY | 2024-03-09 20:56 | XMS_ITS | Continuity of Care Document ---
Author Organization [facility] Address [address] [place] [address]- Care Team Providers Care Prn Physical Therapist Name Role Phone Ramsey LEMUS, Marguerite Primary Care Physician Encounter [facility] [place] Date(s): 12/24/20 - 01/23/[address] [address]- Attending Physician: Frank Stein Admitting Physician: Frank [...] Vaccine (old term) 03 Given 1Result Comment: 13245-152-85 2Result Comment: [id number] 3Admin Note: vis given 01.01.2014 4Early/Late Reason: Other : 5Admin Note: SANOFI 6Result Comment: [facility] [id number] 7Result Comment: [id number] 8Result Comment: [id number] 9Admin Note: MFD BY [employer] Medications Advair Diskus 500 mcg-50 mcg inhalation powder 1, puffs, Inhalation, 2 times a day, RINSE MOUTH AND THROAT AFTER USE, # 60 each, Refills 3, Tot. Refills 0, Maintenance, 11/14/20 11:11:00 EDT, Route to Pharmacy Electronically, NCPDP_[id number], [facility] #[id number], 168.7, cm, 11/05/20 15:05... Start Date: 11/14/20 Status: Ordered Aerochamber See Instructions, # 1 each, Maintenance, use with inhaler medications, 01/28/15 13:46:28, Compound Start Date: 01/28/15 Status: Ordered albuterol 0.083% inhalation solution 3 mL = 2.5 mg, Inhalation, Every 6 hours, # 120 each, 2 Refills, Maintenance, 05/23/20 15:08:00 EST, Solution, [facility] #[id number], 171, cm, 04/23/20 17:37:00 EST, Height, 57.3, [...] 0 Refills, Maintenance, 01/15/21 16:51:00 EDT, Tablet, [facility] #[id number], Partial fill upon patient request if the prescription isfor a schedule II opioid drug., 168.7, cm, 11/05/20... Start Date: 01/15/21 Stop Date: 02/14/21 Status: Ordered montelukast 10 mg oral tablet 10 mg, 1, tablet, By Mouth, Daily, # 30 tablet, Refills 3, Tot. 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
--- OUTSIDE RECORDS SUMMARY | 2024-03-09 20:56 | XMS_ITS | Continuity of Care Document ---
Author Organization [facility] Address [address] [place] [address]- Care Team Providers Care Conveyor Tender Name Role Phone Ramsey LEMUS, Marguerite Primary Care Physician Encounter [facility] Date(s): 02/17/23 - 03/19/23 [facility] [address] [place] [address]- Allergies, Adverse Reactions, Alerts No Known Allergies [...] Vaccine (old term) 03 Given 1Result Comment: [id number] 2Result Comment: [id number] 3Admin Note: vis given 01.01.2014 4Early/Late Reason: Other : 5Admin Note: SANOFI 6Result Comment: [facility] [id number] 7Result Comment: [id number] 8Result Comment: [id number] 9Admin Note: MFD BY SANOFI Medications Advair Diskus 500 mcg-50 mcg inhalation powder 1, puffs, Inhalation, 2 times a day, RINSE MOUTH AND THROAT AFTER USE, # 60 each, Refills 5, Tot. Refills 5, Maintenance, 03/11/23 13:16:00 EDT, Route to Pharmacy Electronically, NCPDP_[id number], [facility] #[id number], 167.5, cm, 02/03/23 18:02... Start Date: 03/11/23 [...] 03/10/2311:02:00 EDT, Aerosol, Route to Pharmacy Electronically, NCPDP_[id number], [facility] #[id number], 167.5, cm, 02/03/23 18:02:00 EDT, Height, 52.2,... Start Date: 03/10/23 Status: Ordered Apri 0.15 mg-0.03 mg oral tablet 1 tablet, By Mouth, Daily, take same time dialy, # 28 tablet, 12 Refills, Maintenance, 03/17/22 9:23:00 EDT, Tablet, [facility] #[id number], Partial fill upon patient request if the prescriptionis for a schedule II opioid drug., 1 tablet By Mout... Start Date: 03/17/22 Status: Ordered Flonase Allergy Relief 50 mcg/inh nasal spray 1 sprays, Nares, Both, Daily, # 1 each, 0 Refills, Maintenance, 02/03/23 19:09:00 EDT, [facility] #[id number], Partial fill upon patient request if the prescription is for a schedule II opioid drug., 167.5, cm, 02/03/23 18:02:00 EDT, Height, 53.8... Start Date: 02/03/23 Status: Ordered montelukast 10 mg oral tablet 1, tablet, By Mouth, Daily, # 90 tablet, Refills 0, Maintenance, 03/11/23 14:23:00 EDT, Route to Pharmacy Electronically, [facility] #[id number], 167.5, cm, 02/03/23 18:02:00 EDT, Height, 52.2, kg, 03/10/23 10:34:00 EDT, Dry Weight Start Date: 03/11/23 Status: Ordered predniSONE 20 mg oral tablet 2 tablet = 40 mg, By Mouth, Daily, # 10 tablet, 0 Refills, Maintenance, 03/11/23 13:16:00 EDT, Tablet, [facility] #[id number], Partial fill upon patient request if the prescription is for a schedule II opioid drug., 167.5, cm, 02/03/23 18:02:00 E... Start Date: 03/11/23 Stop Date: 03/16/23 Status: Ordered SUMAtriptan 50 mg oral tablet 1 tablet = 50 mg, By Mouth, Daily, PRN for migraine headache, # 9 tablet, 1 Refills, Maintenance, 02/03/23 18:55:00 EDT, Tablet, [facility] #[id number], Partial fill upon patient request if the prescription is for a schedule II opioid drug., 167.... 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, allergy to pollen, dust mite, animal dander- Cetirizine and Flunisolide 4Saw Pulm- Increased Advair and added Qnasal; Given oral steroids 2/2 URI triggering her asthma 5Saw Pulm 11/2016- normal spirometry; continue Advair and Singulair - Saw pulm Still on Advair and Singulair; Added Flonase for seasonal allergies - Saw Pulm; On Advair and Singulair 8Seen my Neuro and Savannah Keita ([facility]) started on Clonidine Social History Social History Type Response Smoking Status Never (less than 100 in lifetime) entered on: 11/04/20 Sex Female Patient Care team information Care Team Personnel Name: Alley Evans RN Position: [facility] RN Member Role: Primary Care Nurse Name: Marguerite Mustafa MD Position: [facility] Physician - Primary Care Member Role: PCP Address: Address: [address] [place] [address] [place] [address]- Care Team Related Persons Name: TAMMY VALENTE Address: home UNKNOWN [place] [address] Name: OSMAN VALENTE Address: home [address], [place] Name: REGINALDO BAXTER Address: home [address] [place], [place] Name: REGINALDO BAXTER Address: home [address], [place] Name: SAMANTHA RDZ Address: home [address] [place] [address]
--- OUTSIDE RECORDS SUMMARY | 2024-03-09 20:56 | XMS_ITS | Continuity of Care Document ---
Author Organization [facility] Address [address] [place] [address]- Care Team Providers Care Geriatric Aide Name Role Phone Marguerite Mustafa MD Primary Care Physician [phone] Encounter [facility] [place] Date(s): 09/19/23 - 10/19/23 [facility] [address] [place] [address]- Attending Physician: Frank Stein Admitting Physician: Frank Stein Referring Physician: AdmtrFrank Allergies, Adverse Reactions, Alerts No Known Allergies [...] Vaccine (old term) 03 Given 1Result Comment: [id number] 2Result Comment: [id number] 3Admin Note: vis given 01.01.2014 4Early/Late Reason: Other : 5Admin Note: SANOFI 6Result Comment: [facility] [id number] 7Result Comment: [id number] 8Result Comment: [id number] 9Admin Note: MFD BY SANOFI Medications Advair Diskus 500 mcg-50 mcg inhalation powder 1, puffs, Inhalation, 2 times a day, RINSE MOUTH AND THROAT AFTER USE, # 60 each, Refills 5, Tot. Refills 5, Maintenance, 03/11/23 13:16:00 EDT, Route to Pharmacy Electronically, [id number], [facility] #[id number], 167.5, cm, 02/03/23 18:02... Start Date: 03/11/23 Status: Ordered Flonase Allergy Relief 50 mcg/inh nasal spray 1 sprays, Nares, Both, Daily, # 1 each, 0 Refills, Maintenance, 02/03/23 19:09:00 EDT, [facility] #[id number], Partial fill upon patient request if the prescription is for a schedule II opioid drug., 167.5, cm, 02/03/23 18:02:00 EDT, Height, 53.8... Start Date: 02/03/23 Status: Ordered Isibloom 0.15 mg-0.03 mg oral tablet 1 tablet, By Mouth, Daily, # 28 tablet, 5 Refills, Maintenance, 09/12/23 12:45:00 EDT, [facility] #54989, 28, TAKE 1 TABLET BY MOUTH DAILY TAKE AT THE SAME TIME DAILY, 170, cm, 08/20/23 1:30:00 EDT, Height, 54, kg, 08/20/23 1:30:00 EDT, Dry... Start Date: 09/12/23 Status: Ordered montelukast 10 mg oral tablet 1, tablet, By Mouth, Daily, # 90 tablet, Refills 0, Maintenance, 03/11/23 14:23:00 EDT, Route to Pharmacy Electronically, [facility] #[id number], 167.5, cm, 02/03/23 18:02:00 EDT, Height, 52.2, kg, 03/10/23 10:34:00 EDT, Dry Weight Start Date: 03/11/23 Status: Ordered predniSONE 20 mg oral tablet 2 tablet = 40 mg, By Mouth, Daily, # 10 tablet, 0 Refills, Maintenance, 03/11/23 13:16:00 EDT, Tablet, [facility] #[id number], Partial fill upon patient request if the prescription is for a schedule II opioid drug., 167.5, cm, 02/03/23 18:02:00 E... Start Date: 03/11/23 Stop Date: 03/16/23 Status: Ordered SUMAtriptan 50 mg oral tablet 1 tablet = 50 mg, By Mouth, Daily, PRN for migraine headache, # 9 tablet, 1 Refills, Maintenance, 02/03/23 18:55:00 EDT, Tablet, [facility] #[id number], Partial fill upon patient request if the prescription is for a schedule II opioid drug., 167.... 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 Team Personnel Name: Nathan RN, Alley Position: [facility] RN Member Role: Primary Care Nurse Name: Ramsey LEMUS, Marguerite Position: [facility] Physician - Primary Care Member Role: PCP Address: Address: [address] [place] [address] [place] [address]- Care Team Related Persons Name: TAMMY VALENTE Address: [place] [address] Name: OSMAN VALENTE Address: [address] [place] [address] Name: REGINALDO BAXTER Address: home [address] [place] [address] Name: REGINALDO BAXTER Address: [address] [place] [address] Name: SAMANTHA RDZ Address: home [address] [place] [address]
--- OUTSIDE RECORDS SUMMARY | 2024-03-09 20:56 | XMS_ITS | Continuity of Care Document ---
Author Organization [facility] Address [address] [place] [address]- Care Team Providers Care Crane Operator Cab Name Role Phone Ramsey LEMUS, Marguerite Primary Care Physician [phone] Encounter [facility] Date(s): 11/06/20 - 03/06/21 [facility] [address] [place] [address]- Attending Physician: Ernst Wilson MD Admitting Physician: [...] Vaccine (old term) 03 Given 1Result Comment: [id number] 2Result Comment: [id number] 3Admin Note: vis given 01.01.2014 4Early/Late Reason: Other : 5Admin Note: SANOFI 6Result Comment: [facility] [id number] 7Result Comment: [id number] 8Result Comment: [id number] 9Admin Note: MFD BY SANOFI Medications Advair Diskus 500 mcg-50 mcg inhalation powder 1, puffs, Inhalation, 2 times a day, RINSE MOUTH AND THROAT AFTER USE, # 60 each, Refills 5, Tot. Refills 5, Maintenance, 03/04/21 15:25:00 EDT, Route to Pharmacy Electronically, [id number] #73153, 168, cm, 03/04/21 14:47:0... Start Date: 03/04/21 Status: Ordered Aerochamber See Instructions, # 1 each, Maintenance, use with inhaler medications, 01/28/15 13:46:28, Compound Start Date: 01/28/15 Status: Ordered albuterol 0.083% inhalation solution 3 mL = 2.5 mg, Inhalation, Every 6 hours, # 120 each, 2 Refills, Maintenance, 05/23/20 15:08:00 EST, Solution, [facility] #[id number], 171, cm, 04/23/20 17:37:00 EST, Height, 57.3, [...] 0 Refills, Maintenance, 03/05/21 16:16:00 EDT, Tablet, [facility] #22076, Partial fill upon patient request if the prescription isfor a schedule II opioid drug., 168, cm, 03/04/21 1... Start Date: 03/05/21 Status: Ordered montelukast 10 mg oral tablet 10 mg, 1, tablet, By Mouth, Daily, # 30 tablet, Refills 5, Tot. 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) started on Clonidine Social History Social History Type Response Smoking Status Never (less than 100 in lifetime) entered on: 11/04/20 Sex
--- OUTSIDE RECORDS SUMMARY | 2024-03-09 20:56 | XMS_ITS | Continuity of Care Document ---
Author Organization [facility] Address [address] [place] [address]- Care Team Providers Care Coal Tram Driver Name Role Phone Marguerite Mustafa MD Primary Care Physician Encounter [facility] [place] Date(s): 05/11/22 - 06/10/[address] [address]- Attending Physician: Admalondra, Rey8 Admitting Physician: Admtr, Ar8 Referring Physician: Admtr, Ar8 Allergies, Adverse Reactions, [...] Vaccine (old term) 03 Given 1Result Comment: [id number] 2Result Comment: 49550-910-83 3Admin Note: vis given 01.01.2014 4Early/Late Reason: Other : 5Admin Note: SANOFI 6Result Comment: [facility] [id number] 7Result Comment: [id number] 8Result Comment: [phone] 9Admin Note: MFD BY SANOFI Medications Advair Diskus 500 mcg-50 mcg inhalation powder 1, puffs, Inhalation, 2 times a day, RINSE MOUTH AND THROAT AFTER USE, # 60 each, Refills 5, Tot. Refills 5, Maintenance, 08/19/21 16:30:00 EDT, Route to Pharmacy Electronically, NCPDP_[id number], [facility] #[id number], 168.4, cm, 08/19/21 16:16... Start Date: 08/19/21 [...] 12 Refills, Maintenance, 03/17/22 9:23:00 EDT, Tablet, [facility] #79426, Partial fill upon patient request if the prescriptionis for a schedule II opioid drug., 1 tablet By Mout... Start Date: 03/17/22 Status: Ordered cetirizine 10 mg oral tablet 1 tablet = 10 mg, By Mouth, Daily, # 30 tablet, 0 Refills, Maintenance, 08/19/21 16:32:00 EDT, Tablet, [facility] #12915, Partial fill upon patient request if the prescription is for a schedule II opioid drug., 168.4, cm, 08/19/21 16:16:00 E... Start Date: 08/19/21 Status: Ordered fluvoxaMINE 50 mg oral tablet 1 tablet = 50 mg, By Mouth, Daily at bedtime, # 30 tablet, 2 Refills, Maintenance, 04/05/22 12:27:00 EST, Tablet, [facility] #17584, Partial fill upon patient request if the prescription isfor a schedule II opioid drug., 169.5, cm, 03/17/22... Start Date: 04/05/22 Stop Date: 07/04/22 Status: Ordered montelukast 10 mg oral tablet 1, tablet, By Mouth, Daily, # 30 tablet, Refills 0, Maintenance, 03/22/22 9:08:00 EST, Route to Pharmacy Electronically, [facility] #22537, 169.5, cm, 03/17/22 9:15:00 EDT, Height, 53.7, kg, 02/25/22 13:16:00 EDT, Dry Weight Start Date: 03/22/22 Status: Ordered Vitamin D3 1000 intl units oral capsule 1 capsule = 25 mcg, By Mouth, Daily, # 30 capsule, 4 Refills, Maintenance, 08/19/21 16:30:00 EDT, Capsule, [facility] #01791, Partial fill upon patient request if the prescription is for a schedule II opioid drug., 168.4, cm, 08/19/21 16:16:... 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) started on Clonidine Social History Social History Type Response Smoking Status Never (less than 100 in lifetime) entered on: 11/04/20 Sex Patient Care team information Care Team Personnel Name: Ramsey LEMUS, Marguerite Position: [facility] Primary Care Physician Member Role: PCP Address: Address: [address] [place] [address] [place] [address]- Care Team Related Persons Name: TAMMY VALENTE Address: [place] [address] Name: OSMAN VALENTE Address: home [address] [place] [address] Name: REGINALDO BAXTER Address: [address] [place] [address] Name: REGINALDO BAXTER Address: [address] [place] [address] Name: SAMANTHA RDZ Address: home [address] [place] [address]
--- OUTSIDE RECORDS SUMMARY | 2024-03-09 20:56 | XMS_ITS | Continuity of Care Document ---
Author Organization [facility] Address [address] [place] [address]- Care Team Providers Care Ebd Special Education Teacher Name Role Phone Marguerite Mustafa MD Primary Care Physician Encounter [facility] Date(s): 10/28/21 - 11/27/21 [facility] [address] [place] [address]- Attending Physician: Frank Stein Admitting Physician: AdmFrank cantu Referring Physician: AdmtrFrank Allergies, Adverse Reactions, Alerts [...] Vaccine (old term) 03 Given 1Result Comment: [id number] 2Result Comment: [id number] 3Admin Note: vis given 01.01.2014 4Early/Late Reason: Other : 5Admin Note: SANOFI 6Result Comment: [facility] [id number] 7Result Comment: [id number] 8Result Comment: [id number] 9Admin Note: MFD BY [employer] Medications Advair Diskus 500 mcg-50 mcg inhalation powder 1, puffs, Inhalation, 2 times a day, RINSE MOUTH AND THROAT AFTER USE, # 60 each, Refills 5, Tot. Refills 5, Maintenance, 08/19/21 16:30:00 EDT, Route to Pharmacy Electronically, PRPDP_[id number], [facility] #[id number], 168.4, cm, 08/19/21 16:16... Start Date: 08/19/21 [...] 2 Refills, Maintenance, 08/19/21 16:30:00 EDT, Solution, [facility] #79238, 168.4, cm, 08/19/21 16:16:00 EDT, Height, 56, [...] 0 Refills, Maintenance, 08/19/21 16:32:00 EDT, Tablet, [facility] #60221, Partial fill upon patient request if the prescription is for a schedule II opioid drug., 168.4, cm, 08/19/21 16:16:00 E... Start Date: 08/19/21 Status: Ordered fluvoxaMINE 50 mg oral tablet 1 tablet = 50 mg, By Mouth, Daily at bedtime, # 30 tablet, 2 Refills, Maintenance, 10/04/21 11:40:00 EDT, Tablet, [facility] #[id number], Partial fill upon patient request if the prescription isfor a schedule II opioid drug., 168.4, cm, 09/15/21... Start Date: 10/04/21 Stop Date: 01/02/22 Status: Ordered montelukast 10 mg oral tablet 10 mg, 1, tablet, By Mouth, Daily in PM, # 30 tablet, Refills 3, Tot. Refills 3, Maintenance, 08/19/21 16:30:00 EDT, Route to Pharmacy Electronically, [facility] #[id number], Partial fill upon patient request if the prescription is for a schedule... 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
--- OUTSIDE RECORDS SUMMARY | 2024-03-09 20:56 | XMS_ITS | Continuity of Care Document ---
Author Organization [facility] Address [address] [place] [address]- Care Team Providers Care Fretted Instruments Inspector Name Role Phone Ramsey LEMUS, Marguerite Primary Care Physician [phone] Encounter [facility] [place] Date(s): 12/21/19 - 01/20/20 [facility] Diabetes [address] [place] [address]- [facility] Attending Physician: Frank Stein Admitting Physician: Frank [...] Vaccine (old term) 03 Given 1Result Comment: [id number] 2Admin Note: vis given 01.01.2014 3Early/Late Reason: Other : 4Admin Note: SANOFI 5Result Comment: [id number] 6Result Comment: [id number] 7Admin Note: MFD BY SANOFI Medications Adderall XR 15 mg oral capsule, extended release 1 capsule = 15 mg, By Mouth, Daily in AM, # 30 capsule, 0 Refills, Maintenance, 07/05/19 17:28:00 EST, CR Capsule, [facility] #[id number], 1 capsule By Mouth Daily in AM, [...] 13:20:00 EDT, Powder, Route to Pharmacy Electronically, CTPDP_[id number], [facility] #[id number], 169.1, cm, 2... Start Date: 12/13/19 Status: Ordered albuterol 0.083% inhalation solution 3 mL = 2.5 mg, Inhalation, Every 6 hours, # 120 each, 2 Refills, Maintenance, 12/14/19 14:25:00 EDT, Solution, [facility] #40380, 169.1, cm, 12/13/19 10:35:00 EDT, Height, 58, [...] Gm, Refills 3, Tot. Refills 3, Maintenance, 12/13/19 13:20:00 EDT, Instructions Replace Required Detail... Start Date: 12/13/19 Status: Ordered montelukast 10 mg oral tablet 10 mg, 1, tablet, By Mouth, Daily, # 30 tablet, Refills 3, Tot. Refills 3, Maintenance, 12/13/19 13:21:00 EDT, Route to Pharmacy Electronically, [facility] #69924, 169.1, cm, 12/13/19 10:35:00 EDT, Height, 58, kg, 12/13/19 10:35:00 EDT, Dry... 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
--- OUTSIDE RECORDS SUMMARY | 2024-03-09 20:56 | XMS_ITS | Continuity of Care Document ---
Author Organization [facility] Address [address] [place] [address]- Care Team Providers Care Contract Administrative Assistant Name Role Phone Ramsey LEMUS, Marguerite Primary Care Physician Encounter [facility] Date(s): 04/24/20 - 06/06/20 [facility] [address] [place] [address]- Attending Physician: Marguerite Mustafa MD Admitting Physician: Marguerite Mustafa MD Allergies, Adverse Reactions, Alerts Substance Reaction [...] Vaccine (old term) 03 Given 1Result Comment: [id number] 2Result Comment: [id number] 3Admin Note: vis given 01.01.2014 4Early/Late Reason: Other : 5Admin Note: SANOFI 6Result Comment: [facility] [id number] 7Result Comment: [id number] 8Result Comment: [id number] 9Admin Note: MFD BY [employer] Medications Advair Diskus 500 mcg-50 mcg inhalation powder 1, inhalation, Inhalation, 2 times a day, rinse mouth and throat after use, # 1 each, Refills 3, Tot. Refills 3, Maintenance, 06/06/20 9:57:00 EST, Powder, Route to Pharmacy Electronically, NCPDP_[id number], [facility] #[id number], 171, cm, 05/28... Start Date: 06/06/20 Status: Ordered Aerochamber See Instructions, # 1 each, Maintenance, use with inhaler medications, 01/28/15 13:46:28, Compound Start Date: 01/28/15 Status: Ordered albuterol 0.083% inhalation solution 3 mL = 2.5 mg, Inhalation, Every 6 hours, # 120 each, 2 Refills, Maintenance, 05/23/20 15:08:00 EST, Solution, [facility] #[id number], 171, cm, 04/23/20 17:37:00 EST, Height, 57.3, [...] 05/28/20 14:44:00 EST, Route to Pharmacy Electronically, [facility] #[id number], 171, cm, 05/28/20 13:50:00 EST, Height, 57.3, kg, 05/28/20 13:50:00 EST, Dry... Start Date: 05/28/20 Status: Ordered PROzac 10 mg oral capsule See Instructions, Take 1 daily for 7 days, then increase to 2 daily, # 60 capsule, Refills 3, Tot. Refills 3, Maintenance, 04/16/20 16:36:00 EST, Instructions Replace Required Details, Route to Pharmacy Electronically, [facility] #[id number], Par... Start Date: 04/16/20 Status: Ordered ZyrTEC 10 mg oral tablet 1 tablet = 10 mg, By Mouth, Daily, # 30 tablet, 3 Refills, Maintenance, 04/14/20 8:49:00 EST, Tablet, [facility] #[id number], 168.5, cm, 02/20/20 15:15:00 EDT, Height, 58.7, [...] and started on Adderall 10mg XR 3Saw administrative fellow, 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
--- OUTSIDE RECORDS SUMMARY | 2024-03-09 20:56 | XMS_ITS | Continuity of Care Document ---
Author Organization [facility] Address [address] [place] [address]- Care Team Providers Care Physics Teacher Name Role Phone Marguerite Mustafa MD Primary Care Physician [phone] Encounter [facility] Date(s): 09/19/23 - 09/26/23 [facility] [address] [place] [address]- Attending Physician: Yohana Colindres MD Referring Physician: Marguerite Mustafa MD Allergies, Adverse Reactions, Alerts No Known Allergies Immunizations Given and Recorded Vaccine Date Status Refusal Reason SARS-CoV-2 (COVID-19) mRNA-5215 vaccine 01/11/22 R ecorded influenza virus vaccine, [...] 11/05/15 Given Hepatitis A Pediatric Vaccine 8 4/20/18 Given Hepatitis A Pediatric Vaccine 11/05/15 Given [...] Vaccine (old term) 03 Given 1Result Comment: [id number] 2Result Comment: [id number] 3Admin Note: vis given 01.01.2014 4Early/Late Reason: Other : 5Admin Note: SANOFI 6Result Comment: [facility] [id number] 7Result Comment: [id number] 8Result Comment: [id number] 9Admin Note: MFD BY SANOFI Medications Advair Diskus 500 mcg-50 mcg inhalation powder 1, puffs, Inhalation, 2 times a day, RINSE MOUTH AND THROAT AFTER USE, # 60 each, Refills 5, Tot. Refills 5, Maintenance, 03/11/23 13:16:00 EDT, Route to Pharmacy Electronically, VAPDP_[id number], [facility] #[id number], 167.5, cm, 02/03/23 18:02... Start Date: 03/11/23 Status: Ordered Flonase Allergy Relief 50 mcg/inh nasal spray 1 sprays, Nares, Both, Daily, # 1 each, 0 Refills, Maintenance, 02/03/23 19:09:00 EDT, [facility] #[id number], Partial fill upon patient request if the prescription is for a schedule II opioid drug., 167.5, cm, 02/03/23 18:02:00 EDT, Height, 53.8... Start Date: 02/03/23 Status: Ordered Isibloom 0.15 mg-0.03 mg oral tablet 1 tablet, By Mouth, Daily, # 28 tablet, 5 Refills, Maintenance, 09/12/23 12:45:00 EDT, [facility] #[id number], 28, TAKE 1 TABLET BY MOUTH DAILY TAKE AT THE SAME TIME DAILY, 170, cm, 08/20/23 1:30:00 EDT, Height, 54, kg, 08/20/23 1:30:00 EDT, Dry... Start Date: 09/12/23 Status: Ordered montelukast 10 mg oral tablet 1, tablet, By Mouth, Daily, # 90 tablet, Refills 0, Maintenance, 03/11/23 14:23:00 EDT, Route to Pharmacy Electronically, [facility] #[id number], 167.5, cm, 02/03/23 18:02:00 EDT, Height, 52.2, kg, 03/10/23 10:34:00 EDT, Dry Weight Start Date: 03/11/23 Status: Ordered predniSONE 20 mg oral tablet 2 tablet = 40 mg, By Mouth, Daily, # 10 tablet, 0 Refills, Maintenance, 03/11/23 13:16:00 EDT, Tablet, [facility] #[id number], Partial fill upon patient request if the prescription is for a schedule II opioid drug., 167.5, cm, 02/03/23 18:02:00 E... Start Date: 03/11/23 Stop Date: 03/16/23 Status: Ordered SUMAtriptan 50 mg oral tablet 1 tablet = 50 mg, By Mouth, Daily, PRN for migraine headache, # 9 tablet, 1 Refills, Maintenance, 02/03/23 18:55:00 EDT, Tablet, [facility] #[id number], Partial fill upon patient request if the prescription is for a schedule II opioid drug., 167.... 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03 2 (09/19/23 3:34 PM) 1Result Comment: ^~:!Percentile Source -CDC/WHO 2Result Comment: ^~:!ZScore Source -CDC/WHO Social History Social History Type Response Smoking Status Never (less than 100 in lifetime) entered on: 11/04/20 Sex Female Note * Priya Del Rosario: PERFORM, SIGN, VERIFY Event Display: Patient Education/Instruction Authored Date: [id number] [facility] Clinical Summary Name NEGAR VALENTE Age 17 Years 2005 PCP Ramsey LEMUS, Marguerite PCP Visit Date 09/19/2023 14:39:00 Additional Instructions: Apply cool compresses 30 minutes 3 to 4 times daily. Take Tylenol and Motrin as needed for pain. Wear your splint for 1 to 2 weeks day and night removing to apply cool compresses when resting. Follow-up with [facility] for ongoing monitoring, see handout. Scheduled Appointments?? Future Appointments ?No Future Appointments Scheduled Follow-Up Instructions ?? Diagnosis Medications: Please continue your medications until treatment is completed or stopped by your provider. Discuss any questions related to medications with your provider. Medications to Continue with No Changes These medications were not printed or sent to your pharmacy Albuterol (Ventolin HFA 108 mcg/inh inhalation aerosol with adapter) 2 puff(s) Inhalation every 4 hours as needed NEEDED FOR WHEEZING. Refills: 0. Next Dose: Desogestrel-Ethinyl Estradiol (Isibloom 0.15 mg-0.03 mg oral tablet) 1 tab(s) Oral Daily. Refills: 5. Next Dose: Fluticasone Nasal (Flonase Allergy Relief 50 mcg/inh nasal spray) 1 spray(s) Nares, Both Daily. Refills: 0. Next Dose: Fluticasone-Salmeterol (Advair Diskus 500 mcg-50 mcg inhalation powder) 1 puff(s) Inhalation twice a day. RINSE MOUTH AND THROAT AFTER USE. Refills: 5. Next Dose: Montelukast (montelukast 10 mg oral tablet) 1 tab(s) Oral Daily. Refills: 0. Next Dose: PredniSONE (predniSONE 20 mg oral tablet) 2 tab(s) Oral Daily for 5 Days. Refills: 0. Next Dose: Sumatriptan (SUMAtriptan 50 mg oral tablet) 1 tab(s) Oral Daily as needed for migraine headache. Refills: 1. Next Dose: Allergy Info:?? NKA Medications Given This Visit Future Orders ?Finger Thumb Right Hand? Order Date:09/19/23?- Complete on or after?09/19/23 Future Orders ?Finger Thumb Right Hand? Order Date:09/19/23?- Complete on or after?09/19/23 Vital Signs Height 170 cm Weight BMI Blood Pressure 106 mm Hg/61 mm Hg Temperature 97.9 DegF Pulse Rate 81 bpm Respiratory Rate 25 br/min 02 Sat Mode of Delivery 100 %/Room air You can now view a summary of your hospital visit from the comfort of your home through a free online portal called [employer]. [employer] is a website that allows you to securely view your medical information including discharge summary, medications and follow-up visits. ??You can alsosend a secure electronic message to your doctor???s office to request appointments, renew medications or just ask a question. You can enroll at [email or web address] or register during your next office visit. Disclaimer:?? The information provided is of a general nature and is intended to be used in conjunction with the recommendations and advice of your health care practitioner. ??Every effort has been made to ensure that the information provided is accurate and complete at the time it is provided to you however, as your needs change, or, as new ??information becomes available, different or additional instructions may be required. If you have questions, please consult with your primary care provider or pharmacist, as appropriate. ??This information is not intended to serve as substitution for assessment and evaluation by a qualified health care provider. If you do not have a primary care provider, you may find a [facility] provider by calling [facility] at [phone]. [facility], in keeping with [facility] guidance, no longer requires face masks for staff, patientsor visitors in most situations. Similar to time spent indoors at other locations, there is the chance that you were exposed to respiratory viruses during your time with us (such as flu or COVID-19).? If you develop symptoms concerning for a viral respiratory infection, please seek testing (and treatment if indicated) from your medical provider or home test kit. For information about the plan of care including goals and instructions for your diagnosis, please see the patient education orders section of this document. Patient Education Materials?? The content of this educational material or handout may have been modified, supplemented, or adapted from its original content and format to support your individualized medical care. Patient Care team information Care Team Personnel Name: Alley Evans RN Position: [facility] RN Member Role: Primary Care Nurse Name: Marguerite Mustafa MD Position: [facility] Physician - Primary Care Member Role: PCP Address: Address: [address] [place] [address] [place] [address]- Care Team Related Persons Name: TAMMY VALENTE Address: [place] [address] Name: OSMAN VALENTE Address: [address] [place] [address] Name: REGINALDO BAXTER Address: home [address] [place], [place] Name: REGINALDO BAXTER Address: home [address] [place], [place] Name: SAMANTHA RDZ Address: home [address] [place] [address]
--- OUTSIDE RECORDS SUMMARY | 2024-03-09 20:56 | XMS_ITS | Continuity of Care Document ---
Author Organization [facility] Address [address] [place] [address]- Care Team Providers Care Skiver Heel Tap Name Role Phone Fouzia Moreno Primary Care Physician Encounter [facility] Date(s): 05/11/19 - 05/12/[address] [address] Encounter Diagnosis Asthma exacerbation(Final) - 05/12/19 Viral illness(Final) - 05/12/19 Asthma exacerbation(Final) - 05/12/19 Viral illness(Final) - 05/12/19 Discharge Disposition: A-D/C Home Attending Physician: Jasmin Lopez MD Admitting Physician: Jasmin Lopez MD Referring Physician: Not on Staff, Referring MD Allergies, Adverse Reactions, Alerts Substance Reaction Severity Status NKA Active Immunizations Given and Recorded Vaccine Date Status Refusal Reason influenza virus vaccine, inactivated 1 02/14/18 Gi [...] Vaccine (oldterm) 03 Give n 1Result Comment: [id number] 2Admin Note: vis given 01.01.2014 3Early/Late Reason: Other : 4Result Comment: [id number] 5Result Comment: [id number] 6Admin Note: MFD BY SANOFI Medications Adderall XR 15 mg oral capsule, extended release 1 capsule = 15 mg, By Mouth, Daily in AM, # 30 capsule, 0 Refills, Maintenance, 04/09/19 15:39:36 EST, CR Capsule, 1 capsule By Mouth Daily in AM Start Date: 04/09/19 Status: Ordered Aerochamber See Instructions, # 1 each, Maintenance, use with inhaler medications, 01/28/15 13:46:28, Compound Start Date: 01/28/15 Status: Ordered AirDuo RespiClick 232 mcg-14 mcg/inh inhalation powder 1, puffs, Inhalation, 2 times a day, # 1 each, Refills 2, Tot. Refills 2, Maintenance, 03/07/19 12:10:19 EDT, Powder, Route to Pharmacy Electronically, AKPDP_[id number], [facility] Start Date: 03/07/19 Status: Ordered albuterol 0.083% inhalation solution 3 mL = 2.5 mg, Inhalation, Every 6 hours, # 120 each, 0 Refills, Maintenance, 05/12/19 0:21:00 EST,Solution, [facility] [address], 169, cm, 05/11/19 18:40:00 EST, Height, 52.6, kg, 05/11/19 18:40:00 EST, Dry Weight Start Date: 05/12/19 Status: Ordered albuterol CFC free 90 mcg/inh inhalation aerosol See Instructions, inhale 2 to 8 puffs by mouth and INTO THE LUNGS every 4 hours if needed for wheezing and as directed 15 MINUTES BEFORE EXERCISE, # 17 Gm, Refills 1, Tot. Refills 1, Maintenance, 05/07/19 9:54:00 EST, Instructions Replace Required Det... Start Date: 05/07/19 Status: Ordered Flonase 50 mcg/inh nasal spray 2 sprays, Nares, Both, 2 times a day, # 1 each, 4 Refills, Maintenance, 10/24/18 16:19:26 EDT, [place], 2 sprays Nares, Both 2 times a day,x30 days Start Date: 10/24/18 Stop Date: 03/23/19 Status: Ordered Intuniv 1 mg oral tablet, extended release 1 tablet = 1 mg, By Mouth, Daily in AM, # 30 tablet, 1 Refills, Maintenance, 04/09/19 15:39:14 EST Start Date: 04/09/19 Status: Ordered montelukast 10 mg oral tablet 10 mg, 1, tablet, By Mouth, Daily, # 30 tablet, Refills 2, Tot. Refills 2, Maintenance, 03/07/19 12:10:21 EDT, Route to Pharmacy Electronically, NCPDP_ID- [id number], [facility] [address] [facility] [address] Start Date: 03/07/19 Status: Ordered predniSONE 20 mg oral tablet 3 tablet = 60 mg, By Mouth, Daily, for 4 days, # 12 tablet, 0 Refills, Acute 05/16/19 0:21:00 EST, 05/12/19 0:21:00 EST, Tablet, [facility] [address], 169, cm, 05/11/19 18:40:00 EST, Height, 52.6, kg, 05/11/19 18:40:00 EST, Dry Weight Start Date: 05/12/19 Stop Date: 05/16/19 Status: Ordered ZyrTEC 10 mg oral tablet 1 tablet = 10 mg, By Mouth, Daily, # 30 tablet, 3 Refills, Maintenance, 03/07/19 12:10:20 EDT, Tablet Start Date: 03/07/19 Status: Ordered Problem List Condition Effective Dates Status Health Status Inform ant ADHD (attention deficit hype ractivity disorder)(Confirmed) 1, 2 Active Allergic rhinitis(Confirmed) 3 Active Asthma(Confirmed) 4, 5, 6, 7 Active Tourette syndrome(Confirmed) Active Migraine headache without aura(Confirmed) Active Simple tics(Confirmed) 8 Active 1Now followed by Viridiana Sim 2Seen clemente Keita and started on 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 10mg XR 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, 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 oldest [Reference Range]: 1 2 3 Height 169 cm (05/12/19 4:40 AM) 169 cm (05/12/19 2:01 AM) 169 cm (05/11/19 6:40 PM) Weight 52.6 kg (05/12/19 4:40 AM) 52.6 kg (05/12/19 2:01 AM) 52.6 kg (05/11/19 6:40 PM) Oxygen Saturation [94-100 %] 96 % (05/12/19 4:40 AM) 100 % (05/12/19 2:01 AM) 100 % (05/11/19 11:55 PM) Pulse Rate [55-90 bpm] 89 bpm (05/12/19 4:40 AM) 84 bpm (05/12/19 2:01 AM) 88 bpm (05/11/19 11:55 PM) Body Mass Index [18.5-24.99] 18.42 *L* (05/12/19 4:40 AM) 18.42 *L* (05/12/19 2:01 AM) 18.42 *L* (05/11/19 6:40 PM) Blood Pressure [80-130/50-80 mm Hg] 98/54mm Hg (05/12/19 4:40 AM) 98/53mm Hg (05/12/19 2:01 AM) 107/55mm Hg (05/11/19 11:55 PM) Respiratory Rate [16-30 br/min] 18 br/min (05/12/19 4:40 AM) 17 br/min (05/12/19 2:01 AM) 18 br/min (05/11/19 11:55 PM) Temperature [96.8-100.4 DegF] 98.1 DegF (05/12/19 4:40 AM) 97.9 DegF (05/12/19 2:01 AM) 98.4 DegF (05/11/19 9:06 PM) Mode of Delivery (Oxygen) Room air (05/12/19 4:40 AM) Room air (05/12/19 2:01 AM) Room air (05/11/19 11:55 PM) Blood pressure sites Arm, left (05/12/19 4:40 AM) Arm, left (05/12/19 2:01 AM) Arm, right (05/11/19 11:55 PM) Temperature Route Oral (05/12/19 4:40 AM) Oral (05/12/19 2:01 AM) Oral (05/11/19 11:55 PM) Dry Weight 52.6 kg (05/12/19 4:40 AM) 52.6 kg (05/12/19 2:01 AM) 52.6 kg (05/11/19 6:40 PM) Weight Obtained Via Standing scale (05/11/19 6:40 PM) Dry Weight Obtained Via Standing scale (05/11/19 6:40 PM) Social History Social History Type Response Smoking Status Never smoker; Tobacc o user in household: No entered on: 02/14/18 Sex
--- OUTSIDE RECORDS SUMMARY | 2024-03-09 20:56 | XMS_ITS | Continuity of Care Document ---
Author Organization [facility] Address [address] [place] [address]- Care Team Providers Care Landscape Drafter Name Role Phone Ramsey LEMUS, Marguerite Primary Care Physician [phone] Encounter [facility] Date(s): 03/09/23 - 04/08/23 [facility] [address] [place] [address]- Allergies, Adverse Reactions, Alerts No Known Allergies [...] Vaccine (old term) 03 Given 1Result Comment: [id number] 2Result Comment: [id number] 3Admin Note: vis given 01.01.2014 4Early/Late Reason: Other : 5Admin Note: SANOFI 6Result Comment: [facility] [phone] 7Result Comment: [id number] 8Result Comment: [id number] 9Admin Note: MFD BY MendixO[employer] Medications Advair Diskus 500 mcg-50 mcg inhalation powder 1, puffs, Inhalation, 2 times a day, RINSE MOUTH AND THROAT AFTER USE, # 60 each, Refills 5, Tot. Refills 5, Maintenance, 03/11/23 13:16:00 EDT, Route to Pharmacy Electronically, NCPDP_[id number], [facility] #[id number], 167.5, cm, 02/03/23 18:02... Start Date: 03/11/23 Status: Ordered albuterol CFC free 90 mcg/inh inhalation aerosol See Instructions, PRN, 2-6 puffs Inhalation Every 4 hours as needed use with spacer chamber, # 1 each, Refills 1, Tot. Refills 1, Maintenance, 06/04/22 8:47:00 EST, Instructions Replace Required Details, Route to Pharmacy Electronically, ARPDP_ID-[id number]... Start Date: 06/04/22 Status: Ordered albuterol CFC free 90 mcg/inh inhalation aerosol 2, puffs, Inhalation, Every 4 hours, PRN, # 18 Gm, Refills 0, Tot. Refills 0, Maintenance, 03/10/2311:02:00 EDT, Aerosol, Route to Pharmacy Electronically, NCPDP_[id number], [facility] #[id number], 167.5, cm, 02/03/23 18:02:00 EDT, Height, 52.2,... Start Date: 03/10/23 Status: Ordered Apri 0.15 mg-0.03 mg oral tablet 1 tablet, By Mouth, Daily, take same time dialy, # 28 tablet, 12 Refills, Maintenance, 03/17/22 9:23:00 EDT, Tablet, [facility] #[id number], Partial fill upon patient request if the prescriptionis for a schedule II opioid drug., 1 tablet By Mout... Start Date: 03/17/22 Status: Ordered Flonase Allergy Relief 50 mcg/inh nasal spray 1 sprays, Nares, Both, Daily, # 1 each, 0 Refills, Maintenance, 02/03/23 19:09:00 EDT, [facility] #[id number], Partial fill upon patient request if the prescription is for a schedule II opioid drug., 167.5, cm, 02/03/23 18:02:00 EDT, Height, 53.8... Start Date: 02/03/23 Status: Ordered montelukast 10 mg oral tablet 1, tablet, By Mouth, Daily, # 90 tablet, Refills 0, Maintenance, 03/11/23 14:23:00 EDT, Route to Pharmacy Electronically, [facility] #[id number], 167.5, cm, 02/03/23 18:02:00 EDT, Height, 52.2, kg, 03/10/23 10:34:00 EDT, Dry Weight Start Date: 03/11/23 Status: Ordered predniSONE 20 mg oral tablet 2 tablet = 40 mg, By Mouth, Daily, # 10 tablet, 0 Refills, Maintenance, 03/11/23 13:16:00 EDT, Tablet, [facility] #[id number], Partial fill upon patient request if the prescription is for a schedule II opioid drug., 167.5, cm, 02/03/23 18:02:00 E... Start Date: 03/11/23 Stop Date: 03/16/23 Status: Ordered SUMAtriptan 50 mg oral tablet 1 tablet = 50 mg, By Mouth, Daily, PRN for migraine headache, # 9 tablet, 1 Refills, Maintenance, 02/03/23 18:55:00 EDT, Tablet, [facility] #[id number], Partial fill upon patient request if the prescription is for a schedule II opioid drug., 167.... 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, allergy to pollen, dust mite, animal dander- Cetirizine and Flunisolide 4Saw Pulm- Increased Advair and added Qnasal; Given oral steroids 2/2 URI triggering her asthma 5Saw Pulm 11/2016- normal spirometry; continue Advair and Singulair - Saw pulm Still on Advair and Singulair; Added Flonase for seasonal allergies - Saw Pulm; On Advair and Singulair 8Seen my Neuro and Savannah Bossman ([facility]) started on Clonidine Social History Social History Type Response Smoking Status Never (less than 100 in lifetime) entered on: 11/04/20 Sex Female Patient Care team information Care Team Personnel Name: Alley Evans RN Position: [facility] RN Member Role: Primary Care Nurse Name: Marguerite Mustafa MD Position: [facility] Physician - Primary Care Member Role: PCP Address: Address: [address] [place] [address] [place] [address]- Care Team Related Persons Name: TAMMY VALENTE Address: [place] [address] Name: OSMAN VALENTE Address: [address] [place] [address] Name: REGINALDO BAXTER Address: home [address] [place], [place] Name: REGINALDO BAXTER Address: [address] [place], [place] Name: SAMANTHA RDZ Address: home [address] [place] [address]
--- OUTSIDE RECORDS SUMMARY | 2024-03-09 20:56 | XMS_ITS | Continuity of Care Document ---
Author Organization [facility] Address [address] [place] [address]- Care Team Providers Care Projector Operator Name Role Phone Ramsey LEMUS, Marguerite Primary Care Physician [phone] [facility] Date[facility]): 03/15/23 - 04/14/23 [facility] [address] [place] [address]- Allergies, Adverse Reactions, Alerts No Known Allergies [...] Vaccine (old term) 03 Given 1Result Comment: [id number] 2Result Comment: [id number] 3Admin Note: vis given 01.01.2014 4Early/Late Reason: Other : 5Admin Note: SANOFI 6Result Comment: [facility] [id number] 7Result Comment: [id number] 8Result Comment: [id number] 9Admin Note: MFD BY RarelookOFI Medications Advair Diskus 500 mcg-50 mcg inhalation powder 1, puffs, Inhalation, 2 times a day, RINSE MOUTH AND THROAT AFTER USE, # 60 each, Refills 5, Tot. Refills 5, Maintenance, 03/11/23 13:16:00 EDT, Route to Pharmacy Electronically, NCPDP_[id number], [facility] #[id number], 167.5, cm, 02/03/23 18:02... Start Date: 03/11/23 Status: Ordered albuterol CFC free 90 mcg/inh inhalation aerosol See Instructions, PRN, 2-6 puffs Inhalation Every 4 hours as needed use with spacer chamber, # 1 each, Refills 1, Tot. Refills 1, Maintenance, 06/04/22 8:47:00 EST, Instructions Replace Required Details, Route to Pharmacy Electronically, HIPDP_ID-[id number]... Start Date: 06/04/22 Status: Ordered albuterol CFC free 90 mcg/inh inhalation aerosol 2, puffs, Inhalation, Every 4 hours, PRN, # 18 Gm, Refills 0, Tot. Refills 0, Maintenance, 03/10/2311:02:00 EDT, Aerosol, Route to Pharmacy Electronically, NCPDP_ID-[id number], [facility] #[id number], 167.5, cm, 02/03/23 18:02:00 EDT, Height, 52.2,... Start Date: 03/10/23 Status: Ordered Apri 0.15 mg-0.03 mg oral tablet 1 tablet, By Mouth, Daily, take same time dialy, # 28 tablet, 12 Refills, Maintenance, 03/17/22 9:23:00 EDT, Tablet, [facility] #[id number], Partial fill upon patient request if the prescriptionis for a schedule II opioid drug., 1 tablet By Mout... Start Date: 03/17/22 Status: Ordered Flonase Allergy Relief 50 mcg/inh nasal spray 1 sprays, Nares, Both, Daily, # 1 each, 0 Refills, Maintenance, 02/03/23 19:09:00 EDT, [facility] #[id number], Partial fill upon patient request if the prescription is for a schedule II opioid drug., 167.5, cm, 02/03/23 18:02:00 EDT, Height, 53.8... Start Date: 02/03/23 Status: Ordered montelukast 10 mg oral tablet 1, tablet, By Mouth, Daily, # 90 tablet, Refills 0, Maintenance, 03/11/23 14:23:00 EDT, Route to Pharmacy Electronically, [facility] #[id number], 167.5, cm, 02/03/23 18:02:00 EDT, Height, 52.2, kg, 03/10/23 10:34:00 EDT, Dry Weight Start Date: 03/11/23 Status: Ordered predniSONE 20 mg oral tablet 2 tablet = 40 mg, By Mouth, Daily, # 10 tablet, 0 Refills, Maintenance, 03/11/23 13:16:00 EDT, Tablet, [facility] #[id number], Partial fill upon patient request if the prescription is for a schedule II opioid drug., 167.5, cm, 02/03/23 18:02:00 E... Start Date: 03/11/23 Stop Date: 03/16/23 Status: Ordered SUMAtriptan 50 mg oral tablet 1 tablet = 50 mg, By Mouth, Daily, PRN for migraine headache, # 9 tablet, 1 Refills, Maintenance, 02/03/23 18:55:00 EDT, Tablet, [facility] #[id number], Partial fill upon patient request if the prescription is for a schedule II opioid drug., 167.... 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, allergy to pollen, dust mite, animal dander- Cetirizine and Flunisolide 4Saw Pulm- Increased Advair and added Qnasal; Given oral steroids 2/2 URI triggering her asthma 5Saw Pulm 11/2016- normal spirometry; continue Advair and Singulair - Saw pulm Still on Advair and Singulair; Added Flonase for seasonal allergies - Saw Pulm; On Advair and Singulair 8Seen my Neuro and Savannah Bossman ([facility]) started on Clonidine Social History Social History Type Response Smoking Status Never (less than 100 in lifetime) entered on: 11/04/20 Sex Female Patient Care team information Care Team Personnel Name: Alley Evans RN Position: [facility] RN Member Role: Primary Care Nurse Name: Marguerite Mustafa MD Position: [facility] Physician - Primary Care Member Role: PCP Address: Address: [address] [place] [address] [place] [address]- Care Team Related Persons Name: TAMMY VALENTE Address: [place] [address] Name: OSMAN VALENTE Address: home [address] [place] [address] Name: REGINALDO BAXTER Address: home [address] [place], [place] Name: REGINALDO BAXTER Address: home [address] [place], [place] Name: SAMANTHA RDZ Address: home [address] [place] [address]
--- OUTSIDE RECORDS SUMMARY | 2024-03-09 20:56 | XMS_ITS | Continuity of Care Document ---
Author Organization [facility] ter Address [address] [place] [address]- Care Team Providers Care Banana Loader Name Role Phone Ramsey LEMUS, Marguerite Primary Care Physician [phone] [facility] Date[facility]): 01/04/20 - 01/04/[address] [address]- [facility] Discharge Disposition: A-D/C Home Attending Physician: Ruth Urban MD Admitting Physician: Ruth Urban MD Referring Physician: Ruth Urban MD Allergies, Adverse Reactions, Alerts Substance Reaction [...] Vaccine (old term) 03 Given 1Result Comment: 48595-381-26 2Admin Note: vis given 01.01.2014 3Early/Late Reason: Other : 4Admin Note: SANOFI 5Result Comment: [id number] 6Result Comment: [id number] 7Admin Note: MFD BY SANOFI Medications Adderall XR 15 mg oral capsule, extended release 1 capsule = 15 mg, By Mouth, Daily in AM, # 30 capsule, 0 Refills, Maintenance, 07/05/19 17:28:00 EST, CR Capsule, [facility] #[id number], 1 capsule By Mouth Daily in AM, [...] 13:20:00 EDT, Powder, [id number] #[id number], 169.1, cm, 2... Start Date: 12/13/19 Status: Ordered albuterol 0.083% inhalation solution 3 mL = 2.5 mg, Inhalation, Every 6 hours, # 120 each, 2 Refills, Maintenance, 12/14/19 14:25:00 EDT, Solution, [facility] #29409, 169.1, cm, 12/13/19 10:35:00 EDT, Height, 58, [...] 12/13/19 13:21:00 EDT, Route to Pharmacy Electronically, [facility] #[id number], 169.1, cm, 12/13/19 10:35:00 EDT, Height, 58, kg, 12/13/19 10:35:00 EDT, Dry... Start Date: 12/13/19 Status: Ordered oxyCODONE 5 mg oral tablet 5 mg, 1, tablet, By Mouth, Every 6 hours, PRN, for 2 days, # 5 tablet, Refills 0, Tot. 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 and Savannah Keita ([facility]) started on Clonidine Procedures Procedure Date Related Diagnosis Body Site Status Right thyroid lobectomy 01/04/20 C ompleted Vital Signs Most recent to oldest [Reference Range]: 1 2 3 Height 170 cm (01/04/20 8:14 AM) Weight 57.4 kg (01/04/20 8:14 AM) Oxygen Saturation [94-100 %] 99 % (01/04/20 4:00 PM) 97 % (01/04/20 2:00 PM) 97 % (01/04/20 1:45 PM) Pulse Rate [55-90 bpm] 83 bpm (01/04/20 8:14 AM) Body Mass Index [18.5-24.99] 19.86 (01/04/20 8:14 AM) Blood Pressure [80-130/50-80 mm Hg] 112/73mm Hg (01/04/20 4:00 PM) 119/77mm Hg (01/04/20 2:00 PM) 108/70mm Hg (01/04/20 1:45 PM) Respiratory Rate [16-30 br/min] 18 br/min (01/04/20 4:00 PM) 25 br/min (01/04/20 2:00 PM) 25 br/min (01/04/20 1:45 PM) Temperature [96.8-100.4 DegF] 98.0 DegF (01/04/20 4:00 PM) 97.7 DegF (01/04/20 11:25 AM) 98.1 DegF (01/04/20 8:14 AM) Liters per Minute 6 L/min (01/04/20 12:15 PM) 6 L/min (01/04/20 12:00 PM) 6 L/min (01/04/20 11:45 AM) Mode of Delivery (Oxygen) Room air (01/04/20 4:00 PM) Room air (01/04/20 2:15 PM) Room air (01/04/20 2:00 PM) Blood pressure sites Arm, left (01/04/20 2:00 PM) Arm, left (01/04/20 1:45 PM) Arm, left (01/04/20 1:30 PM) Temperature Route Temporal (01/04/20 4:00 PM) Temporal (01/04/20 11:25 AM) Temporal (01/04/20 8:14 AM) Dry Weight 57.4 kg (01/04/20 8:14 AM) Weight Obtained Via Standing scale (01/04/20 8:14 AM) Dry Weight Obtained Via Standing scale (01/04/20 8:14 AM) Social History Social History Type Response Smoking Status Never smoker; Tobacc o user in household: No entered on: 02/14/18 Sex
--- OUTSIDE RECORDS SUMMARY | 2024-03-09 20:56 | XMS_ITS | Continuity of Care Document ---
Author Organization [facility] ter Address [address] [place] [address]- Care Team Providers Care Processes Chemical Design Engineer Name Role Phone Ramsey LEMUS, Marguerite Primary Care Physician [facility] Date[facility]s): 06/25/22 - 06/25/[address] [address]- Discharge Disposition: A-D/C Home Attending Physician: Jevon Max MD Admitting Physician: Jevon Max MD Referring Physician: Not on Staff, Referring MD Allergies, Adverse Reactions, Alerts No Known Allergies Immunizations Given and Recorded Vaccine Date Status Refusal Reason SARS-CoV-2 (COVID-19) mRNA-6535 vaccine 01/11/22 R ecorded influenza virus vaccine, [...] Vaccine (old term) 03 Given 1Result Comment: [id number] 2Result Comment: [id number] 3Admin Note: vis given 01.01.2014 4Early/Late Reason: Other : 5Admin Note: SANOFI 6Result Comment: [facility] [id number] 7Result Comment: [id number] 8Result Comment: [id number] 9Admin Note: MFD BY SANOFI Medications Advair Diskus 500 mcg-50 mcg inhalation powder 1, puffs, Inhalation, 2 times a day, RINSE MOUTH AND THROAT AFTER USE, # 60 each, Refills 5, Tot. Refills 5, Maintenance, 08/19/21 16:30:00 EDT, Route to Pharmacy Electronically, NCPDP_[id number], [facility] #[id number], 168.4, cm, 08/19/21 16:16... Start Date: 08/19/21 [...] 12 Refills, Maintenance, 03/17/22 9:23:00 EDT, Tablet, [facility] #[id number], Partial fill upon patient request if the prescriptionis for a schedule II opioid drug., 1 tablet By Mout... Start Date: 03/17/22 Status: Ordered cetirizine 10 mg oral tablet 1 tablet = 10 mg, By Mouth, Daily, # 30 tablet, 0 Refills, Maintenance, 08/19/21 16:32:00 EDT, Tablet, [facility] #96110, Partial fill upon patient request if the prescription is for a schedule II opioid drug., 168.4, cm, 08/19/21 16:16:00 E... Start Date: 08/19/21 Status: Ordered fluvoxaMINE 50 mg oral tablet 1 tablet = 50 mg, By Mouth, Daily at bedtime, # 30 tablet, 2 Refills, Maintenance, 04/05/22 12:27:00 EST, Tablet, [facility] #[id number], Partial fill upon patient request if the prescription isfor a schedule II opioid drug., 169.5, cm, 03/17/22... Start Date: 04/05/22 Stop Date: 07/04/22 Status: Ordered montelukast 10 mg oral tablet 1, tablet, By Mouth, Daily, # 30 tablet, Refills 1, Maintenance, 06/18/22 13:28:00 EST, Route to Pharmacy Electronically, [facility] #[id number], 169.5, cm, 03/17/22 9:15:00 EDT, Height, 53.7, kg, 02/25/22 13:16:00 EDT, Dry Weight Start Date: 06/18/22 Status: Ordered Vitamin D3 1000 intl units oral capsule 1 capsule = 25 mcg, By Mouth, Daily, # 30 capsule, 4 Refills, Maintenance, 08/19/21 16:30:00 EDT, Capsule, [facility] #[id number], Partial fill upon patient request if the [...] and started on Adderall 10mg XR 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, 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 Range]: 1 2 3 Height 168 cm (06/25/22 3:36 PM) 168 cm (06/25/22 12:55 PM) 168 cm (06/25/22 11:30 AM) Weight 54.5 kg (06/25/22 3:36 PM) 54.5 kg (06/25/22 12:55 PM) 54.5 kg (06/25/22 11:30 AM) Oxygen Saturation [94-100 %] 100 % (06/25/22 3:36 PM) 100 % (06/25/22 12:55 PM) 98 % (06/25/22 10:46 AM) Pulse Rate [55-90 bpm] 85 bpm (06/25/22 3:36 PM) 84 bpm (06/25/22 12:55 PM) 87 bpm (06/25/22 10:46 AM) Body Mass Index [18.5-24.99 kg/m2] 19.31 kg/m2 (06/25/22 12:55 PM) 19.31 kg/m2 (06/25/22 10:46 AM) Blood Pressure [71-110/30-71 mm Hg] 119/81mm Hg *H* (06/25/22 3:36 PM) 130/70mm Hg *H* (06/25/22 12:55 PM) 126/72mm Hg *H* (06/25/22 10:46 AM) Respiratory Rate [16-30 br/min] 18 br/min (06/25/22 3:36 PM) 24 br/min (06/25/22 12:55 PM) 16 br/min (06/25/22 10:46 AM) Temperature [96.8-100.4 DegF] 97.9 DegF (06/25/22 3:36 PM) 98.2 DegF (06/25/22 12:55 PM) 98.2 DegF (06/25/22 10:46 AM) Mode of Delivery (Oxygen) Room air (06/25/22 12:55 PM) Room air (06/25/22 10:46 AM) Room air (06/25/22 10:19 AM) Blood pressure sites Arm, left (06/25/22 12:55 PM) Arm, right (06/25/22 10:46 AM) Temperature Route Oral (06/25/22 3:36 PM) Oral (06/25/22 12:55 PM) Oral (06/25/22 10:46 AM) Dry Weight 54.5 kg (06/25/22 3:36 PM) 54.5 kg (06/25/22 12:55 PM) 54.5 kg (06/25/22 11:30 AM) Weight Obtained Via Patient/family state d (06/25/22 10:46 AM) Dry Weight Obtained Via Patient/family s tated (06/25/22 10:46 AM) Height Percentile 76.99 % 1 (06/25/22 3:36 PM) 76.99 % 2 (06/25/22 12:55 PM) 76.99 % 3 (06/25/22 11:30 AM) Height ZScore 0.74 4 (06/25/22 3:36 PM) 0.74 5 (06/25/22 12:55 PM) 0.74 6 (06/25/22 11:30 AM) Weight Percentile Per Age 38.79 % 7 (06/25/22 3:36 PM) 38.79 % 8 (06/25/22 12:55 PM) 38.79 % 9 (06/25/22 11:30 AM) BMI Percentile 20.79 10 (06/25/22 12:55 PM) 20.79 11 (06/25/22 10:46 AM) BMI ZScore -0.81 12 (06/25/22 12:55 PM) -0.81 13 (06/25/22 10:46 AM) Weight ZScore -0.28 14 (06/25/22 3:36 PM) -0.28 15 (06/25/22 12:55 PM) -0.28 16 (06/25/22 11:30 AM) 1Result Comment: ^~:!Percentile Source -CDC/WHO 2Result Comment: ^~:!Percentile Source -CDC/WHO 3Result Comment: ^~:!Percentile Source -CDC/WHO 4Result Comment: ^~:!ZScore Source -CDC/WHO 5Result Comment: ^~:!ZScore Source -CDC/WHO 6Result Comment: ^~:!ZScore Source -CDC/WHO 7Result Comment: ^~:!Percentile Source -CDC/WHO 8Result Comment: ^~:!Percentile Source -CDC/WHO 9Result Comment: ^~:!Percentile Source -CDC/WHO 10Result Comment: ^~:!Percentile Source -CDC/WHO 11Result Comment: ^~:!Percentile Source -CDC/WHO 12Result Comment: ^~:!ZScore Source -CDC/WHO 13Result Comment: ^~:!ZScore Source -CDC/WHO 14Result Comment: ^~:!ZScore Source -CDC/WHO 15Result Comment: ^~:!ZScore Source -CDC/WHO 16Result Comment: ^~:!ZScore Source -CDC/WHO Social History Social History Type Response Smoking Status Never (less than 100 in lifetime) entered on: 11/04/20 Sex Patient Care team information Care Team Personnel Name: Marguerite Mustafa MD Position: [facility] Primary Care Physician Member Role: PCP Address: Address: [address] [place] [address] General Pediatrics [address] Name: Jevon Max MD Position: [facility] ED Medicine MD Member Role: Admitting Physician Address: Address: [address] [place] [address] Pediatric Emergency Medicine [address] Name: Brooke Kiran RN Position: [facility] ED RN W/OE and Tasks Member Role: Patient Care Provider Name: Kevin Gaines Position: [facility] ED TA [facility] Member Role: Counselor Name: Kian Montoya DO Position: [facility] Resident Member Role: ED Resident Address: Address: [address] [place] [address] Care Team Related Persons Name: SIDRATHORO Address: home [place] [address] Name: OSMAN VALENTE Address: [address] [place] [address] Name: REGINALDO BAXTER Address: [address] [place] [address] Name: REGINALDO BAXTER Address: [address] [place] [address] Name: SAMANTHA RDZ Address: home [address] [place] [address]
--- OUTSIDE RECORDS SUMMARY | 2024-03-09 20:57 | XMS_ITS | Continuity of Care Document ---
Author Organization [facility] Address [address] [place] [address]- Care Team Providers Care Claims Correspondence Clerk Name Role Phone Ramsey LEMUS, Marguerite Primary Care Physician [facility]): 12[facility]19 - 01/20/20 [facility] [address] [place] [address]- [facility] Attending Physician: Mar Campbell MD Admitting Physician: Mar Campbell MD Referring Physician: Fouzia Moreno Allergies, Adverse [...] Vaccine (old term) 03 Given 1Result Comment: [id number] 2Admin Note: vis given 01.01.2014 3Early/Late Reason: Other : 4Admin Note: SANOFI 5Result Comment: [id number] 6Result Comment: [id number] 7Admin Note: MFD BY SANOFI Medications Adderall XR 15 mg oral capsule, extended release 1 capsule = 15 mg, By Mouth, Daily in AM, # 30 capsule, 0 Refills, Maintenance, 07/05/19 17:28:00 EST, CR Capsule, [facility] #[id number], 1 capsule By Mouth Daily in AM, [...] 13:20:00 EDT, Powder, [id number] #58628, 169.1, cm, 2... Start Date: 12/13/19 Status: Ordered albuterol 0.083% inhalation solution 3 mL = 2.5 mg, Inhalation, Every 6 hours, # 120 each, 2 Refills, Maintenance, 12/14/19 14:25:00 EDT, Solution, [facility] #02251, 169.1, cm, 12/13/19 10:35:00 EDT, Height, 58, [...] 12/13/19 13:21:00 EDT, Route to Pharmacy Electronically, [facility] #[id number], 169.1, cm, 12/13/19 10:35:00 EDT, Height, 58, kg, 12/13/19 10:35:00 EDT, Dry... 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
--- OUTSIDE RECORDS SUMMARY | 2024-03-09 20:57 | XMS_ITS | Continuity of Care Document ---
Author Organization [facility] Address [address] [place] [address]- Care Team Providers Care Coal Weigher Name Role Phone Ramsey LEMUS, Marguerite Primary Care Physician [facility]): 02[facility]25[facility]22 - 03/27/22 [facility] [address] [place] [address]- Attending Physician: Admtr, Ar8 Allergies, Adverse Reactions, [...] Vaccine (old term) 03 Given 1Result Comment: [id number] 2Result Comment: [id number] 3Admin Note: vis given 01.01.2014 4Early/Late Reason: Other : 5Admin Note: SANOFI 6Result Comment: [facility] [id number] 7Result Comment: [id number] 8Result Comment: [id number] 9Admin Note: MFD BY SjapperOFI Medications Advair Diskus 500 mcg-50 mcg inhalation powder 1, puffs, Inhalation, 2 times a day, RINSE MOUTH AND THROAT AFTER USE, # 60 each, Refills 5, Tot. Refills 5, Maintenance, 08/19/21 16:30:00 EDT, [id number] #45035, 168.4, cm, 08/19/21 16:16... Start Date: 08/19/21 [...] 12 Refills, Maintenance, 03/17/22 9:23:00 EDT, Tablet, [facility] #26144, Partial fill upon patient request if the prescriptionis for a schedule II opioid drug., 1 tablet By Mout... Start Date: 03/17/22 Status: Ordered cetirizine 10 mg oral tablet 1 tablet = 10 mg, By Mouth, Daily, # 30 tablet, 0 Refills, Maintenance, 08/19/21 16:32:00 EDT, Tablet, [facility] #45089, Partial fill upon patient request if the prescription is for a schedule II opioid drug., 168.4, cm, 08/19/21 16:16:00 E... Start Date: 08/19/21 Status: Ordered fluvoxaMINE 50 mg oral tablet 1 tablet = 50 mg, By Mouth, Daily at bedtime, for 30 days, # 30 tablet, 2 Refills, Hard Stop 06/06/22 12:27:00 EST, 03/08/22 12:27:00 EDT, Tablet, [facility] #61457, Partial fill upon patient request if the prescription is for a schedule II... 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 XR 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, 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, allergy to pollen, dust mite, animal dander- Cetirizine and Flunisolide 4Saw Pulm- Increased Advair and added Qnasal; Given oral steroids 2/2 URI triggering her asthma 5Saw Pulm 11/2016- normal spirometry; continue Advair and Singulair - Saw pulm Still on Advair and Singulair; Added Flonase for seasonal allergies - Saw Pulm; On Advair and Singulair 8Seen my Neuro and Savannah Keita ([facility]) started on Clonidine Social History Social History Type Response Smoking Status Never (less than 100 in lifetime) entered on: 11/04/20 Sex Patient Care team information Care Team Personnel Name: Marguerite Mustafa MD Position: [facility] Primary Care Physician Member Role: PCP Address: Address: [address] [place] [address]- Care Team Related Persons Name: TAMMY VALENTE Address: [place] [address] Name: OSMAN VALENTE Address: [address] [place] [address] Name: REGINALDO BAXTER Address: [address] [place] [address] Name: REGINALDO BAXTER Address: [address] [place] [address] Name: SAMANTHA RDZ Address: [address] [place] [address]
--- OUTSIDE RECORDS SUMMARY | 2024-03-09 20:57 | XMS_ITS | Continuity of Care Document ---
Author Organization [facility] Address [address] [place] [address]- Care Team Providers Care Pattern Layout Worker Name Role Phone Fouzia Moreno Primary Care Physician [phone] [facility]counter [facility] Date[facility]s): 10/19/19 - 11/18/19 [facility] [address] [place] [address]- Attending Physician: Admtr, Frank Allergies, Adverse Reactions, [...] Vaccine (old term) 03 Given 1Result Comment: [id number] 2Admin Note: vis given 01.01.2014 3Early/Late Reason: Other : 4Admin Note: SANOFI 5Result Comment: [id number] 6Result Comment: [id number] 7Admin Note: MFD BY SANOFI Medications Adderall XR 15 mg oral capsule, extended release 1 capsule = 15 mg, By Mouth, Daily in AM, # 30 capsule, 0 Refills, Maintenance, 07/05/19 17:28:00 EST, CR Capsule, [facility] #[id number], 1 capsule By Mouth Daily in AM, [...] 16:03:00 EDT, Powder, Route to Pharmacy Electronically, [facility]PDP_[id number], [facility] #[id number], 167.7, cm, ... Start Date: 10/10/19 Status: Ordered albuterol 0.083% inhalation solution 3 mL = 2.5 mg, Inhalation, Every 6 hours, # 120 each, 0 Refills, Maintenance, 07/26/19 15:30:00 EDT, Solution, [facility] #[id number], 167.7, cm, 06/20/19 14:57:00 EST, Height, 54.1, [...] 10/10/19 16:02:00 EDT, Route to Pharmacy Electronically, [facility] #[id number], 167.7, cm, 06/20/19 14:57:00 EST, Height, 54.1, kg, 06/20/19 14:57:00 EST, . Start Date: 10/10/19 Status: Ordered Pepto-Bismol 262 mg oral tablet, chewable 2 tablet = 524 mg, Chew, 4 times a day, PRN for dyspepsia, # 48 tablet, 0 Refills, Maintenance, 05/17/19 13:26:00 EST, Chew Tablet, [facility] [address], 169, cm, 05/12/19 4:40:00 EST, Height, 51.4, kg, 05/17/19 13:14:00 EST, Dry Weight Start Date: 05/17/19 Status: Ordered ZyrTEC 10 mg oral tablet 1 tablet = 10 mg, By Mouth, Daily, # 30 tablet, 2 Refills, Maintenance, 10/10/19 16:02:00 EDT, Tablet, [facility] #[id number], 167.7, cm, 06/20/19 14:57:00 EST, Height, 54.1, [...] and started on Adderall 10mg XR 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
--- OUTSIDE RECORDS SUMMARY | 2024-03-09 20:57 | XMS_ITS | Continuity of Care Document ---
Author Organization [facility] Address [address] [place] [address]- Care Team Providers Care Well Testing Operator Name Role Phone Ramsey LEMUS, Marguerite Primary Care Physician [phone] Encounter [facility] Date(s): 05/19/21 - 05/19/[address] [address]- Encounter Diagnosis COVID-19(Final) - 05/19/21 Discharge Disposition: A-D/C Home Attending Physician: Moreno Kim MD Admitting Physician: Moreno Kim MD Referring Physician: Not on Staff, Referring [...] Vaccine (old term) 03 Given 1Result Comment: [id number] 2Result Comment: [id number] 3Admin Note: vis given 01.01.2014 4Early/Late Reason: Other : 5Admin Note: SANOFI 6Result Comment: [facility] [id number] 7Result Comment: [phone] 8Result Comment: [id number] 9Admin Note: MFD BY [facility] Medications Advair Diskus 500 mcg-50 mcg inhalation powder 1, puffs, Inhalation, 2 times a day, RINSE MOUTH AND THROAT AFTER USE, # 60 each, Refills 5, Tot. Refills 5, Maintenance, 03/04/21 15:25:00 EDT, [id number] #[id number], 168, cm, 03/04/21 14:47:0... Start Date: 03/04/21 Status: Ordered Aerochamber See Instructions, # 1 each, Maintenance, use with inhaler medications, 01/28/15 13:46:28, Compound Start Date: 01/28/15 Status: Ordered albuterol 0.083% inhalation solution 3 mL = 2.5 mg, Inhalation, Every 6 hours, # 120 each, 2 Refills, Maintenance, 05/23/20 15:08:00 EST, Solution, [facility] #[id number], 171, cm, 04/23/20 17:37:00 EST, Height, 57.3, [...] 0 Refills, Maintenance, 03/05/21 16:16:00 EDT, Tablet, [facility] #[id number], Partial fill upon patient request if the prescription isfor a schedule II opioid drug., 168, cm, 03/04/21 1... 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8-100.4 DegF] 97.8 DegF (05/19/21 3:02 PM) 97.9 DegF (05/19/21 10:22 AM) Mode of Delivery (Oxygen) Room air (05/19/21 3:02 PM) Room air (05/19/21 10:22 AM) Blood pressure sites Arm, left (05/19/21 3:02 PM) Arm, left (05/19/21 10:22 AM) Temperature Route Oral (05/19/21 3:02 PM) Temporal (05/19/21 10:22 AM) Dry Weight 53.4 kg (05/19/21 10:29 AM) 53.4 kg (05/19/21 10:22 AM) Weight Obtained Via Standing scale (05/19/21 10:22 AM) Dry Weight Obtained Via Standing scale (05/19/21 10:22 AM) Social History Social History Type Response Smoking Status Never (less than 100 in lifetime) entered on: 11/04/20 Sex
--- OUTSIDE RECORDS SUMMARY | 2024-03-09 20:57 | XMS_ITS | Continuity of Care Document ---
Author Organization [facility] Address [address] [place] [address]- Care Team Providers Care Confidential Investigator Name Role Phone Ramsey LEMUS, Marguerite Primary Care Physician [facility] Date(s): 02/03/23 - 03/05/23 [facility] [address] [place] [address]- Allergies, Adverse Reactions, Alerts No Known Allergies [...] influenza virus vaccine, inactivated 4 03/09/12 Gi ossa influenza virus vaccine, inactivated 01/12/11 Give n [...] Vaccine (old term) 03 Given 1Result Comment: [id number] 2Result Comment: [id number] 3Admin Note: vis given 01.01.2014 4Early/Late Reason: Other : 5Admin Note: SANOFI 6Result Comment: [facility] [id number] 7Result Comment: [id number] 8Result Comment: [id number] 9Admin Note: MFD BY [employer] Medications Advair Diskus 500 mcg-50 mcg inhalation powder 1, puffs, Inhalation, 2 times a day, RINSE MOUTH AND THROAT AFTER USE, # 60 each, Refills 5, Tot. Refills 5, Maintenance, 08/19/21 16:30:00 EDT, Route to Pharmacy Electronically, NCPDP_[id number], [facility] #[id number], 168.4, cm, 08/19/21 16:16... Start Date: 08/19/21 [...] 12 Refills, Maintenance, 03/17/22 9:23:00 EDT, Tablet, [facility] #[id number], Partial fill upon patient request if the prescriptionis for a schedule II opioid drug., 1 tablet By Mout... Start Date: 03/17/22 Status: Ordered Flonase Allergy Relief 50 mcg/inh nasal spray 1 sprays, Nares, Both, Daily, # 1 each, 0 Refills, Maintenance, 02/03/23 19:09:00 EDT, [facility] #[id number], Partial fill upon patient request if the prescription is for a schedule II opioid drug., 167.5, cm, 02/03/23 18:02:00 EDT, Height, 53.8... Start Date: 02/03/23 Status: Ordered montelukast 10 mg oral tablet 1, tablet, By Mouth, Daily, # 30 tablet, Refills 1, Maintenance, 06/18/22 13:28:00 EST, Route to Pharmacy Electronically, [facility] #[id number], 169.5, cm, 03/17/22 9:15:00 EDT, Height, 53.7, kg, 02/25/22 13:16:00 EDT, Dry Weight Start Date: 06/18/22 Status: Ordered SUMAtriptan 50 mg oral tablet 1 tablet = 50 mg, By Mouth, Daily, PRN for migraine headache, # 9 tablet, 1 Refills, Maintenance, 02/03/23 18:55:00 EDT, Tablet, [facility] #32908, Partial fill upon patient request if the prescription is for a schedule II opioid drug., 167.... 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 Team Personnel Name: Alley Evans RN Position: [facility] RN Member Role: Primary Care Nurse Name: Marguerite Mustafa MD Position: [facility] Physician - Primary Care Member Role: PCP Address: Address: [address] [place] [address]- Care Team Related Persons Name: TAMMY VALENTE Address: [place] [address] Name: SIDRA OSMAN Address: home [address] [place] [address] Name: REGINALDO BAXTER Address: home [address] [place], [place] Name: REGINALDO BAXTER Address: home [address] [place] [address] Name: SAMANTHA RDZ Address: home [address] [place] [address]
--- OUTSIDE RECORDS SUMMARY | 2024-03-09 20:57 | XMS_ITS | Continuity of Care Document ---
Author Organization [facility] Address [address] [place] [address]- Care Team Providers Care Solar Energy Technician Name Role Phone Marguerite Mustafa MD Primary Care Physician Encounter [facility] Date(s): 04/25/23 - 06/18/23 [facility] [address] [place] [address]- Attending Physician: Flory Stewart MD Admitting Physician: Flory Stewart MD Allergies, Adverse Reactions, Alerts No Known [...] Vaccine (old term) 03 Given 1Result Comment: [id number] 2Result Comment: [phone] 3Admin Note: vis given 01.01.2014 4Early/Late Reason: Other : 5Admin Note: SANOFI 6Result Comment: [facility] [id number] 7Result Comment: [id number] 8Result Comment: [id number] 9Admin Note: MFD [facility] Medications Advair Diskus 500 mcg-50 mcg inhalation powder 1, puffs, Inhalation, 2 times a day, RINSE MOUTH AND THROAT AFTER USE, # 60 each, Refills 5, Tot. Refills 5, Maintenance, 03/11/23 13:16:00 EDT, [id number] #[id number], 167.5, cm, 02/03/23 18:02... Start Date: 03/11/23 Status: Ordered Apri 0.15 mg-0.03 mg oral tablet 1 tablet, By Mouth, Daily, take same time dialy, # 28 tablet, 12 Refills, Maintenance, 03/17/22 9:23:00 EDT, Tablet, [facility] #[id number], Partial fill upon patient request if the prescriptionis for a schedule II opioid drug., 1 tablet By Mout... Start Date: 03/17/22 Status: Ordered Flonase Allergy Relief 50 mcg/inh nasal spray 1 sprays, Nares, Both, Daily, # 1 each, 0 Refills, Maintenance, 02/03/23 19:09:00 EDT, [facility] #[id number], Partial fill upon patient request if the prescription is for a schedule II opioid drug., 167.5, cm, 02/03/23 18:02:00 EDT, Height, 53.8... Start Date: 02/03/23 Status: Ordered montelukast 10 mg oral tablet 1, tablet, By Mouth, Daily, # 90 tablet, Refills 0, Maintenance, 03/11/23 14:23:00 EDT, Route to Pharmacy Electronically, [facility] #[id number], 167.5, cm, 02/03/23 18:02:00 EDT, Height, 52.2, kg, 03/10/23 10:34:00 EDT, Dry Weight Start Date: 03/11/23 Status: Ordered predniSONE 20 mg oral tablet 2 tablet = 40 mg, By Mouth, Daily, # 10 tablet, 0 Refills, Maintenance, 03/11/23 13:16:00 EDT, Tablet, [facility] #59696, Partial fill upon patient request if the prescription is for a schedule II opioid drug., 167.5, cm, 02/03/23 18:02:00 E... Start Date: 03/11/23 Stop Date: 03/16/23 Status: Ordered SUMAtriptan 50 mg oral tablet 1 tablet = 50 mg, By Mouth, Daily, PRN for migraine headache, # 9 tablet, 1 Refills, Maintenance, 02/03/23 18:55:00 EDT, Tablet, [facility] #35993, Partial fill upon patient request if the prescription is for a schedule II opioid drug., 167.... 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, allergy to pollen, dust mite, animal dander- Cetirizine and Flunisolide 4Saw Pulm- Increased Advair and added Qnasal; Given oral steroids 2/2 URI triggering her asthma 5Saw Pulm 11/2016- normal spirometry; continue Advair and Singulair - Saw pulm Still on Advair and Singulair; Added Flonase for seasonal allergies - Saw Pulm; On Advair and Singulair 8Seen my Dick and Savannha Keita ([facility]) started on Clonidine Social History Social History Type Response Smoking Status Never (less than 100 in lifetime) entered on: 11/04/20 Sex Female Patient Care team information Care Team Personnel Name: Alley Evans RN Position: [facility] RN Member Role: Primary Care Nurse Name: Marguerite Mustafa MD Position: [facility] Physician - Primary Care Member Role: PCP Address: Address: [address] [place] [address] [place] [address]- Care Team Related Persons Name: TAMMY VALENTE Address: [place] [address] Name: OSMAN VALENTE Address: home [address] [place] [address] Name: REGINALDO BAXTER Address: home [address] [place], [place] Name: REGINALDO BAXTER Address: home [address] [place], [place] Name: SAMANTHA RDZ Address: home [address] [place] [address]
--- OUTSIDE RECORDS SUMMARY | 2024-03-09 20:57 | XMS_ITS | Continuity of Care Document ---
Author Organization [facility] Address [address] [place] [address]- Care Team Providers Care Intensive Care Specialist Name Role Phone Ramsey LEMUS, Marguerite Primary Care Physician [phone] Encounter [facility] Date(s): 03/20/20 - 05/16/20 [facility] [address] [place] [address]- Attending Physician: Marguerite Mustafa MD Admitting Physician: [...] Vaccine (old term) 03 Given 1Result Comment: [id number] 2Result Comment: [id number] 3Admin Note: vis given 01.01.2014 4Early/Late Reason: Other : 5Admin Note: SANOFI 6Result Comment: [facility] [id number] 7Result Comment: [id number] 8Result Comment: [id number] 9Admin Note: MFD BY [employer] Medications Aerochamber See Instructions, # 1 each, Maintenance, use with inhaler medications, 01/28/15 13:46:28, Compound Start Date: 01/28/15 Status: Ordered AirDuo RespiClick 232 mcg-14 mcg/inh inhalation powder 1, puffs, Inhalation, 2 times a day, rinse mouth and throat after use, # 1 each, Refills 3, Tot. Refills 3, Maintenance, 04/14/20 8:50:00 EST, Powder, [id number] #[id number], 168.5, cm, 02/20/20... Start Date: 04/14/20 Status: Ordered albuterol 0.083% inhalation solution 3 mL = 2.5 mg, Inhalation, Every 6 hours, # 120 each, 2 Refills, Maintenance, 12/14/19 14:25:00 EDT, Solution, [facility] #[id number], 169.1, cm, 12/13/19 10:35:00 EDT, Height, 58, [...] tablet, Refills 3, Tot. Refills 3, Maintenance, 04/14/20 8:49:00 EST, Route to Pharmacy Electronically, [facility] #[id number], 168.5, cm, 02/20/20 15:15:00 EDT, Height, 58.7, kg, 02/20/20 15:15:00 EDT, Dry... Start Date: 04/14/20 Status: Ordered PROzac 10 mg oral capsule See Instructions, Take 1 daily for 7 days, then increase to 2 daily, # 60 capsule, Refills 3, Tot. Refills 3, Maintenance, 04/16/20 16:36:00 EST, Instructions Replace Required Details, Route to Pharmacy Electronically, [facility] #[id number], Par... 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
--- OUTSIDE RECORDS SUMMARY | 2024-03-09 20:57 | XMS_ITS | Continuity of Care Document ---
Author Organization [facility] Address [address] [address]- Care Team Providers Care Electric Dolly Operator Name Role Phone Marguerite Mustafa MD Primary Care Physician [facility] Date(s): 03/24/21 - 03/31/21 [facility] [address] [place] [address]- Attending Physician: Rox Bruce MD Referring Physician: Marguerite Mustafa MD Allergies, [...] Vaccine (old term) 03 Given 1Result Comment: [id number] 2Result Comment: [id number] 3Admin Note: vis given 01.01.2014 4Early/Late Reason: Other : 5Admin Note: SANOFI 6Result Comment: [facility] [id number] 7Result Comment: [id number] 8Result Comment: [id number] 9Admin Note: MFD BY [employer] Medications Advair Diskus 500 mcg-50 mcg inhalation powder 1, puffs, Inhalation, 2 times a day, RINSE MOUTH AND THROAT AFTER USE, # 60 each, Refills 5, Tot. Refills 5, Maintenance, 03/04/21 15:25:00 EDT, Route to Pharmacy Electronically, NCPDP_[id number], [facility] #[id number], 168, cm, 03/04/21 14:47:0... Start Date: 03/04/21 Status: Ordered Aerochamber See Instructions, # 1 each, Maintenance, use with inhaler medications, 01/28/15 13:46:28, Compound Start Date: 01/28/15 Status: Ordered albuterol 0.083% inhalation solution 3 mL = 2.5 mg, Inhalation, Every 6 hours, # 120 each, 2 Refills, Maintenance, 05/23/20 15:08:00 EST, Solution, [facility] #[id number], 171, cm, 04/23/20 17:37:00 EST, Height, 57.3, [...] 0 Refills, Maintenance, 03/05/21 16:16:00 EDT, Tablet, [facility] #[id number], Partial fill upon patient request if the prescription isfor a schedule II opioid drug., 168, cm, 03/04/21 1... Start Date: 03/05/21 Status: Ordered ketoconazole 2% topical shampoo 1 application, Topically, Once, Three times weekly, # 120 mL, 3 Refills, Soft Stop, 03/16/21 17:24:00 EDT, [facility][id number], Partial fill upon patient request if the prescription is for a schedule II opioid drug., 1 application Top... Start Date: 03/16/21 Status: Ordered montelukast 10 mg oral tablet 10 mg, 1, tablet, By Mouth, Daily, # 30 tablet, Refills 5, Tot. 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
--- OUTSIDE RECORDS SUMMARY | 2024-03-09 20:57 | XMS_ITS | Continuity of Care Document ---
Author Organization [facility] Address [address] [place] [address]- Care Team Providers Care Pot Annealer Name Role Phone Marguerite Mustafa MD Primary Care Physician [facility] Date[facility]s): 06/24/22 - 07/24/22 [facility] [address] [place] [address]- Attending Physician: Frank Stein Admitting Physician: AdmtrFrank [...] Vaccine (old term) 03 Given 1Result Comment: [id number] 2Result Comment: [id number] 3Admin Note: vis given 01.01.2014 4Early/Late Reason: Other : 5Admin Note: SANOFI 6Result Comment: [facility] [id number] 7Result Comment: [id number] 8Result Comment: [id number] 9Admin Note: MFD BY SANOFI Medications Advair Diskus 500 mcg-50 mcg inhalation powder 1, puffs, Inhalation, 2 times a day, RINSE MOUTH AND THROAT AFTER USE, # 60 each, Refills 5, Tot. Refills 5, Maintenance, 08/19/21 16:30:00 EDT, Route to Pharmacy Electronically, NCPDP_[id number], [facility] #67507, 168.4, cm, 08/19/21 16:16... Start Date: 08/19/21 [...] 12 Refills, Maintenance, 03/17/22 9:23:00 EDT, Tablet, [facility] #07810, Partial fill upon patient request if the prescriptionis for a schedule II opioid drug., 1 tablet By Mout... Start Date: 03/17/22 Status: Ordered cetirizine 10 mg oral tablet 1 tablet = 10 mg, By Mouth, Daily, # 30 tablet, 0 Refills, Maintenance, 08/19/21 16:32:00 EDT, Tablet, [facility] #20232, Partial fill upon patient request if the prescription is for a schedule II opioid drug., 168.4, cm, 08/19/21 16:16:00 E... Start Date: 08/19/21 Status: Ordered fluvoxaMINE 50 mg oral tablet 1 tablet = 50 mg, By Mouth, Daily at bedtime, # 30 tablet, 2 Refills, Maintenance, 04/05/22 12:27:00 EST, Tablet, [facility] #17998, Partial fill upon patient request if the prescription isfor a schedule II opioid drug., 169.5, cm, 03/17/22... 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 XR 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, 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, allergy to pollen, dust mite, animal dander- Cetirizine and Flunisolide 4Saw Pulm- Increased Advair and added Qnasal; Given oral steroids 2/2 URI triggering her asthma 5Saw Pulm 11/2016- normal spirometry; continue Advair and Singulair - Saw pulm Still on Advair and Singulair; Added Flonase for seasonal allergies - Saw Pulm; On Advair and Singulair 8Seen my Neuro and Savannah Keita ([facility]) started on Clonidine Social History Social History Type Response Smoking Status Never (less than 100 in lifetime) entered on: 11/04/20 Sex Note * Pita Dillard: PERFORM Event Display: Patient Education/Instruction Authored Date: Patient Care team information Care Team Personnel Name: Ramsey LEMUS, Marguerite Position: [facility] Primary Care Physician Member Role: PCP Address: Address: [address] [place] [address] [place] [address]- Care Team Related Persons Name: TAMMY VALENTE Address: [place] [address] Name: OSMAN VALENTE Address: home [address] [place] [address] Name: REGINALDO BAXTER Address: [address] [place] [address] Name: REGINALDO BAXTER Address: [address] [place] [address] Name: SAMANTHA RDZ Address: home [address] [place] [address]
--- OUTSIDE RECORDS SUMMARY | 2024-03-09 20:57 | XMS_ITS | Continuity of Care Document ---
Author Organization [facility] Address [address] [place] [address]- Care Team Providers Care Director Telemetry Name Role Phone Marguerite Mustafa MD Primary Care Physician [phone] Encounter [facility] Date(s): 09/11/20 - 11/11/[address] [address]- Discharge Disposition: A-D/C Home Attending Physician: Cheryl LEMUS, Esra Admitting Physician: Cheryl LEMUS, Esra Referring Physician: Cheryl LEMUS, Esra Allergies, Adverse Reactions, Alerts Substance Reaction Severity [...] Vaccine (old term) 03 Given 1Result Comment: 31926-215-72 2Result Comment: [id number] 3Admin Note: vis given 01.01.2014 4Early/Late Reason: Other : 5Admin Note: SANOFI 6Result Comment: [facility] [id number] 7Result Comment: [id number] 8Result Comment: 0109-1299-09 9Admin Note: MFD BY [employer] Medications Advair Diskus 500 mcg-50 mcg inhalation powder 1, inhalation, Inhalation, 2 times a day, rinse mouth and throat after use, # 1 each, Refills 3, Tot. Refills 3, Maintenance, 11/05/20 15:34:00 EDT, Powder, [id number] #[id number], 168.7, cm, 06... Start Date: 11/05/20 Status: Ordered Aerochamber See Instructions, # 1 each, Maintenance, use with inhaler medications, 01/28/15 13:46:28, Compound Start Date: 01/28/15 Status: Ordered albuterol 0.083% inhalation solution 3 mL = 2.5 mg, Inhalation, Every 6 hours, # 120 each, 2 Refills, Maintenance, 05/23/20 15:08:00 EST, Solution, [facility] #[id number], 171, cm, 04/23/20 17:37:00 EST, Height, 57.3, [...] 11/05/20 15:34:00 EDT, Route to Pharmacy Electronically, [facility] #[id number], 168.7, cm, 11/05/20 15:05:00 EDT, Height, 55.2, kg, 11/05/20 15:05:00 EDT, Start Date: 11/05/20 Status: Ordered PROzac 10 mg oral capsule See Instructions, Take 1 daily for 7 days, then increase to 2 daily, # 60 capsule, Refills 3, Tot. Refills 3, Maintenance, 04/16/20 16:36:00 EST, Instructions Replace Required Details, Route to Pharmacy Electronically, [facility] #62225, Par... 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
--- OUTSIDE RECORDS SUMMARY | 2024-03-09 20:57 | XMS_ITS | Continuity of Care Document ---
Author Organization [facility] Address [address] [place] [address]- Care Team Providers Care Tobacco Grader Name Role Phone Ramsey LEMUS, Marguerite Primary Care Physician [facility]counter [facility] Date(s): 06/28/23 - 07/28/23 [facility] [address] [place] [address]- Allergies, Adverse Reactions, Alerts No Known Allergies [...] Vaccine (old term) 03 Given 1Result Comment: [id number] 2Result Comment: 77628-060-25 3Admin Note: vis given 01.01.2014 4Early/Late Reason: Other : 5Admin Note: SANOFI 6Result Comment: [facility] 10020-785-36 7Result Comment: [id number] 8Result Comment: [id number] 9Admin Note: MFD BY [employer] Medications Advair Diskus 500 mcg-50 mcg inhalation powder 1, puffs, Inhalation, 2 times a day, RINSE MOUTH AND THROAT AFTER USE, # 60 each, Refills 5, Tot. Refills 5, Maintenance, 03/11/23 13:16:00 EDT, [id number] #[id number], 167.5, cm, 02/03/23 18:02... Start Date: 03/11/23 Status: Ordered Apri 0.15 mg-0.03 mg oral tablet 1 tablet, By Mouth, Daily, take same time dialy, # 28 tablet, 12 Refills, Maintenance, 03/17/22 9:23:00 EDT, Tablet, [facility] #71223, Partial fill upon patient request if the prescriptionis for a schedule II opioid drug., 1 tablet By Mout... Start Date: 03/17/22 Status: Ordered Flonase Allergy Relief 50 mcg/inh nasal spray 1 sprays, Nares, Both, Daily, # 1 each, 0 Refills, Maintenance, 02/03/23 19:09:00 EDT, [facility] #[id number], Partial fill upon patient request if the prescription is for a schedule II opioid drug., 167.5, cm, 02/03/23 18:02:00 EDT, Height, 53.8... Start Date: 02/03/23 Status: Ordered montelukast 10 mg oral tablet 1, tablet, By Mouth, Daily, # 90 tablet, Refills 0, Maintenance, 03/11/23 14:23:00 EDT, Route to Pharmacy Electronically, [facility] #[id number], 167.5, cm, 02/03/23 18:02:00 EDT, Height, 52.2, kg, 03/10/23 10:34:00 EDT, Dry Weight Start Date: 03/11/23 Status: Ordered predniSONE 20 mg oral tablet 2 tablet = 40 mg, By Mouth, Daily, # 10 tablet, 0 Refills, Maintenance, 03/11/23 13:16:00 EDT, Tablet, [facility] #06421, Partial fill upon patient request if the prescription is for a schedule II opioid drug., 167.5, cm, 02/03/23 18:02:00 E... Start Date: 03/11/23 Stop Date: 03/16/23 Status: Ordered SUMAtriptan 50 mg oral tablet 1 tablet = 50 mg, By Mouth, Daily, PRN for migraine headache, # 9 tablet, 1 Refills, Maintenance, 02/03/23 18:55:00 EDT, Tablet, [facility] #16745, Partial fill upon patient request if the prescription is for a schedule II opioid drug., 167.... 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 Team Personnel Name: Alley Evans RN Position: [facility] RN Member Role: Primary Care Nurse Name: Marguerite Mustafa MD Position: [facility] Physician - Primary Care Member Role: PCP Address: Address: [address] [place] [address]- Care Team Related Persons Name: TAMMY VALENTE Address: [place] [address] Name: OSMAN VALENTE Address: home [address] [place] [address] Name: REGINALDO BAXTER Address: [address] [place] [address] Name: REGINALDO BAXTER Address: [address] [place] [address] Name: SAMANTHA RDZ Address: home [address] [place] [address]
--- OUTSIDE RECORDS SUMMARY | 2024-03-09 20:57 | XMS_ITS | Continuity of Care Document ---
Author Organization [facility] Address [address] [place] [address]- Care Team Providers Care Black Top Raker Name Role Phone Marguerite Mustafa MD Primary Care Physician [facility]counter [facility] Date(s): 09/24/21 - 10/01/21 [facility] [address] [place], [place] [address] Attending Physician: Elvis Joaquin DO Referring Physician: Marguerite Mustafa MD Allergies, Adverse [...] Vaccine (old term) 03 Given 1Result Comment: [id number] 2Result Comment: 12335-420-61 3Admin Note: vis given 01.01.2014 4Early/Late Reason: Other : 5Admin Note: SANOFI 6Result Comment: [facility] 79351-767-75 7Result Comment: 5158-6188-00 8Result Comment: [id number] 9Admin Note: MFD BY [employer] Medications Advair Diskus 500 mcg-50 mcg inhalation powder 1, puffs, Inhalation, 2 times a day, RINSE MOUTH AND THROAT AFTER USE, # 60 each, Refills 5, Tot. Refills 5, Maintenance, 08/19/21 16:30:00 EDT, [id number] #45097, 168.4, cm, 08/19/21 16:16... Start Date: 08/19/21 [...] 2 Refills, Maintenance, 08/19/21 16:30:00 EDT, Solution, [facility] #38915, 168.4, cm, 08/19/21 16:16:00 EDT, Height, 56, [...] 0 Refills, Maintenance, 08/19/21 16:32:00 EDT, Tablet, [facility] #61763, Partial fill upon patient request if the prescription is for a schedule II opioid drug., 168.4, cm, 08/19/21 16:16:00 E... Start Date: 08/19/21 Status: Ordered fluvoxaMINE 50 mg oral tablet 1 tablet = 50 mg, By Mouth, Daily at bedtime, for 30 days, # 30 tablet, 1 Refills, Hard Stop 10/04/21 11:40:00 EDT, 08/05/21 11:40:00 EDT, Tablet, [facility] #11650, Partial fill upon patient request if the prescription is for a schedule II... Start Date: 08/05/21 Stop Date: 10/04/21 Status: Ordered fluvoxaMINE 50 mg oral tablet 1 tablet = 50 mg, By Mouth, Daily at bedtime, # 30 tablet, 2 Refills, Maintenance, 10/04/21 11:40:00 EDT, Tablet, [facility] #42957, Partial fill upon patient request if the prescription isfor a schedule II opioid drug., 168.4, cm, 09/15/21... Start Date: 10/04/21 Stop Date: 01/02/22 Status: Ordered montelukast 10 mg oral tablet 10 mg, 1, tablet, By Mouth, Daily in PM, # 30 tablet, Refills 3, Tot. Refills 3, Maintenance, 08/19/21 16:30:00 EDT, Route to Pharmacy Electronically, [facility] #39694, Partial fill upon patient request if the prescription is for a schedule... 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, allergy to pollen, dust mite, animal dander- Cetirizine and Flunisolide 4Saw Pulm- Increased Advair and added Qnasal; Given oral steroids 2/2 URI triggering her asthma 5Saw Pulm 11/2016- normal spirometry; continue Advair and Singulair - Saw pulm Still on Advair and Singulair; Added Flonase for seasonal allergies - Saw Pulm; On Advair and Singulair 8Seen my Neuro and Savannah Keita ([facility]) started on Clonidine Vital Signs Most recent to oldest [Reference Range]: 1 Height 168.4 cm (09/24/21 4:27 PM) Oxygen Saturation [94-100 %] 100 % (09/24/21 4:27 PM) Pulse Rate [55-90 bpm] 93 bpm *H* (09/24/21 4:27 PM) Blood Pressure [80-130/50-80 mm Hg] 111/ 72mm Hg (09/24/21 4:27 PM) Temperature [96.8-100.4 DegF] 98.7 DegF (09/24/21 4:27 PM) Mode of Delivery (Oxygen) Room air (09/24/21 4:27 PM) Blood pressure sites Arm, right (09/24/21 4:27 PM) Temperature Route Temporal (09/24/21 4:27 PM) Social History Social History Type Response Smoking Status Never (less than 100 in lifetime) entered on: 11/04/20 Sex
--- OUTSIDE RECORDS SUMMARY | 2024-03-09 20:57 | XMS_ITS | Continuity of Care Document ---
Author Organization [facility] Address [address] [place] [address] ve [address] [place] [address]- Care Team Providers Care Master Certified Rv Technician Name Role Phone Marguerite Mustafa MD Primary Care Physician [phone] Encounter [facility] Date(s): 01/17/20 - 01/24/[address] [place] [address]- [facility] Attending Physician: Wilmar LEMUS, Ruth Referring Physician: Marguerite Mustafa MD Allergies, Adverse [...] 11/11/04 Given Influenza Virus Vaccine (oldterm) 7 11/13/06 Given Pneumococcal Conjugate (PCV7) (oldterm) 03/31/05 G [...] Vaccine (old term) 03 Given 1Result Comment: [id number] 2Admin Note: vis given 01.01.2014 3Early/Late Reason: Other : 4Admin Note: SANOFI 5Result Comment: [id number] 6Result Comment: [id number] 7Admin Note: MFD BY SANOFI Medications Adderall XR 15 mg oral capsule, extended release 1 capsule = 15 mg, By Mouth, Daily in AM, # 30 capsule, 0 Refills, Maintenance, 07/05/19 17:28:00 EST, CR Capsule, [facility] #[id number], 1 capsule By Mouth Daily in AM, [...] 13:20:00 EDT, Powder, Route to Pharmacy Electronically, [id number] #66636, 169.1, cm, 2... Start Date: 12/13/19 Status: Ordered albuterol 0.083% inhalation solution 3 mL = 2.5 mg, Inhalation, Every 6 hours, # 120 each, 2 Refills, Maintenance, 12/14/19 14:25:00 EDT, Solution, [facility] #14947, 169.1, cm, 12/13/19 10:35:00 EDT, Height, 58, [...] 12/13/19 13:21:00 EDT, Route to Pharmacy Electronically, [facility] #67759, 169.1, cm, 12/13/19 10:35:00 EDT, Height, 58, kg, 12/13/19 10:35:00 EDT, Dry... 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
--- OUTSIDE RECORDS SUMMARY | 2024-03-09 20:57 | XMS_ITS | Continuity of Care Document ---
Author Organization [facility] Address [address] [place] [address]- Care Team Providers Care Marine Consultant Name Role Phone Ramsey LEMUS, Marguerite Primary Care Physician [phone] [facility]counter [facility] Date(s): 06/04/20 - 07/04/20 [facility] [address] [place] [address]- Allergies, Adverse Reactions, Alerts Substance Reaction Severity [...] Vaccine (old term) 03 Given 1Result Comment: [id number] 2Result Comment: 90193-914-24 3Admin Note: vis given 01.01.2014 4Early/Late Reason: Other : 5Admin Note: SANOFI 6Result Comment: [facility] 97677-594-05 7Result Comment: 5054-4943-00 8Result Comment: [id number] 9Admin Note: MFD BY SANOFI Medications Advair Diskus 500 mcg-50 mcg inhalation powder 1, inhalation, Inhalation, 2 times a day, rinse mouth and throat after use, # 1 each, Refills 3, Tot. Refills 3, Maintenance, 06/06/20 9:57:00 EST, Powder, [id number]45041, 171, cm, 05/28... Start Date: 06/06/20 Status: Ordered Aerochamber See Instructions, # 1 each, Maintenance, use with inhaler medications, 01/28/15 13:46:28, Compound Start Date: 01/28/15 Status: Ordered albuterol 0.083% inhalation solution 3 mL = 2.5 mg, Inhalation, Every 6 hours, # 120 each, 2 Refills, Maintenance, 05/23/20 15:08:00 EST, Solution, [facility] #22432, 171, cm, 04/23/20 17:37:00 EST, Height, 57.3, [...] 05/28/20 14:44:00 EST, Route to Pharmacy Electronically, [facility] #35269, 171, cm, 05/28/20 13:50:00 EST, Height, 57.3, kg, 05/28/20 13:50:00 EST, Dry... Start Date: 05/28/20 Status: Ordered PROzac 10 mg oral capsule See Instructions, Take 1 daily for 7 days, then increase to 2 daily, # 60 capsule, Refills 3, Tot. Refills 3, Maintenance, 04/16/20 16:36:00 EST, Instructions Replace Required Details, Route to Pharmacy Electronically, [facility] #[id number], Par... 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
--- OUTSIDE RECORDS SUMMARY | 2024-03-09 20:57 | XMS_ITS | Continuity of Care Document ---
Author Organization [facility] Address [address] [place] [address] ve [address] [place] [address]- Care Team Providers Care Cq Developer Name Role Phone Marguerite Mustafa MD Primary Care Physician [facility]counter [facility] Date(s): 01/17/20 - 02/16/[address] [place] [address]- [facility] Attending Physician: Frank Stein Admitting Physician: Frank [...] Vaccine (old term) 03 Given 1Result Comment: [id number] 2Admin Note: vis given 01.01.2014 3Early/Late Reason: Other : 4Admin Note: SANOFI 5Result Comment: [id number] 6Result Comment: [id number] 7Admin Note: MFD BY SANOFI Medications Adderall XR 15 mg oral capsule, extended release 1 capsule = 15 mg, By Mouth, Daily in AM, # 30 capsule, 0 Refills, Maintenance, 07/05/19 17:28:00 EST, CR Capsule, [facility] #56997, 1 capsule By Mouth Daily in AM, [...] 13:20:00 EDT, Powder, Route to [facility] Electronically, [id number] #13013, 169.1, cm, 2... Start Date: 12/13/19 Status: Ordered albuterol 0.083% inhalation solution 3 mL = 2.5 mg, Inhalation, Every 6 hours, # 120 each, 2 Refills, Maintenance, 12/14/19 14:25:00 EDT, Solution, [facility] #49356, 169.1, cm, 12/13/19 10:35:00 EDT, Height, 58, [...] 12/13/19 13:21:00 EDT, Route to Pharmacy Electronically, [facility] #60375, 169.1, cm, 12/13/19 10:35:00 EDT, Height, 58, kg, 12/13/19 10:35:00 EDT, Dry... 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
--- OUTSIDE RECORDS SUMMARY | 2024-03-09 20:57 | XMS_ITS | Continuity of Care Document ---
Author Organization [facility] Address [address] [place] [address]- Care Team Providers Care Manager Psychology Name Role Phone Ramsey LEMUS, Marguerite Primary Care Physician [phone] [facility]counter [facility] Date(s): 05/12/23 - 05/12/[address] [address]- Discharge Disposition: A-D/C Walkout Attending Physician: Not on Staff, Attending MD Admitting Physician: Not on Staff, Admitting MD Referring Physician: Not on Staff, Referring MD Allergies, Adverse Reactions, Alerts No Known Allergies Immunizations Given and Recorded Vaccine Date Status Refusal Reason SARS-CoV-2 (COVID-19) mRNA-0127 vaccine 01/11/22 R ecorded influenza virus vaccine, [...] Vaccine (old term) 03 Given 1Result Comment: [id number] 2Result Comment: 48613-757-72 3Admin Note: vis given 01.01.2014 4Early/Late Reason: Other : 5Admin Note: SANOFI 6Result Comment: [facility] [id number] 7Result Comment: [id number] 8Result Comment: [id number] 9Admin Note: MFD BY SANOFI Medications Advair Diskus 500 mcg-50 mcg inhalation powder 1, puffs, Inhalation, 2 times a day, RINSE MOUTH AND THROAT AFTER USE, # 60 each, Refills 5, Tot. Refills 5, Maintenance, 03/11/23 13:16:00 EDT, [id number] #68659, 167.5, cm, 02/03/23 18:02... Start Date: 03/11/23 Status: Ordered Apri 0.15 mg-0.03 mg oral tablet 1 tablet, By Mouth, Daily, take same time dialy, # 28 tablet, 12 Refills, Maintenance, 03/17/22 9:23:00 EDT, Tablet, [facility] #29877, Partial fill upon patient request if the prescriptionis for a schedule II opioid drug., 1 tablet By Mout... Start Date: 03/17/22 Status: Ordered Flonase Allergy Relief 50 mcg/inh nasal spray 1 sprays, Nares, Both, Daily, # 1 each, 0 Refills, Maintenance, 02/03/23 19:09:00 EDT, [facility] #14043, Partial fill upon patient request if the prescription is for a schedule II opioid drug., 167.5, cm, 02/03/23 18:02:00 EDT, Height, 53.8... Start Date: 02/03/23 Status: Ordered montelukast 10 mg oral tablet 1, tablet, By Mouth, Daily, # 90 tablet, Refills 0, Maintenance, 03/11/23 14:23:00 EDT, Route to Pharmacy Electronically, [facility] #58228, 167.5, cm, 02/03/23 18:02:00 EDT, Height, 52.2, kg, 03/10/23 10:34:00 EDT, Dry Weight Start Date: 03/11/23 Status: Ordered predniSONE 20 mg oral tablet 2 tablet = 40 mg, By Mouth, Daily, # 10 tablet, 0 Refills, Maintenance, 03/11/23 13:16:00 EDT, Tablet, [facility] #85509, Partial fill upon patient request if the prescription is for a schedule II opioid drug., 167.5, cm, 02/03/23 18:02:00 E... Start Date: 03/11/23 Stop Date: 03/16/23 Status: Ordered SUMAtriptan 50 mg oral tablet 1 tablet = 50 mg, By Mouth, Daily, PRN for migraine headache, # 9 tablet, 1 Refills, Maintenance, 02/03/23 18:55:00 EDT, Tablet, [facility] #62610, Partial fill upon patient request if the prescription is for a schedule II opioid drug., 167.... 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, allergy to pollen, dust mite, animal dander- Cetirizine and Flunisolide 4Saw Pulm- Increased Advair and added Qnasal; Given oral steroids 2/2 URI triggering her asthma 5Saw Pulm 11/2016- normal spirometry; continue Advair and Singulair - Saw pulm Still on Advair and Singulair; Added Flonase for seasonal allergies - Saw Pulm; On Advair and Singulair 8Seen my Neuro and Savannah Bossman ([facility]) started on Clonidine Vital Signs Most recent to oldest [Reference Range]: 1 Oxygen Saturation [94-100 %] 98 % (05/12/23 3:29 PM) Pulse Rate [55-90 bpm] 97 bpm *H* (05/12/23 3:29 PM) Blood Pressure [90-138/55-84 mm Hg] 123/ 80mm Hg (05/12/23 3:29 PM) Respiratory Rate [16-30 br/min] 20 br/mi n (05/12/23 3:29 PM) Temperature [96.8-100.4 DegF] 97.4 DegF (05/12/23 3:29 PM) Mode of Delivery (Oxygen) Room air (05/12/23 3:29 PM) Blood pressure sites Arm, right (05/12/23 3:29 PM) Temperature Route Oral (05/12/23 3:29 PM) Social History Social History Type Response Smoking Status Never (less than 100 in lifetime) entered on: 11/04/20 Sex Female Patient Care team information Care Team Personnel Name: Alley Evans RN Position: [facility] RN Member Role: Primary Care Nurse Name: Marguerite Mustafa MD Position: [facility] Physician - Primary Care Member Role: PCP Address: Address: [address] [place] [address] [place] [address]- Care Team Related Persons Name: TAMMY VALENTE Address: [place] [address] Name: OSMAN VALENTE Address: [address] [place] [address] Name: REGINALDO BAXTER Address: home [address] [place], [place] Name: REGINALDO BAXTER Address: home [address] [place], [place] Name: SAMANTHA RDZ Address: home [address] [place] [address]
--- OUTSIDE RECORDS SUMMARY | 2024-03-09 20:57 | XMS_ITS | Continuity of Care Document ---
Author Organization [facility] Address [address] [place] [address]- Care Team Providers Care Control Cabinet Assembler Name Role Phone Marguerite Mustafa MD Primary Care Physician [facility]): [facility]23 - 06/05/23 [facility] [address] [address] Attending Physician: Frank Stein Admitting Physician: Frank Stein Referring Physician: AdmtrFrank Allergies, Adverse Reactions, Alerts No Known Allergies Immunizations Given and Recorded Vaccine Date Status Refusal Reason SARS-CoV-2 (COVID-19) mRNA-0821 vaccine 01/11/22 R ecorded influenza virus vaccine, [...] Vaccine (old term) 03 Given 1Result Comment: 21556-773-80 2Result Comment: [id number] 3Admin Note: vis given 01.01.2014 4Early/Late Reason: Other : 5Admin Note: SANOFI 6Result Comment: [facility] [id number] 7Result Comment: [id number] 8Result Comment: [id number] 9Admin Note: MFD BY SANOFI Medications Advair Diskus 500 mcg-50 mcg inhalation powder 1, puffs, Inhalation, 2 times a day, RINSE MOUTH AND THROAT AFTER USE, # 60 each, Refills 5, Tot. Refills 5, Maintenance, 03/11/23 13:16:00 EDT, Route to Pharmacy Electronically, [id number], [facility] #[id number], 167.5, cm, 02/03/23 18:02... Start Date: 03/11/23 Status: Ordered Apri 0.15 mg-0.03 mg oral tablet 1 tablet, By Mouth, Daily, take same time dialy, # 28 tablet, 12 Refills, Maintenance, 03/17/22 9:23:00 EDT, Tablet, [facility] #[id number], Partial fill upon patient request if the prescriptionis for a schedule II opioid drug., 1 tablet By Mout... Start Date: 03/17/22 Status: Ordered Flonase Allergy Relief 50 mcg/inh nasal spray 1 sprays, Nares, Both, Daily, # 1 each, 0 Refills, Maintenance, 02/03/23 19:09:00 EDT, [facility] #[id number], Partial fill upon patient request if the prescription is for a schedule II opioid drug., 167.5, cm, 02/03/23 18:02:00 EDT, Height, 53.8... Start Date: 02/03/23 Status: Ordered montelukast 10 mg oral tablet 1, tablet, By Mouth, Daily, # 90 tablet, Refills 0, Maintenance, 03/11/23 14:23:00 EDT, Route to Pharmacy Electronically, [facility] #[id number], 167.5, cm, 02/03/23 18:02:00 EDT, Height, 52.2, kg, 03/10/23 10:34:00 EDT, Dry Weight Start Date: 03/11/23 Status: Ordered predniSONE 20 mg oral tablet 2 tablet = 40 mg, By Mouth, Daily, # 10 tablet, 0 Refills, Maintenance, 03/11/23 13:16:00 EDT, Tablet, [facility] #[id number], Partial fill upon patient request if the prescription is for a schedule II opioid drug., 167.5, cm, 02/03/23 18:02:00 E... Start Date: 03/11/23 Stop Date: 03/16/23 Status: Ordered SUMAtriptan 50 mg oral tablet 1 tablet = 50 mg, By Mouth, Daily, PRN for migraine headache, # 9 tablet, 1 Refills, Maintenance, 02/03/23 18:55:00 EDT, Tablet, [facility] #[id number], Partial fill upon patient request if the prescription is for a schedule II opioid drug., 167.... 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 Team Personnel Name: Alley Evans RN Position: [facility] RN Member Role: Primary Care Nurse Name: Marguerite Mustafa MD Position: [facility] Physician - Primary Care Member Role: PCP Address: Address: [address] [place] [address] [place] [address]- Care Team Related Persons Name: TAMMY VALENTE Address: [place] [address] Name: OSMAN VALENTE Address: home [address] [place] [address] Name: REGINALDO BAXTER Address: home [address] [place] [address] Name: REGINALDO BAXTER Address: home [address] [place] [address] Name: SAMANTHA RDZ Address: home [address] [place] [address]
--- OUTSIDE RECORDS SUMMARY | 2024-03-09 20:57 | XMS_ITS | Continuity of Care Document ---
Author Organization [facility] Address [address] [place] [address]- Care Team Providers Care Truck Loader Overhead Crane Name Role Phone Ramsey LEMUS, Marguerite Primary Care Physician [facility] 05[facility]13/20 - 06/18/20 [facility] [address] [place] [address]- Attending Physician: Not on Staff, Attending MD Allergies, Adverse Reactions, Alerts Substance Reaction [...] Vaccine (old term) 03 Given 1Result Comment: [id number] 2Result Comment: [id number] 3Admin Note: vis given 01.01.2014 4Early/Late Reason: Other : 5Admin Note: SANOFI 6Result Comment: [facility] 15990-745-20 7Result Comment: [id number] 8Result Comment: [phone] 9Admin Note: MFD BY SANOFI Medications Advair Diskus 500 mcg-50 mcg inhalation powder 1, inhalation, Inhalation, 2 times a day, rinse mouth and throat after use, # 1 each, Refills 3, Tot. Refills 3, Maintenance, 06/06/20 9:57:00 EST, Powder, Route to Pharmacy Electronically, [facility]_[id number], [facility] #[id number], 171, cm, 05/28... Start Date: 06/06/20 Status: Ordered Aerochamber See Instructions, # 1 each, Maintenance, use with inhaler medications, 01/28/15 13:46:28, Compound Start Date: 01/28/15 Status: Ordered albuterol 0.083% inhalation solution 3 mL = 2.5 mg, Inhalation, Every 6 hours, # 120 each, 2 Refills, Maintenance, 05/23/20 15:08:00 EST, Solution, [facility] #[id number], 171, cm, 04/23/20 17:37:00 EST, Height, 57.3, [...] 05/28/20 14:44:00 EST, Route to Pharmacy Electronically, [facility] #[id number], 171, cm, 05/28/20 13:50:00 EST, Height, 57.3, kg, 05/28/20 13:50:00 EST, Dry... Start Date: 05/28/20 Status: Ordered PROzac 10 mg oral capsule See Instructions, Take 1 daily for 7 days, then increase to 2 daily, # 60 capsule, Refills 3, Tot. Refills 3, Maintenance, 04/16/20 16:36:00 EST, Instructions Replace Required Details, Route to Pharmacy Electronically, [facility] #[id number], [place]... 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
--- OUTSIDE RECORDS SUMMARY | 2024-03-09 20:57 | XMS_ITS | Continuity of Care Document ---
Author Organization [facility] Address [address] [place] [address]- Care Team Providers Care Market Research Worker Name Role Phone Ramsey LEMUS, Marguerite Primary Care Physician [phone] [facility] Date[facility]): 03/09/22 - 04/08/[address] [address]- Allergies, Adverse Reactions, Alerts No Known Allergies [...] Vaccine (old term) 03 Given 1Result Comment: [id number] 2Result Comment: [id number] 3Admin Note: vis given 01.01.2014 4Early/Late Reason: Other : 5Admin Note: SANOFI 6Result Comment: [facility] [id number] 7Result Comment: [id number] 8Result Comment: [id number] 9Admin Note: MFD BY SANOFI Medications Advair Diskus 500 mcg-50 mcg inhalation powder 1, puffs, Inhalation, 2 times a day, RINSE MOUTH AND THROAT AFTER USE, # 60 each, Refills 5, Tot. Refills 5, Maintenance, 08/19/21 16:30:00 EDT, Route to Pharmacy Electronically, [id number] #[id number], 168.4, cm, 08/19/21 16:16... Start Date: 08/19/21 [...] 12 Refills, Maintenance, 03/17/22 9:23:00 EDT, Tablet, [facility] #[id number], Partial fill upon patient request if the prescriptionis for a schedule II opioid drug., 1 tablet By Mout... Start Date: 03/17/22 Status: Ordered cetirizine 10 mg oral tablet 1 tablet = 10 mg, By Mouth, Daily, # 30 tablet, 0 Refills, Maintenance, 08/19/21 16:32:00 EDT, Tablet, [facility] #[id number], Partial fill upon patient request if the prescription is for a schedule II opioid drug., 168.4, cm, 08/19/21 16:16:00 E... Start Date: 08/19/21 Status: Ordered fluvoxaMINE 50 mg oral tablet 1 tablet = 50 mg, By Mouth, Daily at bedtime, for 30 days, # 30 tablet, 2 Refills, Hard Stop 06/06/22 12:27:00 EST, 03/08/22 12:27:00 EDT, Tablet, [facility] #[id number], Partial fill upon patient request if the prescription is for a schedule II... Start Date: 03/08/22 Stop Date: 06/06/22 Status: Ordered fluvoxaMINE 50 mg oral tablet 1 tablet = 50 mg, By Mouth, Daily at bedtime, # 30 tablet, 2 Refills, Maintenance, 04/05/22 12:27:00 EST, Tablet, [facility] #[id number], Partial fill upon patient request if the prescription isfor a schedule II opioid drug., 169.5, cm, 03/17/22... Start Date: 04/05/22 Stop Date: 07/04/22 Status: Ordered montelukast 10 mg oral tablet 1, tablet, By Mouth, Daily, # 30 tablet, Refills 0, Maintenance, 03/22/22 9:08:00 EST, Route to Pharmacy Electronically, [facility] #[id number], 169.5, cm, 03/17/22 9:15:00 EDT, Height, 53.7, kg, 02/25/22 13:16:00 EDT, Dry Weight Start Date: 03/22/22 Status: Ordered Vitamin D3 1000 intl units oral capsule 1 capsule = 25 mcg, By Mouth, Daily, # 30 capsule, 4 Refills, Maintenance, 08/19/21 16:30:00 EDT, Capsule, [facility] #[id number], Partial fill upon patient request if the [...] and started on Adderall 10mg XR 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) started on Clonidine Social History Social History Type Response Smoking Status Never (less than 100 in lifetime) entered on: 11/04/20 Sex Patient Care team information Care Team Personnel Name: Marguerite Mustafa MD Position: [facility] Primary Care Physician Member Role: PCP Address: Address: [address] [place] [address] [place] [address]- Care Team Related Persons Name: TAMMY VALENTE Address: [place] [address] Name: OSMAN VALENTE Address: home [address] [place], [place] Name: REGINALDO BAXTER Address: [address] [place], [place] Name: REGINALDO BAXTER Address: home [address] [place], [place] Name: SAMANTHA RDZ Address: home [address] [place] [address]
--- OUTSIDE RECORDS SUMMARY | 2024-03-09 20:57 | XMS_ITS | Continuity of Care Document ---
Author Organization [facility] Address [address] [place] [address]- Care Team Providers Care Implementation Coordinator Name Role Phone Ramsey LEMUS, Marguerite Primary Care Physician [facility]): 08/05[facility]21 - 09/04/21 [facility] [address] [place] [address]- Allergies, Adverse Reactions, Alerts No Known Allergies [...] Vaccine (old term) 03 Given 1Result Comment: 35217-658-40 2Result Comment: [id number] 3Admin Note: vis given 01.01.2014 4Early/Late Reason: Other : 5Admin Note: SANOFI 6Result Comment: [facility] 57715-658-14 7Result Comment: [id number] 8Result Comment: [id number] 9Admin Note: MFD BY SANOFI Medications Advair Diskus 500 mcg-50 mcg inhalation powder 1, puffs, Inhalation, 2 times a day, RINSE MOUTH AND THROAT AFTER USE, # 60 each, Refills 5, Tot. Refills 5, Maintenance, 08/19/21 16:30:00 EDT, [id number][id number], 168.4, cm, 08/19/21 16:16... Start Date: 08/19/21 [...] 2 Refills, Maintenance, 08/19/21 16:30:00 EDT, Solution, [facility] #[id number], 168.4, cm, 08/19/21 16:16:00 EDT, Height, 56, [...] 0 Refills, Maintenance, 08/19/21 16:32:00 EDT, Tablet, [facility] #[id number], Partial fill upon patient request if the prescription is for a schedule II opioid drug., 168.4, cm, 08/19/21 16:16:00 E... Start Date: 08/19/21 Status: Ordered fluvoxaMINE 50 mg oral tablet 1 tablet = 50 mg, By Mouth, Daily at bedtime, # 30 tablet, 1 Refills, Maintenance, 08/05/21 11:40:00 EDT, Tablet, [facility] #[id number], Partial fill upon patient request if the prescription isfor a schedule II opioid drug., 168.5, cm, 07/15/21... Start Date: 08/05/21 Stop Date: 10/04/21 Status: Ordered montelukast 10 mg oral tablet 10 mg, 1, tablet, By Mouth, Daily in PM, # 30 tablet, Refills 3, Tot. Refills 3, Maintenance, 08/19/21 16:30:00 EDT, Route to Pharmacy Electronically, [facility] #[id number], Partial fill upon patient request if the prescription is for a schedule... 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
--- OUTSIDE RECORDS SUMMARY | 2024-03-09 20:57 | XMS_ITS | Continuity of Care Document ---
Author Organization [facility] Address [address] [place] [address]- Care Team Providers Care Manager Global Name Role Phone Ramsey LEMUS, Marguerite Primary Care Physician [facility] 08[facility] - 09/18/21 [facility] [address] [place] [address]- Attending Physician: Admtr, Ar8 Allergies, Adverse Reactions, [...] Vaccine (old term) 03 Given 1Result Comment: [id number] 2Result Comment: [id number] 3Admin Note: vis given 01.01.2014 4Early/Late Reason: Other : 5Admin Note: SANOFI 6Result Comment: [facility] [id number] 7Result Comment: [id number] 8Result Comment: [id number] 9Admin Note: MFD BY SANOFI Medications Advair Diskus 500 mcg-50 mcg inhalation powder 1, puffs, Inhalation, 2 times a day, RINSE MOUTH AND THROAT AFTER USE, # 60 each, Refills 5, Tot. Refills 5, Maintenance, 08/19/21 16:30:00 EDT, Route to Pharmacy Electronically, LAPDP_[id number], [facility] #[id number], 168.4, cm, 08/19/21 16:16... Start Date: 08/19/21 [...] 2 Refills, Maintenance, 08/19/21 16:30:00 EDT, Solution, [facility] #[id number], 168.4, cm, 08/19/21 16:16:00 EDT, Height, 56, [...] 0 Refills, Maintenance, 08/19/21 16:32:00 EDT, Tablet, [facility] #[id number], Partial fill upon patient request if the prescription is for a schedule II opioid drug., 168.4, cm, 08/19/21 16:16:00 E... Start Date: 08/19/21 Status: Ordered fluvoxaMINE 50 mg oral tablet 1 tablet = 50 mg, By Mouth, Daily at bedtime, for 30 days, # 30 tablet, 1 Refills, Hard Stop 10/04/21 11:40:00 EDT, 08/05/21 11:40:00 EDT, Tablet, [facility] #[id number], Partial fill upon patient request if the prescription is for a schedule II... Start Date: 08/05/21 Stop Date: 10/04/21 Status: Ordered fluvoxaMINE 50 mg oral tablet 1 tablet = 50 mg, By Mouth, Daily at bedtime, # 30 tablet, 2 Refills, Maintenance, 10/04/21 11:40:00 EDT, Tablet, [facility] #[id number], Partial fill upon patient request if the prescription isfor a schedule II opioid drug., 168.4, cm, 09/15/21... Start Date: 10/04/21 Stop Date: 01/02/22 Status: Ordered montelukast 10 mg oral tablet 10 mg, 1, tablet, By Mouth, Daily in PM, # 30 tablet, Refills 3, Tot. Refills 3, Maintenance, 08/19/21 16:30:00 EDT, Route to Pharmacy Electronically, [facility] #[id number], Partial fill upon patient request if the prescription is for a schedule... 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
--- OUTSIDE RECORDS SUMMARY | 2024-03-09 20:57 | XMS_ITS | Continuity of Care Document ---
Author Organization [facility] Address [address] [place] [address]- Care Team Providers Care Supervisor Powdered Sugar Name Role Phone Marguerite Mustafa MD Primary Care Physician [facility] 03[facility]24[facility]21 - 04/23/21 [facility] [address] [place] [address]- Attending Physician: Frank Stein Admitting Physician: Frank [...] Vaccine (old term) 03 Given 1Result Comment: [id number] 2Result Comment: 79216-613-25 3Admin Note: vis given 01.01.2014 4Early/Late Reason: Other : 5Admin Note: SANOFI 6Result Comment: [facility]NOTE 2] 08328-103-50 7Result Comment: [id number] 8Result Comment: [id number] 9Admin Note: MFD BY MeeWeeOFI Medications Advair Diskus 500 mcg-50 mcg inhalation powder 1, puffs, Inhalation, 2 times a day, RINSE MOUTH AND THROAT AFTER USE, # 60 each, Refills 5, Tot. Refills 5, Maintenance, 03/04/21 15:25:00 EDT, Route to Pharmacy Electronically, NCPDP_[id number], [facility] #[id number], 168, cm, 03/04/21 14:47:0... Start Date: 03/04/21 Status: Ordered Aerochamber See Instructions, # 1 each, Maintenance, use with inhaler medications, 01/28/15 13:46:28, Compound Start Date: 01/28/15 Status: Ordered albuterol 0.083% inhalation solution 3 mL = 2.5 mg, Inhalation, Every 6 hours, # 120 each, 2 Refills, Maintenance, 05/23/20 15:08:00 EST, Solution, [facility] #[id number], 171, cm, 04/23/20 17:37:00 EST, Height, 57.3, [...] 0 Refills, Maintenance, 03/05/21 16:16:00 EDT, Tablet, [facility] #87319, Partial fill upon patient request if the prescription isfor a schedule II opioid drug., 168, cm, 03/04/21 1... Start Date: 03/05/21 Status: Ordered ketoconazole 2% topical shampoo 1 application, Topically, Once, Three times weekly, # 120 mL, 3 Refills, Soft Stop, 03/16/21 17:24:00 EDT, [id number], Partial fill upon patient request if the prescription is for a schedule II opioid drug., 1 application Top... Start Date: 03/16/21 Status: Ordered montelukast 10 mg oral tablet 10 mg, 1, tablet, By Mouth, Daily, # 30 tablet, Refills 5, Tot. Refills 5, Maintenance, 03/04/21 15:25:00 EDT, [id number], 168, cm, 03/04/21 14:47:00 EDT, Height, 55.5, [...] 3 Refills, Maintenance, 04/14/20 8:49:00 EST, 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
--- OUTSIDE RECORDS SUMMARY | 2024-03-09 20:57 | XMS_ITS | Continuity of Care Document ---
Author Organization [facility] Address [address] [place] [address]- Care Team Providers Care Bank Representative Name Role Phone Marguerite Mustafa MD Primary Care Physician Encounter [facility] Date(s): 03/21/23 - 04/20/[address] [address]- Attending Physician: Admalondra, Rey8 Admitting Physician: Admtr, [...] Vaccine (old term) 03 Given 1Result Comment: [id number] 2Result Comment: 52997-991-20 3Admin Note: vis given 01.01.2014 4Early/Late Reason: Other : 5Admin Note: SANOFI 6Result Comment: [facility] [phone] 7Result Comment: [id number] 8Result Comment: [id number] 9Admin Note: [facility] Medications Advair Diskus 500 mcg-50 mcg inhalation powder 1, puffs, Inhalation, 2 times a day, RINSE MOUTH AND THROAT AFTER USE, # 60 each, Refills 5, Tot. Refills 5, Maintenance, 03/11/23 13:16:00 EDT, Route to Pharmacy Electronically, NCPDP_[id number], [facility] #[id number], 167.5, cm, 02/03/23 18:02... Start Date: 03/11/23 [...] 03/10/2311:02:00 EDT, Aerosol, Route to Pharmacy Electronically, NCPDP_ID-[id number], [facility] #[id number], 167.5, cm, 02/03/23 18:02:00 EDT, Height, 52.2,... Start Date: 03/10/23 Status: Ordered Apri 0.15 mg-0.03 mg oral tablet 1 tablet, By Mouth, Daily, take same time dialy, # 28 tablet, 12 Refills, Maintenance, 03/17/22 9:23:00 EDT, Tablet, [facility] #88266, Partial fill upon patient request if the prescriptionis for a schedule II opioid drug., 1 tablet By Mout... Start Date: 03/17/22 Status: Ordered Flonase Allergy Relief 50 mcg/inh nasal spray 1 sprays, Nares, Both, Daily, # 1 each, 0 Refills, Maintenance, 02/03/23 19:09:00 EDT, [facility] #[id number], Partial fill upon patient request if the prescription is for a schedule II opioid drug., 167.5, cm, 02/03/23 18:02:00 EDT, Height, 53.8... Start Date: 02/03/23 Status: Ordered montelukast 10 mg oral tablet 1, tablet, By Mouth, Daily, # 90 tablet, Refills 0, Maintenance, 03/11/23 14:23:00 EDT, Route to Pharmacy Electronically, [facility] #[id number], 167.5, cm, 02/03/23 18:02:00 EDT, Height, 52.2, kg, 03/10/23 10:34:00 EDT, Dry Weight Start Date: 03/11/23 Status: Ordered predniSONE 20 mg oral tablet 2 tablet = 40 mg, By Mouth, Daily, # 10 tablet, 0 Refills, Maintenance, 03/11/23 13:16:00 EDT, Tablet, [facility] #[id number], Partial fill upon patient request if the prescription is for a schedule II opioid drug., 167.5, cm, 02/03/23 18:02:00 E... Start Date: 03/11/23 Stop Date: 03/16/23 Status: Ordered SUMAtriptan 50 mg oral tablet 1 tablet = 50 mg, By Mouth, Daily, PRN for migraine headache, # 9 tablet, 1 Refills, Maintenance, 02/03/23 18:55:00 EDT, Tablet, [facility] #28662, Partial fill upon patient request if the prescription is for a schedule II opioid drug., 167.... 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 Team Personnel Name: Alley Evans RN Position: [facility] RN Member Role: Primary Care Nurse Name: Marguerite Mustafa MD Position: [facility] Physician - Primary Care Member Role: PCP Address: Address: [address] [place] [address]- Care Team Related Persons Name: TAMMY VALENTE Address: [place] [address] Name: OSMAN VALENTE Address: home [address] [place], [place] Name: REGINALDO BAXTER Address: home [address] [place], [place] Name: REGINALDO BAXTER Address: home [address] [place], [place] Name: SAMANTHA RDZ Address: home [address] [place] [address]
--- OUTSIDE RECORDS SUMMARY | 2024-03-09 20:57 | XMS_ITS | Continuity of Care Document ---
Author Organization [facility] Address [address] [place] [address]- Care Team Providers Care Conciliation Court Judge Name Role Phone Ramsey LEMUS, Marguerite Primary Care Physician Encounter [facility] Date(s): 12/13/19 - 01/12/20 [facility] [address] [place] [address]- [facility] Attending Physician: Frank Stein Admitting Physician: Frank [...] Vaccine (old term) 03 Given 1Result Comment: [id number] 2Admin Note: vis given 01.01.2014 3Early/Late Reason: Other : 4Admin Note: SANOFI 5Result Comment: [id number] 6Result Comment: [id number] 7Admin Note: MFD BY SANOFI Medications Adderall XR 15 mg oral capsule, extended release 1 capsule = 15 mg, By Mouth, Daily in AM, # 30 capsule, 0 Refills, Maintenance, 07/05/19 17:28:00 EST, CR Capsule, [facility] #[id number], 1 capsule By Mouth Daily in AM, [...] 13:20:00 EDT, Powder, Route to Pharmacy Electronically, CAPDP_[id number], [facility] #[id number], 169.1, cm, 2... Start Date: 12/13/19 Status: Ordered albuterol 0.083% inhalation solution 3 mL = 2.5 mg, Inhalation, Every 6 hours, # 120 each, 2 Refills, Maintenance, 12/14/19 14:25:00 EDT, Solution, [facility] #[id number], 169.1, cm, 12/13/19 10:35:00 EDT, Height, 58, [...] 12/13/19 13:21:00 EDT, Route to Pharmacy Electronically, [facility] #[id number], 169.1, cm, 12/13/19 10:35:00 EDT, Height, 58, kg, 12/13/19 10:35:00 EDT, Dry... 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
--- OUTSIDE RECORDS SUMMARY | 2024-03-09 20:57 | XMS_ITS | Continuity of Care Document ---
Author Organization [facility] Address [address] [place] [address]- Care Team Providers Care Engineering Recruiter Name Role Phone Fouzia Moreno Primary Care Physician Encounter [facility] Date(s): 11/15/19 - 12/15/19 [facility] [address] [place] [address]- [facility] Attending Physician: Frank Stein Admitting Physician: Frank [...] Vaccine (old term) 03 Given 1Result Comment: [id number] 2Admin Note: vis given 01.01.2014 3Early/Late Reason: Other : 4Admin Note: SANOFI 5Result Comment: [id number] 6Result Comment: [id number] 7Admin Note: MFD BY SANOFI Medications Adderall XR 15 mg oral capsule, extended release 1 capsule = 15 mg, By Mouth, Daily in AM, # 30 capsule, 0 Refills, Maintenance, 07/05/19 17:28:00 EST, CR Capsule, [facility] #[id number], 1 capsule By Mouth Daily in AM, [...] 13:20:00 EDT, Powder, Route to Pharmacy Electronically, IAPDP_[id number], [facility] #[id number], 169.1, cm, 2... Start Date: 12/13/19 Status: Ordered albuterol 0.083% inhalation solution 3 mL = 2.5 mg, Inhalation, Every 6 hours, # 120 each, 2 Refills, Maintenance, 12/14/19 14:25:00 EDT, Solution, [facility] #04873, 169.1, cm, 12/13/19 10:35:00 EDT, Height, 58, [...] Required Detail... Start Date: 12/13/19 Status: Ordered Intuniv 1 mg oral tablet, extended release 1 tablet = 1 mg, By Mouth, Daily in AM, # 30 tablet, 1 Refills, Maintenance, 04/09/19 15:39:14 EST Start Date: 04/09/19 Status: Ordered montelukast 10 mg oral tablet 10 mg, 1, tablet, By Mouth, Daily, # 30 tablet, Refills 3, Tot. Refills 3, Maintenance, 12/13/19 13:21:00 EDT, Route to Pharmacy Electronically, [facility] #[id number], 169.1, cm, 12/13/19 10:35:00 EDT, Height, 58, kg, 12/13/19 10:35:00 EDT, Dry... Start Date: 12/13/19 Status: Ordered Pepto-Bismol 262 mg oral tablet, chewable 2 tablet = 524 mg, Chew, 4 times a day, PRN for dyspepsia, # 48 tablet, 0 Refills, Maintenance, 05/17/19 13:26:00 EST, Chew Tablet, [facility] [address], 169, cm, 05/12/19 4:40:00 EST, Height, 51.4, kg, 05/17/19 13:14:00 EST, Dry Weight Start Date: 05/17/19 Status: Ordered ZyrTEC 10 mg oral tablet 1 tablet = 10 mg, By Mouth, Daily, # 30 tablet, 3 Refills, Maintenance, 12/13/19 13:21:00 EDT, Tablet, [facility] #15078, 169.1, cm, 12/13/19 10:35:00 EDT, Height, 58, [...] and started on Adderall 10mg XR 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
--- OUTSIDE RECORDS SUMMARY | 2024-03-09 20:58 | XMS_ITS | Continuity of Care Document ---
Author Organization [facility] Address [address] [place] [address]- Care Team Providers Care Block Stacker Name Role Phone Fouzia Moreno Primary Care Physician Encounter [facility] Date(s): 03/07/19 - 07/05/19 [facility] [address] [place] [address]- [facility] Attending Physician: Ernst Wilson MD Referring Physician: Leatha Frost MD Allergies, Adverse Reactions, Alerts Substance Reaction [...] Vaccine (oldterm) 03 Give n 1Result Comment: 43633-059-22 2Admin Note: vis given 01.01.2014 3Early/Late Reason: Other : 4Result Comment: [phone] 5Result Comment: [id number] 6Admin Note: MFD BY SharePlowOFI Medications Adderall XR 15 mg oral capsule, extended release 1 capsule = 15 mg, By Mouth, Daily in AM, # 30 capsule, 0 Refills, Maintenance, 07/05/19 17:28:00 EST, CR Capsule, [facility] #[id number], 1 capsule By Mouth Daily in AM, [...] 12:10:19 EDT, Powder, [id number] [address] Start Date: 03/07/19 Status: Ordered albuterol 0.083% inhalation solution 3 mL = 2.5 mg, Inhalation, Every 6 hours, # 120 each, 0 Refills, Maintenance, 05/12/19 0:21:00 EST,Solution, [facility] [address], 169, cm, 05/11/19 18:40:00 EST, Height, 52.6, kg, 05/11/19 18:40:00 EST, Dry Weight Start Date: 05/12/19 Status: Ordered albuterol CFC free 90 mcg/inh inhalation aerosol See Instructions, inhale 2 to 8 puffs by mouth and INTO THE LUNGS every 4 hours if needed for wheezing and as directed 15 MINUTES BEFORE EXERCISE, # 17 Gm, Refills 0, Tot. Refills 0, Maintenance, 07/02/19 9:17:00 EST, Instructions Replace Required Det... Start Date: 07/02/19 Status: Ordered Flonase 50 mcg/inh nasal spray 2 sprays, Nares, Both, 2 times a day, # 1 each, 4 Refills, Maintenance, 10/24/18 16:19:26 EDT, [place], 2 sprays Nares, Both 2 times a [...] 12:10:21 EDT, Route to Pharmacy Electronically, NCPDP_ID- [id number], [facility] [address] Start Date: 03/07/19 Status: Ordered Pepto-Bismol 262 mg oral tablet, chewable 2 tablet = 524 mg, Chew, 4 times a day, PRN for dyspepsia, # 48 tablet, 0 Refills, Maintenance, 05/17/19 13:26:00 EST, Chew Tablet, [facility] [address], 169, cm, 05/12/19 4:40:00 EST, Height, [...] and started on Adderall 10mg XR 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
--- OUTSIDE RECORDS SUMMARY | 2024-03-09 20:58 | XMS_ITS | Continuity of Care Document ---
Author Organization [facility] Address [address] [place] [address]- Care Team Providers Care Conference Interpreter Name Role Phone Marguerite Mustafa MD Primary Care Physician Encounter [facility] Date(s): 11/10/22 - 12/10/22 [facility] [address] [place] [address]- Attending Physician: Frank Stein Admitting Physician: AdmtrFrank [...] Vaccine (old term) 03 Given 1Result Comment: 15527-883-02 2Result Comment: 79016-057-62 3Admin Note: vis given 01.01.2014 4Early/Late Reason: Other : 5Admin Note: SANOFI 6Result Comment: [facility] [id number] 7Result Comment: [id number] 8Result Comment: [id number] 9Admin Note: MFD BY SANOFI Medications Advair Diskus 500 mcg-50 mcg inhalation powder 1, puffs, Inhalation, 2 times a day, RINSE MOUTH AND THROAT AFTER USE, # 60 each, Refills 5, Tot. Refills 5, Maintenance, 08/19/21 16:30:00 EDT, Route to Pharmacy Electronically, NCPDP_[id number], [facility] #[id number], 168.4, cm, 08/19/21 16:16... Start Date: 08/19/21 [...] 12 Refills, Maintenance, 03/17/22 9:23:00 EDT, Tablet, [facility] #19004, Partial fill upon patient request if the prescriptionis for a schedule II opioid drug., 1 tablet By [facility]... Start Date: 03/17/22 Status: Ordered cetirizine 10 mg oral tablet 1 tablet = 10 mg, By Mouth, Daily, # 30 tablet, 0 Refills, Maintenance, 08/19/21 16:32:00 EDT, Tablet, [facility] #24443, Partial fill upon patient request if the prescription is for a schedule II opioid drug., 168.4, cm, 08/19/21 16:16:00 E... Start Date: 08/19/21 Status: Ordered fluvoxaMINE 50 mg oral tablet 1 tablet = 50 mg, By Mouth, Daily at bedtime, # 30 tablet, 2 Refills, Maintenance, 04/05/22 12:27:00 EST, Tablet, [facility] #[id number], Partial fill upon patient request if the prescription isfor a schedule II opioid drug., 169.5, cm, 03/17/22... Start Date: 04/05/22 Stop Date: 07/04/22 Status: Ordered montelukast 10 mg oral tablet 1, tablet, By Mouth, Daily, # 30 tablet, Refills 1, Maintenance, 06/18/22 13:28:00 EST, Route to Pharmacy Electronically, [facility] #[id number], 169.5, cm, 03/17/22 9:15:00 EDT, Height, 53.7, kg, 02/25/22 13:16:00 EDT, Dry Weight Start Date: 06/18/22 Status: Ordered Vitamin D3 1000 intl units oral capsule 1 capsule = 25 mcg, By Mouth, Daily, # 30 capsule, 4 Refills, Maintenance, 08/19/21 16:30:00 EDT, Capsule, [facility] #[id number], Partial fill upon patient request if the [...] and started on 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 10mg XR 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, 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 entered on: 11/04/20 Sex Female Note * Pita Dillard: PERFORM Event Display: Patient Education/Instruction Authored Date: Patient Care team information Care Team Personnel Name: Vijaya DRISCOLL, Alley Position: [facility] RN Member Role: Primary Care Nurse Name: Marguerite Mustafa MD Position: [facility] Physician - Primary Care Member Role: PCP Address: Address: [address] [place] [address] [place] [address]- Care Team Related Persons Name: TAMMY VALENTE Address: [place] [address] Name: OSMAN VALENTE Address: home [address] [place] [address] Name: REGINALDO BAXTER Address: home [address] [place] [address] Name: REGINALDO BAXTER Address: home [address] [place] [address] Name: SAMANTHA RDZ Address: home [address] [place] [address]
--- OUTSIDE RECORDS SUMMARY | 2024-03-09 20:58 | XMS_ITS | Continuity of Care Document ---
Author Organization [facility] Address [address] [place] [address]- Care Team Providers Care Weight Reduction Specialist Name Role Phone Ramsey LEMUS, Marguerite Primary Care Physician [phone] Encounter [facility] Date(s): 01/03/24 - 02/02/24 [facility] [address] [place] [address]- Attending Physician: Frank Stein Referring Physician: Ruby FERMIN, Adonis Allergies, Adverse Reactions, Alerts No Known Allergies [...] Vaccine (old term) 03 Given 1Result Comment: [id number] 2Result Comment: 52234-416-99 3Admin Note: vis given 01.01.2014 4Early/Late Reason: Other : 5Admin Note: SANOFI 6Result Comment: [facility] [id number] 7Result Comment: [phone] 8Result Comment: [id number] 9Admin Note: MFD BY KatangoOFI Medications Advair Diskus 500 mcg-50 mcg inhalation powder 1, puffs, Inhalation, 2 times a day, RINSE MOUTH AND THROAT AFTER USE, # 60 each, Refills 5, Tot. Refills 5, Maintenance, 10/25/23 8:24:00 EDT, Route to Pharmacy Electronically, NMPDP_[id number], [facility] #[id number], 170, cm, 09/19/23 15:34:00... Start Date: 10/25/23 Status: Ordered cetirizine 10 mg oral tablet 1 tablet = 10 mg, By Mouth, Daily, # 90 tablet, 1 Refills, Maintenance, 10/25/23 8:25:00 EDT, Tablet, [facility] #78365, Partial fill upon patient request if the prescription is for a schedule II opioid drug., 170, cm, 09/19/23 15:34:00 EDT,... Start Date: 10/25/23 Status: Ordered Flonase Allergy Relief 50 mcg/inh nasal spray 1 sprays, Nares, Both, Daily, # 1 each, 0 Refills, Maintenance, 10/25/23 8:24:00 EDT, [facility] #05078, Partial fill upon patient request if the prescription is for a schedule II opioid drug., 170, cm, 09/19/23 15:34:00 EDT, Height, 54, kg,... Start Date: 10/25/23 Status: Ordered Isibloom 0.15 mg-0.03 mg oral tablet 1 tablet, By Mouth, Daily, # 28 tablet, 5 Refills, Maintenance, 09/12/23 12:45:00 EDT, [facility] #03949, 28, TAKE 1 TABLET BY MOUTH DAILY TAKE AT THE SAME TIME DAILY, 170, cm, 08/20/23 1:30:00 EDT, Height, 54, kg, 08/20/23 1:30:00 EDT, Dry... Start Date: 09/12/23 Status: Ordered montelukast 10 mg oral tablet 1, tablet, By Mouth, Daily, # 90 tablet, Refills 0, Tot. Refills 0, Maintenance, 10/25/23 8:24:00 EDT, Route to Pharmacy Electronically, [facility] #[id number], 170, cm, 09/19/23 15:34:00 EDT, Height, 54, kg, 10/24/23 16:05:00 EDT, Dry Weight Start Date: 10/25/23 Status: Ordered SUMAtriptan 50 mg oral tablet 1 tablet = 50 mg, By Mouth, Daily, PRN for migraine headache, # 9 tablet, 1 Refills, Maintenance, 02/03/23 18:55:00 EDT, Tablet, [facility] #[id number], Partial fill upon patient request if the prescription is for a schedule II opioid drug., 167.... 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 Team Personnel Name: Alley Evans RN Position: [facility] RN Member Role: Primary Care Nurse Name: Marguerite Mustafa MD Position: [facility] Physician - Primary Care Member Role: PCP Address: Address: [address] [place] [address] [place] [address]- Care Team Related Persons Name: TAMMY VALENTE Address: [place] [address] Name: OSMAN VALENTE Address: home [address] [place] [address] Name: REGINALDO BAXTER Address: [address] [place] [address] Name: REGINALDO BAXTER Address: home [address] [place] [address] Name: SAMANTHA RDZ Address: home [address] [place] [address]
--- OUTSIDE RECORDS SUMMARY | 2024-03-09 20:58 | XMS_ITS | Continuity of Care Document ---
Author Organization [facility] Address [address] [place] [address]- Care Team Providers Care Screen Stretcher Name Role Phone Marguerite Mustafa MD Primary Care Physician Encounter [facility] Date(s): 02/07/20 - 03/08/20 [facility] [address] [place] [address]- [facility] Attending Physician: Frank Stein Admitting Physician: [...] Vaccine (old term) 03 Given 1Result Comment: [id number] 2Admin Note: vis given 01.01.2014 3Early/Late Reason: Other : 4Admin Note: SANOFI 5Result Comment: [id number] 6Result Comment: [id number] 7Admin Note: MFD BY SANOFI Medications Adderall XR 15 mg oral capsule, extended release 1 capsule = 15 mg, By Mouth, Daily in AM, # 30 capsule, 0 Refills, Maintenance, 07/05/19 17:28:00 EST, CR Capsule, [facility] #[id number], 1 capsule By Mouth Daily in AM, [...] 13:20:00 EDT, Powder, Route to Pharmacy Electronically, NDPDP_[id number], [facility] #51001, 169.1, cm, 2... Start Date: 12/13/19 Status: Ordered albuterol 0.083% inhalation solution 3 mL = 2.5 mg, Inhalation, Every 6 hours, # 120 each, 2 Refills, Maintenance, 12/14/19 14:25:00 EDT, Solution, [facility] #[id number], 169.1, cm, 12/13/19 10:35:00 EDT, Height, 58, [...] 12/13/19 13:21:00 EDT, Route to Pharmacy Electronically, [facility] #34943, 169.1, cm, 12/13/19 10:35:00 EDT, Height, 58, kg, 12/13/19 10:35:00 EDT, Dry... 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
--- OUTSIDE RECORDS SUMMARY | 2024-03-09 20:58 | XMS_ITS | Continuity of Care Document ---
Author Organization [facility] Address [address] [place] [address]- Care Team Providers Care Business Account Manager Name Role Phone Ramsey LEMUS, Marguerite Primary Care Physician [phone] [facility]counter [facility] Date(s): 12/03/19 - 01/02/20 [facility] [address] [place] [address]- [facility] Allergies, Adverse Reactions, Alerts Substance Reaction Severity [...] Vaccine (old term) 03 Given 1Result Comment: 25832-176-05 2Admin Note: vis given 01.01.2014 3Early/Late Reason: Other : 4Admin Note: SANOFI 5Result Comment: [id number] 6Result Comment: [id number] 7Admin Note: MFD BY SANOFI Medications Adderall XR 15 mg oral capsule, extended release 1 capsule = 15 mg, By Mouth, Daily in AM, # 30 capsule, 0 Refills, Maintenance, 07/05/19 17:28:00 EST, CR Capsule, [facility] #79208, 1 capsule By Mouth Daily in AM, [...] 13:20:00 EDT, Powder, Route to Pharmacy Electronically, IAPDP_[id number], [facility] #[id number], 169.1, cm, ... Start Date: 12/13/19 Status: Ordered albuterol 0.083% inhalation solution 3 mL = 2.5 mg, Inhalation, Every 6 hours, # 120 each, 2 Refills, Maintenance, 12/14/19 14:25:00 EDT, Solution, [facility] #[id number], 169.1, cm, 12/13/19 10:35:00 EDT, Height, 58, [...] 12/13/19 13:21:00 EDT, Route to Pharmacy Electronically, [facility] #06374, 169.1, cm, 12/13/19 10:35:00 EDT, Height, 58, kg, 12/13/19 10:35:00 EDT, Dry... 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
--- OUTSIDE RECORDS SUMMARY | 2024-03-09 20:58 | XMS_ITS | Continuity of Care Document ---
Author Organization [facility] Address [address] [place] [address]- Care Team Providers Care Licensed Insurance Sales Agent Name Role Phone Ramsey LEMUS, Marguerite Primary Care Physician [phone] [facility]counter [facility] Date(s): 08/06/21 - 09/05/21 [facility] [address] [place] [address]- Allergies, Adverse Reactions, Alerts No Known Allergies [...] Vaccine (old term) 03 Given 1Result Comment: [id number] 2Result Comment: [id number] 3Admin Note: vis given 01.01.2014 4Early/Late Reason: Other : 5Admin Note: SANOFI 6Result Comment: [facility] [id number] 7Result Comment: [phone] 8Result Comment: [id number] 9Admin Note: MFD BY SANOFI Medications Advair Diskus 500 mcg-50 mcg inhalation powder 1, puffs, Inhalation, 2 times a day, RINSE MOUTH AND THROAT AFTER USE, # 60 each, Refills 5, Tot. Refills 5, Maintenance, 08/19/21 16:30:00 EDT, Route to Pharmacy Electronically, [id number] #00762, 168.4, cm, 08/19/21 16:16... Start Date: 08/19/21 [...] 2 Refills, Maintenance, 08/19/21 16:30:00 EDT, Solution, [facility] #98608, 168.4, cm, 08/19/21 16:16:00 EDT, Height, 56, [...] 0 Refills, Maintenance, 08/19/21 16:32:00 EDT, Tablet, [facility] #46037, Partial fill upon patient request if the prescription is for a schedule II opioid drug., 168.4, cm, 08/19/21 16:16:00 E... Start Date: 08/19/21 Status: Ordered fluvoxaMINE 50 mg oral tablet 1 tablet = 50 mg, By Mouth, Daily at bedtime, # 30 tablet, 1 Refills, Maintenance, 08/05/21 11:40:00 EDT, Tablet, [facility] #98365, Partial fill upon patient request if the prescription isfor a schedule II opioid drug., 168.5, cm, 07/15/21... Start Date: 08/05/21 Stop Date: 10/04/21 Status: Ordered montelukast 10 mg oral tablet 10 mg, 1, tablet, By Mouth, Daily in PM, # 30 tablet, Refills 3, Tot. Refills 3, Maintenance, 08/19/21 16:30:00 EDT, Route to Pharmacy Electronically, [facility] #95167, Partial fill upon patient request if the prescription is for a schedule... 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
--- OUTSIDE RECORDS SUMMARY | 2024-03-09 20:58 | XMS_ITS | Continuity of Care Document ---
Author Organization [facility] Address [address] [place] [address]- Care Team Providers Care Network Operations Lead Name Role Phone Marguerite Mustafa MD Primary Care Physician [facility] Date[facility]): 02/[facility]21 - 03/06/21 [facility] [address] [place] [address]- Allergies, Adverse Reactions, Alerts Substance Reaction Severity [...] Vaccine (old term) 03 Given 1Result Comment: [id number] 2Result Comment: [id number] 3Admin Note: vis given 01.01.2014 4Early/Late Reason: Other : 5Admin Note: SANOFI 6Result Comment: [facility] [id number] 7Result Comment: [id number] 8Result Comment: 9982-2730-24 9Admin Note: MFD BY SANOFI Medications Advair Diskus 500 mcg-50 mcg inhalation powder 1, puffs, Inhalation, 2 times a day, RINSE MOUTH AND THROAT AFTER USE, # 60 each, Refills 5, Tot. Refills 5, Maintenance, 03/04/21 15:25:00 EDT, [id number] #[id number], 168, cm, 03/04/21 14:47:0... Start Date: 03/04/21 Status: Ordered Aerochamber See Instructions, # 1 each, Maintenance, use with inhaler medications, 01/28/15 13:46:28, Compound Start Date: 01/28/15 Status: Ordered albuterol 0.083% inhalation solution 3 mL = 2.5 mg, Inhalation, Every 6 hours, # 120 each, 2 Refills, Maintenance, 05/23/20 15:08:00 EST, Solution, [facility] #[id number], 171, cm, 04/23/20 17:37:00 EST, Height, 57.3, [...] 0 Refills, Maintenance, 03/05/21 16:16:00 EDT, Tablet, [facility] #[id number], Partial fill upon patient request if the prescription isfor a schedule II opioid drug., 168, cm, 03/04/21 1... Start Date: 03/05/21 Status: Ordered montelukast 10 mg oral tablet 10 mg, 1, tablet, By Mouth, Daily, # 30 tablet, Refills 5, Tot. 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
--- OUTSIDE RECORDS SUMMARY | 2024-03-09 20:58 | XMS_ITS | Continuity of Care Document ---
Author Organization [facility] Address [address] [place] [address]- Care Team Providers Care Transformation Architect Name Role Phone Marguerite Mustafa MD Primary Care Physician [phone] [facility]counter [facility] Date[facility]s): 11/10/23 - 12/10/23 [facility] [address] [place] [address]- Allergies, Adverse Reactions, Alerts No Known Allergies [...] Vaccine (old term) 03 Given 1Result Comment: 40997-242-58 2Result Comment: [id number] 3Admin Note: vis given 01.01.2014 4Early/Late Reason: Other : 5Admin Note: SANOFI 6Result Comment: [facility] [id number] 7Result Comment: [id number] 8Result Comment: [id number] 9Admin Note: MFD BY [employer] Medications Advair Diskus 500 mcg-50 mcg inhalation powder 1, puffs, Inhalation, 2 times a day, RINSE MOUTH AND THROAT AFTER USE, # 60 each, Refills 5, Tot. Refills 5, Maintenance, 10/25/23 8:24:00 EDT, Route to Pharmacy Electronically, [facility]_[id number], [facility] #[id number], 170, cm, 09/19/23 15:34:00... Start Date: 10/25/23 Status: Ordered cetirizine 10 mg oral tablet 1 tablet = 10 mg, By Mouth, Daily, # 90 tablet, 1 Refills, Maintenance, 10/25/23 8:25:00 EDT, Tablet, [facility] #13179, Partial fill upon patient request if the prescription is for a schedule II opioid drug., 170, cm, 09/19/23 15:34:00 EDT,... Start Date: 10/25/23 Status: Ordered Flonase Allergy Relief 50 mcg/inh nasal spray 1 sprays, Nares, Both, Daily, # 1 each, 0 Refills, Maintenance, 10/25/23 8:24:00 EDT, [facility] #31495, Partial fill upon patient request if the prescription is for a schedule II opioid drug., 170, cm, 09/19/23 15:34:00 EDT, Height, 54, kg,... Start Date: 10/25/23 Status: Ordered Isibloom 0.15 mg-0.03 mg oral tablet 1 tablet, By Mouth, Daily, # 28 tablet, 5 Refills, Maintenance, 09/12/23 12:45:00 EDT, [facility] #[id number], 28, TAKE 1 TABLET BY MOUTH DAILY TAKE AT THE SAME TIME DAILY, 170, cm, 08/20/23 1:30:00 EDT, Height, 54, kg, 08/20/23 1:30:00 EDT, Dry... Start Date: 09/12/23 Status: Ordered montelukast 10 mg oral tablet 1, tablet, By Mouth, Daily, # 90 tablet, Refills 0, Tot. Refills 0, Maintenance, 10/25/23 8:24:00 EDT, Route to Pharmacy Electronically, [facility] #[id number], 170, cm, 09/19/23 15:34:00 EDT, Height, 54, kg, 10/24/23 16:05:00 EDT, Dry Weight Start Date: 10/25/23 Status: Ordered SUMAtriptan 50 mg oral tablet 1 tablet = 50 mg, By Mouth, Daily, PRN for migraine headache, # 9 tablet, 1 Refills, Maintenance, 02/03/23 18:55:00 EDT, Tablet, [facility] #25878, Partial fill upon patient request if the prescription is for a schedule II opioid drug., 167.... 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, allergy to pollen, [...] 8Seen my Neuro and Savannah Bossman ([facility]) started on Clonidine Social History Social History Type Response Smoking Status Never (less than 100 in lifetime) entered on: 11/04/20 Sex Female Patient Care team information Care Team Personnel Name: Alley Evans RN Position: [facility] RN Member Role: Primary Care Nurse Name: Marguerite Mustafa MD Position: [facility] Physician - Primary Care Member Role: PCP Address: Address: [address] [place] [address] [place] [address]- Care Team Related Persons Name: TAMMY VALENTE Address: [place] [address] Name: OSMAN VALENTE Address: home [address] [place] [address] Name: REGINALDO BAXTER Address: home [address] [place], [place] Name: REGINALDO BAXTER Address: home [address] [place], [place] Name: SAMANTHA RDZ Address: home [address] [place] [address]
--- OUTSIDE RECORDS SUMMARY | 2024-03-09 20:58 | XMS_ITS | Continuity of Care Document ---
Author Organization [facility] Address [address] [place] [address]- Care Team Providers Care Unloader Name Role Phone Ramsey LEMUS, Marguerite Primary Care Physician [facility] Date(s): 03/16/21 - 04/15/21 [facility] [address] [place] [address]- Allergies, Adverse Reactions, Alerts Substance Reaction Severity [...] Vaccine (old term) 03 Given 1Result Comment: 14658-601-62 2Result Comment: 72473-926-45 3Admin Note: vis given 01.01.2014 4Early/Late Reason: Other : 5Admin Note: SANOFI 6Result Comment: [facility][NOTE 3] 18384-175-25 7Result Comment: 6936-0594-29 8Result Comment: [id number] 9Admin Note: MFD BY SANOFI Medications Advair Diskus 500 mcg-50 mcg inhalation powder 1, puffs, Inhalation, 2 times a day, RINSE MOUTH AND THROAT AFTER USE, # 60 each, Refills 5, Tot. Refills 5, Maintenance, 03/04/21 15:25:00 EDT, [id number] #[id number], 168, cm, 03/04/21 14:47:0... Start Date: 03/04/21 Status: Ordered Aerochamber See Instructions, # 1 each, Maintenance, use with inhaler medications, 01/28/15 13:46:28, Compound Start Date: 01/28/15 Status: Ordered albuterol 0.083% inhalation solution 3 mL = 2.5 mg, Inhalation, Every 6 hours, # 120 each, 2 Refills, Maintenance, 05/23/20 15:08:00 EST, Solution, [facility] #36451, 171, cm, 04/23/20 17:37:00 EST, Height, 57.3, [...] 0 Refills, Maintenance, 03/05/21 16:16:00 EDT, Tablet, [facility] #96931, Partial fill upon patient request if the prescription isfor a schedule II opioid drug., 168, cm, 03/04/21 1... Start Date: 03/05/21 Status: Ordered ketoconazole 2% topical shampoo 1 application, Topically, Once, Three times weekly, # 120 mL, 3 Refills, Soft Stop, 03/16/21 17:24:00 EDT, [facility] #[id number], Partial fill upon patient request if the prescription is for a schedule II opioid drug., 1 application Top... Start Date: 03/16/21 Status: Ordered montelukast 10 mg oral tablet 10 mg, 1, tablet, By Mouth, Daily, # 30 tablet, Refills 5, Tot. 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
--- OUTSIDE RECORDS SUMMARY | 2024-03-09 20:58 | XMS_ITS | Continuity of Care Document ---
Author Organization [facility] Address [address] [place] [address]- Care Team Providers Care Dry Roaster Name Role Phone Fouzia Moreno Primary Care Physician [facility]): 07/12/19 - 11/09/19 [facility] [address] [place] [address]- [facility] Attending Physician: Ernst Wilson MD Allergies, [...] Vaccine (old term) 03 Given 1Result Comment: [id number] 2Admin Note: vis given 01.01.2014 3Early/Late Reason: Other : 4Admin Note: SANOFI 5Result Comment: [id number] 6Result Comment: [id number] 7Admin Note: MFD BY SANOFI Medications Adderall XR 15 mg oral capsule, extended release 1 capsule = 15 mg, By Mouth, Daily in AM, # 30 capsule, 0 Refills, Maintenance, 07/05/19 17:28:00 EST, CR Capsule, [facility] #[id number], 1 capsule By Mouth Daily in AM, [...] 16:03:00 EDT, Powder, Route to Pharmacy Electronically, PRPDP_[id number], [facility] #[id number], 167.7, cm, ... Start Date: 10/10/19 Status: Ordered albuterol 0.083% inhalation solution 3 mL = 2.5 mg, Inhalation, Every 6 hours, # 120 each, 0 Refills, Maintenance, 07/26/19 15:30:00 EDT, Solution, [facility] #[id number], 167.7, cm, 06/20/19 14:57:00 EST, Height, 54.1, [...] 10/10/19 16:02:00 EDT, Route to Pharmacy Electronically, [facility] #[id number], 167.7, cm, 06/20/19 14:57:00 EST, Height, 54.1, kg, 06/20/19 14:57:00 EST, . Start Date: 10/10/19 Status: Ordered Pepto-Bismol 262 mg oral tablet, chewable 2 tablet = 524 mg, Chew, 4 times a day, PRN for dyspepsia, # 48 tablet, 0 Refills, Maintenance, 05/17/19 13:26:00 EST, Chew Tablet, [facility] [address], 169, cm, 05/12/19 4:40:00 EST, Height, 51.4, kg, 05/17/19 13:14:00 EST, Dry Weight Start Date: 05/17/19 Status: Ordered ZyrTEC 10 mg oral tablet 1 tablet = 10 mg, By Mouth, Daily, # 30 tablet, 2 Refills, Maintenance, 10/10/19 16:02:00 EDT, Tablet, 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
--- OUTSIDE RECORDS SUMMARY | 2024-03-09 20:58 | XMS_ITS | Continuity of Care Document ---
Author Organization [facility] Address [address] [place] [address]- Care Team Providers Care Temp Recruiter Name Role Phone Marguerite Mustafa MD Primary Care Physician Encounter [facility] Date(s): 03/19/21 - 04/18/21 [facility] [address] [place] [address]- Attending Physician: Frank Stein Admitting Physician: Frank Stein Referring Physician: Admtr ArElgin Allergies, Adverse Reactions, Alerts Substance Reaction Severity [...] Vaccine (old term) 03 Given 1Result Comment: 32716-185-56 2Result Comment: [id number] 3Admin Note: vis given 01.01.2014 4Early/Late Reason: Other : 5Admin Note: SANOFI 6Result Comment: [facility] [id number] 7Result Comment: [id number] 8Result Comment: [id number] 9Admin Note: MFD BY [employer] Medications Advair Diskus 500 mcg-50 mcg inhalation powder 1, puffs, Inhalation, 2 times a day, RINSE MOUTH AND THROAT AFTER USE, # 60 each, Refills 5, Tot. Refills 5, Maintenance, 03/04/21 15:25:00 EDT, Route to Pharmacy Electronically, NCPDP_[id number], [facility] #[id number], 168, cm, 03/04/21 14:47:0... Start Date: 03/04/21 Status: Ordered Aerochamber See Instructions, # 1 each, Maintenance, use with inhaler medications, 01/28/15 13:46:28, Compound Start Date: 01/28/15 Status: Ordered albuterol 0.083% inhalation solution 3 mL = 2.5 mg, Inhalation, Every 6 hours, # 120 each, 2 Refills, Maintenance, 05/23/20 15:08:00 EST, Solution, [facility] #21381, 171, cm, 04/23/20 17:37:00 EST, Height, 57.3, [...] 0 Refills, Maintenance, 03/05/21 16:16:00 EDT, Tablet, [facility] #63470, Partial fill upon patient request if the prescription isfor a schedule II opioid drug., 168, cm, 03/04/21 1... Start Date: 03/05/21 Status: Ordered ketoconazole 2% topical shampoo 1 application, Topically, Once, Three times weekly, # 120 mL, 3 Refills, Soft Stop, 03/16/21 17:24:00 EDT, [facility], Partial fill upon patient request if the prescription is for a schedule II opioid drug., 1 application Top... Start Date: 03/16/21 Status: Ordered montelukast 10 mg oral tablet 10 mg, 1, tablet, By Mouth, Daily, # 30 tablet, Refills 5, Tot. 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
--- OUTSIDE RECORDS SUMMARY | 2024-03-09 20:58 | XMS_ITS | Continuity of Care Document ---
Author Organization [facility] Address [address] [place] [address]- Care Team Providers Care Fuse Cutter Name Role Phone Ramsey LEMUS, Marguerite Primary Care Physician [facility] Date[facility]s): 02/03/23 - 03/05/23 [facility] [address] [place] [address]- Attending Physician: Admtr, Ar8 Allergies, Adverse Reactions, [...] Vaccine (old term) 03 Given 1Result Comment: 10342-496-61 2Result Comment: [id number] 3Admin Note: vis given 01.01.2014 4Early/Late Reason: Other : 5Admin Note: SANOFI 6Result Comment: [facility] [id number] 7Result Comment: [id number] 8Result Comment: [id number] 9Admin Note: MFD BY SANOFI Medications Advair Diskus 500 mcg-50 mcg inhalation powder 1, puffs, Inhalation, 2 times a day, RINSE MOUTH AND THROAT AFTER USE, # 60 each, Refills 5, Tot. Refills 5, Maintenance, 08/19/21 16:30:00 EDT, Route to Pharmacy Electronically, NCPDP_ID-[id number], [facility] #[id number], 168.4, cm, 08/19/21 16:16... Start Date: 08/19/21 [...] 12 Refills, Maintenance, 03/17/22 9:23:00 EDT, Tablet, [facility] #47311, Partial fill upon patient request if the prescriptionis for a schedule II opioid drug., 1 tablet By [facility]... Start Date: 03/17/22 Status: Ordered Flonase Allergy Relief 50 mcg/inh nasal spray 1 sprays, Nares, Both, Daily, # 1 each, 0 Refills, Maintenance, 02/03/23 19:09:00 EDT, [facility] #55548, Partial fill upon patient request if the prescription is for a schedule II opioid drug., 167.5, cm, 02/03/23 18:02:00 EDT, Height, 53.8... Start Date: 02/03/23 Status: Ordered montelukast 10 mg oral tablet 1, tablet, By Mouth, Daily, # 30 tablet, Refills 1, Maintenance, 06/18/22 13:28:00 EST, Route to Pharmacy Electronically, [facility] #34877, 169.5, cm, 03/17/22 9:15:00 EDT, Height, 53.7, kg, 02/25/22 13:16:00 EDT, Dry Weight Start Date: 06/18/22 Status: Ordered SUMAtriptan 50 mg oral tablet 1 tablet = 50 mg, By Mouth, Daily, PRN for migraine headache, # 9 tablet, 1 Refills, Maintenance, 02/03/23 18:55:00 EDT, Tablet, [facility] #60188, Partial fill upon patient request if the prescription is for a schedule II opioid drug., 167.... Start Date: 02/03/23 Status: Ordered Ventolin HFA 108 mcg/inh inhalation aerosol with adapter 2 puffs, Inhalation, Every 4 hours, PRN for wheezing, # 1 each, 0 Refills, Maintenance, 03/02/23 18:34:00 EDT, Aerosol, [facility] #68354, Partial fill upon patient request if the prescription is for a schedule II opioid drug., 167.5, cm, ... 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 (less than 100 in lifetime) entered on: 6/22/21 Sex Female Patient Care team information Care Team Personnel Name: Alley Evans RN Position: [facility] RN Member Role: Primary Care Nurse Name: Marguerite Mustafa MD Position: [facility] Physician - Primary Care Member Role: PCP Address: Address: [address] [place] [address]- Care Team Related Persons Name: TAMMY VALENTE Address: [place] [address] Name: OSMAN VALENTE Address: [address] [place] [address] Name: REGINALDO BAXTER Address: [address] [place] [address] Name: REGINALDO BAXTER Address: [address] [place] [address] Name: SAMANTHA RDZ Address: home [address] [place] [address]
--- OUTSIDE RECORDS SUMMARY | 2024-03-09 20:58 | XMS_ITS | Continuity of Care Document ---
Author Organization [facility] Address [address] [place] [address] [address] [place] [address]- Care Team Providers Care Etl Analyst Developer Name Role Phone Fouzia Moreno Primary Care Physician [facility] Date(s): 12/20/19 - 12/27/[address] [place] [address]- [facility] Attending Physician: Ruth Urban MD Referring Physician: Sadie Meza MD Allergies, Adverse Reactions, Alerts Substance Reaction [...] Vaccine (old term) 03 Given 1Result Comment: [id number] 2Admin Note: vis given 01.01.2014 3Early/Late Reason: Other : 4Admin Note: SANOFI 5Result Comment: [id number] 6Result Comment: [id number] 7Admin Note: MFD BY SANOFI Medications Adderall XR 15 mg oral capsule, extended release 1 capsule = 15 mg, By Mouth, Daily in AM, # 30 capsule, 0 Refills, Maintenance, 07/05/19 17:28:00 EST, CR Capsule, [facility] #96263, 1 capsule By Mouth Daily in AM, [...] 13:20:00 EDT, Powder, Route to Pharmacy Electronically, NVPDP_[id number], [facility] #75045, 169.1, cm, 2... Start Date: 12/13/19 Status: Ordered albuterol 0.083% inhalation solution 3 mL = 2.5 mg, Inhalation, Every 6 hours, # 120 each, 2 Refills, Maintenance, 12/14/19 14:25:00 EDT, Solution, [facility] #02970, 169.1, cm, 12/13/19 10:35:00 EDT, Height, 58, [...] 12/13/19 13:21:00 EDT, Route to Pharmacy Electronically, [facility] #05876, 169.1, cm, 12/13/19 10:35:00 EDT, Height, 58, kg, 12/13/19 10:35:00 EDT, Dry... 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 recent to oldest [Reference Range]: 1 Height 169.1 cm (12/20/19 12:38 PM) Weight 58.6 kg (12/20/19 12:38 PM) Pulse Rate [55-90 bpm] 88 bpm (12/20/19 12:38 PM) Body Mass Index [18.5-24.99] 20.49 (12/20/19 12:38 PM) Blood Pressure [80-130/50-80 mm Hg] 112/ 78mm Hg (12/20/19 12:38 PM) Respiratory Rate [16-30 br/min] 16 br/mi n (12/20/19 12:38 PM) Blood pressure sites Arm, left (12/20/19 12:38 PM) Temperature Route Temporal (12/20/19 12:38 PM) Weight Obtained Via Standing scale (12/20/19 12:38 PM) Social History Social History Type Response Smoking Status Never smoker; Tobacc o user in household: No entered on: 02/14/18 Sex
--- OUTSIDE RECORDS SUMMARY | 2024-03-09 20:58 | XMS_ITS | Continuity of Care Document ---
Author Organization [facility] Address [address] [place] [address]- Care Team Providers Care Combine Inspector Name Role Phone Marguerite Mustafa MD Primary Care Physician [phone] [facility]counter [facility] Date[facility]s): 05/19/23 - 06/18/23 [facility] [address] [place] [address]- Attending Physician: Admtr, Frank Allergies, Adverse Reactions, Alerts No Known Allergies [...] Vaccine (old term) 03 Given 1Result Comment: 46175-654-52 2Result Comment: 32718-080-11 3Admin Note: vis given 01.01.2014 4Early/Late Reason: Other : 5Admin Note: SANOFI 6Result Comment: [facility] [id number] 7Result Comment: [id number] 8Result Comment: [id number] 9Admin Note: MFD BY [employer] Medications Advair Diskus 500 mcg-50 mcg inhalation powder 1, puffs, Inhalation, 2 times a day, RINSE MOUTH AND THROAT AFTER USE, # 60 each, Refills 5, Tot. Refills 5, Maintenance, 03/11/23 13:16:00 EDT, [id number] #[id number], 167.5, cm, 02/03/23 18:02... Start Date: 03/11/23 Status: Ordered Apri 0.15 mg-0.03 mg oral tablet 1 tablet, By Mouth, Daily, take same time dialy, # 28 tablet, 12 Refills, Maintenance, 03/17/22 9:23:00 EDT, Tablet, [facility] #[id number], Partial fill upon patient request if the prescriptionis for a schedule II opioid drug., 1 tablet By Mout... Start Date: 03/17/22 Status: Ordered Flonase Allergy Relief 50 mcg/inh nasal spray 1 sprays, Nares, Both, Daily, # 1 each, 0 Refills, Maintenance, 02/03/23 19:09:00 EDT, [facility] #[id number], Partial fill upon patient request if the prescription is for a schedule II opioid drug., 167.5, cm, 02/03/23 18:02:00 EDT, Height, 53.8... Start Date: 02/03/23 Status: Ordered montelukast 10 mg oral tablet 1, tablet, By Mouth, Daily, # 90 tablet, Refills 0, Maintenance, 03/11/23 14:23:00 EDT, Route to Pharmacy Electronically, [facility] #[id number], 167.5, cm, 02/03/23 18:02:00 EDT, Height, 52.2, kg, 03/10/23 10:34:00 EDT, Dry Weight Start Date: 03/11/23 Status: Ordered predniSONE 20 mg oral tablet 2 tablet = 40 mg, By Mouth, Daily, # 10 tablet, 0 Refills, Maintenance, 03/11/23 13:16:00 EDT, Tablet, [facility] #[id number], Partial fill upon patient request if the prescription is for a schedule II opioid drug., 167.5, cm, 02/03/23 18:02:00 E... Start Date: 03/11/23 Stop Date: 03/16/23 Status: Ordered SUMAtriptan 50 mg oral tablet 1 tablet = 50 mg, By Mouth, Daily, PRN for migraine headache, # 9 tablet, 1 Refills, Maintenance, 02/03/23 18:55:00 EDT, Tablet, [facility] #[id number], Partial fill upon patient request if the prescription is for a schedule II opioid drug., 167.... 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, allergy to pollen, dust mite, animal dander- Cetirizine and Flunisolide 4Saw Pulm- Increased Advair and added Qnasal; Given oral steroids 2/2 URI triggering her asthma 5Saw Pulm 11/2016- normal spirometry; continue Advair and Singulair - Saw pulm Still on Advair and Singulair; Added Flonase for seasonal allergies - Saw Pulm; On Advair and Singulair 8Seen my Neuro and Savannah Keita ([facility] started on Clonidine Social History Social History Type Response Smoking Status Never (less than 100 in lifetime) entered on: 11/04/20 Sex Female Patient Care team information Care Team Personnel Name: Alley Evans RN Position: [facility] RN Member Role: Primary Care Nurse Name: Marguerite Mustafa MD Position: [facility] Physician - Primary Care Member Role: PCP Address: Address: [address] [place] [address]- Care Team Related Persons Name: TAMMY VALENTE Address: [place] [address] Name: OSMAN VALENTE Address: [address] [place] [address] Name: REGINALDO BAXTER Address: [address] [place] [address] Name: REGINALDO BAXTER Address: home [address] [place] [address] Name: SAMANTHA RDZ Address: home [address] [place] [address]
--- OUTSIDE RECORDS SUMMARY | 2024-03-09 20:58 | XMS_ITS | Continuity of Care Document ---
Author Organization [facility] Address [address] [place] [address]- Care Team Providers Care Nuts And Bolts Assembler Name Role Phone Ramsey LEMUS, Marguerite Primary Care Physician [facility] Date[facility]s): 02/26/22 - 03/28/22 [facility] [address] [place] [address]- Allergies, Adverse Reactions, Alerts No Known Allergies [...] Vaccine (old term) 03 Given 1Result Comment: 49785-427-83 2Result Comment: [id number] 3Admin Note: vis given 01.01.2014 4Early/Late Reason: Other : 5Admin Note: SANOFI 6Result Comment: [facility] [id number] 7Result Comment: [id number] 8Result Comment: [id number] 9Admin Note: MFD BY [employer] Medications Advair Diskus 500 mcg-50 mcg inhalation powder 1, puffs, Inhalation, 2 times a day, RINSE MOUTH AND THROAT AFTER USE, # 60 each, Refills 5, Tot. Refills 5, Maintenance, 08/19/21 16:30:00 EDT, [id number] #[id number], 168.4, cm, 08/19/21 16:16... Start Date: 08/19/21 [...] 12 Refills, Maintenance, 03/17/22 9:23:00 EDT, Tablet, [facility] #[id number], Partial fill upon patient request if the prescriptionis for a schedule II opioid drug., 1 tablet By Mout... Start Date: 03/17/22 Status: Ordered cetirizine 10 mg oral tablet 1 tablet = 10 mg, By Mouth, Daily, # 30 tablet, 0 Refills, Maintenance, 08/19/21 16:32:00 EDT, Tablet, [facility] #[id number], Partial fill upon patient request if the prescription is for a schedule II opioid drug., 168.4, cm, 08/19/21 16:16:00 E... Start Date: 08/19/21 Status: Ordered fluvoxaMINE 50 mg oral tablet 1 tablet = 50 mg, By Mouth, Daily at bedtime, for 30 days, # 30 tablet, 2 Refills, Hard Stop 06/06/22 12:27:00 EST, 03/08/22 12:27:00 EDT, Tablet, [facility] #[id number], Partial fill upon patient request if the prescription is for a schedule II... Start Date: 03/08/22 Stop Date: 06/06/22 Status: Ordered montelukast 10 mg oral tablet 1, tablet, By Mouth, Daily, # 30 tablet, Refills 0, Maintenance, 03/22/22 9:08:00 EST, Route to Pharmacy Electronically, [facility] #[id number], 169.5, cm, 03/17/22 9:15:00 EDT, Height, 53.7, kg, 02/25/22 13:16:00 EDT, Dry Weight Start Date: 03/22/22 Status: Ordered Vitamin D3 1000 intl units oral capsule 1 capsule = 25 mcg, By Mouth, Daily, # 30 capsule, 4 Refills, Maintenance, 08/19/21 16:30:00 EDT, Capsule, [facility] #[id number], Partial fill upon patient request if the [...] and started on Adderall 10mg XR 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
--- OUTSIDE RECORDS SUMMARY | 2024-03-09 20:58 | XMS_ITS | Continuity of Care Document ---
Author Organization [facility] Address [address] [place] [address]- Care Team Providers Care Floor Attendant Name Role Phone Ramsey LEMUS, Marguerite Primary Care Physician [facility] Date[facility]s): 04/04/23 - 05/04/23 [facility] [address] [place] [address]- Allergies, Adverse Reactions, Alerts No Known Allergies [...] Vaccine (old term) 03 Given 1Result Comment: [id number] 2Result Comment: 28794-624-67 3Admin Note: vis given 01.01.2014 4Early/Late Reason: Other : 5Admin Note: SANOFI 6Result Comment: [facility] [id number] 7Result Comment: [id number] 8Result Comment: [id number] 9Admin Note: MFD BY [employer] Medications Advair Diskus 500 mcg-50 mcg inhalation powder 1, puffs, Inhalation, 2 times a day, RINSE MOUTH AND THROAT AFTER USE, # 60 each, Refills 5, Tot. Refills 5, Maintenance, 03/11/23 13:16:00 EDT, [id number] #[id number], 167.5, cm, 02/03/23 18:02... Start Date: 03/11/23 Status: Ordered Apri 0.15 mg-0.03 mg oral tablet 1 tablet, By Mouth, Daily, take same time dialy, # 28 tablet, 12 Refills, Maintenance, 03/17/22 9:23:00 EDT, Tablet, [facility] #69028, Partial fill upon patient request if the prescriptionis for a schedule II opioid drug., 1 tablet By Mout... Start Date: 03/17/22 Status: Ordered Flonase Allergy Relief 50 mcg/inh nasal spray 1 sprays, Nares, Both, Daily, # 1 each, 0 Refills, Maintenance, 02/03/23 19:09:00 EDT, [facility] #13116, Partial fill upon patient request if the prescription is for a schedule II opioid drug., 167.5, cm, 02/03/23 18:02:00 EDT, Height, 53.8... Start Date: 02/03/23 Status: Ordered montelukast 10 mg oral tablet 1, tablet, By Mouth, Daily, # 90 tablet, Refills 0, Maintenance, 03/11/23 14:23:00 EDT, Route to Pharmacy Electronically, [facility] #[id number], 167.5, cm, 02/03/23 18:02:00 EDT, Height, 52.2, kg, 03/10/23 10:34:00 EDT, Dry Weight Start Date: 03/11/23 Status: Ordered predniSONE 20 mg oral tablet 2 tablet = 40 mg, By Mouth, Daily, # 10 tablet, 0 Refills, Maintenance, 03/11/23 13:16:00 EDT, Tablet, [facility] #25002, Partial fill upon patient request if the prescription is for a schedule II opioid drug., 167.5, cm, 02/03/23 18:02:00 E... Start Date: 03/11/23 Stop Date: 03/16/23 Status: Ordered SUMAtriptan 50 mg oral tablet 1 tablet = 50 mg, By Mouth, Daily, PRN for migraine headache, # 9 tablet, 1 Refills, Maintenance, 02/03/23 18:55:00 EDT, Tablet, [facility] #[id number], Partial fill upon patient request if the prescription is for a schedule II opioid drug., 167.... 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 Team Personnel Name: Alley Evans RN Position: [facility] RN Member Role: Primary Care Nurse Name: Marguerite Mustafa MD Position: [facility] Physician - Primary Care Member Role: PCP Address: Address: [address] [place] [address]- Care Team Related Persons Name: TAMMY VALENTE Address: [place] [address] Name: OSMAN VALENTE Address: [address] [place] [address] Name: REGINALDO BAXTER Address: [address] [place] [address] Name: REGINALDO BAXTER Address: [address] [place] [address] Name: SAMANTHA RDZ Address: [address] [place] [address]
--- OUTSIDE RECORDS SUMMARY | 2024-03-09 20:58 | XMS_ITS | Continuity of Care Document ---
Author Organization [facility] Address [address] [place] [address]- Care Team Providers Care Feather Trimmer Name Role Phone Marguerite Mustafa MD Primary Care Physician Encounter [facility] Date(s): 03/04/21 - 04/03/21 [facility] [address] [place] [address]- Attending Physician: Frank Stein Admitting Physician: AdmtrFrank [...] Vaccine (old term) 03 Given 1Result Comment: [id number] 2Result Comment: [id number] 3Admin Note: vis given 01.01.2014 4Early/Late Reason: Other : 5Admin Note: SANOFI 6Result Comment: [facility] [id number] 7Result Comment: [id number] 8Result Comment: [id number] 9Admin Note: MFD BY SANOFI Medications Advair Diskus 500 mcg-50 mcg inhalation powder 1, puffs, Inhalation, 2 times a day, RINSE MOUTH AND THROAT AFTER USE, # 60 each, Refills 5, Tot. Refills 5, Maintenance, 03/04/21 15:25:00 EDT, [facility] to [facility] Electronically, [id number] #[id number], 168, cm, 03/04/21 14:47:0... Start Date: 03/04/21 Status: Ordered Aerochamber See Instructions, # 1 each, Maintenance, use with inhaler medications, 01/28/15 13:46:28, Compound Start Date: 01/28/15 Status: Ordered albuterol 0.083% inhalation solution 3 mL = 2.5 mg, Inhalation, Every 6 hours, # 120 each, 2 Refills, Maintenance, 05/23/20 15:08:00 EST, Solution, [facility] #[id number], 171, cm, 04/23/20 17:37:00 EST, Height, 57.3, [...] 0 Refills, Maintenance, 03/05/21 16:16:00 EDT, Tablet, [facility] #[id number], Partial fill upon patient request if the prescription isfor a schedule II opioid drug., 168, cm, 03/04/21 1... Start Date: 03/05/21 Status: Ordered ketoconazole 2% topical shampoo 1 application, Topically, Once, Three times weekly, # 120 mL, 3 Refills, Soft Stop, 03/16/21 17:24:00 EDT, Shampoo, [facility] #49571, Partial fill upon patient request if the prescription is for a schedule II opioid drug., 1 application Top... Start Date: 03/16/21 Status: Ordered montelukast 10 mg oral tablet 10 mg, 1, tablet, By Mouth, Daily, # 30 tablet, Refills 5, Tot. Refills 5, Maintenance, 03/04/21 15:25:00 EDT, [id number], 168, cm, 03/04/21 14:47:00 EDT, Height, 55.5, [...] 3 Refills, Maintenance, 04/14/20 8:49:00 EST, Tablet, 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
--- OUTSIDE RECORDS SUMMARY | 2024-03-09 20:58 | XMS_ITS | Continuity of Care Document ---
Author Organization [facility] Address [address] [place] [address]- Care Team Providers Care Lockmaker Name Role Phone Fouzia Moreno Primary Care Physician [facility] Date[facility]s): 12/13/19 - 12/20/19 [facility] [address] [place] [address]- [facility] Attending Physician: Ernst Wilson MD Referring Physician: Fouzia Moreno Allergies, Adverse [...] Vaccine (old term) 03 Given 1Result Comment: 82089-247-08 2Admin Note: vis given 01.01.2014 3Early/Late Reason: Other : 4Admin Note: SANOFI 5Result Comment: [id number] 6Result Comment: [id number] 7Admin Note: MFD BY SANOFI Medications Adderall XR 15 mg oral capsule, extended release 1 capsule = 15 mg, By Mouth, Daily in AM, # 30 capsule, 0 Refills, Maintenance, 07/05/19 17:28:00 EST, CR Capsule, [facility] #[id number], 1 capsule By Mouth Daily in AM, [...] 13:20:00 EDT, Powder, Route to Pharmacy Electronically, [id number], [facility] #[id number], 169.1, cm, 2... Start Date: 12/13/19 Status: Ordered albuterol 0.083% inhalation solution 3 mL = 2.5 mg, Inhalation, Every 6 hours, # 120 each, 2 Refills, Maintenance, 12/14/19 14:25:00 EDT, Solution, [facility] #26203, 169.1, cm, 12/13/19 10:35:00 EDT, Height, 58, [...] 12/13/19 13:21:00 EDT, Route to Pharmacy Electronically, [facility] #[id number], 169.1, cm, 12/13/19 10:35:00 EDT, Height, 58, kg, 12/13/19 10:35:00 EDT, Dry... 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, allergy to pollen, [...] oldest [Reference Range]: 1 Height 169.1 cm (12/13/19 10:35 AM) Weight 58.0 kg (12/13/19 10:35 AM) Oxygen Saturation [94-100 %] 99 % (12/13/19 10:35 AM) Pulse Rate [55-90 bpm] 82 bpm (12/13/19 10:35 AM) Body Mass Index [18.5-24.99] 20.28 (12/13/19 10:35 AM) Blood Pressure [80-130/50-80 mm Hg] 117/ 64mm Hg (12/13/19 10:35 AM) Respiratory Rate [16-30 br/min] 18 br/mi n (12/13/19 10:35 AM) Mode of Delivery (Oxygen) Room air (12/13/19 10:35 AM) Blood pressure sites Arm, left (12/13/19 10:35 AM) Dry Weight 58.0 kg (12/13/19 10:35 AM) Social History Social History Type Response Smoking Status Never smoker; Tobacc o user in household: No entered on: 02/14/18 Sex
--- OUTSIDE RECORDS SUMMARY | 2024-03-09 20:58 | XMS_ITS | Continuity of Care Document ---
Author Organization [facility] Address [address] [place] [address]- Care Team Providers Care Combiner Name Role Phone Ramsey LEMUS, Marguerite Primary Care Physician [facility]s): 08/04/21 - 09/03/21 [facility] [address] [place] [address]- Allergies, Adverse Reactions, Alerts No Known Allergies [...] Vaccine (old term) 03 Given 1Result Comment: 54068-754-81 2Result Comment: [id number] 3Admin Note: vis given 01.01.2014 4Early/Late Reason: Other : 5Admin Note: SANOFI 6Result Comment: [facility] [id number] 7Result Comment: [id number] 8Result Comment: [id number] 9Admin Note: MFD BY SANOFI Medications Advair Diskus 500 mcg-50 mcg inhalation powder 1, puffs, Inhalation, 2 times a day, RINSE MOUTH AND THROAT AFTER USE, # 60 each, Refills 5, Tot. Refills 5, Maintenance, 08/19/21 16:30:00 EDT, [id number] #[id number], 168.4, cm, 08/19/21 16:16... Start Date: 08/19/21 [...] 2 Refills, Maintenance, 08/19/21 16:30:00 EDT, Solution, [facility] #26008, 168.4, cm, 08/19/21 16:16:00 EDT, Height, 56, [...] 0 Refills, Maintenance, 08/19/21 16:32:00 EDT, Tablet, [facility] #77721, Partial fill upon patient request if the prescription is for a schedule II opioid drug., 168.4, cm, 08/19/21 16:16:00 E... Start Date: 08/19/21 Status: Ordered fluvoxaMINE 50 mg oral tablet 1 tablet = 50 mg, By Mouth, Daily at bedtime, # 30 tablet, 1 Refills, Maintenance, 08/05/21 11:40:00 EDT, Tablet, [facility] #[id number], Partial fill upon patient request if the prescription isfor a schedule II opioid drug., 168.5, cm, 07/15/21... Start Date: 08/05/21 Stop Date: 10/04/21 Status: Ordered montelukast 10 mg oral tablet 10 mg, 1, tablet, By Mouth, Daily in PM, # 30 tablet, Refills 3, Tot. Refills 3, Maintenance, 08/19/21 16:30:00 EDT, Route to Pharmacy Electronically, [facility] #[id number], Partial fill upon patient request if the prescription is for a schedule... 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
--- OUTSIDE RECORDS SUMMARY | 2024-03-09 20:58 | XMS_ITS | Continuity of Care Document ---
Author Organization [facility] Address [address] [place] [address]- Care Team Providers Care Machine Precision Engraver Name Role Phone Ramsey LEMUS, Marguerite Primary Care Physician [facility] Date(s): 11/03/22 - 12/11/22 [facility] [address] [place] [address]- Attending Physician: Ernst Wilson MD Admitting Physician: [...] Vaccine (old term) 03 Given 1Result Comment: [id number] 2Result Comment: [id number] 3Admin Note: vis given 01.01.2014 4Early/Late Reason: Other : 5Admin Note: SANOFI 6Result Comment: [facility] [id number] 7Result Comment: [id number] 8Result Comment: [id number] 9Admin Note: MFD BY [employer] Medications Advair Diskus 500 mcg-50 mcg inhalation powder 1, puffs, Inhalation, 2 times a day, RINSE MOUTH AND THROAT AFTER USE, # 60 each, Refills 5, Tot. Refills 5, Maintenance, 08/19/21 16:30:00 EDT, Route to Pharmacy Electronically, [facility]DP_[id number], [facility] #[id number], 168.4, cm, 08/19/21 16:16... Start Date: 08/19/21 [...] 12 Refills, Maintenance, 03/17/22 9:23:00 EDT, Tablet, [facility] #54508, Partial fill upon patient request if the prescriptionis for a schedule II opioid drug., 1 tablet By Mout... Start Date: 03/17/22 Status: Ordered cetirizine 10 mg oral tablet 1 tablet = 10 mg, By Mouth, Daily, # 30 tablet, 0 Refills, Maintenance, 08/19/21 16:32:00 EDT, Tablet, [facility] #[id number], Partial fill upon patient request if the prescription is for a schedule II opioid drug., 168.4, cm, 08/19/21 16:16:00 E... Start Date: 08/19/21 Status: Ordered fluvoxaMINE 50 mg oral tablet 1 tablet = 50 mg, By Mouth, Daily at bedtime, # 30 tablet, 2 Refills, Maintenance, 04/05/22 12:27:00 EST, Tablet, [facility] #70689, Partial fill upon patient request if the prescription isfor a schedule II opioid drug., 169.5, cm, 03/17/22... 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, 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 8Seen my Neuro and Savannah Keita ([facility]) started on Clonidine Social History Social History Type Response Smoking Status Never (less than 100 in lifetime) entered on: 11/04/20 Sex Female Patient Care team information Care Team Personnel Name: Vijaya DRISCOLL, Alley Position: [facility] RN Member Role: Primary Care Nurse Name: Marguerite Mustafa MD Position: [facility] Physician - Primary Care Member Role: PCP Address: Address: [address] [place] [address]- Care Team Related Persons Name: TAMMY VALENTE Address: [place] [address] Name: OSMAN VALENTE Address: home [address] [place] [address] Name: REGINALDO BAXTER Address: [address] [place] [address] Name: REGINALDO BAXTER Address: home [address] [place] [address] Name: SAMANTHA RDZ Address: home [address] [place] [address]
--- OUTSIDE RECORDS SUMMARY | 2024-03-09 20:58 | XMS_ITS | Continuity of Care Document ---
Author Organization [facility] Address [address] [place] [address]- Care Team Providers Care Business Insight And Analytics Manager Name Role Phone Ramsey LEMUS, Marguerite Primary Care Physician [facility]): 10/28/23 - 11/27/23 [facility] [address] [place] [address]- Allergies, Adverse Reactions, Alerts No Known Allergies [...] Vaccine (old term) 03 Given 1Result Comment: [id number] 2Result Comment: [id number] 3Admin Note: vis given 01.01.2014 4Early/Late Reason: Other : 5Admin Note: SANOFI 6Result Comment: [facility] [id number] 7Result Comment: [id number] 8Result Comment: [id number] 9Admin Note: MFD BY Social [employer] Medications Advair Diskus 500 mcg-50 mcg inhalation powder 1, puffs, Inhalation, 2 times a day, RINSE MOUTH AND THROAT AFTER USE, # 60 each, Refills 5, Tot. Refills 5, Maintenance, 10/25/23 8:24:00 EDT, Route to Pharmacy Electronically, NCPDP_[id number], [facility] #[id number], 170, cm, 09/19/23 15:34:00... Start Date: 10/25/23 Status: Ordered cetirizine 10 mg oral tablet 1 tablet = 10 mg, By Mouth, Daily, # 90 tablet, 1 Refills, Maintenance, 10/25/23 8:25:00 EDT, Tablet, [facility] #[id number], Partial fill upon patient request if the prescription is for a schedule II opioid drug., 170, cm, 09/19/23 15:34:00 EDT,... Start Date: 10/25/23 Status: Ordered Flonase Allergy Relief 50 mcg/inh nasal spray 1 sprays, Nares, Both, Daily, # 1 each, 0 Refills, Maintenance, 10/25/23 8:24:00 EDT, [facility] #[id number], Partial fill upon patient request if the prescription is for a schedule II opioid drug., 170, cm, 09/19/23 15:34:00 EDT, Height, 54, kg,... Start Date: 10/25/23 Status: Ordered Isibloom 0.15 mg-0.03 mg oral tablet 1 tablet, By Mouth, Daily, # 28 tablet, 5 Refills, Maintenance, 09/12/23 12:45:00 EDT, [facility] #[id number], 28, TAKE 1 TABLET BY MOUTH DAILY TAKE AT THE SAME TIME DAILY, 170, cm, 08/20/23 1:30:00 EDT, Height, 54, kg, 08/20/23 1:30:00 EDT, Dry... Start Date: 09/12/23 Status: Ordered montelukast 10 mg oral tablet 1, tablet, By Mouth, Daily, # 90 tablet, Refills 0, Tot. Refills 0, Maintenance, 10/25/23 8:24:00 EDT, Route to Pharmacy Electronically, [facility] #[id number], 170, cm, 09/19/23 15:34:00 EDT, Height, 54, kg, 10/24/23 16:05:00 EDT, Dry Weight Start Date: 10/25/23 Status: Ordered SUMAtriptan 50 mg oral tablet 1 tablet = 50 mg, By Mouth, Daily, PRN for migraine headache, # 9 tablet, 1 Refills, Maintenance, 02/03/23 18:55:00 EDT, Tablet, [facility] #[id number], Partial fill upon patient request if the prescription is for a schedule II opioid drug., 167.... 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, allergy to pollen, dust mite, animal dander- Cetirizine and Flunisolide 4Saw Pulm- Increased Advair and added Qnasal; Given oral steroids 2/2 URI triggering her asthma 5Saw Pulm 11/2016- normal spirometry; continue Advair and Singulair - Saw pulm Still on Advair and Singulair; Added Flonase for seasonal allergies - Saw Pulm; On Advair and Singulair 8Seen my Dick and Savannah Keita ([facility]) started on Clonidine Social History Social History Type Response Smoking Status Never (less than 100 in lifetime) entered on: 11/04/20 Sex Female Patient Care team information Care Team Personnel Name: Alley Evans RN Position: [facility] RN Member Role: Primary Care Nurse Name: Marguerite Mustafa MD Position: [facility] Physician - Primary Care Member Role: PCP Address: Address: [address] [place] [address] [place] [address]- Care Team Related Persons Name: TAMMY VALENTE Address: [place] [address] Name: OSMAN VALENTE Address: [address] [place] [address] Name: REGINALDO BAXTER Address: [address], [place] Name: REGINALDO BAXTER Address: home [address] [place], [place] Name: SAMANTHA RDZ Address: home [address] [place] [address]
--- OUTSIDE RECORDS SUMMARY | 2024-03-09 20:58 | XMS_ITS | Continuity of Care Document ---
Author Organization [facility] Address [address] [place] [address]- Care Team Providers Care Combatant Swimmer Name Role Phone Ramsey LEMUS, Marguerite Primary Care Physician [facility] Date[facility]): 09/14/23 - 10/14/23 [facility] [address] [place] [address]- Allergies, Adverse Reactions, Alerts No Known Allergies [...] Vaccine (old term) 03 Given 1Result Comment: 86231-323-88 2Result Comment: 52526-528-09 3Admin Note: vis given 01.01.2014 4Early/Late Reason: Other : 5Admin Note: SANOFI 6Result Comment: [facility] [id number] 7Result Comment: [id number] 8Result Comment: [id number] 9Admin Note: MFD BY SANOFI Medications Advair Diskus 500 mcg-50 mcg inhalation powder 1, puffs, Inhalation, 2 times a day, RINSE MOUTH AND THROAT AFTER USE, # 60 each, Refills 5, Tot. Refills 5, Maintenance, 03/11/23 13:16:00 EDT, Route to Pharmacy Electronically, GAPDP_[id number], [facility] #[id number], 167.5, cm, 02/03/23 18:02... Start Date: 03/11/23 Status: Ordered Flonase Allergy Relief 50 mcg/inh nasal spray 1 sprays, Nares, Both, Daily, # 1 each, 0 Refills, Maintenance, 02/03/23 19:09:00 EDT, [facility] #[id number], Partial fill upon patient request if the prescription is for a schedule II opioid drug., 167.5, cm, 02/03/23 18:02:00 EDT, Height, 53.8... Start Date: 02/03/23 Status: Ordered Isibloom 0.15 mg-0.03 mg oral tablet 1 tablet, By Mouth, Daily, # 28 tablet, 5 Refills, Maintenance, 09/12/23 12:45:00 EDT, [facility] #[id number], 28, TAKE 1 TABLET BY MOUTH DAILY TAKE AT THE SAME TIME DAILY, 170, cm, 08/20/23 1:30:00 EDT, Height, 54, kg, 08/20/23 1:30:00 EDT, Dry... Start Date: 09/12/23 Status: Ordered montelukast 10 mg oral tablet 1, tablet, By Mouth, Daily, # 90 tablet, Refills 0, Maintenance, 03/11/23 14:23:00 EDT, Route to Pharmacy Electronically, [facility] #[id number], 167.5, cm, 02/03/23 18:02:00 EDT, Height, 52.2, kg, 03/10/23 10:34:00 EDT, Dry Weight Start Date: 03/11/23 Status: Ordered predniSONE 20 mg oral tablet 2 tablet = 40 mg, By Mouth, Daily, # 10 tablet, 0 Refills, Maintenance, 03/11/23 13:16:00 EDT, Tablet, [facility] #[id number], Partial fill upon patient request if the prescription is for a schedule II opioid drug., 167.5, cm, 02/03/23 18:02:00 E... Start Date: 03/11/23 Stop Date: 03/16/23 Status: Ordered SUMAtriptan 50 mg oral tablet 1 tablet = 50 mg, By Mouth, Daily, PRN for migraine headache, # 9 tablet, 1 Refills, Maintenance, 02/03/23 18:55:00 EDT, Tablet, [facility] #[id number], Partial fill upon patient request if the prescription is for a schedule II opioid drug., 167.... 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, allergy to pollen, dust mite, animal dander- Cetirizine and Flunisolide 4Saw Pulm- Increased Advair and added Qnasal; Given oral steroids 2/2 URI triggering her asthma 5Saw Pulm 11/2016- normal spirometry; continue Advair and Singulair - Saw pulm Still on Advair and Singulair; Added Flonase for seasonal allergies - Saw Pulm; On Advair and Singulair 8Seen my Neuro and Savannah Keita ([facility]) started on Clonidine Social History Social History Type Response Smoking Status Never (less than 100 in lifetime) entered on: 11/04/20 Sex Female Patient Care team information Care Team Personnel Name: Nathan DRISCOLL, Alley Position: [facility] RN Member Role: Primary Care Nurse Name: Marguerite Mustafa MD Position: [facility] Physician - Primary Care Member Role: PCP Address: Address: [address] [place] [address] [place] [address]- Care Team Related Persons Name: TAMMY VALENTE Address: [place] [address] Name: OSMAN VALENTE Address: [address] [place] [address] Name: REGINALDO BAXTER Address: [address] [place], [place] Name: REGINALDO BAXTER Address: home [address] [place], [place] Name: SAMANTHA RDZ Address: home [address] [place] [address]
--- OUTSIDE RECORDS SUMMARY | 2024-03-09 20:58 | XMS_ITS | Continuity of Care Document ---
Author Organization [facility] Address [address] [place] [address]- Care Team Providers Care Medicaid Business Analyst Name Role Phone Ramsey LEMUS, Marguerite Primary Care Physician [facility] Date(s): 05/04/21 - 06/03/21 [facility] [address] [place] [address]- [place] Allergies, Adverse Reactions, Alerts No Known Allergies [...] Vaccine (old term) 03 Given 1Result Comment: [id number] 2Result Comment: [id number] 3Admin Note: vis given 01.01.2014 4Early/Late Reason: Other : 5Admin Note: SANOFI 6Result Comment: [facility]NOTE 3] [id number] 7Result Comment: [id number] 8Result Comment: [id number] 9Admin Note: MFD BY SANOFI Medications Advair Diskus 500 mcg-50 mcg inhalation powder 1, puffs, Inhalation, 2 times a day, RINSE MOUTH AND THROAT AFTER USE, # 60 each, Refills 5, Tot. Refills 5, Maintenance, 03/04/21 15:25:00 EDT, [id number] #[id number], 168, cm, 03/04/21 14:47:0... 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
--- OUTSIDE RECORDS SUMMARY | 2024-03-09 20:58 | XMS_ITS | Continuity of Care Document ---
Author Organization [facility] Address [address] [place] [address]- Care Team Providers Care Ingot Car Operator Name Role Phone Ramsey LEMUS, Marguerite Primary Care Physician [facility] Date(s): 08/11/23 - 09/10/23 [facility] [address] [place] [address]- [place] Allergies, Adverse Reactions, Alerts No Known Allergies Immunizations Given and Recorded Vaccine Date Status Refusal Reason SARS-CoV-2 (COVID-19) mRNA-4183 vaccine 01/11/22 R ecorded influenza virus vaccine, [...] Vaccine (old term) 03 Given 1Result Comment: [id number] 2Result Comment: [id number] 3Admin Note: vis given 01.01.2014 4Early/Late Reason: Other : 5Admin Note: SANOFI 6Result Comment: [facility] [id number] 7Result Comment: [id number] 8Result Comment: [id number] 9Admin Note: MFD BY SANOFI Medications Advair Diskus 500 mcg-50 mcg inhalation powder 1, puffs, Inhalation, 2 times a day, RINSE MOUTH AND THROAT AFTER USE, # 60 each, Refills 5, Tot. Refills 5, Maintenance, 03/11/23 13:16:00 EDT, Route to Pharmacy Electronically, MSPDP_[id number], [facility] #[id number], 167.5, cm, 02/03/23 18:02... Start Date: 03/11/23 Status: Ordered Apri 0.15 mg-0.03 mg oral tablet 1 tablet, By Mouth, Daily, take same time dialy, # 28 tablet, 12 Refills, Maintenance, 03/17/22 9:23:00 EDT, Tablet, [facility] #[id number], Partial fill upon patient request if the prescriptionis for a schedule II opioid drug., 1 tablet By Mout... Start Date: 03/17/22 Status: Ordered Flonase Allergy Relief 50 mcg/inh nasal spray 1 sprays, Nares, Both, Daily, # 1 each, 0 Refills, Maintenance, 02/03/23 19:09:00 EDT, [facility] #[id number], Partial fill upon patient request if the prescription is for a schedule II opioid drug., 167.5, cm, 02/03/23 18:02:00 EDT, Height, 53.8... Start Date: 02/03/23 Status: Ordered montelukast 10 mg oral tablet 1, tablet, By Mouth, Daily, # 90 tablet, Refills 0, Maintenance, 03/11/23 14:23:00 EDT, Route to Pharmacy Electronically, [facility] #[id number], 167.5, cm, 02/03/23 18:02:00 EDT, Height, 52.2, kg, 03/10/23 10:34:00 EDT, Dry Weight Start Date: 03/11/23 Status: Ordered predniSONE 20 mg oral tablet 2 tablet = 40 mg, By Mouth, Daily, # 10 tablet, 0 Refills, Maintenance, 03/11/23 13:16:00 EDT, Tablet, [facility] #[id number], Partial fill upon patient request if the prescription is for a schedule II opioid drug., 167.5, cm, 02/03/23 18:02:00 E... Start Date: 03/11/23 Stop Date: 03/16/23 Status: Ordered SUMAtriptan 50 mg oral tablet 1 tablet = 50 mg, By Mouth, Daily, PRN for migraine headache, # 9 tablet, 1 Refills, Maintenance, 02/03/23 18:55:00 EDT, Tablet, [facility] #[id number], Partial fill upon patient request if the prescription is for a schedule II opioid drug., 167.... 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 Team Personnel Name: Alley Evans RN Position: [facility] RN Member Role: Primary Care Nurse Name: Marguerite Mustafa MD Position: [facility] Physician - Primary Care Member Role: PCP Address: Address: [address] [place] [address]- Care Team Related Persons Name: TAMMY VALENTE Address: [place] [address] Name: SIDRA SOMAN Address: [address] [place], [place] Name: REGINALDO BAXTER Address: [address] [place], [place] Name: REGINALDO BAXTER Address: [address] [place] [address] Name: SAMANTHA RDZ Address: home [address] [place] [address]
--- OUTSIDE RECORDS SUMMARY | 2024-03-09 20:58 | XMS_ITS | Continuity of Care Document ---
Author Organization [facility] Address [address] [place] [address]- Care Team Providers Care Restaurant Hostess Name Role Phone Ramsey LEMUS, Marguerite Primary Care Physician [place] [facility] Date(s): 08/17/20 - 09/16/20 [facility] [address] [place] [address]- Allergies, Adverse Reactions, Alerts Substance Reaction Severity Status NKA Active Immunizations Given and Recorded Vaccine Date Status Refusal Reason influenza virus vaccine, inactivated 1 04/23/20 Gi ssoa influenza virus vaccine, inactivated 05/17/19 Give n [...] Vaccine (old term) 03 Given 1Result Comment: [id number] 2Result Comment: [id number] 3Admin Note: vis given 01.01.2014 4Early/Late Reason: Other : 5Admin Note: SANOFI 6Result Comment: [facility] [id number] 7Result Comment: [id number] 8Result Comment: [id number] 9Admin Note: MFD BY SANOFI Medications Advair Diskus 500 mcg-50 mcg inhalation powder 1, inhalation, Inhalation, 2 times a day, rinse mouth and throat after use, # 1 each, Refills 3, Tot. Refills 3, Maintenance, 06/06/20 9:57:00 EST, Powder, Route to Pharmacy Electronically, CAPDP_[id number], [facility] #[id number], 171, cm, 05/28... Start Date: 06/06/20 Status: Ordered Aerochamber See Instructions, # 1 each, Maintenance, use with inhaler medications, 01/28/15 13:46:28, Compound Start Date: 01/28/15 Status: Ordered albuterol 0.083% inhalation solution 3 mL = 2.5 mg, Inhalation, Every 6 hours, # 120 each, 2 Refills, Maintenance, 05/23/20 15:08:00 EST, Solution, [facility] #[id number], 171, cm, 04/23/20 17:37:00 EST, Height, 57.3, [...] 08/06/20 15:22:00 EDT, Route to Pharmacy Electronically, [facility] #[id number], 168.5, cm, 08/06/20 14:37:00 EDT, Height, 56.5, kg, 08/06/20 14:37:00 EDT, Start Date: 08/06/20 Status: Ordered PROzac 10 mg oral capsule See Instructions, Take 1 daily for 7 days, then increase to 2 daily, # 60 capsule, Refills 3, Tot. Refills 3, Maintenance, 04/16/20 16:36:00 EST, Instructions Replace Required Details, Route to Pharmacy Electronically, [facility] #[id number], Par... 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
--- OUTSIDE RECORDS SUMMARY | 2024-03-09 20:58 | XMS_ITS | Continuity of Care Document ---
Author Organization [facility] Address [address] [place] [address]- Care Team Providers Care Helpdesk Technician Name Role Phone Ramsey LEMUS, Marguerite Primary Care Physician [phone] [place] [facility]11[place] - 01/20/[address] [address]- Discharge Disposition: A-D/C Home Attending Physician: Cheryl [...] Vaccine (old term) 03 Given 1Result Comment: [id number] 2Result Comment: [id number] 3Admin Note: vis given 01.01.2014 4Early/Late Reason: Other : 5Admin Note: SANOFI 6Result Comment: [facility] [id number] 7Result Comment: [id number] 8Result Comment: [id number] 9Admin Note: MFD BY [employer] Medications Advair Diskus 500 mcg-50 mcg inhalation powder 1, puffs, Inhalation, 2 times a day, RINSE MOUTH AND THROAT AFTER USE, # 60 each, Refills 3, Tot. Refills 0, Maintenance, 11/14/20 11:11:00 EDT, Route to Pharmacy Electronically, CAPDP_[id number], [facility] #[id number], 168.7, cm, 11/05/20 15:05... Start Date: 11/14/20 Status: Ordered Aerochamber See Instructions, # 1 each, Maintenance, use with inhaler medications, 01/28/15 13:46:28, Compound Start Date: 01/28/15 Status: Ordered albuterol 0.083% inhalation solution 3 mL = 2.5 mg, Inhalation, Every 6 hours, # 120 each, 2 Refills, Maintenance, 05/23/20 15:08:00 EST, Solution, [facility] #[id number], 171, cm, 04/23/20 17:37:00 EST, Height, 57.3, [...] 0 Refills, Maintenance, 01/15/21 16:51:00 EDT, Tablet, [facility] #[id number], Partial fill upon patient request if the prescription isfor a schedule II opioid drug., 168.7, cm, 11/05/20... Start Date: 01/15/21 Stop Date: 02/14/21 Status: Ordered montelukast 10 mg oral tablet 10 mg, 1, tablet, By Mouth, Daily, # 30 tablet, Refills 3, Tot. 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
--- OUTSIDE RECORDS SUMMARY | 2024-03-09 20:59 | XMS_ITS | Continuity of Care Document ---
Author Organization [facility] Address [address] [place] [address]- Care Team Providers Care Hand Router Operator Name Role Phone Ramsey LEMUS, Marguerite Primary Care Physician [facility] Date[facility]s): 01/09/24 - 02/08/24 [facility] [address] [place] [address]- Allergies, Adverse Reactions, Alerts No Known Allergies [...] Vaccine (old term) 03 Given 1Result Comment: [id number] 2Result Comment: [id number] 3Admin Note: vis given 01.01.2014 4Early/Late Reason: Other : 5Admin Note: SANOFI 6Result Comment: [facility] [id number] 7Result Comment: [id number] 8Result Comment: [id number] 9Admin Note: MFD BY [employer] Medications Advair Diskus 500 mcg-50 mcg inhalation powder 1, puffs, Inhalation, 2 times a day, RINSE MOUTH AND THROAT AFTER USE, # 60 each, Refills 5, Tot. Refills 5, Maintenance, 10/25/23 8:24:00 EDT, Route to Pharmacy Electronically, [id number]_[id number], [email or web address] #[id number], 170, cm, 09/19/23 15:34:00... Start Date: 10/25/23 Status: Ordered cetirizine 10 mg oral tablet 1 tablet = 10 mg, By Mouth, Daily, # 90 tablet, 1 Refills, Maintenance, 10/25/23 8:25:00 EDT, Tablet, [email or web address] #[id number], Partial fill upon patient request if the prescription is for a schedule II opioid drug., 170, cm, 09/19/23 15:34:00 EDT,... Start Date: 10/25/23 Status: Ordered Flonase Allergy Relief 50 mcg/inh nasal spray 1 sprays, Nares, Both, Daily, # 1 each, 0 Refills, Maintenance, 10/25/23 8:24:00 EDT, [email or web address] #[id number], Partial fill upon patient request if the prescription is for a schedule II opioid drug., 170, cm, 09/19/23 15:34:00 EDT, Height, 54, kg,... Start Date: 10/25/23 Status: Ordered Isibloom 0.15 mg-0.03 mg oral tablet 1 tablet, By Mouth, Daily, # 28 tablet, 5 Refills, Maintenance, 09/12/23 12:45:00 EDT, [email or web address] #[id number], 28, TAKE 1 TABLET BY MOUTH DAILY TAKE AT THE SAME TIME DAILY, 170, cm, 08/20/23 1:30:00 EDT, Height, 54, kg, 08/20/23 1:30:00 EDT, Dry... Start Date: 09/12/23 Status: Ordered montelukast 10 mg oral tablet 1, tablet, By Mouth, Daily, # 90 tablet, Refills 0, Tot. Refills 0, Maintenance, 10/25/23 8:24:00 EDT, Route to Pharmacy Electronically, [email or web address] #[id number], 170, cm, 09/19/23 15:34:00 EDT, Height, 54, kg, 10/24/23 16:05:00 EDT, Dry Weight Start Date: 10/25/23 Status: Ordered SUMAtriptan 50 mg oral tablet 1 tablet = 50 mg, By Mouth, Daily, PRN for migraine headache, # 9 tablet, 1 Refills, Maintenance, 02/03/23 18:55:00 EDT, Tablet, [email or web address] #[id number], Partial fill upon patient request if the prescription is for a schedule II opioid drug., 167.... 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, allergy to pollen, dust mite, animal dander- Cetirizine and Flunisolide 4Saw Pulm- Increased Advair and added Qnasal; Given oral steroids 2/2 URI triggering her asthma 5Saw Pulm 11/2016- normal spirometry; continue Advair and Singulair - Saw pulm Still on Advair and Singulair; Added Flonase for seasonal allergies - Saw Pulm; On Advair and Singulair 8Seen my Neuro and Savannah Ketia ([facility]) started on Clonidine Social History Social History Type Response Smoking Status Never (less than 100 in lifetime) entered on: 11/04/20 Sex Female Patient Care team information Care Team Personnel Name: Alley Evans RN Position: [facility] RN Member Role: Primary Care Nurse Name: Marguerite Mustafa MD Position: [facility] Physician - Primary Care Member Role: PCP Address: Address: [address] [place] [address]- Care Team Related Persons Name: TAMMY VALENTE Address: [place] [address] Name: OSMAN VALENTE Address: home [address] [place] [address] Name: REGINALDO BAXTER Address: home [address] [place] [address] Name: REGINALDO BAXTER Address: home [address] [place] [address] Name: SAMANTHA RDZ Address: home [address] [place] [address]
--- OUTSIDE RECORDS SUMMARY | 2024-03-09 20:59 | XMS_ITS | Continuity of Care Document ---
Author Organization [facility] Address [address] [place] [address]- Care Team Providers Care Fur Clipper Name Role Phone Marguerite Mustafa MD Primary Care Physician Encounter [facility] Date(s): 11/10/23 - 12/10/23 [facility] [address] [place] [address]- Attending Physician: Not on Staff, Attending MD [...] Vaccine (old term) 03 Given 1Result Comment: 74322-357-00 2Result Comment: 61851-708-01 3Admin Note: vis given 01.01.2014 4Early/Late Reason: Other : 5Admin Note: SANOFI 6Result Comment: [facility] [id number] 7Result Comment: [id number] 8Result Comment: [id number] 9Admin Note: MFD BY [employer] Medications Advair Diskus 500 mcg-50 mcg inhalation powder 1, puffs, Inhalation, 2 times a day, RINSE MOUTH AND THROAT AFTER USE, # 60 each, Refills 5, Tot. Refills 5, Maintenance, 10/25/23 8:24:00 EDT, Route to Pharmacy Electronically, MIPDP_[id number], [facility] #[id number], 170, cm, 09/19/23 15:34:00... Start Date: 10/25/23 Status: Ordered cetirizine 10 mg oral tablet 1 tablet = 10 mg, By Mouth, Daily, # 90 tablet, 1 Refills, Maintenance, 10/25/23 8:25:00 EDT, Tablet, [facility] #[id number], Partial fill upon patient request if the prescription is for a schedule II opioid drug., 170, cm, 09/19/23 15:34:00 EDT,... Start Date: 10/25/23 Status: Ordered Flonase Allergy Relief 50 mcg/inh nasal spray 1 sprays, Nares, Both, Daily, # 1 each, 0 Refills, Maintenance, 10/25/23 8:24:00 EDT, [facility] #[id number], Partial fill upon patient request if the prescription is for a schedule II opioid drug., 170, cm, 09/19/23 15:34:00 EDT, Height, 54, kg,... Start Date: 10/25/23 Status: Ordered Isibloom 0.15 mg-0.03 mg oral tablet 1 tablet, By Mouth, Daily, # 28 tablet, 5 Refills, Maintenance, 09/12/23 12:45:00 EDT, [facility] #[id number], 28, TAKE 1 TABLET BY MOUTH DAILY TAKE AT THE SAME TIME DAILY, 170, cm, 08/20/23 1:30:00 EDT, Height, 54, kg, 08/20/23 1:30:00 EDT, Dry... Start Date: 09/12/23 Status: Ordered montelukast 10 mg oral tablet 1, tablet, By Mouth, Daily, # 90 tablet, Refills 0, Tot. Refills 0, Maintenance, 10/25/23 8:24:00 EDT, Route to Pharmacy Electronically, [facility] #[id number], 170, cm, 09/19/23 15:34:00 EDT, Height, 54, kg, 10/24/23 16:05:00 EDT, Dry Weight Start Date: 10/25/23 Status: Ordered SUMAtriptan 50 mg oral tablet 1 tablet = 50 mg, By Mouth, Daily, PRN for migraine headache, # 9 tablet, 1 Refills, Maintenance, 02/03/23 18:55:00 EDT, Tablet, [facility] #[id number], Partial fill upon patient request if the prescription is for a schedule II opioid drug., 167.... 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, allergy to pollen, dust mite, animal dander- Cetirizine and Flunisolide 4Saw Pulm- Increased Advair and added Qnasal; Given oral steroids 2/2 URI triggering her asthma 5Saw Pulm 11/2016- normal spirometry; continue Advair and Singulair - Saw pulm Still on Advair and Singulair; Added Flonase for seasonal allergies - Saw Pulm; On Advair and Singulair 8Seen my Neuro and Savannah Keita ([facility]) started on Clonidine Social History Social History Type Response Smoking Status Never (less than 100 in lifetime) entered on: 11/04/20 Sex Female Patient Care team information Care Team Personnel Name: Alley Evans RN Position: [facility] RN Member Role: Primary Care Nurse Name: Marguerite Mustafa MD Position: [facility] Physician - Primary Care Member Role: PCP Address: Address: [address] [place] [address] [place] [address]- Care Team Related Persons Name: TAMMY VALENTE Address: [place] [address] Name: OSMAN VALENTE Address: [address] [place] [address] Name: REGINALDO BAXTER Address: home [address] [address] Name: REGINALDO BAXTER Address: home [address] [place] [address] Name: SAMANTHA RDZ Address: home [address] [place] [address]
--- OUTSIDE RECORDS SUMMARY | 2024-03-09 20:59 | XMS_ITS | Continuity of Care Document ---
Author Organization [facility] Address [address] [place] [address]- Care Team Providers Care Mattress Spring Encaser Name Role Phone Ramsey LEMUS, Marguerite Primary Care Physician [facility]counter [facility] Date(s): 03/30/23 - 06/05/23 [facility] [address] [address] Attending Physician: Dominic Sanchez MD Admitting Physician: Dominic Sanchez MD Referring Physician: Jennifer Sloan MD Allergies, Adverse Reactions, Alerts No Known Allergies Immunizations Given and Recorded Vaccine Date Status Refusal Reason SARS-CoV-2 (COVID-19) mRNA-1275 vaccine 01/11/22 R ecorded influenza virus vaccine, [...] Vaccine (old term) 03 Given 1Result Comment: [id number] 2Result Comment: [id number] 3Admin Note: vis given 01.01.2014 4Early/Late Reason: Other : 5Admin Note: SANOFI 6Result Comment: [facility] [id number] 7Result Comment: [id number] 8Result Comment: [id number] 9Admin Note: MFD BY SANOFI Medications Advair Diskus 500 mcg-50 mcg inhalation powder 1, puffs, Inhalation, 2 times a day, RINSE MOUTH AND THROAT AFTER USE, # 60 each, Refills 5, Tot. Refills 5, Maintenance, 03/11/23 13:16:00 EDT, [id number] #[id number], 167.5, cm, 02/03/23 18:02... Start Date: 03/11/23 Status: Ordered Apri 0.15 mg-0.03 mg oral tablet 1 tablet, By Mouth, Daily, take same time dialy, # 28 tablet, 12 Refills, Maintenance, 03/17/22 9:23:00 EDT, Tablet, [facility] #[id number], Partial fill upon patient request if the prescriptionis for a schedule II opioid drug., 1 tablet By Mout... Start Date: 03/17/22 Status: Ordered Flonase Allergy Relief 50 mcg/inh nasal spray 1 sprays, Nares, Both, Daily, # 1 each, 0 Refills, Maintenance, 02/03/23 19:09:00 EDT, [facility] #[id number], Partial fill upon patient request if the prescription is for a schedule II opioid drug., 167.5, cm, 02/03/23 18:02:00 EDT, Height, 53.8... Start Date: 02/03/23 Status: Ordered montelukast 10 mg oral tablet 1, tablet, By Mouth, Daily, # 90 tablet, Refills 0, Maintenance, 03/11/23 14:23:00 EDT, Route to Pharmacy Electronically, [facility] #[id number], 167.5, cm, 02/03/23 18:02:00 EDT, Height, 52.2, kg, 03/10/23 10:34:00 EDT, Dry Weight Start Date: 03/11/23 Status: Ordered predniSONE 20 mg oral tablet 2 tablet = 40 mg, By Mouth, Daily, # 10 tablet, 0 Refills, Maintenance, 03/11/23 13:16:00 EDT, Tablet, [facility] #[id number], Partial fill upon patient request if the prescription is for a schedule II opioid drug., 167.5, cm, 02/03/23 18:02:00 E... Start Date: 03/11/23 Stop Date: 03/16/23 Status: Ordered SUMAtriptan 50 mg oral tablet 1 tablet = 50 mg, By Mouth, Daily, PRN for migraine headache, # 9 tablet, 1 Refills, Maintenance, 02/03/23 18:55:00 EDT, Tablet, [facility] #[id number], Partial fill upon patient request if the prescription is for a schedule II opioid drug., 167.... 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 Alley Evans RN Position: [facility] RN Member Role: Primary Care Nurse Name: Marguerite Mustafa MD Position: [facility] Physician - Primary Care Member Role: PCP Address: Address: [address] [place] [address] [place] [address]- Care Team Related Persons Name: TAMMY VALENTE Address: [place] [address] Name: OSMAN VALENTE Address: [address] [place] [address] Name: REGINALDO BAXTER Address: [address] [place], [place] Name: REGINALDO BAXTER Address: [address] [place] [address] Name: SAMANTHA RDZ Address: [address] [place] [address]
--- OUTSIDE RECORDS SUMMARY | 2024-03-09 20:59 | XMS_ITS | Continuity of Care Document ---
Author Organization [facility] Address [address] [place] [address]- Care Team Providers Care Locker Room Attendant Name Role Phone Marguerite Mustafa MD Primary Care Physician [facility] Date(s): 11/10/23 - 12/10/23 [facility] [address] [place] [address]- Allergies, Adverse Reactions, Alerts No Known Allergies [...] Vaccine (old term) 03 Given 1Result Comment: [id number] 2Result Comment: [id number] 3Admin Note: vis given 01.01.2014 4Early/Late Reason: Other : 5Admin Note: SANOFI 6Result Comment: [facility] [id number] 7Result Comment: 8420-1412-47 8Result Comment: [id number] 9Admin Note: MFD BY [employer] Medications Advair Diskus 500 mcg-50 mcg inhalation powder 1, puffs, Inhalation, 2 times a day, RINSE MOUTH AND THROAT AFTER USE, # 60 each, Refills 5, Tot. Refills 5, Maintenance, 10/25/23 8:24:00 EDT, Route to Pharmacy Electronically, NCPDP_[id number], [facility] #[id number], 170, cm, 09/19/23 15:34:00... Start Date: 10/25/23 Status: Ordered cetirizine 10 mg oral tablet 1 tablet = 10 mg, By Mouth, Daily, # 90 tablet, 1 Refills, Maintenance, 10/25/23 8:25:00 EDT, Tablet, [facility] #[id number], Partial fill upon patient request if the prescription is for a schedule II opioid drug., 170, cm, 09/19/23 15:34:00 EDT,... Start Date: 10/25/23 Status: Ordered Flonase Allergy Relief 50 mcg/inh nasal spray 1 sprays, Nares, Both, Daily, # 1 each, 0 Refills, Maintenance, 10/25/23 8:24:00 EDT, [facility] #[id number], Partial fill upon patient request if the prescription is for a schedule II opioid drug., 170, cm, 09/19/23 15:34:00 EDT, Height, 54, kg,... Start Date: 10/25/23 Status: Ordered Isibloom 0.15 mg-0.03 mg oral tablet 1 tablet, By Mouth, Daily, # 28 tablet, 5 Refills, Maintenance, 09/12/23 12:45:00 EDT, [facility] #[id number], 28, TAKE 1 TABLET BY MOUTH DAILY TAKE AT THE SAME TIME DAILY, 170, cm, 08/20/23 1:30:00 EDT, Height, 54, kg, 08/20/23 1:30:00 EDT, Dry... Start Date: 09/12/23 Status: Ordered montelukast 10 mg oral tablet 1, tablet, By Mouth, Daily, # 90 tablet, Refills 0, Tot. Refills 0, Maintenance, 10/25/23 8:24:00 EDT, Route to Pharmacy Electronically, [facility] #[id number], 170, cm, 09/19/23 15:34:00 EDT, Height, 54, kg, 10/24/23 16:05:00 EDT, Dry Weight Start Date: 10/25/23 Status: Ordered SUMAtriptan 50 mg oral tablet 1 tablet = 50 mg, By Mouth, Daily, PRN for migraine headache, # 9 tablet, 1 Refills, Maintenance, 02/03/23 18:55:00 EDT, Tablet, [facility] #[id number], Partial fill upon patient request if the prescription is for a schedule II opioid drug., 167.... 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, allergy to pollen, dust mite, animal dander- Cetirizine and Flunisolide 4Saw Pulm- Increased Advair and added Qnasal; Given oral steroids 2/2 URI triggering her asthma 5Saw Pulm 11/2016- normal spirometry; continue Advair and Singulair - Saw pulm Still on Advair and Singulair; Added Flonase for seasonal allergies - Saw Pulm; On Advair and Singulair 8Seen my Neuro and Savannah Bossman ([facility]) started on Clonidine Social History Social History Type Response Smoking Status Never (less than 100 in lifetime) entered on: 11/04/20 Sex Female Patient Care team information Care Team Personnel Name: Alley Evans RN Position: [facility] RN Member Role: Primary Care Nurse Name: Marguerite Mustafa MD Position: [facility] Physician - Primary Care Member Role: PCP Address: Address: [address] [place] [address] [place] [address]- Care Team Related Persons Name: TAMMY VALENTE Address: [place] [address] Name: OSMAN VALENTE Address: [address] [place] [address] Name: REGINALDO BAXTER Address: home [address] [place], [place] Name: REGINALDO BAXTER Address: [address] [place], [place] Name: SAMANTHA RDZ Address: home [address] [place] [address]
--- OUTSIDE RECORDS SUMMARY | 2024-03-09 20:59 | XMS_ITS | Continuity of Care Document ---
Author Organization [facility] Address [address] [place] [address]- Care Team Providers Care Supervisor Long Goods Name Role Phone Marguerite Mustafa MD Primary Care Physician Encounter [facility] Date(s): 08/25/20 - 10/11/20 [facility] [address] [place] [address]- Attending Physician: Елена Xavier DO Admitting Physician: Елена Xavier DO Referring Physician: Marguerite Mustafa MD Allergies, [...] Vaccine (old term) 03 Given 1Result Comment: [id number] 2Result Comment: [id number] 3Admin Note: vis given 01.01.2014 4Early/Late Reason: Other : 5Admin Note: SANOFI 6Result Comment: [facility] [id number] 7Result Comment: [id number] 8Result Comment: [id number] 9Admin Note: MFD BY [employer] Medications Advair Diskus 500 mcg-50 mcg inhalation powder 1, inhalation, Inhalation, 2 times a day, rinse mouth and throat after use, # 1 each, Refills 3, Tot. Refills 3, Maintenance, 06/06/20 9:57:00 EST, Powder, Route to Pharmacy Electronically, NEPDP_[id number], [facility] #[id number], 171, cm, 05/28... Start Date: 06/06/20 Status: Ordered Aerochamber See Instructions, # 1 each, Maintenance, use with inhaler medications, 01/28/15 13:46:28, Compound Start Date: 01/28/15 Status: Ordered albuterol 0.083% inhalation solution 3 mL = 2.5 mg, Inhalation, Every 6 hours, # 120 each, 2 Refills, Maintenance, 05/23/20 15:08:00 EST, Solution, [facility] #[id number], 171, cm, 04/23/20 17:37:00 EST, Height, 57.3, [...] 08/06/20 15:22:00 EDT, Route to Pharmacy Electronically, [facility] #[id number], 168.5, cm, 08/06/20 14:37:00 EDT, Height, 56.5, kg, 08/06/20 14:37:00 EDT, Start Date: 08/06/20 Status: Ordered PROzac 10 mg oral capsule See Instructions, Take 1 daily for 7 days, then increase to 2 daily, # 60 capsule, Refills 3, Tot. Refills 3, Maintenance, 04/16/20 16:36:00 EST, Instructions Replace Required Details, Route to Pharmacy Electronically, [facility] #[id number], Par... 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
--- OUTSIDE RECORDS SUMMARY | 2024-03-09 20:59 | XMS_ITS | Continuity of Care Document ---
Author Organization [facility] Address [address] [place] [address]- Care Team Providers Care Housesmith Name Role Phone Marguerite Mustafa MD Primary Care Physician Encounter [facility] Date(s): 01/14/22 - 02/13/[address] [address]- Attending Physician: Admalondra, Frank Admitting Physician: Admtr, Rey8 Referring Physician: Admtr, Ar8 Allergies, Adverse Reactions, [...] 8 09/02/17 Given Hepatitis A Pediatric Vaccine 6/22/16 Given tetanus/diphtheria/pertussis, acel(Tdap) 11/05/15 Given influ virus [...] Vaccine (old term) 03 Given 1Result Comment: 13760-837-55 2Result Comment: 52123-399-20 3Admin Note: vis given 01.01.2014 4Early/Late Reason: Other : 5Admin Note: SANOFI 6Result Comment: [facility] [id number] 7Result Comment: [id number] 8Result Comment: [id number] 9Admin Note: MFD BY [employer] Medications Advair Diskus 500 mcg-50 mcg inhalation powder 1, puffs, Inhalation, 2 times a day, RINSE MOUTH AND THROAT AFTER USE, # 60 each, Refills 5, Tot. Refills 5, Maintenance, 08/19/21 16:30:00 EDT, [id number] #[id number], 168.4, cm, 08/19/21 16:16... Start Date: 08/19/21 [...] 2 Refills, Maintenance, 08/19/21 16:30:00 EDT, Solution, [facility] #[id number], 168.4, cm, 08/19/21 16:16:00 EDT, Height, 56, [...] 12 Refills, Maintenance, 01/14/22 15:31:00 EDT, Tablet, [facility] #[id number], Partial fill upon patient request if the prescription is for a schedule IIopioid drug., 1 tablet By Mouth Daily, 169.5, cm, 0... Start Date: 01/14/22 Status: Ordered cetirizine 10 mg oral tablet 1 tablet = 10 mg, By Mouth, Daily, # 30 tablet, 0 Refills, Maintenance, 08/19/21 16:32:00 EDT, Tablet, [facility] #[id number], Partial fill upon patient request if the prescription is for a schedule II opioid drug., 168.4, cm, 08/19/21 16:16:00 E... Start Date: 08/19/21 Status: Ordered fluvoxaMINE 50 mg oral tablet 1 tablet = 50 mg, By Mouth, Daily at bedtime, for 30 days, # 30 tablet, 2 Refills, Hard Stop 03/08/22 12:27:00 EDT, 12/08/21 12:27:00 EDT, Tablet, [facility] #[id number], Partial fill upon patient request if the prescription is for a schedule II... Start Date: 12/08/21 Stop Date: 03/08/22 Status: Ordered fluvoxaMINE 50 mg oral tablet 1 tablet = 50 mg, By Mouth, Daily at bedtime, for 30 days, # 30 tablet, 2 Refills, Hard Stop 06/06/22 12:27:00 EST, 03/08/22 12:27:00 EDT, Tablet, [facility] #[id number], Partial fill upon patient request if the prescription is for a schedule II... Start Date: 03/08/22 Stop Date: 06/06/22 Status: Ordered montelukast 10 mg oral tablet 10 mg, 1, tablet, By Mouth, Daily in PM, # 30 tablet, Refills 3, Tot. Refills 3, Maintenance, 08/19/21 16:30:00 EDT, Route to Pharmacy Electronically, [facility] #[id number], Partial fill upon patient request if the prescription is for a schedule... 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, allergy to pollen, dust mite, animal dander- Cetirizine and Flunisolide 4Saw Pulm- Increased Advair and added Qnasal; Given oral steroids 2/2 URI triggering her asthma 5Saw Pulm 11/2016- normal spirometry; continue Advair and Singulair - Saw pulm Still on Advair and Singulair; Added Flonase for seasonal allergies - Saw Pulm; On Advair and Singulair 8Seen my Neuro and Savannah Keita ([facility]) started on Clonidine Social History Social History Type Response Smoking Status Never (less than 100 in lifetime) entered on: 11/04/20 Sex Patient Care team information Personnel Name: Ramsey LEMUS, Marguerite Address: Address: [address] [place] [address]
--- OUTSIDE RECORDS SUMMARY | 2024-03-09 20:59 | XMS_ITS | Continuity of Care Document ---
Author Organization [facility] Address [address] [place] [address]- Care Team Providers Care Cigarette Paper Tester Name Role Phone Marguerite Mustafa MD Primary Care Physician Encounter [facility] Date(s): 01/07/23 - 02/06/23 [facility] [address] [place] [address]- Attending Physician: Frank Stein Admitting Physician: AdmFrank cantu Referring Physician: Admtr, Ar8 Allergies, Adverse Reactions, [...] Vaccine (old term) 03 Given 1Result Comment: 01286-021-30 2Result Comment: [id number] 3Admin Note: vis given 01.01.2014 4Early/Late Reason: Other : 5Admin Note: SANOFI 6Result Comment: [facility] 98209-621-12 7Result Comment: [id number] 8Result Comment: [id number] 9Admin Note: MFD BY [employer] Medications Advair Diskus 500 mcg-50 mcg inhalation powder 1, puffs, Inhalation, 2 times a day, RINSE MOUTH AND THROAT AFTER USE, # 60 each, Refills 5, Tot. Refills 5, Maintenance, 08/19/21 16:30:00 EDT, Route to Pharmacy Electronically, NCPDP_[id number], [facility] #[id number], 168.4, cm, 08/19/21 16:16... Start Date: 08/19/21 [...] 12 Refills, Maintenance, 03/17/22 9:23:00 EDT, Tablet, [facility] #[id number], Partial fill upon patient request if the prescriptionis for a schedule II opioid drug., 1 tablet By Mout... Start Date: 03/17/22 Status: Ordered Flonase Allergy Relief 50 mcg/inh nasal spray 1 sprays, Nares, Both, Daily, # 1 each, 0 Refills, Maintenance, 02/03/23 19:09:00 EDT, [facility] #[id number], Partial fill upon patient request if the prescription is for a schedule II opioid drug., 167.5, cm, 02/03/23 18:02:00 EDT, Height, 53.8... Start Date: 02/03/23 Status: Ordered montelukast 10 mg oral tablet 1, tablet, By Mouth, Daily, # 30 tablet, Refills 1, Maintenance, 06/18/22 13:28:00 EST, Route to Pharmacy Electronically, [facility] #[id number], 169.5, cm, 03/17/22 9:15:00 EDT, Height, 53.7, kg, 02/25/22 13:16:00 EDT, Dry Weight Start Date: 06/18/22 Status: Ordered predniSONE 20 mg oral tablet 1 tablet = 20 mg, By Mouth, 2 times a day, for 7 days, # 14 tablet, 0 Refills, Acute 02/10/23 19:06:00 EDT, 02/03/23 19:06:00 EDT, Tablet, [facility] #[id number], Partial fill upon patient request if the prescription is for a schedule II opioid d... Start Date: 02/03/23 Stop Date: 02/10/23 Status: Ordered SUMAtriptan 50 mg oral tablet 1 tablet = 50 mg, By Mouth, Daily, PRN for migraine headache, # 9 tablet, 1 Refills, Maintenance, 02/03/23 18:55:00 EDT, Tablet, [facility] #[id number], Partial fill upon patient request if the prescription is for a schedule II opioid drug., 167.... 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 Team Personnel Name: Alley Lilly RN Position: S RN Member Role: Primary Care Nurse Name: Ramsey LEMUS, Marguerite Position: [facility] Physician - Primary Care Member Role: PCP Address: Address: [address] [place] [address]- Care Team Related Persons Name: TAMMY VALENTE Address: [place] [address] Name: OSMAN VALENTE Address: home [address] [place] [address] Name: REGINALDO BAXTER Address: home [address] [place] [address] Name: REGINALDO BAXTER Address: home [address] [place] [address] Name: SAMANTHA RDZ Address: home [address] [place] [address]
--- OUTSIDE RECORDS SUMMARY | 2024-03-09 20:59 | XMS_ITS | Continuity of Care Document ---
Author Organization [facility] Address [address] [place] [address]- Care Team Providers Care Preparation Plant Supervisor Name Role Phone Ramsey LEMUS, Marguerite Primary Care Physician Encounter [facility] Date(s): 09/22/23 - 10/22/23 [facility] [address] [place] [address]- Allergies, Adverse Reactions, Alerts No Known Allergies [...] Vaccine (old term) 03 Given 1Result Comment: 97131-727-21 2Result Comment: [id number] 3Admin Note: vis given 01.01.2014 4Early/Late Reason: Other : 5Admin Note: SANOFI 6Result Comment: [facility] [id number] 7Result Comment: [id number] 8Result Comment: [id number] 9Admin Note: MFD BY [employer] Medications Advair Diskus 500 mcg-50 mcg inhalation powder 1, puffs, Inhalation, 2 times a day, RINSE MOUTH AND THROAT AFTER USE, # 60 each, Refills 5, Tot. Refills 5, Maintenance, 03/11/23 13:16:00 EDT, Route to Pharmacy Electronically, IDPDP_[id number], [facility] #[id number], 167.5, cm, 02/03/23 18:02... Start Date: 03/11/23 Status: Ordered Flonase Allergy Relief 50 mcg/inh nasal spray 1 sprays, Nares, Both, Daily, # 1 each, 0 Refills, Maintenance, 02/03/23 19:09:00 EDT, [facility] #[id number], Partial fill upon patient request if the prescription is for a schedule II opioid drug., 167.5, cm, 02/03/23 18:02:00 EDT, Height, 53.8... Start Date: 02/03/23 Status: Ordered Isibloom 0.15 mg-0.03 mg oral tablet 1 tablet, By Mouth, Daily, # 28 tablet, 5 Refills, Maintenance, 09/12/23 12:45:00 EDT, [facility] #[id number], 28, TAKE 1 TABLET BY MOUTH DAILY TAKE AT THE SAME TIME DAILY, 170, cm, 08/20/23 1:30:00 EDT, Height, 54, kg, 08/20/23 1:30:00 EDT, Dry... Start Date: 09/12/23 Status: Ordered montelukast 10 mg oral tablet 1, tablet, By Mouth, Daily, # 90 tablet, Refills 0, Maintenance, 03/11/23 14:23:00 EDT, Route to Pharmacy Electronically, [facility] #[id number], 167.5, cm, 02/03/23 18:02:00 EDT, Height, 52.2, kg, 03/10/23 10:34:00 EDT, Dry Weight Start Date: 03/11/23 Status: Ordered predniSONE 20 mg oral tablet 2 tablet = 40 mg, By Mouth, Daily, # 10 tablet, 0 Refills, Maintenance, 03/11/23 13:16:00 EDT, Tablet, [facility] #[id number], Partial fill upon patient request if the prescription is for a schedule II opioid drug., 167.5, cm, 02/03/23 18:02:00 E... Start Date: 03/11/23 Stop Date: 03/16/23 Status: Ordered SUMAtriptan 50 mg oral tablet 1 tablet = 50 mg, By Mouth, Daily, PRN for migraine headache, # 9 tablet, 1 Refills, Maintenance, 02/03/23 18:55:00 EDT, Tablet, [facility] #[id number], Partial fill upon patient request if the prescription is for a schedule II opioid drug., 167.... 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 Team Personnel Name: Nathan DRISCOLL, Alley Position: [facility] RN Member Role: Primary Care Nurse Name: Marguerite Mustafa MD Position: [facility] Physician - Primary Care Member Role: PCP Address: Address: [address] [place] [address]- Care Team Related Persons Name: TAMMY VALENTE Address: [place] [address] Name: OSMAN VALENTE Address: [address] [place] [address] Name: REGINALDO BAXTER Address: home [address] [place], [place] Name: REGINALDO BAXTER Address: [address] [place], [place] Name: SAMANTHA RDZ Address: home [address] [place] [address]
--- OUTSIDE RECORDS SUMMARY | 2024-03-09 20:59 | XMS_ITS | Continuity of Care Document ---
Author Organization [facility] Address [address] [place] [address]- Care Team Providers Care Rn Case Mgr Name Role Phone Ramsey LEMUS, Marguerite Primary Care Physician Encounter [facility] Date(s): 09/24/21 - 10/24/21 [facility] [address] [place] [address]- Attending Physician: Frank Stein Admitting Physician: AdmFrank [...] Vaccine (old term) 03 Given 1Result Comment: 52548-750-65 2Result Comment: [id number] 3Admin Note: vis given 01.01.2014 4Early/Late Reason: Other : 5Admin Note: SANOFI 6Result Comment: [facility] 62103-010-75 7Result Comment: [id number] 8Result Comment: [id number] 9Admin Note: MFD BY [employer] Medications Advair Diskus 500 mcg-50 mcg inhalation powder 1, puffs, Inhalation, 2 times a day, RINSE MOUTH AND THROAT AFTER USE, # 60 each, Refills 5, Tot. Refills 5, Maintenance, 08/19/21 16:30:00 EDT, [facility] to Pharm[facility] Electronically, [id number] #[id number], 168.4, cm, 08/19/21 16:16... Start Date: 08/19/21 [...] 2 Refills, Maintenance, 08/19/21 16:30:00 EDT, Solution, [facility] #[id number], 168.4, cm, 08/19/21 16:16:00 EDT, Height, 56, [...] 0 Refills, Maintenance, 08/19/21 16:32:00 EDT, Tablet, [facility] #[id number], Partial fill upon patient request if the prescription is for a schedule II opioid drug., 168.4, cm, 08/19/21 16:16:00 E... Start Date: 08/19/21 Status: Ordered fluvoxaMINE 50 mg oral tablet 1 tablet = 50 mg, By Mouth, Daily at bedtime, # 30 tablet, 2 Refills, Maintenance, 10/04/21 11:40:00 EDT, Tablet, [facility] #[id number], Partial fill upon patient request if the prescription isfor a schedule II opioid drug., 168.4, cm, 09/15/21... Start Date: 10/04/21 Stop Date: 01/02/22 Status: Ordered montelukast 10 mg oral tablet 10 mg, 1, tablet, By Mouth, Daily in PM, # 30 tablet, Refills 3, Tot. Refills 3, Maintenance, 08/19/21 16:30:00 EDT, Route to Pharmacy Electronically, [facility] #[id number], Partial fill upon patient request if the prescription is for a schedule... 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
--- OUTSIDE RECORDS SUMMARY | 2024-03-09 20:59 | XMS_ITS | Continuity of Care Document ---
Author Organization [facility] Address [address] [place] [address]- Care Team Providers Care Supervisor Asbestos Textile Name Role Phone Fouzia Moreno Primary Care Physician [facility]counter [facility] Date(s): 06/20/19 - 06/27/19 [facility] [address] [place] [address]- [facility] Attending Physician: Ernst Wilson MD Referring [...] Vaccine (oldterm) 03 Give n 1Result Comment: 20747-232-13 2Admin Note: vis given 01.01.2014 3Early/Late Reason: Other : 4Result Comment: [id number] 5Result Comment: [id number] 6Admin Note: MFD BY [employer] Medications Adderall XR 15 mg oral capsule, [...] 12:10:19 EDT, Powder, Route to Pharmacy Electronically, NCPDP_[id number], [facility] [address] Start Date: 03/07/19 Status: Ordered albuterol 0.083% inhalation solution 3 mL = 2.5 mg, Inhalation, Every 6 hours, # 120 each, 0 Refills, Maintenance, 05/12/19 0:21:00 EST,Solution, [facility] [address], 169, cm, 05/11/19 18:40:00 EST, Height, [...] each, 4 Refills, Maintenance, 10/24/18 16:19:26 EDT, [place], 2 sprays Nares, Both 2 times a [...] 12:10:21 EDT, Route to Pharmacy Electronically, NCPDP_ID- [id number], [facility] [address] Start Date: 03/07/19 Status: Ordered Pepto-Bismol 262 mg oral tablet, chewable 2 tablet = 524 mg, Chew, 4 times a day, PRN for dyspepsia, # 48 tablet, 0 Refills, Maintenance, 05/17/19 13:26:00 EST, Chew Tablet, [facility] [address], 169, cm, 05/12/19 4:40:00 EST, Height, [...] and started on Adderall 10mg XR 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, 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 recent to oldest [Reference Range]: 1 Height 167.7 cm (06/20/19 2:57 PM) Weight 54.1 kg (06/20/19 2:57 PM) Oxygen Saturation [94-100 %] 100 % (06/20/19 2:57 PM) Pulse Rate [55-90 bpm] 83 bpm (06/20/19 2:57 PM) Body Mass Index [18.5-24.99] 19.24 (06/20/19 2:57 PM) Blood Pressure [80-130/50-80 mm Hg] 126/ 68mm Hg (06/20/19 2:57 PM) Respiratory Rate [16-30 br/min] 16 br/mi n (06/20/19 2:57 PM) Mode of Delivery (Oxygen) Room air (06/20/19 2:57 PM) Blood pressure sites Arm, right (06/20/19 2:57 PM) Dry Weight 54.1 kg (06/20/19 2:57 PM) Social History Social History Type Response Smoking Status Never smoker; Tobacc o user in household: No entered on: 02/14/18 Sex
--- OUTSIDE RECORDS SUMMARY | 2024-03-09 20:59 | XMS_ITS | Continuity of Care Document ---
Author Organization [facility] Address [address] [place] [address]- Care Team Providers Care Limousine Driver Name Role Phone Ramsey LEMUS, Marguerite Primary Care Physician [facility] Date(s): 09/24/21 - 10/24/21 [facility] [address] [place] [id number] Allergies, Adverse Reactions, Alerts No Known Allergies [...] Vaccine (old term) 03 Given 1Result Comment: [id number] 2Result Comment: [id number] 3Admin Note: vis given 01.01.2014 4Early/Late Reason: Other : 5Admin Note: SANOFI 6Result Comment: [facility] [id number] 7Result Comment: [id number] 8Result Comment: [id number] 9Admin Note: MFD BY SANOFI Medications Advair Diskus 500 mcg-50 mcg inhalation powder 1, puffs, Inhalation, 2 times a day, RINSE MOUTH AND THROAT AFTER USE, # 60 each, Refills 5, Tot. Refills 5, Maintenance, 08/19/21 16:30:00 EDT, [facility] Electronically[id number] #[id number], 168.4, cm, 08/19/21 16:16... Start Date: 08/19/21 [...] 2 Refills, Maintenance, 08/19/21 16:30:00 EDT, Solution, [facility] #[id number], 168.4, cm, 08/19/21 16:16:00 EDT, Height, 56, [...] 0 Refills, Maintenance, 08/19/21 16:32:00 EDT, Tablet, [facility] #[id number], Partial fill upon patient request if the prescription is for a schedule II opioid drug., 168.4, cm, 08/19/21 16:16:00 E... Start Date: 08/19/21 Status: Ordered fluvoxaMINE 50 mg oral tablet 1 tablet = 50 mg, By Mouth, Daily at bedtime, # 30 tablet, 2 Refills, Maintenance, 10/04/21 11:40:00 EDT, Tablet, [facility] #[id number], Partial fill upon patient request if the prescription isfor a schedule II opioid drug., 168.4, cm, 09/15/21... Start Date: 10/04/21 Stop Date: 01/02/22 Status: Ordered montelukast 10 mg oral tablet 10 mg, 1, tablet, By Mouth, Daily in PM, # 30 tablet, Refills 3, Tot. Refills 3, Maintenance, 08/19/21 16:30:00 EDT, Route to Pharmacy Electronically, [facility] #[id number], Partial fill upon patient request if the prescription is for a schedule... 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
--- OUTSIDE RECORDS SUMMARY | 2024-03-09 20:59 | XMS_ITS | Continuity of Care Document ---
Author Organization [facility] Address [address] [place] [address]- Care Team Providers Care House Coordinator Name Role Phone Marguerite Mustafa MD Primary Care Physician [facility] Date(s): 10/14/20 - 11/13/20 [facility] [address] [place] [address]- Allergies, Adverse Reactions, Alerts Substance Reaction Severity [...] Vaccine (old term) 03 Given 1Result Comment: 34651-809-20 2Result Comment: 39713-087-61 3Admin Note: vis given 01.01.2014 4Early/Late Reason: Other : 5Admin Note: SANOFI 6Result Comment: [facility] [id number] 7Result Comment: [id number] 8Result Comment: [phone] 9Admin Note: MFD BY SANOFI Medications Advair Diskus 500 mcg-50 mcg inhalation powder 1, inhalation, Inhalation, 2 times a day, rinse mouth and throat after use, # 1 each, Refills 3, Tot. Refills 3, Maintenance, 11/05/20 15:34:00 EDT, Powder, Route to Pharmacy Electronically, OHPDP_[id number], [facility] #[id number], 168.7, cm, 06... Start Date: 11/05/20 Status: Ordered Aerochamber See Instructions, # 1 each, Maintenance, use with inhaler medications, 01/28/15 13:46:28, Compound Start Date: 01/28/15 Status: Ordered albuterol 0.083% inhalation solution 3 mL = 2.5 mg, Inhalation, Every 6 hours, # 120 each, 2 Refills, Maintenance, 05/23/20 15:08:00 EST, Solution, [facility] #[id number], 171, cm, 04/23/20 17:37:00 EST, Height, 57.3, [...] 11/05/20 15:34:00 EDT, Route to Pharmacy Electronically, [facility] #[id number], 168.7, cm, 11/05/20 15:05:00 EDT, Height, 55.2, kg, 11/05/20 15:05:00 EDT, Start Date: 11/05/20 Status: Ordered PROzac 10 mg oral capsule See Instructions, Take 1 daily for 7 days, then increase to 2 daily, # 60 capsule, Refills 3, Tot. Refills 3, Maintenance, 04/16/20 16:36:00 EST, Instructions Replace Required Details, Route to Pharmacy Electronically, [facility] #73015, [facility]... 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
--- OUTSIDE RECORDS SUMMARY | 2024-03-09 20:59 | XMS_ITS | Continuity of Care Document ---
Author Organization [facility] Address [address] [place] [address]- Care Team Providers Care President Mortgage Company Name Role Phone Fouzia Moreno Primary Care Physician [phone] [facility]): [facility] - 05/27/19 [facility] [address] [place] [address]- Attending Physician: Admtr, Frank Allergies, Adverse Reactions, [...] Vaccine (oldterm) 03 Give n 1Result Comment: [id number] 2Admin Note: vis given 01.01.2014 3Early/Late Reason: Other : 4Result Comment: [id number] 5Result Comment: [id number] 6Admin Note: MFD BY SANOFI Medications Adderall [...] 12:10:19 EDT, Powder, Route to Pharmacy Electronically, NCPDP_ID-[id number], [facility] Start Date: 03/07/19 Status: Ordered albuterol 0.083% inhalation solution 3 mL = 2.5 mg, Inhalation, Every 6 hours, # 120 each, 0 Refills, Maintenance, 05/12/19 0:21:00 EST,Solution, [facility] [address], 169, cm, 05/11/19 18:40:00 EST, Height, [...] each, 4 Refills, Maintenance, 10/24/18 16:19:26 EDT, [place], 2 sprays Nares, Both 2 times a [...] 12:10:21 EDT, Route to Pharmacy Electronically, NCPDP_ID- [id number], [facility] Start Date: 03/07/19 Status: Ordered Pepto-Bismol 262 mg oral tablet, chewable 2 tablet = 524 mg, Chew, 4 times a day, PRN for dyspepsia, # 48 tablet, 0 Refills, Maintenance, 05/17/19 13:26:00 EST, Chew Tablet, [facility] [address], 169, cm, 05/12/19 4:40:00 EST, Height, [...] and started on Adderall 10mg XR 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
--- OUTSIDE RECORDS SUMMARY | 2024-03-09 20:59 | XMS_ITS | Continuity of Care Document ---
Author Organization [facility] Address [address] [place] [address]- Care Team Providers Care Brush Clearing Laborer Name Role Phone Marguerite Mustafa MD Primary Care Physician [facility]): 04/25/23 - 05/25/23 [facility] [address] [place] [address]- Allergies, Adverse Reactions, Alerts No Known Allergies [...] Vaccine (old term) 03 Given 1Result Comment: [id number] 2Result Comment: [id number] 3Admin Note: vis given 01.01.2014 4Early/Late Reason: Other : 5Admin Note: SANOFI 6Result Comment: [facility] [id number] 7Result Comment: [id number] 8Result Comment: [id number] 9Admin Note: MFD BY Xen[employer]OFI Medications Advair Diskus 500 mcg-50 mcg inhalation powder 1, puffs, Inhalation, 2 times a day, RINSE MOUTH AND THROAT AFTER USE, # 60 each, Refills 5, Tot. Refills 5, Maintenance, 03/11/23 13:16:00 EDT, [id number][id number], 167.5, cm, 02/03/23 18:02... Start Date: 03/11/23 Status: Ordered Apri 0.15 mg-0.03 mg oral tablet 1 tablet, By Mouth, Daily, take same time dialy, # 28 tablet, 12 Refills, Maintenance, 03/17/22 9:23:00 EDT, Tablet, [facility] #[id number], Partial fill upon patient request if the prescriptionis for a schedule II opioid drug., 1 tablet By Mout... Start Date: 03/17/22 Status: Ordered Flonase Allergy Relief 50 mcg/inh nasal spray 1 sprays, Nares, Both, Daily, # 1 each, 0 Refills, Maintenance, 02/03/23 19:09:00 EDT, [facility] #[id number], Partial fill upon patient request if the prescription is for a schedule II opioid drug., 167.5, cm, 02/03/23 18:02:00 EDT, Height, 53.8... Start Date: 02/03/23 Status: Ordered montelukast 10 mg oral tablet 1, tablet, By Mouth, Daily, # 90 tablet, Refills 0, Maintenance, 03/11/23 14:23:00 EDT, Route to Pharmacy Electronically, [facility] #[id number], 167.5, cm, 02/03/23 18:02:00 EDT, Height, 52.2, kg, 03/10/23 10:34:00 EDT, Dry Weight Start Date: 03/11/23 Status: Ordered predniSONE 20 mg oral tablet 2 tablet = 40 mg, By Mouth, Daily, # 10 tablet, 0 Refills, Maintenance, 03/11/23 13:16:00 EDT, Tablet, [facility] #[id number], Partial fill upon patient request if the prescription is for a schedule II opioid drug., 167.5, cm, 02/03/23 18:02:00 E... Start Date: 03/11/23 Stop Date: 03/16/23 Status: Ordered SUMAtriptan 50 mg oral tablet 1 tablet = 50 mg, By Mouth, Daily, PRN for migraine headache, # 9 tablet, 1 Refills, Maintenance, 02/03/23 18:55:00 EDT, Tablet, [facility] #[id number], Partial fill upon patient request if the prescription is for a schedule II opioid drug., 167.... 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, allergy to pollen, dust mite, animal dander- Cetirizine and Flunisolide 4Saw Pulm- Increased Advair and added Qnasal; Given oral steroids 2/2 URI triggering her asthma 5Saw Pulm 11/2016- normal spirometry; continue Advair and Singulair - Saw pulm Still on Advair and Singulair; Added Flonase for seasonal allergies - Saw Pulm; On Advair and Singulair 8Seen my Neuro and Savannah Keita ([facility]) started on Clonidine Social History Social History Type Response Smoking Status Never (less than 100 in lifetime) entered on: 11/04/20 Sex Female Patient Care team information Care Team Personnel Name: Alley Evans RN Position: [facility] RN Member Role: Primary Care Nurse Name: Marguerite Mustafa MD Position: [facility] Physician - Primary Care Member Role: PCP Address: Address: [address] [place] [address]- Care Team Related Persons Name: TAMMY VALENTE Address: [place] [address] Name: OSMAN VALENTE Address: home [address] [place] [address] Name: REGINALDO BAXTER Address: [address] [place] [address] Name: REGINALDO BAXTER Address: home [address] [place] [address] Name: SAMANTHA RDZ Address: home [address] [place] [address]
--- OUTSIDE RECORDS SUMMARY | 2024-03-09 20:59 | XMS_ITS | Continuity of Care Document ---
Author Organization [facility] Address [address] [place] [address]- Care Team Providers Care Garage Door Technician Name Role Phone Ramsey LEMUS, Marguerite Primary Care Physician [phone] [facility]): 03/02/23 - 04/01/23 [facility] [address] [place] [address]- Allergies, Adverse Reactions, Alerts No Known Allergies [...] Vaccine (old term) 03 Given 1Result Comment: [id number] 2Result Comment: [id number] 3Admin Note: vis given 01.01.2014 4Early/Late Reason: Other : 5Admin Note: SANOFI 6Result Comment: [facility] [id number] 7Result Comment: [id number] 8Result Comment: [id number] 9Admin Note: MFD BY [employer] Medications Advair Diskus 500 mcg-50 mcg inhalation powder 1, puffs, Inhalation, 2 times a day, RINSE MOUTH AND THROAT AFTER USE, # 60 each, Refills 5, Tot. Refills 5, Maintenance, 03/11/23 13:16:00 EDT, Route to Pharmacy Electronically, NCPDP_ID-[id number], [facility] #[id number], 167.5, cm, 02/03/23 18:02... Start Date: 03/11/23 Status: Ordered albuterol CFC free 90 mcg/inh inhalation aerosol See Instructions, PRN, 2-6 puffs Inhalation Every 4 hours as needed use with spacer chamber, # 1 each, Refills 1, Tot. Refills 1, Maintenance, 06/04/22 8:47:00 EST, Instructions Replace Required Details, Route to Pharmacy Electronically, [facility]_ID-[id number]... Start Date: 06/04/22 Status: Ordered albuterol CFC free 90 mcg/inh inhalation aerosol 2, puffs, Inhalation, Every 4 hours, PRN, # 18 Gm, Refills 0, Tot. Refills 0, Maintenance, 03/10/2311:02:00 EDT, Aerosol, Route to Pharmacy Electronically, NCPDP_ID-[id number], [facility] #[id number], 167.5, cm, 02/03/23 18:02:00 EDT, Height, 52.2,... Start Date: 03/10/23 Status: Ordered Apri 0.15 mg-0.03 mg oral tablet 1 tablet, By Mouth, Daily, take same time dialy, # 28 tablet, 12 Refills, Maintenance, 03/17/22 9:23:00 EDT, Tablet, [facility] #[id number], Partial fill upon patient request if the prescriptionis for a schedule II opioid drug., 1 tablet By Mout... Start Date: 03/17/22 Status: Ordered Flonase Allergy Relief 50 mcg/inh nasal spray 1 sprays, Nares, Both, Daily, # 1 each, 0 Refills, Maintenance, 02/03/23 19:09:00 EDT, [facility] #[id number], Partial fill upon patient request if the prescription is for a schedule II opioid drug., 167.5, cm, 02/03/23 18:02:00 EDT, Height, 53.8... Start Date: 02/03/23 Status: Ordered montelukast 10 mg oral tablet 1, tablet, By Mouth, Daily, # 90 tablet, Refills 0, Maintenance, 03/11/23 14:23:00 EDT, Route to Pharmacy Electronically, [facility] #[id number], 167.5, cm, 02/03/23 18:02:00 EDT, Height, 52.2, kg, 03/10/23 10:34:00 EDT, Dry Weight Start Date: 03/11/23 Status: Ordered predniSONE 20 mg oral tablet 2 tablet = 40 mg, By Mouth, Daily, # 10 tablet, 0 Refills, Maintenance, 03/11/23 13:16:00 EDT, Tablet, [facility] #75673, Partial fill upon patient request if the prescription is for a schedule II opioid drug., 167.5, cm, 02/03/23 18:02:00 E... Start Date: 03/11/23 Stop Date: 03/16/23 Status: Ordered SUMAtriptan 50 mg oral tablet 1 tablet = 50 mg, By Mouth, Daily, PRN for migraine headache, # 9 tablet, 1 Refills, Maintenance, 02/03/23 18:55:00 EDT, Tablet, [facility] #65594, Partial fill upon patient request if the prescription is for a schedule II opioid drug., 167.... 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, allergy to pollen, dust mite, animal dander- Cetirizine and Flunisolide 4Saw Pulm- Increased Advair and added Qnasal; Given oral steroids 2/2 URI triggering her asthma 5Saw Pulm 11/2016- normal spirometry; continue Advair and Singulair - Saw pulm Still on Advair and Singulair; Added Flonase for seasonal allergies - Saw Pulm; On Advair and Singulair 8Seen my Neuro and Savannah Bossman ([facility] started on Clonidine Social History Social History Type Response Smoking Status Never (less than 100 in lifetime) entered on: 11/04/20 Sex Female Patient Care team information Care Team Personnel Name: Alley Evans RN Position: [facility] RN Member Role: Primary Care Nurse Name: Marguerite Mustafa MD Position: [facility] Physician - Primary Care Member Role: PCP Address: Address: [address] [place] [address] [place] [address]- Care Team Related Persons Name: TAMMY VALENTE Address: [place] [address] Name: OSMAN VALENTE Address: [address] [place] [address] Name: REGINALDO BAXTER Address: home [address] [place], [place] Name: REGINALDO BAXTER Address: home [address] [place], [place] Name: SAMANTHA RDZ Address: home [address] [place] [address]
--- OUTSIDE RECORDS SUMMARY | 2024-03-09 20:59 | XMS_ITS | Continuity of Care Document ---
Author Organization [facility] Address [address] [place] [address]- Care Team Providers Care Train Operations Supervisor Name Role Phone Ramsey LEMUS, Marguerite Primary Care Physician [phone] [facility]): 02/25/22 - 03/27/22 [facility] [address] [place] [address]- Allergies, Adverse Reactions, Alerts No Known Allergies [...] Vaccine (old term) 03 Given 1Result Comment: [id number] 2Result Comment: [id number] 3Admin Note: vis given 01.01.2014 4Early/Late Reason: Other : 5Admin Note: SANOFI 6Result Comment: [facility] [id number] 7Result Comment: [id number] 8Result Comment: [id number] 9Admin Note: MFD BY [employer]FI Medications Advair Diskus 500 mcg-50 mcg inhalation powder 1, puffs, Inhalation, 2 times a day, RINSE MOUTH AND THROAT AFTER USE, # 60 each, Refills 5, Tot. Refills 5, Maintenance, 08/19/21 16:30:00 EDT, [id number] #[id number], 168.4, cm, 08/19/21 16:16... Start Date: 08/19/21 [...] 12 Refills, Maintenance, 03/17/22 9:23:00 EDT, Tablet, [facility] #[id number], Partial fill upon patient request if the prescriptionis for a schedule II opioid drug., 1 tablet By Mout... Start Date: 03/17/22 Status: Ordered cetirizine 10 mg oral tablet 1 tablet = 10 mg, By Mouth, Daily, # 30 tablet, 0 Refills, Maintenance, 08/19/21 16:32:00 EDT, Tablet, [facility] #[id number], Partial fill upon patient request if the prescription is for a schedule II opioid drug., 168.4, cm, 08/19/21 16:16:00 E... Start Date: 08/19/21 Status: Ordered fluvoxaMINE 50 mg oral tablet 1 tablet = 50 mg, By Mouth, Daily at bedtime, for 30 days, # 30 tablet, 2 Refills, Hard Stop 06/06/22 12:27:00 EST, 03/08/22 12:27:00 EDT, Tablet, [facility] #[id number], Partial fill upon patient request if the prescription is for a schedule II... Start Date: 03/08/22 Stop Date: 06/06/22 Status: Ordered montelukast 10 mg oral tablet 1, tablet, By Mouth, Daily, # 30 tablet, Refills 0, Maintenance, 03/22/22 9:08:00 EST, Route to Pharmacy Electronically, [facility] #[id number], 169.5, cm, 03/17/22 9:15:00 EDT, Height, 53.7, kg, 02/25/22 13:16:00 EDT, Dry Weight Start Date: 03/22/22 Status: Ordered Vitamin D3 1000 intl units oral capsule 1 capsule = 25 mcg, By Mouth, Daily, # 30 capsule, 4 Refills, Maintenance, 08/19/21 16:30:00 EDT, Capsule, [facility] #[id number], Partial fill upon patient request if the [...] and started on Adderall 10mg XR 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, 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, allergy to pollen, dust mite, animal dander- Cetirizine and Flunisolide 4Saw Pulm- Increased Advair and added Qnasal; Given oral steroids 2/2 URI triggering her asthma 5Saw Pulm 11/2016- normal spirometry; continue Advair and Singulair - Saw pulm Still on Advair and Singulair; Added Flonase for seasonal allergies - Saw Pulm; On Advair and Singulair 8Seen my Neuro and Savannah Keita ([facility]) started on Clonidine Social History Social History Type Response Smoking Status Never (less than 100 in lifetime) entered on: 11/04/20 Sex Patient Care team information Care Team Personnel Name: Marguerite Mustafa MD Position: [facility] Primary Care Physician Member Role: PCP Address: Address: [address] [place] [address] [place] [address]- Care Team Related Persons Name: TAMMY VALENTE Address: [place] [address] Name: OSMAN VALENTE Address: [address] [place] [address] Name: REGINALDO BAXTER Address: home [address] [place], [place] Name: REGINALDO BAXTER Address: [address] [place] [address] Name: SAMANTHA RDZ Address: home [address] [place] [address]
--- OUTSIDE RECORDS SUMMARY | 2024-03-09 20:59 | XMS_ITS | Continuity of Care Document ---
Author Organization [facility] Address [address] [place] [address]- Care Team Providers Care Electrocardiograph Operator Name Role Phone Marguerite Mustafa MD Primary Care Physician [facility] 08[facility]14[facility]20 - 09/13/20 [facility] [address] [place] [id number] Allergies, Adverse Reactions, Alerts Substance Reaction Severity [...] Vaccine (old term) 03 Given 1Result Comment: [id number] 2Result Comment: [id number] 3Admin Note: vis given 01.01.2014 4Early/Late Reason: Other : 5Admin Note: SANOFI 6Result Comment: [facility] [id number] 7Result Comment: [id number] 8Result Comment: [id number] 9Admin Note: MFD BY SANOFI Medications Advair Diskus 500 mcg-50 mcg inhalation powder 1, inhalation, Inhalation, 2 times a day, rinse mouth and throat after use, # 1 each, Refills 3, Tot. Refills 3, Maintenance, 06/06/20 9:57:00 EST, Powder, Route to Pharmacy Electronically, TN[facility]P_[id number], [facility] #[id number], 171, cm, 05/28... Start Date: 06/06/20 Status: Ordered Aerochamber See Instructions, # 1 each, Maintenance, use with inhaler medications, 01/28/15 13:46:28, Compound Start Date: 01/28/15 Status: Ordered albuterol 0.083% inhalation solution 3 mL = 2.5 mg, Inhalation, Every 6 hours, # 120 each, 2 Refills, Maintenance, 05/23/20 15:08:00 EST, Solution, [facility] #[id number], 171, cm, 04/23/20 17:37:00 EST, Height, 57.3, kg, 04/23/20 17:37:00 EST, Dry Weight Start Date: 05/23/20 Status: Ordered albuterol CFC free 90 mcg/inh inhalation aerosol See Instructions, inhale 2 to 6 puffs by mouth and INTO THE LUNGS every 4 hours if needed for wheezing and as directed 15 MINUTES BEFORE EXERCISE, # 17 Gm, Refills 2, Tot. Refills 2, Maintenance, 08/06/20 15:21:00 EDT, Instructions Replace Required De... Start Date: 08/06/20 Status: Ordered montelukast 10 mg oral tablet 10 mg, 1, tablet, By Mouth, Daily, # 30 tablet, Refills 3, Tot. Refills 3, Maintenance, 08/06/20 15:22:00 EDT, Route to Pharmacy Electronically, [facility] #[id number], 168.5, cm, 08/06/20 14:37:00 EDT, Height, 56.5, kg, 08/06/20 14:37:00 EDT, Start Date: 08/06/20 Status: Ordered PROzac 10 mg oral capsule See Instructions, Take 1 daily for 7 days, then increase to 2 daily, # 60 capsule, Refills 3, Tot. Refills 3, Maintenance, 04/16/20 16:36:00 EST, Instructions Replace Required Details, Route to Pharmacy Electronically, [facility] #[id number], Par... 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
--- OUTSIDE RECORDS SUMMARY | 2024-03-09 20:59 | XMS_ITS | Continuity of Care Document ---
Author Organization [facility] Address [address] [place] [address]- Care Team Providers Care Brilliandeer Looper Name Role Phone Ramsey LEMUS, Marguerite Primary Care Physician [phone] [facility] 10/24/23 - 11/23/23 [facility] [address] [place] [address]- Allergies, Adverse Reactions, Alerts No Known Allergies [...] Vaccine (old term) 03 Given 1Result Comment: [id number] 2Result Comment: [id number] 3Admin Note: vis given 01.01.2014 4Early/Late Reason: Other : 5Admin Note: SANOFI 6Result Comment: [facility] [id number] 7Result Comment: [id number] 8Result Comment: [id number] 9Admin Note: MFD BY [employer] Medications Advair Diskus 500 mcg-50 mcg inhalation powder 1, puffs, Inhalation, 2 times a day, RINSE MOUTH AND THROAT AFTER USE, # 60 each, Refills 5, Tot. Refills 5, Maintenance, 10/25/23 8:24:00 EDT, Route to Pharmacy Electronically, NCPDP_[id number], [facility] #[id number], 170, cm, 09/19/23 15:34:00... Start Date: 10/25/23 Status: Ordered cetirizine 10 mg oral tablet 1 tablet = 10 mg, By Mouth, Daily, # 90 tablet, 1 Refills, Maintenance, 10/25/23 8:25:00 EDT, Tablet, [facility] #48389, Partial fill upon patient request if the prescription is for a schedule II opioid drug., 170, cm, 09/19/23 15:34:00 EDT,... Start Date: 10/25/23 Status: Ordered Flonase Allergy Relief 50 mcg/inh nasal spray 1 sprays, Nares, Both, Daily, # 1 each, 0 Refills, Maintenance, 10/25/23 8:24:00 EDT, [facility] #83347, Partial fill upon patient request if the prescription is for a schedule II opioid drug., 170, cm, 09/19/23 15:34:00 EDT, Height, 54, kg,... Start Date: 10/25/23 Status: Ordered Isibloom 0.15 mg-0.03 mg oral tablet 1 tablet, By Mouth, Daily, # 28 tablet, 5 Refills, Maintenance, 09/12/23 12:45:00 EDT, [facility] #[id number], 28, TAKE 1 TABLET BY MOUTH DAILY TAKE AT THE SAME TIME DAILY, 170, cm, 08/20/23 1:30:00 EDT, Height, 54, kg, 08/20/23 1:30:00 EDT, Dry... Start Date: 09/12/23 Status: Ordered montelukast 10 mg oral tablet 1, tablet, By Mouth, Daily, # 90 tablet, Refills 0, Tot. Refills 0, Maintenance, 10/25/23 8:24:00 EDT, Route to Pharmacy Electronically, [facility] #[id number], 170, cm, 09/19/23 15:34:00 EDT, Height, 54, kg, 10/24/23 16:05:00 EDT, Dry Weight Start Date: 10/25/23 Status: Ordered SUMAtriptan 50 mg oral tablet 1 tablet = 50 mg, By Mouth, Daily, PRN for migraine headache, # 9 tablet, 1 Refills, Maintenance, 02/03/23 18:55:00 EDT, Tablet, [facility] #36754, Partial fill upon patient request if the prescription is for a schedule II opioid drug., 167.... 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, allergy to pollen, dust mite, animal dander- Cetirizine and Flunisolide 4Saw Pulm- Increased Advair and added Qnasal; Given oral steroids 2/2 URI triggering her asthma 5Saw Pulm 11/2016- normal spirometry; continue Advair and Singulair - Saw pulm Still on Advair and Singulair; Added Flonase for seasonal allergies - Saw Pulm; On Advair and Singulair 8Seen my Dick and Savannah Keita ([facility]) started on Clonidine Social History Social History Type Response Smoking Status Never (less than 100 in lifetime) entered on: 11/04/20 Sex Female Patient Care team information Care Team Personnel Name: Alley Evans RN Position: [facility] RN Member Role: Primary Care Nurse Name: Marguerite Mustafa MD Position: [facility] Physician - Primary Care Member Role: PCP Address: Address: [address] [place] [address] [place] [address]- Care Team Related Persons Name: TAMMY VALENTE Address: [place] [address] Name: OSMAN VALENTE Address: [address] [place] [address] Name: REGINALDO BAXTER Address: home [address] [place], [place] Name: REGINALDO BAXTER Address: [address] [place], [place] Name: SAMANTHA RDZ Address: home [address] [place] [address]
--- OUTSIDE RECORDS SUMMARY | 2024-03-09 20:59 | XMS_ITS | Continuity of Care Document ---
Author Organization [facility] Address [address] [place] [address]- Care Team Providers Care Campus Wellness Coordinator Name Role Phone Ramsey LEMUS, Marguerite Primary Care Physician [facility]counter [facility] Date(s): 12/13/19 - 01/12/20 [facility] [address] [place] [address]- [facility] Allergies, Adverse Reactions, Alerts Substance [...] Vaccine (old term) 03 Given 1Result Comment: 76200-460-81 2Admin Note: vis given 01.01.2014 3Early/Late Reason: Other : 4Admin Note: SANOFI 5Result Comment: [id number] 6Result Comment: [id number] 7Admin Note: MFD BY SANOFI Medications Adderall XR 15 mg oral capsule, extended release 1 capsule = 15 mg, By Mouth, Daily in AM, # 30 capsule, 0 Refills, Maintenance, 07/05/19 17:28:00 EST, CR Capsule, [facility] #[id number], 1 capsule By Mouth Daily in AM, [...] 13:20:00 EDT, Powder, Route to Pharmacy Electronically, ORPDP_[id number], [facility] #[id number], 169.1, cm, ... Start Date: 12/13/19 Status: Ordered albuterol 0.083% inhalation solution 3 mL = 2.5 mg, Inhalation, Every 6 hours, # 120 each, 2 Refills, Maintenance, 12/14/19 14:25:00 EDT, Solution, [facility] #53074, 169.1, cm, 12/13/19 10:35:00 EDT, Height, 58, [...] 12/13/19 13:21:00 EDT, Route to Pharmacy Electronically, [facility] #[id number], 169.1, cm, 12/13/19 10:35:00 EDT, Height, 58, kg, 12/13/19 10:35:00 EDT, Dry... 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
--- OUTSIDE RECORDS SUMMARY | 2024-03-09 20:59 | XMS_ITS | Continuity of Care Document ---
Author Organization [facility] Address [address] [place] [address]- Care Team Providers Care Orthotics Technician Name Role Phone Marguerite Mustafa MD Primary Care Physician [place] [facility]21[place] - 01/20/[address] [address]- Allergies, Adverse Reactions, Alerts No Known Allergies [...] Vaccine (old term) 03 Given 1Result Comment: 38685-125-64 2Result Comment: [id number] 3Admin Note: vis given 01.01.2014 4Early/Late Reason: Other : 5Admin Note: SANOFI 6Result Comment: [facility] [id number] 7Result Comment: [id number] 8Result Comment: [id number] 9Admin Note: MFD BY iKoa[employer] Medications Advair Diskus 500 mcg-50 mcg inhalation powder 1, puffs, Inhalation, 2 times a day, RINSE MOUTH AND THROAT AFTER USE, # 60 each, Refills 5, Tot. Refills 5, Maintenance, 08/19/21 16:30:00 EDT, Route to Pharmacy Electronically, NCPDP_[id number], [facility] #02949, 168.4, cm, 08/19/21 16:16... Start Date: 08/19/21 [...] 12 Refills, Maintenance, 03/17/22 9:23:00 EDT, Tablet, [facility] #[id number], Partial fill upon patient request if the prescriptionis for a schedule II opioid drug., 1 tablet By [facility]... 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 RN Member Role: Primary Care Nurse Name: Marguerite Mustafa MD Position: [facility] Physician - Primary Care Member Role: PCP Address: Address: [address] [place] [address] [place] [address]- Care Team Related Persons Name: TAMMY VALENTE Address: [place] [address] Name: OSMAN VALENTE Address: home [address], [place] Name: REGINALDO BAXTER Address: home [address], [place] Name: REGINALDO BAXTER Address: home [address], [place] Name: SAMANTHA RDZ Address: home [address] [place] [address]
--- OUTSIDE RECORDS SUMMARY | 2024-03-09 20:59 | XMS_ITS | Continuity of Care Document ---
Author Organization [facility] Address [address] [place] [address]- Care Team Providers Care Architect Manager Name Role Phone Marguerite Mustafa MD Primary Care Physician Encounter [facility] [place] Date(s): 11/03/20 - 12/03/20 [facility] [address] [place] [address]- Allergies, Adverse Reactions, Alerts Substance Reaction Severity [...] Vaccine (old term) 03 Given 1Result Comment: [id number] 2Result Comment: [id number] 3Admin Note: vis given 01.01.2014 4Early/Late Reason: Other : 5Admin Note: SANOFI 6Result Comment: [facility] [id number] 7Result Comment: [id number] 8Result Comment: 7452-5811-08 9Admin Note: MFD BY SANOFI Medications Advair Diskus 500 mcg-50 mcg inhalation powder 1, puffs, Inhalation, 2 times a day, RINSE MOUTH AND THROAT AFTER USE, # 60 each, Refills 3, Tot. Refills 0, Maintenance, 11/14/20 11:11:00 EDT, Route to Pharmacy Electronically, DEPDP_[id number], [facility] #44134, 168.7, cm, 11/05/20 15:05... Start Date: 11/14/20 Status: Ordered Aerochamber See Instructions, # 1 each, Maintenance, use with inhaler medications, 01/28/15 13:46:28, Compound Start Date: 01/28/15 Status: Ordered albuterol 0.083% inhalation solution 3 mL = 2.5 mg, Inhalation, Every 6 hours, # 120 each, 2 Refills, Maintenance, 05/23/20 15:08:00 EST, Solution, [facility] #61578, 171, cm, 04/23/20 17:37:00 EST, Height, 57.3, [...] 11/05/20 15:34:00 EDT, Route to Pharmacy Electronically, [facility] #07675, 168.7, cm, 11/05/20 15:05:00 EDT, Height, 55.2, kg, 11/05/20 15:05:00 EDT, Start Date: 11/05/20 Status: Ordered PROzac 10 mg oral capsule See Instructions, Take 1 daily for 7 days, then increase to 2 daily, # 60 capsule, Refills 3, Tot. Refills 3, Maintenance, 04/16/20 16:36:00 EST, Instructions Replace Required Details, Route to Pharmacy Electronically, [facility] #56377, [facility]... 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
--- OUTSIDE RECORDS SUMMARY | 2024-03-09 20:59 | XMS_ITS | Continuity of Care Document ---
Author Organization [facility] Address [address] [place] [address]- Care Team Providers Care Seamless Hosiery Knitter Name Role Phone Marguerite Mustafa MD Primary Care Physician Encounter [facility] Date(s): 09/15/21 - 10/15/[address] [address] Attending Physician: Frank Stein Admitting Physician: AdmFrank [...] Vaccine (old term) 03 Given 1Result Comment: [id number] 2Result Comment: 37970-508-01 3Admin Note: vis given 01.01.2014 4Early/Late Reason: Other : 5Admin Note: SANOFI 6Result Comment: [facility] [phone] 7Result Comment: [id number] 8Result Comment: [id number] 9Admin Note: MFD BY [facility] Medications Advair Diskus 500 mcg-50 mcg inhalation powder 1, puffs, Inhalation, 2 times a day, RINSE MOUTH AND THROAT AFTER USE, # 60 each, Refills 5, Tot. Refills 5, Maintenance, 08/19/21 16:30:00 EDT, Route to Pharmacy Electronically, [id number] #[id number], 168.4, cm, 08/19/21 16:16... Start Date: 08/19/21 [...] 2 Refills, Maintenance, 08/19/21 16:30:00 EDT, Solution, [facility] #[id number], 168.4, cm, 08/19/21 16:16:00 EDT, Height, 56, [...] 0 Refills, Maintenance, 08/19/21 16:32:00 EDT, Tablet, [facility] #94189, Partial fill upon patient request if the prescription is for a schedule II opioid drug., 168.4, cm, 08/19/21 16:16:00 E... Start Date: 08/19/21 Status: Ordered fluvoxaMINE 50 mg oral tablet 1 tablet = 50 mg, By Mouth, Daily at bedtime, # 30 tablet, 2 Refills, Maintenance, 10/04/21 11:40:00 EDT, Tablet, [facility] #[id number], Partial fill upon patient request if the prescription isfor a schedule II opioid drug., 168.4, cm, 09/15/21... Start Date: 10/04/21 Stop Date: 01/02/22 Status: Ordered montelukast 10 mg oral tablet 10 mg, 1, tablet, By Mouth, Daily in PM, # 30 tablet, Refills 3, Tot. Refills 3, Maintenance, 08/19/21 16:30:00 EDT, Route to Pharmacy Electronically, [facility] #[id number], Partial fill upon patient request if the prescription is for a schedule... 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
--- OUTSIDE RECORDS SUMMARY | 2024-03-09 20:59 | XMS_ITS | Continuity of Care Document ---
Author Organization [facility] Address [address] [place] [address]- Care Team Providers Care Proof Coins Inspector Name Role Phone Marguerite Mustafa MD Primary Care Physician Encounter [facility] Date(s): 09/23/21 - 10/23/21 [facility] [address] [place], [place] [id number]- Attending Physician: Frank Stein Admitting Physician: AdmFrank [...] Vaccine (old term) 03 Given 1Result Comment: 95391-537-75 2Result Comment: [id number] 3Admin Note: vis given 01.01.2014 4Early/Late Reason: Other : 5Admin Note: SANOFI 6Result Comment: [facility] [id number] 7Result Comment: 1113-0594-80 8Result Comment: [id number] 9Admin Note: MFD BY SANOFI Medications Advair Diskus 500 mcg-50 mcg inhalation powder 1, puffs, Inhalation, 2 times a day, RINSE MOUTH AND THROAT AFTER USE, # 60 each, Refills 5, Tot. Refills 5, Maintenance, 08/19/21 16:30:00 EDT, [id number] #74529, 168.4, cm, 08/19/21 16:16... Start Date: 08/19/21 [...] 2 Refills, Maintenance, 08/19/21 16:30:00 EDT, Solution, [email or web address] #34060, 168.4, cm, 08/19/21 16:16:00 EDT, Height, 56, [...] 0 Refills, Maintenance, 08/19/21 16:32:00 EDT, Tablet, [email or web address] #76154, Partial fill upon patient request if the prescription is for a schedule II opioid drug., 168.4, cm, 08/19/21 16:16:00 E... Start Date: 08/19/21 Status: Ordered fluvoxaMINE 50 mg oral tablet 1 tablet = 50 mg, By Mouth, Daily at bedtime, # 30 tablet, 2 Refills, Maintenance, 10/04/21 11:40:00 EDT, Tablet, [facility] #[id number], Partial fill upon patient request if the prescription isfor a schedule II opioid drug., 168.4, cm, 09/15/21... Start Date: 10/04/21 Stop Date: 01/02/22 Status: Ordered montelukast 10 mg oral tablet 10 mg, 1, tablet, By Mouth, Daily in PM, # 30 tablet, Refills 3, Tot. Refills 3, Maintenance, 08/19/21 16:30:00 EDT, Route to Pharmacy Electronically, [facility] #34345, Partial fill upon patient request if the prescription is for a schedule... 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
--- OUTSIDE RECORDS SUMMARY | 2024-03-09 20:59 | XMS_ITS | Continuity of Care Document ---
Author Organization [facility] Address [address] [place] [address]- Care Team Providers Care Manager Multicultural Name Role Phone Ramsey LEMUS, Marguerite Primary Care Physician [facility]counter [facility] Date(s): 03/10/21 - 04/09/21 [facility] [address] [place] [address]- Allergies, Adverse Reactions, Alerts Substance Reaction Severity [...] Vaccine (old term) 03 Given 1Result Comment: 84391-750-82 2Result Comment: 50355-724-65 3Admin Note: vis given 01.01.2014 4Early/Late Reason: Other : 5Admin Note: SANOFI 6Result Comment: [facility] [id number] 7Result Comment: [id number] 8Result Comment: [id number] 9Admin Note: MFD BY SANOFI Medications Advair Diskus 500 mcg-50 mcg inhalation powder 1, puffs, Inhalation, 2 times a day, RINSE MOUTH AND THROAT AFTER USE, # 60 each, Refills 5, Tot. Refills 5, Maintenance, 03/04/21 15:25:00 EDT, [facility] to [facility]ically[id number] #[id number], 168, cm, 03/04/21 14:47:0... Start Date: 03/04/21 Status: Ordered Aerochamber See Instructions, # 1 each, Maintenance, use with inhaler medications, 01/28/15 13:46:28, Compound Start Date: 01/28/15 Status: Ordered albuterol 0.083% inhalation solution 3 mL = 2.5 mg, Inhalation, Every 6 hours, # 120 each, 2 Refills, Maintenance, 05/23/20 15:08:00 EST, Solution, [facility] #11218, 171, cm, 04/23/20 17:37:00 EST, Height, 57.3, [...] 0 Refills, Maintenance, 03/05/21 16:16:00 EDT, Tablet, [facility] #79859, Partial fill upon patient request if the prescription isfor a schedule II opioid drug., 168, cm, 03/04/21 1... Start Date: 03/05/21 Status: Ordered ketoconazole 2% topical shampoo 1 application, Topically, Once, Three times weekly, # 120 mL, 3 Refills, Soft Stop, 03/16/21 17:24:00 EDT, [facility] #[id number], Partial fill upon patient request if the prescription is for a schedule II opioid drug., 1 application Top... Start Date: 03/16/21 Status: Ordered montelukast 10 mg oral tablet 10 mg, 1, tablet, By Mouth, Daily, # 30 tablet, Refills 5, Tot. 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
--- OUTSIDE RECORDS SUMMARY | 2024-03-09 21:00 | XMS_ITS | Referral Summary ---
Author Organization [facility] Address [address] [place] [id number] Care Team Providers Care Truck Driver Name Role Phone Marguerite Mustafa MD Primary Care Physician Encounter FIN Number [id number] Date(s): 10/16/20 - 10/16/[address] [address] [facility] [phone] Discharge Disposition: 01 Home (with or w/o IV fusion or DME) Referring Physician: Marguerite Mustafa MD Allergies, Adverse Reactions, Alerts No Known Allergies Medications Advair Diskus 500 mcg-50 mcg inhalation powder INHALE 1 PUFF BY MOUTH TWICE DAILY. RINSE MOUTH AND THROAT AFTER USE Start Date: 10/30/20 Status: Ordered FLUoxetine 10 mg oral capsule TAKE 1 CAPSULE BY MOUTH DAILY FOR 7 DAYS. INCREASE TO 2 DAILY Start Date: 10/30/20 Status: Ordered montelukast 10 mg oral tablet TAKE 1 TABLET BY MOUTH DAILY Start Date: 10/30/20 Status: Ordered ProAir HFA 90 mcg/inh inhalation aerosol INHALE 2 TO 6 PUFFS BY MOUTH EVERY 4 HOURS NEEDED FOR WHEEZING AND DIRECTED 15 MINUTES BEFOREEXERCISE. Start Date: 10/30/20 Status: Ordered Social History Social History Type Response Sex Female
--- OUTSIDE RECORDS SUMMARY | 2024-03-09 21:00 | XMS_ITS | Referral Summary ---
Author Organization [facility] Address [address] [place] [address] Care Team Providers Care Bag Tester Name Role Phone Marguerite Mustafa MD Primary Care Physician [phone] Encounter FIN Number [id number] Date(s): 10/30/20 - 10/30/[address] [address] [facility] [phone] Discharge Disposition: 01 Home (with or w/o IV fusion or DME) Attending Physician: Jennifer Lorenzo Referring Physician: Marguerite Mustafa MD Allergies, Adverse [...] MINUTES BEFOREEXERCISE. Start Date: 10/30/20 Status: Ordered Vital Signs Most recent to oldest [Reference Range]: 1 Height 168.5 cm (10/30/20 2:40 PM) Height NOT Growth Chart 168.5 cm (10/30/20 2:40 PM) Converted Height NOT Growth Chart 5.5 ft (10/30/20 2:40 PM) Weight 56.1 kg (10/30/20 2:40 PM) Weight NOT Growth Chart 56.1 kg (10/30/20 2:40 PM) Converted Weight NOT Growth Chart 123.68 lb(s) (10/30/20 2:40 PM) Body Mass Index 19.76 kg/m2 (10/30/20 2:40 PM) Body Mass Index NOT Growth Chart 20 (10/30/20 2:40 PM) Body surface area 1.6204 m2 (10/30/20 2:40 PM) Social History Social History Type Response Sex Female
--- OUTSIDE RECORDS SUMMARY | 2024-03-09 21:00 | XMS_ITS | Continuity of Care Document ---
Author Organization [facility] Address [address] [place] [address]- Care Team Providers Care Oxyacetylene Torch Operator Name Role Phone Marguerite Mustafa MD Primary Care Physician [facility] Date(s): 05/20/21 - 06/19/21 [facility] [address] [place] [address] [place] Allergies, Adverse Reactions, Alerts No Known [...] Vaccine (old term) 03 Given 1Result Comment: [id number] 2Result Comment: 92239-996-79 3Admin Note: vis given 01.01.2014 4Early/Late Reason: Other : 5Admin Note: SANOFI 6Result Comment: [facility] [id number] 7Result Comment: [id number] 8Result Comment: [id number] 9Admin Note: MFD BY SANOFI Medications Advair Diskus 500 mcg-50 mcg inhalation powder 1, puffs, Inhalation, 2 times a day, RINSE MOUTH AND THROAT AFTER USE, # 60 each, Refills 5, Tot. Refills 5, Maintenance, 03/04/21 15:25:00 EDT, [id number]37395, 168, cm, 03/04/21 14:47:0... 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
--- OUTSIDE RECORDS SUMMARY | 2024-03-09 21:00 | XMS_ITS | Continuity of Care Document ---
Author Organization [facility] Address [address] [place] [address]- Care Team Providers Care Welding Machine Tender Name Role Phone Marguerite Mustafa MD Primary Care Physician Encounter [facility] Date(s): 11/10/23 - 12/10/23 [facility] [address] [place] [address]- Attending Physician: Frank Stein Referring Physician: Ruby [...] Vaccine (old term) 03 Given 1Result Comment: 12643-666-15 2Result Comment: [id number] 3Admin Note: vis given 01.01.2014 4Early/Late Reason: Other : 5Admin Note: SANOFI 6Result Comment: [facility] [id number] 7Result Comment: [id number] 8Result Comment: [id number] 9Admin Note: [facility] Medications Advair Diskus 500 mcg-50 mcg inhalation powder 1, puffs, Inhalation, 2 times a day, RINSE MOUTH AND THROAT AFTER USE, # 60 each, Refills 5, Tot. Refills 5, Maintenance, 10/25/23 8:24:00 EDT, Route to Pharmacy Electronically, NCPDP_[id number], [facility] #[id number], 170, cm, 09/19/23 15:34:00... Start Date: 10/25/23 Status: Ordered cetirizine 10 mg oral tablet 1 tablet = 10 mg, By Mouth, Daily, # 90 tablet, 1 Refills, Maintenance, 10/25/23 8:25:00 EDT, Tablet, [facility] #[id number], Partial fill upon patient request if the prescription is for a schedule II opioid drug., 170, cm, 09/19/23 15:34:00 EDT,... Start Date: 10/25/23 Status: Ordered Flonase Allergy Relief 50 mcg/inh nasal spray 1 sprays, Nares, Both, Daily, # 1 each, 0 Refills, Maintenance, 10/25/23 8:24:00 EDT, [facility] #[id number], Partial fill upon patient request if the prescription is for a schedule II opioid drug., 170, cm, 09/19/23 15:34:00 EDT, Height, 54, kg,... Start Date: 10/25/23 Status: Ordered Isibloom 0.15 mg-0.03 mg oral tablet 1 tablet, By Mouth, Daily, # 28 tablet, 5 Refills, Maintenance, 09/12/23 12:45:00 EDT, [facility] #[id number], 28, TAKE 1 TABLET BY MOUTH DAILY TAKE AT THE SAME TIME DAILY, 170, cm, 08/20/23 1:30:00 EDT, Height, 54, kg, 08/20/23 1:30:00 EDT, Dry... Start Date: 09/12/23 Status: Ordered montelukast 10 mg oral tablet 1, tablet, By Mouth, Daily, # 90 tablet, Refills 0, Tot. Refills 0, Maintenance, 10/25/23 8:24:00 EDT, Route to Pharmacy Electronically, [facility] #[id number], 170, cm, 09/19/23 15:34:00 EDT, Height, 54, kg, 10/24/23 16:05:00 EDT, Dry Weight Start Date: 10/25/23 Status: Ordered SUMAtriptan 50 mg oral tablet 1 tablet = 50 mg, By Mouth, Daily, PRN for migraine headache, # 9 tablet, 1 Refills, Maintenance, 02/03/23 18:55:00 EDT, Tablet, [facility] #[id number], Partial fill upon patient request if the prescription is for a schedule II opioid drug., 167.... 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 Team Personnel Name: Nathan RN, Alley Position: [facility] RN Member Role: Primary Care Nurse Name: Marguerite Mustafa MD Position: [facility] Physician - Primary Care Member Role: PCP Address: Address: [address] [place] [address] [place] [address]- Care Team Related Persons Name: TAMMY VALENTE Address: [place] [address] Name: OSMAN VALENTE Address: home [address] [place] [address] Name: REGINALDO BAXTER Address: [address] [place] [address] Name: REGINALDO BAXTER Address: [address] [place] [address] Name: SAMANTHA RDZ Address: home [address] [place] [address]
--- OUTSIDE RECORDS SUMMARY | 2024-03-09 21:00 | XMS_ITS | Continuity of Care Document ---
Author Organization [facility] ter Address [address] [place] [address]- Care Team Providers Care Peoplesoft Hcm Consultant Name Role Phone Ramsey LEMUS, Marguerite Primary Care Physician Encounter [facility] Date(s): 03/17/23 - 03/17/[address] [address]- Encounter Diagnosis Cough(Final) - 03/17/23 Shortness of breath(Final) - 03/17/23 Viral syndrome(Final) - 03/17/23 Asthma(Final) - 03/17/23 Viral syndrome(Final) - 03/17/23 Shortness of breath(Final) - 03/17/23 Cough(Final) - 03/17/23 Asthma(Final) - 03/17/23 Discharge Disposition: A-D/C Home Attending Physician: Brigitte Hopper DO Admitting Physician: Brigitte Hopper DO Referring Physician: Not on Staff, Referring MD [...] Vaccine (old term) 03 Given 1Result Comment: [id number] 2Result Comment: [id number] 3Admin Note: vis given 01.01.2014 4Early/Late Reason: Other : 5Admin Note: SANOFI 6Result Comment: [facility] [id number] 7Result Comment: [id number] 8Result Comment: [id number] 9Admin Note: MFD BY [facility] Medications Advair Diskus 500 mcg-50 mcg inhalation powder 1, puffs, Inhalation, 2 times a day, RINSE MOUTH AND THROAT AFTER USE, # 60 each, Refills 5, Tot. Refills 5, Maintenance, 03/11/23 13:16:00 EDT, Route to Pharmacy Electronically, [facility]ps[facility]PDP_[id number], [facility] #[id number], 167.5, cm, 02/03/23 18:02... Start Date: 03/11/23 Status: Ordered albuterol CFC free 90 mcg/inh inhalation aerosol See Instructions, PRN, 2-6 puffs Inhalation Every 4 hours as needed use with spacer chamber, # 1 each, Refills 1, Tot. Refills 1, Maintenance, 06/04/22 8:47:00 EST, Instructions Replace Required Details, Route to Pharmacy Electronically, [id number]... Start Date: 06/04/22 Status: Ordered albuterol CFC free 90 mcg/inh inhalation aerosol 2, puffs, Inhalation, Every 4 hours, PRN, # 18 Gm, Refills 0, Tot. Refills 0, Maintenance, 03/10/2311:02:00 EDT, Aerosol, Route to Pharmacy Electronically, NCPDP_[id number], [facility] #[id number], 167.5, cm, 02/03/23 18:02:00 EDT, Height, 52.2,... Start Date: 03/10/23 Status: Ordered Apri 0.15 mg-0.03 mg oral tablet 1 tablet, By Mouth, Daily, take same time dialy, # 28 tablet, 12 Refills, Maintenance, 03/17/22 9:23:00 EDT, Tablet, [facility] #[id number], Partial fill upon patient request if the prescriptionis for a schedule II opioid drug., 1 tablet By Mout... Start Date: 03/17/22 Status: Ordered Flonase Allergy Relief 50 mcg/inh nasal spray 1 sprays, Nares, Both, Daily, # 1 each, 0 Refills, Maintenance, 02/03/23 19:09:00 EDT, [facility] #[id number], Partial fill upon patient request if the prescription is for a schedule II opioid drug., 167.5, cm, 02/03/23 18:02:00 EDT, Height, 53.8... Start Date: 02/03/23 Status: Ordered montelukast 10 mg oral tablet 1, tablet, By Mouth, Daily, # 90 tablet, Refills 0, Maintenance, 03/11/23 14:23:00 EDT, Route to Pharmacy Electronically, [facility] #[id number], 167.5, cm, 02/03/23 18:02:00 EDT, Height, 52.2, kg, 03/10/23 10:34:00 EDT, Dry Weight Start Date: 03/11/23 Status: Ordered predniSONE 20 mg oral tablet 2 tablet = 40 mg, By Mouth, Daily, # 10 tablet, 0 Refills, Maintenance, 03/11/23 13:16:00 EDT, Tablet, [facility] #[id number], Partial fill upon patient request if the prescription is for a schedule II opioid drug., 167.5, cm, 02/03/23 18:02:00 E... Start Date: 03/11/23 Stop Date: 03/16/23 Status: Ordered SUMAtriptan 50 mg oral tablet 1 tablet = 50 mg, By Mouth, Daily, PRN for migraine headache, # 9 tablet, 1 Refills, Maintenance, 02/03/23 18:55:00 EDT, Tablet, [facility] #[id number], Partial fill upon patient request if the prescription is for a schedule II opioid drug., 167.... 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 COMPARISON: 07/02/2018 FINDINGS: LINES AND TUBES: None. LUNGS AND PLEURA: The lungs are clear. No pleural effusion. No pneumothorax. HEART, MEDIASTINUM AND ROSI: Normal. BONES AND SOFT TISSUES: Normal. IMPRESSION: Normal. WSN: [id number] Ordering Physician: Brigitte Hopper Dictated By: Santiago White MD Dictated Date/Time: 03/17/23 10:38 a Reviewed By: Santiago White MD Signed By: Santiago White MD Signed Date/Time: 03/17/23 10:38 am Transcribed By: YAMINI Transcribed Date/Time: 03/17/23 10:37 am Vital Signs Most recent to oldest [Reference Range]: 1 Height 168 cm (03/17/23 9:08 AM) Oxygen Saturation [94-100 %] 100 % (03/17/23 9:08 AM) Pulse Rate [55-90 bpm] 65 bpm (03/17/23 9:08 AM) Blood Pressure [90-138/55-84 mm Hg] 118/ 73mm Hg (03/17/23 9:08 AM) Temperature [96.8-100.4 DegF] 97.6 DegF (03/17/23 9:08 AM) Mode of Delivery (Oxygen) Room air (03/17/23 9:08 AM) Blood pressure sites Arm, left (03/17/23 9:08 AM) Temperature Route Oral (03/17/23 9:08 AM) Dry Weight 52.5 kg (03/17/23 9:08 AM) Dry Weight Obtained Via Patient/family s tated (03/17/23 9:08 AM) Height Percentile 76.65 % 1 (03/17/23 9:08 AM) Height ZScore 0.73 2 (03/17/23 9:08 AM) 1Result Comment: ^~:!Percentile Source -CDC/WHO 2Result Comment: ^~:!ZScore Source -CDC/WHO Social History Social History Type Response Smoking Status Never (less than 100 in lifetime) entered on: 11/04/20 Sex Female Patient Care team information Care Team Personnel Name: Alley Evans RN Position: [facility] RN Member Role: Primary Care Nurse Name: Marguerite Mustafa MD Position: [facility] Physician - Primary Care Member Role: PCP Address: Address: [address] [place] [address] General Pediatrics [address] Name: Aggie Kim DO Position: [facility] Resident Member Role: ED Resident Address: Address: [address] [place] [address] Name: Brigitte Hopper DO Position: [facility] Resident Member Role: Admitting Physician Address: Address: [address] [place] [address] Emergency Medicine [address] Name: Dov DRISCOLL, Samantha Position: [facility] ED RN W/OE and Tasks Member Role: Patient Care Provider Name: Jerome Maura Position: S ED TA [facility] Member Role: Networking Technician Care Team Related Persons Name: TAMMY VALENTE Address: [place] [address] Name: OSMAN VALENTE Address: home [address], [place] Name: REGINALDO BAXTER Address: home [address] [place], [place] Name: REGINALDO BAXTER Address: home [address] [place], [place] Name: SAMANTHA RDZ Address: home [address] [place] [address]
--- OUTSIDE RECORDS SUMMARY | 2024-03-09 21:00 | XMS_ITS | Continuity of Care Document ---
Author Name [employer] Organization Interface Problems Problem Status Onset Date Classification Date Reported Comments Source Medications Medication Details Route Status Patient Instructions Ordering Provider Order Date Source Fluoxetine 10 MG Oral Capsule
TAKE 1 CAPSULE BY MOUTH DAILY FOR 7 DAYS. INCREASE TO 2 DAILY Active 10/31/[address] [place] [address] Advair Diskus 500 mcg-50 mcg inhalation powder
INHALE 1 PUFF BY MOUTH TWICE DAILY. RINSE MOUTH AND THROAT AFTER USE Active 10/31/[address] [place] [address] 200 ACTUAT Albuterol 0.09 MG/ACTUAT Metered Dose Inhaler [ProAir HFA]
INHALE 2 TO 6 PUFFS BY MOUTH EVERY 4 HOURS NEEDED FOR WHEEZING AND DIRECTED 15 MINUTES BEFORE EXERCISE. Active 10/31/[address] [place] [address] montelukast 10 mg oral tablet
TAKE 1 TABLET BY MOUTH DAILY Active 10/31/[address] [place] [address] Allergies, Adverse Reactions, Alerts Substance Category Reaction Severity Reaction type Status Date Reported Comments Source Immunizations Immunization Date Given Site Status Last Updated Comments So urce Results Order Name Results Value Reference Range Date Interpretatio n Comments Source Vital Signs Vital Sign Value Date Comments Source Height NOT Growth Chart 168.5 cm 10/30/2020 [facility] Converted Height NOT Growth Chart 5.5 [ft_i] 10/30/2020 [facility] ital Weight NOT Growth Chart 56.1 kg 10/30/2020 [facility] Body surface area 1.6204 m2 10/30/2020 [facility] Converted Weight NOT Growth Chart 123.68 [lb_ap] 10/30/2020 [facility] ital Body Mass Index NOT Growth Chart 20 10/30/2020 [facility] ital Height in cms. 168.5 cm 10/30/2020 [facility] Weight in kgs 56.1 kg 10/30/2020 [facility] Body Mass Index 19.76 kg/m2 10/30/2020 [facility] Encounters Location Location Details Encounter Type Encounter Number Reason For Visit Attending Provider ADM Date DC Date Status Source [facility] Intake [id number] Marguerite sawyer MD 10/16 [facility] Outpatient [id number] Jennifer HOPE 10/30 [facility] Procedures Procedure Code Date Perfomer Comments Source
--- OUTSIDE RECORDS SUMMARY | 2024-03-09 21:00 | XMS_ITS | Referral Summary ---
Author Organization [facility] Address [address] [place] [address] Care Team Providers Care Counseling Case Manager Name Role Phone Marguerite Mustafa MD Primary Care Physician Encounter FIN Number [id number] Date(s): 10/16/20 - 10/16/[address] [address] [facility] [phone] Discharge Disposition: 01 Home (with or w/o [...]
--- OUTSIDE RECORDS SUMMARY | 2024-03-09 21:00 | XMS_ITS | Continuity of Care Document ---
Author Organization [facility] Address [address] [place] [address]- Care Team Providers Care Front Desk Agent Name Role Phone Marguerite Mustafa MD Primary Care Physician [phone] Encounter [facility] Date(s): 06/25/21 - 10/23/21 [facility] [address] [place] [address]- Attending Physician: Ernst Wilson MD Admitting Physician: [...] Vaccine (old term) 03 Given 1Result Comment: [id number] 2Result Comment: 18675-643-87 3Admin Note: vis given 01.01.2014 4Early/Late Reason: Other : 5Admin Note: SANOFI 6Result Comment: [facility] [id number] 7Result Comment: [id number] 8Result Comment: 2722-0542-10 9Admin Note: MFD BY SANOFI Medications Advair Diskus 500 mcg-50 mcg inhalation powder 1, puffs, Inhalation, 2 times a day, RINSE MOUTH AND THROAT AFTER USE, # 60 each, Refills 5, Tot. Refills 5, Maintenance, 08/19/21 16:30:00 EDT, [id number][id number], 168.4, cm, 08/19/21 16:16... Start Date: 08/19/21 [...] 2 Refills, Maintenance, 08/19/21 16:30:00 EDT, Solution, [facility] #[id number], 168.4, cm, 08/19/21 16:16:00 EDT, Height, 56, [...] 0 Refills, Maintenance, 08/19/21 16:32:00 EDT, Tablet, [facility] #[id number], Partial fill upon patient request if the prescription is for a schedule II opioid drug., 168.4, cm, 08/19/21 16:16:00 E... Start Date: 08/19/21 Status: Ordered fluvoxaMINE 50 mg oral tablet 1 tablet = 50 mg, By Mouth, Daily at bedtime, # 30 tablet, 2 Refills, Maintenance, 10/04/21 11:40:00 EDT, Tablet, [facility] #[id number], Partial fill upon patient request if the prescription isfor a schedule II opioid drug., 168.4, cm, 09/15/21... Start Date: 10/04/21 Stop Date: 01/02/22 Status: Ordered montelukast 10 mg oral tablet 10 mg, 1, tablet, By Mouth, Daily in PM, # 30 tablet, Refills 3, Tot. Refills 3, Maintenance, 08/19/21 16:30:00 EDT, Route to Pharmacy Electronically, [facility] #[id number], Partial fill upon patient request if the prescription is for a schedule... 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
--- OUTSIDE RECORDS SUMMARY | 2024-03-09 21:00 | XMS_ITS | Referral Summary ---
Author Organization [facility] Address [address] [place] [address] Care Team Providers Care Junior Brand Manager Name Role Phone Marguerite Mustafa MD Primary Care Physician [phone] Encounter FIN Number [id number] Date(s): 10/30/20 - 10/30/[address] [address] [facility] [phone] Discharge Disposition: 01 Home (with or w/o [...]
--- OUTSIDE RECORDS SUMMARY | 2024-03-09 21:00 | XMS_ITS | Referral Summary ---
Author Organization [facility] Address [address] [place] [address] Care Team Providers Care Conservation Or Heritage Architect Name Role Phone Marguerite Mustafa MD Primary Care Physician Encounter FIN Number [id number] Date(s): 10/30/20 - 10/30/[address] [address] [facility] [phone] Discharge Disposition: 01 Home (with or w/o [...]
--- OUTSIDE RECORDS SUMMARY | 2024-03-09 21:00 | XMS_ITS | Continuity of Care Document ---
Author Organization [facility] Address [address] [place] [address]- Care Team Providers Care Game Breeding Farm Manager Name Role Phone Fouzia Moreno Primary Care Physician [phone] Encounter [facility] Date(s): 11/15/19 - 12/15/19 [facility] [address] [place] [address]- Allergies, Adverse Reactions, Alerts Substance Reaction Severity [...] Vaccine (old term) 03 Given 1Result Comment: 27655-861-92 2Admin Note: vis given 01.01.2014 3Early/Late Reason: Other : 4Admin Note: SANOFI 5Result Comment: [id number] 6Result Comment: [id number] 7Admin Note: MFD BY SANOFI Medications Adderall XR 15 mg oral capsule, extended release 1 capsule = 15 mg, By Mouth, Daily in AM, # 30 capsule, 0 Refills, Maintenance, 07/05/19 17:28:00 EST, CR Capsule, [facility] #[id number], 1 capsule By Mouth Daily in AM, [...] 13:20:00 EDT, Powder, Route to Pharmacy Electronically, [facility]_[id number], [facility] #[id number], 169.1, cm, 2... Start Date: 12/13/19 Status: Ordered albuterol 0.083% inhalation solution 3 mL = 2.5 mg, Inhalation, Every 6 hours, # 120 each, 2 Refills, Maintenance, 12/14/19 14:25:00 EDT, Solution, [facility] #[id number], 169.1, cm, 12/13/19 10:35:00 EDT, Height, 58, [...] 12/13/19 13:21:00 EDT, Route to Pharmacy Electronically, [facility] #[id number], 169.1, cm, 12/13/19 10:35:00 EDT, Height, 58, kg, 12/13/19 10:35:00 EDT, Dry... 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
--- OUTSIDE RECORDS SUMMARY | 2024-03-09 21:00 | XMS_ITS | Continuity of Care Document ---
Author Organization [facility] Address [address] [place] [address]- Care Team Providers Care Hide Curer Name Role Phone Ramsey LEMUS, Marguerite Primary Care Physician [phone] Encounter [facility] Date(s): 08/16/23 - 09/15/23 [facility] [address] [place] [address]- Allergies, Adverse Reactions, Alerts No Known Allergies [...] Vaccine (old term) 03 Given 1Result Comment: 36845-240-00 2Result Comment: [id number] 3Admin Note: vis given 01.01.2014 4Early/Late Reason: Other : 5Admin Note: SANOFI 6Result Comment: [facility] [id number] 7Result Comment: [id number] 8Result Comment: [id number] 9Admin Note: MFD BY SANOFI Medications Advair Diskus 500 mcg-50 mcg inhalation powder 1, puffs, Inhalation, 2 times a day, RINSE MOUTH AND THROAT AFTER USE, # 60 each, Refills 5, Tot. Refills 5, Maintenance, 03/11/23 13:16:00 EDT, Route to Pharmacy Electronically, VAPDP_[id number], [facility] #[id number], 167.5, cm, 02/03/23 18:02... Start Date: 03/11/23 Status: Ordered Flonase Allergy Relief 50 mcg/inh nasal spray 1 sprays, Nares, Both, Daily, # 1 each, 0 Refills, Maintenance, 02/03/23 19:09:00 EDT, [facility] #[id number], Partial fill upon patient request if the prescription is for a schedule II opioid drug., 167.5, cm, 02/03/23 18:02:00 EDT, Height, 53.8... Start Date: 02/03/23 Status: Ordered Isibloom 0.15 mg-0.03 mg oral tablet 1 tablet, By Mouth, Daily, # 28 tablet, 5 Refills, Maintenance, 09/12/23 12:45:00 EDT, [facility] #[id number], 28, TAKE 1 TABLET BY MOUTH DAILY TAKE AT THE SAME TIME DAILY, 170, cm, 08/20/23 1:30:00 EDT, Height, 54, kg, 08/20/23 1:30:00 EDT, Dry... Start Date: 09/12/23 Status: Ordered montelukast 10 mg oral tablet 1, tablet, By Mouth, Daily, # 90 tablet, Refills 0, Maintenance, 03/11/23 14:23:00 EDT, Route to Pharmacy Electronically, [facility] #[id number], 167.5, cm, 02/03/23 18:02:00 EDT, Height, 52.2, kg, 03/10/23 10:34:00 EDT, Dry Weight Start Date: 03/11/23 Status: Ordered predniSONE 20 mg oral tablet 2 tablet = 40 mg, By Mouth, Daily, # 10 tablet, 0 Refills, Maintenance, 03/11/23 13:16:00 EDT, Tablet, [facility] #[id number], Partial fill upon patient request if the prescription is for a schedule II opioid drug., 167.5, cm, 02/03/23 18:02:00 E... Start Date: 03/11/23 Stop Date: 03/16/23 Status: Ordered SUMAtriptan 50 mg oral tablet 1 tablet = 50 mg, By Mouth, Daily, PRN for migraine headache, # 9 tablet, 1 Refills, Maintenance, 02/03/23 18:55:00 EDT, Tablet, [facility] #[id number], Partial fill upon patient request if the prescription is for a schedule II opioid drug., 167.... 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, allergy to pollen, dust mite, animal dander- Cetirizine and Flunisolide 4Saw Pulm- Increased Advair and added Qnasal; Given oral steroids 2/2 URI triggering her asthma 5Saw Pulm 11/2016- normal spirometry; continue Advair and Singulair - Saw pulm Still on Advair and Singulair; Added Flonase for seasonal allergies - Saw Pulm; On Advair and Singulair 8Seen my Neuro and Savannah Keita ([facility]) started on Clonidine Social History Social History Type Response Smoking Status Never (less than 100 in lifetime) entered on: 11/04/20 Sex Female Patient Care team information Care Team Personnel Name: Alley Evans RN Position: [facility] RN Member Role: Primary Care Nurse Name: Marguerite Mustafa MD Position: [facility] Physician - Primary Care Member Role: PCP Address: Address: [address] [place] [address] [place] [address]- Care Team Related Persons Name: TAMMY VALENTE Address: [place] [address] Name: OSMAN VALENTE Address: [address] [place] [address] Name: REGINALDO BAXTER Address: home [address] [place], [place] Name: REGINALDO BAXTER Address: [address] [place], [place] Name: SAMANTHA RDZ Address: home [address] [place] [address]
--- OUTSIDE RECORDS SUMMARY | 2024-03-09 21:00 | XMS_ITS | Referral Summary ---
Author Organization [facility] Address [address] [place] [phone] Care Team Providers Care Wood Web Weaving Machine Operator Name Role Phone Marguerite Mustafa MD Primary Care Physician Encounter FIN Number [id number] Date(s): 10/30/20 - 10/30/[address] [address] [facility] [phone] Discharge Disposition: 01 Home (with or w/o [...]
--- OUTSIDE RECORDS SUMMARY | 2024-03-09 21:00 | XMS_ITS | Continuity of Care Document ---
Author Organization [facility] Address [address] [place] [address]- Care Team Providers Care Towel Sorter Name Role Phone Ramsey LEMUS, Marguerite Primary Care Physician Encounter [facility] Date(s): 06/28/23 - 07/28/23 [facility] [address] [place] [address]- Attending Physician: Frank Stein Referring Physician: Ruby [...] Vaccine (old term) 03 Given 1Result Comment: [id number] 2Result Comment: [id number] 3Admin Note: vis given 01.01.2014 4Early/Late Reason: Other : 5Admin Note: SANOFI 6Result Comment: [facility] [id number] 7Result Comment: [id number] 8Result Comment: [id number] 9Admin Note: MFD BY [facility] Medications Advair Diskus 500 mcg-50 mcg inhalation powder 1, puffs, Inhalation, 2 times a day, RINSE MOUTH AND THROAT AFTER USE, # 60 each, Refills 5, Tot. Refills 5, Maintenance, 03/11/23 13:16:00 EDT, [id number] #[id number], 167.5, cm, 02/03/23 18:02... Start Date: 03/11/23 Status: Ordered Apri 0.15 mg-0.03 mg oral tablet 1 tablet, By Mouth, Daily, take same time dialy, # 28 tablet, 12 Refills, Maintenance, 03/17/22 9:23:00 EDT, Tablet, [facility] #[id number], Partial fill upon patient request if the prescriptionis for a schedule II opioid drug., 1 tablet By Mout... Start Date: 03/17/22 Status: Ordered Flonase Allergy Relief 50 mcg/inh nasal spray 1 sprays, Nares, Both, Daily, # 1 each, 0 Refills, Maintenance, 02/03/23 19:09:00 EDT, [facility] #[id number], Partial fill upon patient request if the prescription is for a schedule II opioid drug., 167.5, cm, 02/03/23 18:02:00 EDT, Height, 53.8... Start Date: 02/03/23 Status: Ordered montelukast 10 mg oral tablet 1, tablet, By Mouth, Daily, # 90 tablet, Refills 0, Maintenance, 03/11/23 14:23:00 EDT, Route to Pharmacy Electronically, [facility] #[id number], 167.5, cm, 02/03/23 18:02:00 EDT, Height, 52.2, kg, 03/10/23 10:34:00 EDT, Dry Weight Start Date: 03/11/23 Status: Ordered predniSONE 20 mg oral tablet 2 tablet = 40 mg, By Mouth, Daily, # 10 tablet, 0 Refills, Maintenance, 03/11/23 13:16:00 EDT, Tablet, [facility] #[id number], Partial fill upon patient request if the prescription is for a schedule II opioid drug., 167.5, cm, 02/03/23 18:02:00 E... Start Date: 03/11/23 Stop Date: 03/16/23 Status: Ordered SUMAtriptan 50 mg oral tablet 1 tablet = 50 mg, By Mouth, Daily, PRN for migraine headache, # 9 tablet, 1 Refills, Maintenance, 02/03/23 18:55:00 EDT, Tablet, [facility] #[id number], Partial fill upon patient request if the prescription is for a schedule II opioid drug., 167.... 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 RN Position: [facility] RN Member Role: Primary Care Nurse Name: Marguerite Mustafa MD Position: [facility] Physician - Primary Care Member Role: PCP Address: Address: [address] [place] [address]- Care Team Related Persons Name: TAMMY VALENTE Address: [place] [address] Name: OSMAN VALENTE Address: [address] [place] [address] Name: REGINALDO BAXTER Address: [address] [place] [address] Name: REGINALDO BAXTER Address: [address] [place] [address] Name: SAMANTHA RDZ Address: home [address] [place] [address]
--- OUTSIDE RECORDS SUMMARY | 2024-03-09 21:00 | XMS_ITS | Continuity of Care Document ---
Author Organization [facility] Address [address] [place] [address]- Care Team Providers Care Toll Service Observer Name Role Phone Marguerite Mustafa MD Primary Care Physician Encounter [facility] Date(s): 12/28/22 - 04/20/[address] [address]- Attending Physician: Not on Staff, Attending MD Allergies, Adverse Reactions, Alerts No Known Allergies Immunizations Given and Recorded Vaccine Date Status Refusal Reason SARS-CoV-2 (COVID-19) mRNA-8393 vaccine 01/11/22 R ecorded influenza virus vaccine, [...] Vaccine (old term) 03 Given 1Result Comment: [id number] 2Result Comment: [id number] 3Admin Note: vis given 01.01.2014 4Early/Late Reason: Other : 5Admin Note: SANOFI 6Result Comment: [facility] [id number] 7Result Comment: [id number] 8Result Comment: [id number] 9Admin Note: [facility] Medications Advair Diskus 500 mcg-50 mcg inhalation powder 1, puffs, Inhalation, 2 times a day, RINSE MOUTH AND THROAT AFTER USE, # 60 each, Refills 5, Tot. Refills 5, Maintenance, 03/11/23 13:16:00 EDT, Route to Pharmacy Electronically, NCPDP_[id number], [facility] #[id number], 167.5, cm, 02/03/23 18:02... Start Date: 03/11/23 [...] 03/10/2311:02:00 EDT, Aerosol, Route to Pharmacy Electronically, UTPDP_[id number], [facility] #[id number], 167.5, cm, 02/03/23 18:02:00 EDT, Height, 52.2,... Start Date: 03/10/23 Status: Ordered Apri 0.15 mg-0.03 mg oral tablet 1 tablet, By Mouth, Daily, take same time dialy, # 28 tablet, 12 Refills, Maintenance, 03/17/22 9:23:00 EDT, Tablet, [facility] #[id number], Partial fill upon patient request if the prescriptionis for a schedule II opioid drug., 1 tablet By Mout... Start Date: 03/17/22 Status: Ordered Flonase Allergy Relief 50 mcg/inh nasal spray 1 sprays, Nares, Both, Daily, # 1 each, 0 Refills, Maintenance, 02/03/23 19:09:00 EDT, [facility] #[id number], Partial fill upon patient request if the prescription is for a schedule II opioid drug., 167.5, cm, 02/03/23 18:02:00 EDT, Height, 53.8... Start Date: 02/03/23 Status: Ordered montelukast 10 mg oral tablet 1, tablet, By Mouth, Daily, # 90 tablet, Refills 0, Maintenance, 03/11/23 14:23:00 EDT, Route to Pharmacy Electronically, [facility] #[id number], 167.5, cm, 02/03/23 18:02:00 EDT, Height, 52.2, kg, 03/10/23 10:34:00 EDT, Dry Weight Start Date: 03/11/23 Status: Ordered predniSONE 20 mg oral tablet 2 tablet = 40 mg, By Mouth, Daily, # 10 tablet, 0 Refills, Maintenance, 03/11/23 13:16:00 EDT, Tablet, [facility] #[id number], Partial fill upon patient request if the prescription is for a schedule II opioid drug., 167.5, cm, 02/03/23 18:02:00 E... Start Date: 03/11/23 Stop Date: 03/16/23 Status: Ordered SUMAtriptan 50 mg oral tablet 1 tablet = 50 mg, By Mouth, Daily, PRN for migraine headache, # 9 tablet, 1 Refills, Maintenance, 02/03/23 18:55:00 EDT, Tablet, [facility] #[id number], Partial fill upon patient request if the prescription is for a schedule II opioid drug., 167.... 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 Team Personnel Name: Nathan DRISCOLL, Alley Position: [facility] RN Member Role: Primary Care Nurse Name: Marguerite Mustafa MD Position: [facility] Physician - Primary Care Member Role: PCP Address: Address: [address] [place] [address]- Care Team Related Persons Name: TAMMY VALENTE Address: [place] [address] Name: OSMAN VALENTE Address: [address] [place], [place] Name: REGINALDO BAXTER Address: home [address] [place], [place] Name: REGINALDO BAXTER Address: [address] [place], [place] Name: SAMANTHA RDZ Address: home [address] [place] [address]
--- OUTSIDE RECORDS SUMMARY | 2024-03-09 21:00 | XMS_ITS | Referral Summary ---
Author Organization [facility] Address [address] [place] [address] Care Team Providers Care General Manager Food Name Role Phone Marguerite Mustafa MD Primary Care Physician [phone] Encounter FIN Number [id number] Date(s): 10/16/20 - 10/16/[address] [address] [facility] [phone] Discharge Disposition: 01 Home (with or w/o IV fusion or DME) Referring Physician: Marguerite Mustafa MD Social History Social History Type Response Sex Female
--- OUTSIDE RECORDS SUMMARY | 2024-03-09 21:00 | XMS_ITS | Referral Summary ---
Author Organization [facility] Address [address] [place] [address] Care Team Providers Care Commercial Accountant Name Role Phone Marguerite Mustafa MD Primary Care Physician Encounter FIN Number [id number] Date(s): 10/16/20 - 10/16/[address] [address] [facility] [phone] Discharge Disposition: 01 Home (with or w/o IV fusion or DME) Referring Physician: Marguerite Mustafa MD Social History Social History Type Response Sex Female
[2024-03-09] MEDS: Ondansetron ODT 4 MG TAB.RAPDIS TRANSLINGU (22:16)
[2024-03-09] MEDS: SUMAtriptan succinate 6 MG/0.5 ML VIAL SUBCUT (22:19)
[2024-03-09] MEDS: Butalb/Acetamin/Caff 50/325/40 TABLET 1 TAB PO (22:19)
[2024-03-09 23:53] LABS: HCG Quantitative < 2 mIU/mL
[2024-03-10] MEDS: 0.9 % Sodium Chloride 1,000 ML 999 ML IV (00:06)
[2024-03-10] MEDS: Metoclopramide HCl 10 MG/2 ML VIAL IVPUSH (00:06)
[2024-03-10] MEDS: Ketorolac Tromethamine 30 MG/ML VIAL IVPUSH (00:06)
[2024-03-10] MEDS: diphenhydrAMINE HCL 50 MG/ML VIAL 25 MG IVPUSH (00:07)
[2024-03-10] MEDS: dexAMETHasone sod phosphate 10 MG/ML VIAL IVPUSH (01:23)
[2024-03-10 03:25] VITALS: BP 115/55; PULSE 78; RESP 16; TEMP 36.8; O2SAT 99
== END 2024-03-10 03:25 | disposition home or self-care (01) ==
PROVIDERS: Nurse Practitioner Family; Emergency Provider Internal Medicine; PCP Pediatrics
DX: G43.909 Migraine, unspecified, not intractable, without status migrainosus (principal); R11.2 Nausea with vomiting, unspecified; R94.31 Abnormal electrocardiogram [ECG] [EKG]; I49.8 Other specified cardiac arrhythmias; Z79.899 Other long term (current) drug therapy; Z03.818 Encounter for observation for suspected exposure to other biological agents ruled out
CPT/HCPCS: 0241U; 71046; 80053; 83690; 83735; 84484; 84702; 85025; 93005; 96361; 96372; 96374; 96375; 99284; J1100; J1200; J1885; J2765; J3030

== ENCOUNTER → 2024-03-09 19:33 | Outpatient (BNV) | payer OTHER, SELFPAY | PROVIDERS: Emergency Provider Internal Medicine; PCP Pediatrics; Visit Provider Internal Medicine Cardiovascular Disease | DX: I49.9 Cardiac arrhythmia, unspecified (principal) | CPT/HCPCS: 93010 ==

== ENCOUNTER 2024-03-16 | Outpatient (REF) | payer OTHER, SELFPAY | END 2024-03-16 00:01 | disposition home or self-care (01) | LOC: HO.RESP | PROVIDERS: Visit Provider Hospitalist | DX: J45.909 Unspecified asthma, uncomplicated (principal) | CPT/HCPCS: 94010; 94640; 94727; 94729 ==

== ENCOUNTER 2024-04-03 13:45 | Outpatient (AMB) | payer OTHER, SELFPAY ==
--- NOTE | 2024-04-03 13:48 | MHC.OFFVIS ---
Vital Signs 04/03/24 13:49 Height 5 ft 6 in Weight 124 lb 8.979 oz BMI 20.1 BP 98/64 Blood Pressure Location Rt brachial Position Sitting Pulse 80 Pulse Source Pulse Oximeter Pulse Oximetry (%) 99 Oxygen Delivery Method Room Air Intake Visit Reasons: asthma Allergies Seasonal Allergies Allergy (Verified 04/03/24 13:52) Runny Nose HPI Comments Details: The patient is a 18 year woman with known history of lifelong asthma. The patient initially was been monitor closely by pediatric Pulmonary. Now she is no longer being followed. She had been very stable on her Advair Diskus. Although recently her respiratory symptoms have been worsening. The patient does have underlying allergies. she has required multiple courses of prednisone. Currently she is completing a prednisone taper. When she goes on prednisone his symptoms improved dramatically. The patient did have allergy testing in the past but many years ago and does not remember exactly what she is allergic to. And her blood work in the past she also had elevations in her eosinophil level. 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 Will go ahead and maximize her respiratory therapy. In addition to that she does complaint of nasal congestion in addition to postnasal drip and cough. As far as allergies the patient does have cats and oxygen house. She denies any smoking or vaping. She denies any other exposure to fumes although fairly reason the patient did have an exposure to bleach where did bother her breathing. Denies any mold in the bathroom or in the basement. at this point will going to go ahead and maximize her respiratory therapy by [facility] placing her on Trelegy. In addition to that she undergo PFTs and blood work including allergy testing in order to assess her asthma phenotype and also to further treat her significant asthma symptoms. 04/04/2024 the patient is here for a pulmonary follow-up visit. Overall she is doing okay. She still continues to have respiratory complaints and wheezing on a daily basis. She is using her Ventolin inhaler. She is not using Advair any longer and she did not supervisor opening and picking the Trelegy inhaler. In addition to that she did not have the allergy testing she did not have her PFTs. She needs a maintenance inhaler. Therefore will send her Symbicort to the pharmacy where she can use it twice a day and also transition to as needed if her symptoms improve. In addition to that she can have a rescue inhaler. She does not like Ventolin does not feel like works well for her. I will send her leave albuterol to see if this works a little better for her. If her symptoms do not improve with that point will talk about seriously about doing the blood work for the allergy testing to see if she is a candidate for biologics and also her pulmonary function studies. The patient will follow-up in 6 months. She will get her flu shot today. [facility] Medical History Chronic allergic rhinitis Asthma Allergies Social History Alcohol intake: never Patient Tobacco Use Status: Never used Tobacco Review of Systems Const Denies fever(s) Eyes Reports no additional complaints ENT Reports nasal congestion and Reports nasal discharge Card Denies chest pain Resp Reports cough and Reports wheezing GI Reports no additional complaints Musc Reports no additional complaints Skin/Breast Denies rash Neuro Reports no additional complaints Endo Reports no additional complaints Gallo/Lymph Denies lymphadenopathy Aller/Immun Reports wheezing Physical Exam Vital Signs: Last Vital Signs Pulse 80 04/03/24 13:49 BP 98/64 04/03/24 13:49 Pulse Ox 99 04/03/24 13:49 Oxygen Delivery Method Room Air 04/03/24 13:49 BMI result Body Mass Index 20.1 Const General: comfortable HEENT Head: Yes normocephalic Neck Neck: Yes supple Chest Chest palpation & inspection: normal inspection of the chest Resp Effort & Inspection: normal respiratory effort Auscultation: clear to auscultation bilaterally and no wheezes Cardio Heart sounds: S1 normal heart sound present and S2 normal heart sound present GI Palpation (GI): Soft to palpation Skin General skin exam: no rashes or lesions noted Extrem General: Yes no clubbing, cyanosis or edema Office Procedures Flu Questionnaire Does the patient have a severe egg allergy?: No Does the patient have severe life threatening allergies?: No Does the patient have a fever or illness today?: No Has the patient ever had Guillain-Johnsonburg Syndrome?: No Has the patient ever had any past reaction to a flu shot?: No Immunizations Fluarix Triv [id number] (PF) 45 mcg (15 mcg x 3)/0.5 mL IM syringe Performing Provider: Arthur Garcia MD Performing Location[facility] Administered by: Nichelle Uribe LPN on 04/03/24 14:20 Dose Route Admin Location Dispensed Lot Number Expiration Date ND Mail Machine Operator 0.5 mL IM Right Deltoid 0.5 mL [id number] 11/12/24 17737-079-17 [email or web address] VIS Given Date VIS Provided VIS Publication Date 04/03/24 Single Vaccine 20 Eligibility Eligibility Date Funding Source Not [facility] Eligible 04/03/24 Private Assessment & Plan Assessment & Plan (1) Asthma: Code(s): J45.909 - Unspecified asthma, uncomplicated Category: Medical Qualifiers: Asthma complication type: uncomplicated Asthma persistence: persistent Asthma severity: moderate Qualified Code(s): J45.40 - Moderate persistent asthma, uncomplicated (2) Allergies: Code(s): T78.40XA - Allergy, unspecified, initial encounter Category: Medical Qualifiers: Encounter type: initial encounter Qualified Code(s): T78.40XA - Allergy, unspecified, initial encounter (3) Chronic allergic rhinitis: Code(s): J30.9 - Allergic rhinitis, unspecified Category: Medical Plan start Symbicort continue Singulair, monitor for mood changes Bloodwork/allergy testing nasal therapy as needed anti histamine therapy F/U 6 months Orders: Orders Influenza [id number] Immunization Today J45.41 - Moderate persistent asthma with (acute) exacerbation Medications: New levalbuterol tartrate 45 mcg/actuation (Xopenex HFA) 2 puffs inhalation Q6H PRN 15 grams 11RF shortness of breath or wheezing 30 days J45.909 - Unspecified asthma, uncomplicated budesonide-formoterol 160-4.5 mcg/actuation (Symbicort) 2 puffs inhalation BID 10.2 grams 11RF 30 days J44.89 - Other specified chronic obstructive pulmonary disease albuterol sulfate 2.5 mg (3 mL) inhalation Q6H PRN 90 mL 11RF shortness of breath or wheezing 30 days Changed From montelukast 10 mg PO BEDTIME To montelukast 10 mg PO BEDTIME 90 tabs 3RF 90 days Coding Level of Care Code Est Pt Level 4 (24898) Diagnoses Moderate persistent asthma without complication J45.40 Asthma complication type: uncomplicated Asthma persistence: persistent Asthma severity: moderate Allergy, initial encounter T78.40XA Encounter type: initial encounter Chronic allergic rhinitis J30.9 Time Spent (min) 16
[2024-04-03 13:49] VITALS: BP 98/64; PULSE 80; O2SAT 99; BMI 20.1
== END 2024-04-03 14:14 | disposition home or self-care (01) ==
PROVIDERS: PCP Pediatrics; Visit Provider Hospitalist
DX: J45.40 Moderate persistent asthma, uncomplicated (principal); T78.40XA Allergy, unspecified, initial encounter; J30.9 Allergic rhinitis, unspecified; J45.41 Moderate persistent asthma with (acute) exacerbation
CPT/HCPCS: 99214

== ENCOUNTER → 2024-04-03 13:45 | Outpatient (BNVA) | payer OTHER, SELFPAY | PROVIDERS: PCP Pediatrics; Visit Provider Hospitalist | DX: Z23 Encounter for immunization (principal); J45.40 Moderate persistent asthma, uncomplicated; J30.9 Allergic rhinitis, unspecified; T78.40XA Allergy, unspecified, initial encounter | CPT/HCPCS: 90471; 90656; 99212 ==

== ENCOUNTER 2024-06-08 06:27 | Emergency (ER) | payer OTHER, SELFPAY ==
--- NOTE | ~2024-06-08 | XR_ITS ---
CLINICAL HISTORY: asthma 2 view chest x-ray Comparison: 03/09/2024 Findings: The lungs are clear. Normal size heart. No acute fracture. IMPRESSION: 1. No acute findings. This document has been electronically signed by: Stan Mora MD on 06/08/2024 07:09:35
[2024-06-08 06:30] VITALS: BP 114/75; PULSE 89; RESP 18; TEMP 36.6; O2SAT 100; BMI 19.5
[2024-06-08] MEDS: predniSONE 20 MG TABLET 40 MG PO (07:24)
[2024-06-08 07:32] LABS: Influenza A PCR NEGATIVE (Negative); Influenza B PCR NEGATIVE (Negative); Resp Syncy Virus RNA Qual PCR NEGATIVE (Negative); SARS COV2 PCR INHOUSE NEGATIVE (Negative)
[2024-06-08 07:33] VITALS: PULSE 84; RESP 18; O2SAT 97
--- NOTE | 2024-06-08 07:35 | ED.ASTHMA ---
HPI - Asthma General Chief Complaint: Asthma Stated Complaint: asthma Time Seen by Provider: 06/08/24 07:06 Source: patient and old records reviewed Mode of arrival: ambulatory Limitations: no limitations History of Present Illness ED Provider: DEVON PIERRE Narrative: 18 yo female with PMH of asthma who has a nebulizer at home sick x 4 days with cough, sore throat, patches on tongue, upset stomach but no n/v/d. She notes her asthma got worse last night and she wasn't responding to nebs. She feels her chest is tight. MD complaint: asthma attack , shortness of breath and wheezing Onset (ago): day(s) (4) Severity: moderate Context: recent URI Associated symptoms: productive cough Asthma History: childhood onset Treatments Prior to Arrival: inhaled bronchodilator Related Data Home Medications ?Medication ?Instructions ?Recorded ?Confirmed albuterol sulfate 90 mcg/actuation 2 puff inhalation Q4H PRN 05/15/23 05/15/23 aerosol inhaler shortness of breath or wheezing cholecalciferol (vitamin D3) 25 25 mcg PO DAILY 05/15/23 05/15/23 mcg (1,000 unit) capsule (Vitamin D3) desogestrel 0.15 mg-ethinyl 1 tab PO DAILY 05/15/23 05/15/23 estradiol 0.03 mg tablet (Isibloom) cetirizine 10 mg tablet 10 mg PO DAILY 01/09/24 fluticasone propionate 50 1 spray intranasal Q12H 01/09/24 mcg/actuation nasal spray,suspension nebulizers 01/09/24 Previous Rx's ?Medication ?Instructions ?Recorded fluticasone fur. 200 mcg-umeclid 1 inh inhalation DAILY 30 days #60 01/09/24 62.5 mcg-vilant 25 mcg ea inhalat.powder (Trelegy Ellipta) zaoykqkxnh-oqaezdsuemhjf-qqkklnyr 1 tab PO Q6H PRN haeadace #20 tabs 03/10/24 50 mg-325 mg-40 mg tablet ondansetron 4 mg disintegrating 4 mg PO Q6-8H PRN nausea and 03/10/24 tablet vomiting #7 tabs albuterol sulfate 2.5 mg/3 mL 2.5 mg (3 mL) inhalation Q6H PRN 04/03/24 (0.083 %) solution for nebulization shortness of breath or wheezing 30 days #90 mL budesonide-formoterol HFA 160 2 puff inhalation BID 30 days 04/03/24 mcg-4.5 mcg/actuation aerosol #10.2 grams inhaler (Symbicort) levalbuterol tartrate 45 2 puff inhalation Q6H PRN 04/03/24 mcg/actuation aerosol inhaler shortness of breath or wheezing 30 (Xopenex HFA) days #15 grams montelukast 10 mg tablet 10 mg PO BEDTIME 90 days #90 tabs 04/03/24 azithromycin 250 mg tablet 250 mg PO DAILY 4 days #4 tabs 06/08/24 nystatin 100,000 unit/mL oral 400,000 unit (4 mL) PO QID 7 days 06/08/24 suspension #112 mL prednisone 20 mg tablet 40 mg (2 x 20 mg) PO DAILY 4 days 06/08/24 #8 tabs Allergies Allergy/AdvReac Type Severity Reaction Status Date / Time Seasonal Allergies Allergy Runny Nose Verified 06/08/24 06:31 Review of Systems Review of Systems: Constitutional : pos Fever, pos Chills ENT/Mouth : No Hoarseness, No sore throat, No Rhinorrhea Eyes: No Redness, No Discharge, No Vision Changes Cardiovascular : No Chest Pain, positive SOB, positive Dyspnea on Exertion, No Edema Respiratory : positive Cough, pos Sputum, positive Wheezing, Gastrointestinal : No Nausea, No Vomiting, No Diarrhea, No abdominal Pain Genitourinary : No Dysuria, No Hematuria Musculoskeletal : No joint pain, No Myalgias Skin : No rash Neuro : No Weakness, No Numbness, No Headache Psych : No anxiety, depression All other systems reviewed and are negative [facility] Past Medical History Attestation statement: The following information was validated with the patient. Source: old records reviewed Medical History Chronic allergic rhinitis Asthma Allergies Social History Social History Alcohol intake: never Patient Tobacco Use Status: Never used Tobacco Advance Directives: No Advance Directives Information Provided: No Do you have a plan to hurt others: No Plan Physical Exam Vital Signs: Vital Signs: Last Vital Signs Temp 97.8 F 06/08/24 06:30 Pulse 84 06/08/24 07:33 Resp 18 06/08/24 07:33 BP 114/75 06/08/24 06:30 Pulse Ox 100 06/08/24 06:30 O2 Del Method Room Air 06/08/24 06:30 BMI result Body Mass Index 19.5 Appearance: Alert. Oriented X3. No acute distress. Eyes: Pupils equal, round and reactive to light. ENT: Pharynx mild erythema, white patches on tongue, no drooling Neck: Normal inspection. Neck supple. CVS: Normal heart rate and rhythm. Pulses normal. Respiratory: No respiratory distress. Breath sounds mild exp wheezes throughout Abdomen: Soft and nontender. Skin: Skin warm and dry. Normal skin color. Normal skin turgor. Extremities: No lower extremity edema. No calf ttp Neuro: Oriented X 3. No motor deficit. No sensory deficit. CN2-12 intact Medications Administered Discontinued Medications Generic Name Dose Route Start Last Admin Trade Name Freq PRN Reason Stop Dose Admin Albuterol Sulfate 2.5 mg/ 0 mg 06/08/24 07:32 06/08/24 07:36 Albuterol/Ipratropium 3 ml INHALE 06/08/24 07:33 5 dose ONCE ONE Administration Prednisone 40 mg 06/08/24 07:19 06/08/24 07:24 Prednisone 20 Mg Tablet PO 06/08/24 07:20 40 mg ONCE ONE Administration Medical Decision Making Medical Decision Making [facility] Narrative: 18 yo female with PMH of asthma here with c/o asthma exacerbation along with viral syndrome. At this time CXR, viral panel, strep swab - will start on steroids, nebs, anticipate she also has thrush will need nystatin as well. She is not hypoxic and no resp distress Differential Diagnosis Differential Diagnoses: The differential diagnosis associated with the presentation includes viral syndrome, thrush, pneumonia, bronchitis Admission/Observation Consideration of admission/observation: Escalation of care including admission/observation considered feels better not toxic, VS stable stable for DC Lab Data [facility] Lab Attestation statement: I reviewed the patient's lab results. Labs: Lab Results 06/08/24 06/08/24 Range/Units 06:50 07:25 Influenza Type A (PCR) NEGATIVE (Negative) Influenza Type B (PCR) NEGATIVE (Negative) RSV RNA Qual (PCR) NEGATIVE (Negative) SARS-CoV-2 RNA (RT-PCR) NEGATIVE (Negative) S. pyogenes GrpA JACOBO Negative (Negative) Independent Interpretation I performed an independent interpretation of an: Plain X-Ray (normal) Radiology Impression Discussion of test interpretation with radiology: I have reviewed the radiologist's reading. External Record Review External record reviewed: Outpatient record Prescription Management I considered prescription management with: Antibiotic and Other Discharge Plan Discharge Clinical Impression: Bronchitis, Thrush Patient Disposition: Home, Self-Care Instructions: Oral Candidiasis (ED), Acute Bronchitis (ED) Additional Instructions: negative for flu covid rsv chest xray normal rest and stay hydrated use your nebulizer return for any worsening symptoms or concerns On azithromycin, call your provider if you develop new ringing in your ears, new problems hearing, dizziness, palpitations, abdominal pain, nausea, or diarrhea. start next dose of antibiotic tomorrow Prescriptions: New azithromycin 250 mg tablet 250 mg PO DAILY 4 Days Qty: 4 0RF Rx Instructions: start on day 2 of therapy prednisone 20 mg tablet 40 mg PO DAILY 4 Days Qty: 8 0RF nystatin 100,000 unit/mL suspension 400,000 unit PO QID 7 Days Qty: 112 0RF Rx Instructions: administer 1/2 of dose in each side of the mouth No Action ivdhcobtyt-qqmnbpambxcbc-ewtz 50-325-40 mg tablet 1 tab PO Q6H PRN (Reason: haeadace) Qty: 20 0RF ondansetron 4 mg tablet,disintegrating 4 mg PO Q6-8H PRN (Reason: nausea and vomiting) Qty: 7 0RF desogestrel-ethinyl estradiol [Isibloom] 0.15-0.03 mg tablet 1 tab PO DAILY albuterol sulfate 90 mcg/actuation HFA aerosol inhaler 2 puff inhalation Q4H PRN (Reason: shortness of breath or wheezing) cholecalciferol (vitamin D3) [Vitamin D3] 25 mcg (1,000 unit) capsule 25 mcg PO DAILY fluticasone propionate 50 mcg/actuation spray,suspension 1 spray intranasal Q12H Rx Instructions: administer into each nostril cetirizine 10 mg tablet 10 mg PO DAILY (DME) nebulizers Misc See Rx Instructions .ROUTE Rx Instructions: As directed Trelegy Ellipta 200-62.5-25 mcg blister with device 1 inh inhalation DAILY 30 Days Qty: 60 12RF levalbuterol tartrate [Xopenex HFA] 45 mcg/actuation HFA aerosol inhaler 2 puff inhalation Q6H PRN (Reason: shortness of breath or wheezing) 30 Days Qty: 15 11RF budesonide-formoterol [Symbicort] 160-4.5 mcg/actuation HFA aerosol inhaler 2 puff inhalation BID 30 Days Qty: 10.2 11RF montelukast 10 mg tablet 10 mg PO BEDTIME 90 Days Qty: 90 3RF albuterol sulfate 2.5 mg /3 mL (0.083 %) solution for nebulization 2.5 mg inhalation Q6H PRN (Reason: shortness of breath or wheezing) 30 Days Qty: 90 11RF Stand Alone Forms: Work/School Release Print Language: Grenadian
[2024-06-08] MEDS: Albuterol Sulfate 2.5 MG, Albuterol/Iprat 2.5/0.5MG 3 ML 3 ML INHALE (07:36)
[2024-06-08 07:46] LABS: IDNOW Serial# 58CA691E; Strep A Nucleic Acid Negative (Negative)
[2024-06-08 08:35] VITALS: BP 114/72; PULSE 88; RESP 15; TEMP 36.8; O2SAT 99
== END 2024-06-08 08:38 | disposition home or self-care (01) ==
PROVIDERS: Emergency Provider Emergency Medicine; PCP Pediatrics
DX: J40 Bronchitis, not specified as acute or chronic (principal); B37.9 Candidiasis, unspecified; R05.9 Cough, unspecified; J02.9 Acute pharyngitis, unspecified; Z03.818 Encounter for observation for suspected exposure to other biological agents ruled out
CPT/HCPCS: 0241U; 71046; 87651; 94640; 99283; 99284

== ENCOUNTER → 2024-06-08 06:40 | Outpatient (BNV) | payer OTHER, SELFPAY | PROVIDERS: Emergency Provider Emergency Medicine; PCP Pediatrics; Visit Provider Specialist | DX: J45.909 Unspecified asthma, uncomplicated (principal) | CPT/HCPCS: 71046 ==

== ENCOUNTER 2024-06-23 09:40 | Emergency (ER) | payer OTHER, SELFPAY ==
--- NOTE | ~2024-06-23 | US_ITS ---
CLINICAL HISTORY: lower abd pain, US female pelvis LMP:Unknown. Positive test: Beta HCG level 494. Technique: Ultrasound examination of the pelvis was performed with transabdominal and transvaginal technique for better visualization of the endometrium and adnexa. Comparison: None Findings: Identified intrauterine or extra uterine gestation. Anteverted uterus measuring 8.0 x 3.0 x 3.8cm without masses. Arcuate uterus could be considered. Normal endometrial thickness of 0.7cm. The right ovary is normal in size, measuring 4.0 x 2.0 x 2.6cm. There is normal echogenicity and vascularity. Corpus luteum measuring 1.6 x 1.2 x 1.7 cm. The left ovary is normal in size, measuring 1.0 x 1.5 x 1.2cm. There is normal echogenicity and vascularity. No lesions. There is a trace amount of fluid in the cul-de-sac, which is likely physiologic. Impression: No identified intrauterine or extra uterine gestation. The differential diagnosis includes a normal early , miscarriage and nonvisualized ectopic . Serial beta HCG levels are recommended. This document has been electronically signed by: Bertha Bourgeois MD on 06/23/2024 13:05:08
[2024-06-23 09:42] VITALS: BP 105/61; PULSE 100; RESP 16; TEMP 36.6; O2SAT 100; BMI 19.5
--- NOTE | 2024-06-23 10:02 | ED.GENADULT ---
HPI - General Adult General Chief complaint: Abdominal Pain Stated complaint: lower abd pain, +preg test Time Seen by Provider: 06/23/24 10:01 Source: patient, RN notes reviewed and old records reviewed Mode of arrival: ambulatory Limitations: no limitations History of Present Illness ED Provider: Clint HPI narrative: Patient is a 18-year-old female presenting to the ED with complaint of epigastric pain radiating to lower abdomen for the past week. States that on Tuesday the pain was most severe, lasted around 1.5 hours and caused her to double over. Pain also severe last night for several hours but not as strong as Tuesday. Reports taking 4 tests at home, all of which were positive. Denies any prior pregnancies. Denies vaginal bleeding or other abnormal vaginal discharge. LMP was mid May, patient unsure of exact dates. Also complains of suprapubic and lower back pain which she states feels like prior UTIs. Denies nausea, vomiting, diarrhea or constipation. Denies fevers. [employer] is through [employer]. LEMUS complaint: abdominal pain Onset (ago): day(s) Location: abdomen Pain Consistency: colicky Treatments prior to arrival: none Related Data Home Medications ?Medication ?Instructions ?Recorded ?Confirmed albuterol sulfate 90 mcg/actuation 2 puff inhalation Q4H PRN 05/15/23 05/15/23 aerosol inhaler shortness of breath or wheezing cholecalciferol (vitamin D3) 25 25 mcg PO DAILY 05/15/23 05/15/23 mcg (1,000 unit) capsule (Vitamin D3) desogestrel 0.15 mg-ethinyl 1 tab PO DAILY 05/15/23 05/15/23 estradiol 0.03 mg tablet (Isibloom) cetirizine 10 mg tablet 10 mg PO DAILY 01/09/24 fluticasone propionate 50 1 spray intranasal Q12H 01/09/24 mcg/actuation nasal spray,suspension nebulizers 01/09/24 Previous Rx's ?Medication ?Instructions ?Recorded fluticasone fur. 200 mcg-umeclid 1 inh inhalation DAILY 30 days #60 01/09/24 62.5 mcg-vilant 25 mcg ea inhalat.powder (Trelegy Ellipta) nefyzmgoeh-tvznyzfndpxdn-htybfebq 1 tab PO Q6H PRN haeadace #20 tabs 03/10/24 50 mg-325 mg-40 mg tablet ondansetron 4 mg disintegrating 4 mg PO Q6-8H PRN nausea and 03/10/24 tablet vomiting #7 tabs albuterol sulfate 2.5 mg/3 mL 2.5 mg (3 mL) inhalation Q6H PRN 04/03/24 (0.083 %) solution for nebulization shortness of breath or wheezing 30 days #90 mL budesonide-formoterol HFA 160 2 puff inhalation BID 30 days 04/03/24 mcg-4.5 mcg/actuation aerosol #10.2 grams inhaler (Symbicort) levalbuterol tartrate 45 2 puff inhalation Q6H PRN 04/03/24 mcg/actuation aerosol inhaler shortness of breath or wheezing 30 (Xopenex HFA) days #15 grams montelukast 10 mg tablet 10 mg PO BEDTIME 90 days #90 tabs 04/03/24 azithromycin 250 mg tablet 250 mg PO DAILY 4 days #4 tabs 06/08/24 nystatin 100,000 unit/mL oral 400,000 unit (4 mL) PO QID 7 days 06/08/24 suspension #112 mL prednisone 20 mg tablet 40 mg (2 x 20 mg) PO DAILY 4 days 06/08/24 #8 tabs cephalexin 500 mg capsule 500 mg PO QID 7 days #28 caps 06/23/24 go-ulc-ustlv 180 mcg-om3 32.5 1 tab PO DAILY #30 tabs 06/23/24 jl-wjz-dte-other uo3i-xwii chew tablet ( Gummies (DHA-EPA)) Allergies Allergy/AdvReac Type Severity Reaction Status Date / Time Seasonal Allergies Allergy Runny Nose Verified 06/23/24 09:47 Review of Systems Review of Systems: As per HPI Yes all other systems are reviewed and are negative Constitutional: Constitutional: Reports as per HPI PMFSH Past Medical History Medical History Chronic allergic rhinitis Asthma Allergies Social History Social History Alcohol intake: never Patient Tobacco Use Status: Never used Tobacco Smoked in Last 30 Days: No Use of substances other than those prescribed or required for medical reasons: No Advance Directives: No Advance Directives Information Provided: No Physical Exam ED Vital Signs: Vital Signs - 24 hr 06/23/24 09:42 06/23/24 12:28 Temperature 97.8 F 97.9 F Pulse Rate 100 96 Respiratory Rate 16 16 Blood Pressure 105/61 103/57 L Pulse Oximetry 100 100 Oxygen Delivery Method Room Air Room Air BMI result Body Mass Index 19.5 Vital signs have been reviewed and appear to be correct. Blood pressure normal. Heart rate normal. Respiratory rate normal. Temperature normal. Oxygen saturation normal. Const General: cooperative, healthy appearing and no acute distress Orientation/consciousness: oriented to person, oriented to place, oriented to time and patient oriented x3 Limitations: no limitations HENMT Head: Yes normocephalic and Yes atraumatic Ears: external ears normal General nose exam: Normal external nose present Face and sinus: Yes face symmetric Mouth: oropharynx normal and moist mucous membranes Throat: Yes uvula midline Eyes Pupils: Equal, round and reactive pupils present Neck Neck: Yes normal visual inspection and Yes supple Resp Effort & Inspection: normal respiratory effort and able to speak in complete sentences Auscultation: clear to auscultation bilaterally Cardio Rate: regular rate Rhythm: regular rhythm Heart sounds: S1 normal heart sound present and S2 normal heart sound present GI Palpation (GI): Soft to palpation, Tenderness to palpation present (GI) in the epigastrum and in the RLQ, no guarding and No Rebound tenderness present Auscultation: normoactive bowel sounds General: Yes no CVA tenderness Back/Spine/Pelvis Back: no CVA tenderness Skin General skin exam: elasticity normal and turgor normal Neuro General: oriented to person, oriented to place, oriented to time, patient oriented x3, moves all extremities, no focal motor deficits and CN's II-XI intact bilaterally Cranial nerves: Yes Equal, round and reactive pupils present Cognition (Neuro): normal cognition Extrem General: Yes full ROM, Yes no pedal edema and Yes no calf tenderness Psych Mental Status: mental status grossly normal Affect: normal affect Thought process: Normal thought process present Medical Decision Making Medical Decision Making MDM Narrative: Patient is a 18-year-old female presenting to the ED with complaint of epigastric pain radiating to lower abdomen for the past week. On exam patient is awake, A+Ox3, VS WNL, afebrile, normal neurological exam without focal deficits, physical exam findings as above. Given reported symptoms and physical exam findings, initial differential includes but is not limited to , ectopic , electrolyte abnormality, ovarian cyst, GERD, gastritis. Labs notable for HCG of 494, no leukocytosis, no anemia, no significant electrolyte abnormalities, no evidence of SAUMYA. U/S notable for no identified intra or extrauterine gestation, possible normal early versus miscarriage. My interpretation is in agreement with the radiologist's interpretation. Results discussed with patient and all questions answered. Will refer to [facility] for [employer] follow up and repeat HCG level. UA notable for 2+ leukocytes, 11-20 WBCs, given will treat for UTI. Will also start on PNVs. Return precautions discussed with patient and all questions answered. Differential Diagnosis Differential Diagnoses: The differential diagnosis associated with the presentation includes As per [facility] Lab Data [facility] Lab Attestation statement: I reviewed the patient's lab results. As per [facility] 06/23/24 10:07 06/23/24 10:07 Labs: Lab Results 06/23/24 06/23/24 Range/Units 10:07 11:36 WBC 5.7 (4.8-10.8) X10*3/uL RBC 4.80 D (4.20-5.50) X10*6/uL Hgb 13.2 D (12.0-16.0) g/dl Hct 38.2 D (37.0-47.0) % MCV 79.6 L (80.0-98.0) fL MCH 27.5 (27.0-33.0) pg MCHC 34.6 (31.0-35.0) g/dl RDW 13.2 (11.0-16.0) % Plt Count 249 (160-400) X10*3/uL MPV 10.6 (9.4-12.3) fL Immature Gran % (Auto) 0.4 (0.0-0.4) % Neut % (Auto) 60.9 (45-73) % Lymph % (Auto) 24.2 (20-40) % [place] % (Auto) 9.1 (2-11) % Eos % (Auto) 4.9 H (0-4) % Baso % (Auto) 0.5 (0-2) % Lymph # (Auto) 1.4 (1.2-4.9) X10*3/uL [place] # (Auto) 0.5 (0.1-1.2) X10*3/uL Eos # (Auto) 0.3 (0.0-0.4) X10*3/uL Baso # (Auto) 0.0 (0.0-0.2) X10*3/uL Abs Immat Gran (auto) 0.02 (0.00-0.03) X10*3/uL Absolute Neuts (auto) 3.5 (2.0-8.3) x10*3/uL Absolute Nucleated RBC 0.000 (0.0-0.012) X10*3/uL Nucleated RBC % (auto) 0.0 (0.0-0.2) /100WBC Sodium 140 (135-145) mmol/L Potassium 3.4 (3.3-5.1) mmol/L Chloride 110 H (96-108) mmol/L Carbon Dioxide 23 (22-29) mmol/L Anion Gap 10 L (12-20) BUN 12 (9-16) mg/dL Creatinine 0.59 (0.5-1.4) mg/dL Estim Creat Clear Calc 131.8 Estimated GFR > 60 Random Glucose 71 (60-115) mg/dL Calcium 9.0 D (8.4-10.2) mg/dL Lipase 21 (8-78) U/L Beta HCG, Quant 494 mIU/mL Urine Color Yellow Urine Appearance Clear Urine pH 7.5 (5.0-9.0) Ur Specific [place] 1.010 (1.005-1.025) Urine Protein Negative (Neg-Trace) mg/dL Urine Glucose (UA) Negative (Negative) mg/dL Urine Ketones Negative (Negative) mg/dL Urine Blood Negative (Negative) Urine Nitrite Negative (Negative) Ur Leukocyte Esterase Moderate (2+) H (Negative) Urine RBC 0-2 (0-2) /HPF Urine WBC 11-20 H (0-5) /HPF Ur Squamous Epith Cells 6-10 (0-2) /HPF Urine Bacteria None Seen (None Seen) Hyaline Casts 0-2 (0-2) /LPF Urine Test POSITIVE H (NEGATIVE) Independent Interpretation I performed an independent interpretation of an: Ultrasound Interpretation: No identified intra or extrauterine gestation, possible normal early versus miscarriage. Radiology Impression Discussion of test interpretation with radiology: I have reviewed the radiologist's reading. Radiologist Impression: Impression: No identified intrauterine or extra uterine gestation. The differential diagnosis includes a normal early , miscarriage and nonvisualized ectopic . Serial beta HCG levels are recommended. External Record Review External record reviewed: Inpatient record, Office record and Outpatient record Prescription Management I considered prescription management with: Antibiotic and Other Discharge Plan Discharge Clinical Impression: Early stage of , UTI (urinary tract infection) during Patient Disposition: Home, Self-Care Instructions: Threatened Miscarriage (ED), (ED), Urinary Tract Infection in (ED) Additional Instructions: You were evaluated in the emergency department today for abdominal pain. Your bloodwork shows an HCG level of 494 which is consistent with very early . We were unable to visualize the on ultrasound which could be due to the being in the very early stages, or it could mean you are possibly having a miscarriage. You will need repeat bloodwork in 72 hours to recheck your HCG level. We [facility] for [facility]. If they are unable to see you, you can return here for the repeat bloodwork. Your other labs were reassuring. Your urine appears infected and you are being treated for a UTI with antibiotics, take the full course as prescribed. We are also sending a prescription for vitamins to take daily. Return to the emergency department if you develop worsening abdominal pain, vaginal bleeding, abnormal vaginal discharge, fever or any other new or concerning symptoms. Prescriptions: New Gummies (DHA-EPA) 180 mcg-32.5mg- 25 mg-7.5 mg tablet,chewable 1 tab PO DAILY Qty: 30 0RF cephalexin 500 mg capsule 500 mg PO QID 7 Days Qty: 28 0RF No Action kirixicsiy-wdorixqxajvtk-eonf 50-325-40 mg tablet 1 tab PO Q6H PRN (Reason: haeadace) Qty: 20 0RF ondansetron 4 mg tablet,disintegrating 4 mg PO Q6-8H PRN (Reason: nausea and vomiting) Qty: 7 0RF desogestrel-ethinyl estradiol [Isibloom] 0.15-0.03 mg tablet 1 tab PO DAILY albuterol sulfate 90 mcg/actuation HFA aerosol inhaler 2 puff inhalation Q4H PRN (Reason: shortness of breath or wheezing) cholecalciferol (vitamin D3) [Vitamin D3] 25 mcg (1,000 unit) capsule 25 mcg PO DAILY azithromycin 250 mg tablet 250 mg PO DAILY 4 Days Qty: 4 0RF Rx Instructions: start on day 2 of therapy prednisone 20 mg tablet 40 mg PO DAILY 4 Days Qty: 8 0RF nystatin 100,000 unit/mL suspension 400,000 unit PO QID 7 Days Qty: 112 0RF Rx Instructions: administer 1/2 of dose in each side of the mouth fluticasone propionate 50 mcg/actuation spray,suspension 1 spray intranasal Q12H Rx Instructions: administer into each nostril cetirizine 10 mg tablet 10 mg PO DAILY (DME) [place] [facility] [place] Inst[place] .ROUTE Rx Instructions: As directed Trelegy Ellipta 200-62.5-25 mcg blister with device 1 inh inhalation DAILY 30 Days Qty: 60 12RF levalbuterol tartrate [Xopenex HFA] 45 mcg/actuation HFA aerosol inhaler 2 puff inhalation Q6H PRN (Reason: shortness of breath or wheezing) 30 Days Qty: 15 11RF budesonide-formoterol [Symbicort] 160-4.5 mcg/actuation HFA aerosol inhaler 2 puff inhalation BID 30 Days Qty: 10.2 11RF montelukast 10 mg tablet 10 mg PO BEDTIME 90 Days Qty: 90 3RF albuterol sulfate 2.5 mg /3 mL (0.083 %) solution for nebulization 2.5 mg inhalation Q6H PRN (Reason: shortness of breath or wheezing) 30 Days Qty: 90 11RF Referrals: [facility] [Provider Group] Print Language: Rwandan
[2024-06-23 10:13] LABS: MANUAL DIFF FLAG NO
[2024-06-23 10:14] LABS: Basophils Percent Auto 0.5 % (0-2); Eosinophils Absolute Auto 0.3 X10*3/uL (0.0-0.4); Eosinophils Percent Auto 4.9 % (0-4); Hematocrit 38.2 % (37.0-47.0); Hemoglobin 13.2 g/dl (12.0-16.0); Imm Gran Abs Auto 0.02 X10*3/uL (0.00-0.03); Imm Gran Pct Auto 0.4 % (0.0-0.4); Lymphocytes Absolute Auto 1.4 X10*3/uL (1.2-4.9); Lymphocytes Percent Auto 24.2 % (20-40); Mean Corpuscular HGB Conc 34.6 g/dl (31.0-35.0); Mean Corpuscular Hemoglobin 27.5 pg (27.0-33.0); Mean Corpuscular Volume 79.6 fL (80.0-98.0); Mean Platelet Volume 10.6 fL (9.4-12.3); Monocytes Absolute Auto 0.5 X10*3/uL (0.1-1.2); Monocytes Percent Auto 9.1 % (2-11); Neutrophils Absolute Auto 3.5 x10*3/uL (2.0-8.3); Neutrophils Percent Auto 60.9 % (45-73); Platelet Count 249 X10*3/uL (160-400); Red Cell Distribution Width 13.2 % (11.0-16.0); White Blood Count 5.7 X10*3/uL (4.8-10.8)
[2024-06-23 10:28] LABS: Anion Gap 10 (12-20); Blood Urea Nitrogen 12 mg/dL (9-16); Carbon Dioxide 23 mmol/L (22-29); Chloride 110 mmol/L (96-108); Creatinine Clr Calc Pharmacy 131.8; Estimated Glomerular Filt Rate > 60; Glucose Random 71 mg/dL (60-115); Lipase 21 U/L (8-78); Potassium 3.4 mmol/L (3.3-5.1); Sodium 140 mmol/L (135-145)
[2024-06-23 11:12] LABS: HCG Quantitative 494 mIU/mL
[2024-06-23 11:43] LABS: Appearance Urine Clear; Color Urine Yellow; Glucose Urine UA Negative (Negative); Leukocyte Esterase Urine Moderate (2+) (Negative); Nitrite Urine Negative (Negative); PH 7.5 (5.0-9.0); UMIC TRIGGER UACC YES; Urine Blood Negative (Negative); Urine Ketones Negative (Negative); Urine Protein Negative (Neg-Trace)
[2024-06-23 11:48] LABS: Bacteria Urine None Seen (None Seen); Hyaline Casts Urine 0-2 /LPF (0-2); RBC Urine 0-2 /HPF (0-2); UACC Culture Trigger YES
[2024-06-23 11:52] LABS: UPreg QC Valid YES; Urine Pregnancy POSITIVE (NEGATIVE)
[2024-06-23 12:28] VITALS: BP 103/57; PULSE 96; RESP 16; TEMP 36.6; O2SAT 100
[2024-06-23 14:02] VITALS: BP 103/57; PULSE 96; RESP 16; TEMP 36.6; O2SAT 100
== END 2024-06-23 14:03 | disposition home or self-care (01) ==
PROVIDERS: Registered Nurse Emergency; Emergency Provider Emergency Medicine; PCP Pediatrics
DX: O23.41 Unspecified infection of urinary tract in pregnancy, first trimester (principal); N39.0 Urinary tract infection, site not specified; Z3A.01 Less than 8 weeks gestation of pregnancy; R10.30 Lower abdominal pain, unspecified
CPT/HCPCS: 36415; 76801; 76817; 80048; 81001; 81025; 83690; 84702; 85025; 87086; 99284

== ENCOUNTER 2024-07-15 09:45 | Emergency (ER) | payer OTHER, SELFPAY ==
--- NOTE | ~2024-07-15 | US_ITS ---
CLINICAL HISTORY: vaginal cramping, 7 weeks preg Ultrasound OB. COMPARISON: US OB dated 06/23/24 at 11:43 EST Technique: Real time transabdominal sonographic imaging, including color-flow imaging, was performed by the medical detailist. Multiple sales representative trainee static images were saved for review. FINDINGS: Estimated gestational age (EGA) by today's ultrasound: 7 weeks 2 days Estimated date of delivery (SANDY) by today's ultrasound: 03/01/2025 Estimated gestational age by LMP: None available Single intrauterine . The secondary yolk sac is present and measures XX_FILLIN mm. Thin subchorionic hemorrhage present measuring 1.4 x 0.2 cm and involving approximately 15 percent of the gestational sac. [place] rump length (CRL): 1.1 cm, 7 weeks 2 days. heart rate (FHR): 136 bpm Right ovary appears normal and measures 3.4 x 2.2 x 2.3 cm. No right adnexal mass identified. Left ovary appears normal and measures 4.7 x 2.5 x 2.1 cm. No left adnexal mass identified. No free fluid within the posterior cul-de-sac. IMPRESSION: 1. Single living intrauterine gestation estimated at 7 weeks 2 days by today's ultrasound criteria. 2. No evidence of ovarian torsion. 3. Subchorionic hemorrhage present involving approximately 15 percent of the gestational sac. This document has been electronically signed by: Bandar Lehman MD on 07/15/2024 13:35:59
[2024-07-15 09:47] VITALS: BP 114/71; PULSE 96; RESP 16; TEMP 36.5; O2SAT 99; BMI 19.9
[2024-07-15 10:17] LABS: MANUAL DIFF FLAG NO
[2024-07-15 10:22] LABS: Basophils Percent Auto 0.3 % (0-2); Eosinophils Absolute Auto 0.4 X10*3/uL (0.0-0.4); Eosinophils Percent Auto 3.9 % (0-4); Hematocrit 43.5 % (37.0-47.0); Hemoglobin 14.8 g/dl (12.0-16.0); Imm Gran Abs Auto 0.08 X10*3/uL (0.00-0.03); Imm Gran Pct Auto 0.9 % (0.0-0.4); Lymphocytes Absolute Auto 1.7 X10*3/uL (1.2-4.9); Lymphocytes Percent Auto 18.6 % (20-40); Mean Corpuscular Hemoglobin 27.3 pg (27.0-33.0); Mean Corpuscular Volume 80.3 fL (80.0-98.0); Mean Platelet Volume 9.7 fL (9.4-12.3); Monocytes Absolute Auto 0.5 X10*3/uL (0.1-1.2); Monocytes Percent Auto 5.1 % (2-11); Neutrophils Absolute Auto 6.6 x10*3/uL (2.0-8.3); Neutrophils Percent Auto 71.2 % (45-73); Platelet Count 328 X10*3/uL (160-400); Red Blood Count 5.42 X10*6/uL (4.20-5.50); Red Cell Distribution Width 13.2 % (11.0-16.0); White Blood Count 9.2 X10*3/uL (4.8-10.8)
[2024-07-15 10:37] LABS: Alanine Aminotransferase 34 U/L (0-31); Albumin Level 4.5 g/dL (3.5-5.0); Alkaline Phosphatase 57 U/L (39-117); Anion Gap 13 (12-20); Aspartate Amino Transferase 33 U/L (5-31); Bilirubin Total 0.5 mg/dL (0.0-1.0); Blood Urea Nitrogen 9 mg/dL (9-16); Carbon Dioxide 23 mmol/L (22-29); Chloride 105 mmol/L (96-108); Creatinine Clr Calc Pharmacy 105.6; Estimated Glomerular Filt Rate > 60; Glucose Random 98 mg/dL (60-115); Potassium 3.9 mmol/L (3.3-5.1); Sodium 137 mmol/L (135-145); Total Protein 8.3 g/dL (6.5-8.0)
--- NOTE | 2024-07-15 11:29 | ED_ITS ---
HPI - Nausea/Vomiting/Diarrhea General Chief complaint: Nausea/Vomiting/Diarrhea Stated complaint: vomitting Time Seen by Provider: 07/15/24 11:05 Source: patient and RN notes reviewed Mode of arrival: ambulatory Limitations: no limitations History of Present Illness ED Provider: Franny Truong PA-C HPI Narrative: This is a 18-year-old female, 7 weeks , who presents emergency department with ongoing nausea, vomiting, abdominal pain. Patient states that she has been to multiple emergency departments during this secondary to nausea and vomiting. She states that she has had suprapubic cramping and has noticed increased spotting over this last week.. She states that throughout this she has had spotting however states that this is intermittent. She states that now she has noticed increased spotting, light pink brown, denies passing clots. She states that she has a an OBGYN appointment on July 18. She has been prescribed Unisom and vitamin B for her nausea which she has been taking without any relief. She has been able to eat and drink however states that the nausea persists throughout the day. She last vomited yesterday, she states that she has not been vomiting usually. Denies any urinary symptoms. She is not on vitamins at this time. No other complaints or concerns at this time. MD elicited complaint: nausea, vomiting (One episode) and abdominal pain Associated nausea: Yes Associated abdominal pain: Yes Location of pain: suprapubic Pain consistency: intermittent Quality: cramping Exacerbating factors: none Relieving factors: none Associated symptoms: denies other symptoms Related Data Home Medications ?Medication ?Instructions ?Recorded ?Confirmed albuterol sulfate 90 mcg/actuation 2 puff inhalation Q4H PRN 05/15/23 05/15/23 aerosol inhaler shortness of breath or wheezing cholecalciferol (vitamin D3) 25 25 mcg PO DAILY 05/15/23 05/15/23 mcg (1,000 unit) capsule (Vitamin D3) desogestrel 0.15 mg-ethinyl 1 tab PO DAILY 05/15/23 05/15/23 estradiol 0.03 mg tablet (Isibloom) cetirizine 10 mg tablet 10 mg PO DAILY 01/09/24 fluticasone propionate 50 1 spray intranasal Q12H 01/09/24 mcg/actuation nasal spray,suspension nebulizers 01/09/24 Previous Rx's ?Medication ?Instructions ?Recorded fluticasone fur. 200 mcg-umeclid 1 inh inhalation DAILY 30 days #60 01/09/24 62.5 mcg-vilant 25 mcg ea inhalat.powder (Trelegy Ellipta) fvgibvbnhg-fmwozvvmyonio-xddypjnj 1 tab PO Q6H PRN haeadace #20 tabs 03/10/24 50 mg-325 mg-40 mg tablet ondansetron 4 mg disintegrating 4 mg PO Q6-8H PRN nausea and 03/10/24 tablet vomiting #7 tabs albuterol sulfate 2.5 mg/3 mL 2.5 mg (3 mL) inhalation Q6H PRN 04/03/24 (0.083 %) solution for nebulization shortness of breath or wheezing 30 days #90 mL budesonide-formoterol HFA 160 2 puff inhalation BID 30 days 04/03/24 mcg-4.5 mcg/actuation aerosol #10.2 grams inhaler (Symbicort) levalbuterol tartrate 45 2 puff inhalation Q6H PRN 04/03/24 mcg/actuation aerosol inhaler shortness of breath or wheezing 30 (Xopenex HFA) days #15 grams montelukast 10 mg tablet 10 mg PO BEDTIME 90 days #90 tabs 04/03/24 azithromycin 250 mg tablet 250 mg PO DAILY 4 days #4 tabs 06/08/24 nystatin 100,000 unit/mL oral 400,000 unit (4 mL) PO QID 7 days 06/08/24 suspension #112 mL prednisone 20 mg tablet 40 mg (2 x 20 mg) PO DAILY 4 days 06/08/24 #8 tabs cephalexin 500 mg capsule 500 mg PO QID 7 days #28 caps 06/23/24 ta-enb-hyxag 180 mcg-om3 32.5 1 tab PO DAILY #30 tabs 06/23/24 qf-qkx-yqb-other lr5l-holc chew tablet ( Gummies (DHA-EPA)) vit no.95-ferrous 1 tab PO DAILY #30 tabs 07/15/24 fumarate 28 mg-folic acid 800 mcg tablet () Allergies Allergy/AdvReac Type Severity Reaction Status Date / Time Seasonal Allergies Allergy Runny Nose Verified 07/15/24 09:48 Review of Systems 2 Review of Systems: Yes all other systems are reviewed and are negative Constitutional: Constitutional: Reports as per HPI Gastrointestinal: Gastrointestinal: Reports nausea PMFSH Past Medical History Medical History Chronic allergic rhinitis Asthma Allergies Social History Social History Alcohol intake: never Patient Tobacco Use Status: Never used Tobacco Advance Directives: No Advance Directives Information Provided: Yes Physical Exam 2 Vital Signs: Vital Signs: Last Vital Signs Temp 97.7 F 07/15/24 09:47 Pulse 96 07/15/24 09:47 Resp 16 07/15/24 09:47 BP 114/71 07/15/24 09:47 Pulse Ox 99 07/15/24 09:47 O2 Del Method Room Air 07/15/24 09:47 BMI result Body Mass Index 19.9 Const: General: cooperative, comfortable and no acute distress O rientation/consciousness: patient oriented x3 Limitations: no limitations HEENT: Head: Yes normal to inspection, Yes normocephalic and Yes atraumatic Ears: hearing grossly normal bilaterally General nose exam: Normal external nose present Face and sinus: Yes normal facial exam Mouth: Normal oral and palatal mucosa present, oropharynx normal and moist mucous membranes Throat: Yes posterior oropharynx normal Eyes: General: appearance normal, both eyes and all related structures E yelids: Yes eyelids normal Conjunctivae: conjunctivae normal Sclerae: s clerae normal Pupils: Equal, round and reactive pupils present EOM: EOMs intact bilaterally Neck: Neck: Yes normal visual inspection, Yes full ROM and Yes no lymphadenopathy Lymphatic: no lymphadenopathy noted Chest: Chest palpation & inspection: normal inspection of the chest Resp: Effort & Inspection: normal respiratory effort and able to speak in complete sentences Auscultation: clear to auscultation bilaterally, no crackles, no rales, no rhonchi and no wheezes Cardio: Rate: regular rate Rhythm: regular rhythm Heart sounds: S1 normal heart sound present and S2 normal heart sound present GI: Other: Abdomen is soft, nontender, nondistended, no tenderness palpation in the suprapubic region. Inspection: Yes normal to inspection : General: Yes deferred Skin: General skin exam: no rashes or lesions noted Trauma: no lacerations or abrasions Wounds: no wounds Neuro: General: patient oriented x3 and moves all extremities Cranial nerves: Yes Equal, round and reactive pupils present Extrem: General: Yes normal to inspection Right upper extremity: normal to inspection Left upper extremity: normal to inspection Right lower extremity: normal to inspection Left lower extremity: normal to inspection Course Reevaluation(s) Reevaluation #1: Ultrasound returns, revealing a single live intrauterine gestation estimated at 7 weeks 2 days. No evidence of ovarian torsion. There is a subchorionic hemorrhage present involving approximately 15% of the gestational sac. Given this finding, I would like to consult with OBGYN however we do not have coverage at this time. Will consult with [facility] ED as patient is 7 weeks along. Time: 13:51 Reevaluation #2: I spoke to Dr. Stan Hansen, color printer operator at [facility] who recommends no further additional workup indicated, recommends keeping appointment in 2 days. And if any new or worsening symptoms occur to report to [facility]. Discussed overall workup with patient, she understands agrees with plan. She is eating and drinking without any difficulty. Given strict return precautions. Patient stable for discharge. Time: 14:19 Medications Administered Discontinued Medications Generic Name Dose Route Start Last Admin Trade Name Freq PRN Reason Stop Dose Admin Acetaminophen 650 mg 07/15/24 13:35 07/15/24 13:56 Acetaminophen 325 Mg Tablet PO 07/15/24 13:36 650 mg ONCE ONE Administration Medical Decision Making Medical Decision Making [facility] Narrative: This is a 18-year-old female presents emergency department for evaluation of suprapubic cramping, persistent nausea, 1 episode of vomiting, and vaginal spotting. She states that she was approximately 7 weeks , last menstrual cycle started on May 31. This is her 1st . She is already on Unisom and vitamin-B. She still able to eat and drink however states that nausea last throughout the day. Her OBGYN as [facility]. On arrival, vital signs within normal limits. She is speaking full sentences under no acute distress. She was able to tolerate p.o.. Labs were obtained prior to my assessment, she has no leukocytosis, stable H&H, chemistry revealing slight elevation in liver transaminases AST of 33 and ALT at 34, beta quant [id number]. Given cramping and spotting, will obtain ultrasound to ensure intrauterine placement. Differential Diagnosis Differential Diagnoses: The differential diagnosis associated with the presentation includes Ectopic , threatened , UTI, hyperemesis gravidarum, nausea and Admission/Observation Consideration of admission/observation: Escalation of care including admission/observation considered Lab Data [facility] Lab Attestation statement: I reviewed the patient's lab results. See [facility] 07/15/24 10:06 07/15/24 10:06 Labs: Lab Results 07/15/24 Range/Units 10:06 WBC 9.2 (4.8-10.8) X10*3/uL RBC 5.42 (4.20-5.50) X10*6/uL Hgb 14.8 (12.0-16.0) g/dl Hct 43.5 (37.0-47.0) % MCV 80.3 (80.0-98.0) fL MCH 27.3 (27.0-33.0) pg MCHC 34.0 (31.0-35.0) g/dl RDW 13.2 (11.0-16.0) % Plt Count 328 D (160-400) X10*3/uL MPV 9.7 (9.4-12.3) fL Immature Gran % (Auto) 0.9 H (0.0-0.4) % Neut % (Auto) 71.2 (45-73) % Lymph % (Auto) 18.6 L (20-40) % [place] % (Auto) 5.1 (2-11) % Eos % (Auto) 3.9 (0-4) % Baso % (Auto) 0.3 (0-2) % Lymph # (Auto) 1.7 (1.2-4.9) X10*3/uL [place] # (Auto) 0.5 (0.1-1.2) X10*3/uL Eos # (Auto) 0.4 (0.0-0.4) X10*3/uL Baso # (Auto) 0.0 (0.0-0.2) X10*3/uL Abs Immat Gran (auto) 0.08 H (0.00-0.03) X10*3/uL Absolute Neuts (auto) 6.6 (2.0-8.3) x10*3/uL Absolute Nucleated RBC 0.000 (0.0-0.012) X10*3/uL Nucleated RBC % (auto) 0.0 (0.0-0.2) /100WBC Sodium 137 (135-145) mmol/L Potassium 3.9 (3.3-5.1) mmol/L Chloride 105 (96-108) mmol/L Carbon Dioxide 23 (22-29) mmol/L Anion Gap 13 (12-20) BUN 9 (9-16) mg/dL Creatinine 0.75 (0.5-1.4) mg/dL Estim Creat Clear Calc 105.6 Estimated GFR > 60 Random Glucose 98 (60-115) mg/dL Calcium 10.0 D (8.4-10.2) mg/dL Total Bilirubin 0.5 (0.0-1.0) mg/dL AST 33 H (5-31) U/L ALT 34 H (0-31) U/L Alkaline Phosphatase 57 (39-117) U/L Total Protein 8.3 H (6.5-8.0) g/dL Albumin 4.5 (3.5-5.0) g/dL Beta HCG, Quant [id number] mIU/mL Radiology Impression Discussion of test interpretation with radiology: I have reviewed the radiologist's reading. Radiologist Impression: CLINICAL HISTORY: vaginal cramping, 7 weeks preg Ultrasound OB. COMPARISON: US OB dated 06/23/24 at 11:43 EST Technique: Real time transabdominal sonographic imaging, including color-flow imaging, was performed by the territory service representative. Multiple used equipment sales representative static images were saved for review. FINDINGS: Estimated gestational age (EGA) by today's ultrasound: 7 weeks 2 days Estimated date of delivery (SANDY) by today's ultrasound: 03/01/2025 Estimated gestational age by LMP: None available Single intrauterine . The secondary yolk sac is present and measures XX_FILLIN mm. Thin subchorionic hemorrhage present measuring 1.4 x 0.2 cm and involving approximately 15 percent of the gestational sac. [place] rump length (CRL): 1.1 cm, 7 weeks 2 days. heart rate (FHR): 136 bpm Right ovary appears normal and measures 3.4 x 2.2 x 2.3 cm. No right adnexal mass identified. Left ovary appears normal and measures 4.7 x 2.5 x 2.1 cm. No left adnexal mass identified. No free fluid within the posterior cul-de-sac. IMPRESSION: 1. Single living intrauterine gestation estimated at 7 weeks 2 days by today's ultrasound criteria. 2. No evidence of ovarian torsion. 3. Subchorionic hemorrhage present involving approximately 15 percent of the gestational sac. This document has been electronically signed by: Bandar Lehman MD on 07/15/2024 13:35:59 Dictated By: Bandar Lehman MD Discharge Plan Discharge Clinical Impression: Nausea and vomiting Patient Disposition: Home, Self-Care Instructions: Acute Nausea and Vomiting (ED) Additional Instructions: You were seen in the emergency department due to nausea, and cramping. You are 7 weeks and 2 days . Continue taking Unisom and vitamin B for nausea. Small meals throughout the day can also help with your symptoms. You may take Tylenol as needed for pain. You need to take a , this is very important for baby's development. As discussed during your visit, ensuring that you are taking this with food is very important. Please follow-up with your OBGYN. Your ultrasound reveals a single live intrauterine gestation estimated at 7 weeks and 2 days. You do have a subchorionic hemorrhage which is a collection of blood that forms between the uterine wall in the chorion, the outermost membranes surrounding the developing fetus. Sometimes these can resolve on their own however it is very important that you follow-up with the OBGYN. Your ultrasound as well as your overall workup today was discussed with a OBGYN at [facility] who recommends keeping your appointment and if you develop any worsening cramping or bleeding, to seek emergent care. You may seek any emergent care facility however [facility] also has [facility]'s ([facility]) which is a resource for you as well. Prescriptions: New PNV cmb#95-ferrous fumarate-FA [] 28 mg iron- 800 mcg tablet 1 tab PO DAILY Qty: 30 0RF No Action cyxaukpoqk-lojidmfjvvnfd-wjeq 50-325-40 mg tablet 1 tab PO Q6H PRN (Reason: haeadace) Qty: 20 0RF ondansetron 4 mg tablet,disintegrating 4 mg PO Q6-8H PRN (Reason: nausea and vomiting) Qty: 7 0RF Gummies (DHA-EPA) 180 mcg-32.5mg- 25 mg-7.5 mg tablet,chewable 1 tab PO DAILY Qty: 30 0RF cephalexin 500 mg capsule 500 mg PO QID 7 Days Qty: 28 0RF desogestrel-ethinyl estradiol [Isibloom] 0.15-0.03 mg tablet 1 tab PO DAILY albuterol sulfate 90 mcg/actuation HFA aerosol inhaler 2 puff inhalation Q4H PRN (Reason: shortness of breath or wheezing) cholecalciferol (vitamin D3) [Vitamin D3] 25 mcg (1,000 unit) capsule 25 mcg PO DAILY azithromycin 250 mg tablet 250 mg PO DAILY 4 Days Qty: 4 0RF Rx Instructions: start on day 2 of therapy prednisone 20 mg tablet 40 mg PO DAILY 4 Days Qty: 8 0RF nystatin 100,000 unit/mL suspension 400,000 unit PO QID 7 Days Qty: 112 0RF Rx Instructions: administer 1/2 of dose in each side of the mouth fluticasone propionate 50 mcg/actuation spray,suspension 1 spray intranasal Q12H Rx Instructions: administer into each nostril cetirizine 10 mg tablet 10 mg PO DAILY (DME) nebulizers [facility] See Rx Instructions .ROUTE Rx Instructions: As directed Trelegy Ellipta 200-62.5-25 mcg blister with device 1 inh inhalation DAILY 30 Days Qty: 60 12RF levalbuterol tartrate [Xopenex HFA] 45 mcg/actuation HFA aerosol inhaler 2 puff inhalation Q6H PRN (Reason: shortness of breath or wheezing) 30 Days Qty: 15 11RF budesonide-formoterol [Symbicort] 160-4.5 mcg/actuation HFA aerosol inhaler 2 puff inhalation BID 30 Days Qty: 10.2 11RF montelukast 10 mg tablet 10 mg PO BEDTIME 90 Days Qty: 90 3RF albuterol sulfate 2.5 mg /3 mL (0.083 %) solution for nebulization 2.5 mg inhalation Q6H PRN (Reason: shortness of breath or wheezing) 30 Days Qty: 90 11RF Print Language: [place]er
[2024-07-15] MEDS: Acetaminophen 325 MG TABLET 650 MG PO (13:56)
[2024-07-15 15:10] VITALS: BP 114/71; PULSE 96; RESP 16; TEMP 36.5; O2SAT 99
[2024-07-15 15:14] LABS: Appearance Urine Cloudy; Color Urine Yellow; Glucose Urine UA Negative (Negative); Leukocyte Esterase Urine Negative (Negative); Nitrite Urine Negative (Negative); PH 7.5 (5.0-9.0); Urine Blood Negative (Negative); Urine Ketones Negative (Negative); Urine Protein Negative (Neg-Trace)
== END 2024-07-15 15:14 | disposition home or self-care (01) ==
PROVIDERS: Physician Assistant Medical; Emergency Provider Emergency Medicine; PCP Pediatrics
DX: O21.0 Mild hyperemesis gravidarum (principal); O20.9 Hemorrhage in early pregnancy, unspecified; Z3A.01 Less than 8 weeks gestation of pregnancy; Z79.899 Other long term (current) drug therapy
CPT/HCPCS: 36415; 76801; 80053; 81003; 84702; 85025; 99283; 99284

== ENCOUNTER 2024-12-13 00:01 | Emergency (ER) | payer OTHER, SELFPAY ==
--- OUTSIDE RECORDS SUMMARY | 2024-12-12 16:50 | XMS_ITS | Encounter Summary ---
Author Organization [facility] Address [address] [facility] [address] [place] [phone] Phone Care Team Providers Care Wire Coater Name Role Phone Marguerite Venegas MD Primary Care Prov ider Reason for Visit * Reason Comments Routine Visit Encounter Details Date Type Department Care Team (Late st Contact Info) Description 12/12/2024 4:50 PM EDT Routine [facility] [address] [place] [address] [place] [id number] Jenny Sorenson CNM, MPH [address] [facility] [facility] [address] [place] [address] GA: [id number] Social History Tobacco Use Types Packs/Day Years Used Date Smoking Tobacco: Never Smokeless Tobacco: Never Alcohol Use Standard Drinks/Week Comments Not Currently 0 (1 standard drink = 0.6 oz pur e alcohol) Education Answer Date Recorded Are you interested in more education? Not on clary e 05/28/2024 Are you concerned about learning? Not on file 05/28/2024 No 05/28/2024 No 05/28/2024 Food Answer Date Recorded Within the past 6 months we worried whether our food would run out before we got money to buy more. Never True 08/25/2024 Within the past 6 months the food we bought just didn't last and we didn't have enough money to get more. Never True Residential Stability Answer Date Recor ded What is your housing situation today? I have matthew sing 08/25/2024 How many times have you move d in the past 12 months? Zero (I did not move) 08/25/2024 Paying for Meds Answer Date Recorded Do you have trouble paying for medicines? No 08/25/2024 Paying Utility Bills Answer Date Record ed Do you have trouble paying your heating or elect ricity bill? No 08/25/2024 Transportation Answer Date Recorded Has the lack of transportati on kept you from medical appointments or from getting medications? No 08/25/2024 Digital Access Answer Date Recorded No 08/25/2024 Yes 08/25/2024 Do you have reliable internet access at home? Ye s 08/25/2024 Do you have a device (e.g., phone, tablet, computer) with a working camera? Yes 08/25/2024 Intimate Partner Violence Answer Date R ecorded Are you denied basic needs s uch as food, clothing, or medical care? No 08/25/2024 In the past 12 months have y ou been in a relationship with a person who hurts, threatens, or tries to control you? No 08/25/2024 Are you denied basic needs s uch as food, clothing, or medical care? No 08/25/2024 In the past 12 months have y ou been in a relationship with a person who hurts, threatens, or tries to control you? No 08/25/2024 Estimated Date of Delivery Comme nts Yes 03/03/2025 Based on last me nstrual period of 05/27/2024 (Exact Date) Sex and Gender Information Value Date Recorded Sex Assigned at Female 05/28/2024 6:02 PM EST Legal Sex Female 4:43 PM EST Gender Identity Female 05/28/2024 6:02 PM EST Sexual Orientation Choose not to disclose 2024 6:24 PM EST documented as of this encounter Last Filed Vital Signs Vital Sign Reading Time Taken Comments Blood Pressure 120/80 12/12/2024 5:01 PM EDT Pulse - - Temperature - - Respiratory Rate - - Oxygen Saturation - - Inhaled Oxygen Concentration - - Weight 70.8 kg (156 lb) 12/12/2024 5:01 PM EDT Height - - Body Mass Index 25.18 08/25/2024 3:00 AM EDT documented in this encounter Miscellaneous Notes * Assessment & Plan Note - Kassie Bray - 12/12/2024 10:02 PM EDTAssociated Problem(s): Encounter for supervision of normal first in second trimester Maday is here with her partner, Ramiro. She is here today for N/V/D since Tuesday. She went to workSunday, the AC is broken there and shortly after she wasn't feeling well and left early. She only vomited on Tuesday but have been very nauseous since. She had had diarrhea about twice per day. She denies any fevers. She is having a hard time getting enough fluids in each day. Suggested it could be either a GI bug or possibly food poisoning. Discussed meds to help with nausea in hopes of her beingable to tolerate more fluids, Rx sent for zofran. Advised to call if not feeling better in a coupleof days. She is also having a hard time with her PNV, Rx sent for folic acid. Recommended to wait until next week to do 3T labs when she is feeling better. Reviewed comfort measures. Reviewed s/s danger signs, when/how to call. documented in this encounter Plan of Treatment Not on file documented as of this encounter Visit Diagnoses Diagnosis Encounter for supervision of normal first in second trimester- Primary documented in this encounter Care Teams Wire Coater Relationship Specialty Start Date End Date Marguerite Vengeas MD [address] [place] [address] PCP - General Pediatrics 12/11/24 documented as of this encounter Additional Source Comments The information contained in this document represents components of the legal health record. It is not the complete legal health record.[facility]
[2024-12-13 00:05] VITALS: BP 110/58; PULSE 98; RESP 16; TEMP 36.7; O2SAT 99; BMI 25.2
--- OUTSIDE RECORDS SUMMARY | 2024-12-13 01:46 | XMS_ITS | Clinical Summary ---
Author Organization [facility] Address [address] [place] [address] Care Team Providers Care Mines Inspector Name Role Phone Unavailable Primary Care Provider Unavailabl e Social History Tobacco Use Types Packs/Day Years Used Date Smoking Tobacco: Never Assessed Comments Unknown Sex and Gender Information Value Date Recorded Sex Assigned at Not on file Legal Sex Female 2:58 AM EST Gender Identity Not on file Sexual Orientation Not on file Plan of Treatment Health Maintenance Due Date Last Done Comments Gonorrhea/Chlamydia Screening 2003 HPV Vaccines (1 - 3-dose series) 10/03/2018 Meningococcal B Vaccine (1 o f 2 - Standard) 2019 DTaP,Tdap,and Td Vaccines (1 - Tdap) 10/03/2022 Hepatitis B Vaccines (1 of 3 - 19+ 3-dose series) 10/03/2022 COVID-19 Vaccine (1 - 2023-2 5 season) 2024 Depression Screening 05/16/2024 Cervical Cancer Screening: P ap Smear 10/03/2024 Influenza Vaccine (#1) 2025 HIB Vaccines Aged Out No longer eligi ble based on patient's age to complete this topic Hepatitis A Vaccines Aged Out No long er eligible based on patient's age to complete this topic IPV Vaccines Aged Out No longer eligi ble based on patient's age to complete this topic MMR Vaccines Aged Out No longer eligi ble based on patient's age to complete this topic Meningococcal ACWY Vaccine Aged Out N o longer eligible based on patient's age to complete this topic Pneumococcal Vaccine: Pediat rics (0 to 5 Years) and At-Risk Patients (6 to 49 Years) Aged Out No longer eligible b ased on patient's age to complete this topic RSV Immunization Patients Un adina 20 months Aged Out No longer eligible b ased on patient's age to complete this topic Varicella Vaccines Aged Out No longer eligible based on patient's age to complete this topic
[2024-12-13 02:12] VITALS: BP 115/78; PULSE 86; RESP 16; TEMP 37; O2SAT 97
[2024-12-13 02:34] LABS: Hematocrit 31.5 % (37.0-47.0); Hemoglobin 10.4 g/dl (12.0-16.0); Imm Gran Abs Auto 0.21 X10*3/uL (0.00-0.03); Imm Gran Pct Auto 1.7 % (0.0-0.4); Lymphocytes Absolute Auto 1.9 X10*3/uL (1.2-4.9); MANUAL DIFF FLAG NO; Mean Corpuscular HGB Conc 33.0 g/dl (31.0-35.0); Mean Corpuscular Hemoglobin 24.9 pg (27.0-33.0); Mean Corpuscular Volume 75.5 fL (80.0-98.0); NRBC Abs Auto 0.000 X10*3/uL (0.0-0.012); NRBC Pct Auto 0.0 /100WBC (0.0-0.2); Platelet Count 246 X10*3/uL (160-400); Red Blood Count 4.17 X10*6/uL (4.20-5.50); White Blood Count 12.2 X10*3/uL (4.8-10.8)
[2024-12-13 02:50] LABS: Alanine Aminotransferase 8 U/L (0-31); Albumin Level 3.7 g/dL (3.5-5.0); Alkaline Phosphatase 130 U/L (39-117); Anion Gap 13 (12-20); Aspartate Amino Transferase 18 U/L (5-31); Blood Urea Nitrogen 8 mg/dL (9-16); Calcium 8.9 mg/dL (8.4-10.2); Carbon Dioxide 20 mmol/L (22-29); Chloride 108 mmol/L (96-108); Creatinine Clr Calc Pharmacy 163.3; Estimated Glomerular Filt Rate > 60; Potassium 3.6 mmol/L (3.3-5.1); Sodium 137 mmol/L (135-145); Total Protein 6.9 g/dL (6.5-8.0)
--- NOTE | 2024-12-13 05:18 | ED_ITS ---
HPI - Allergic Reaction General Chief complaint: Allergic Reaction Stated complaint: 28 Weeks , hives on her arms Time Seen by Provider: 12/13/24 05:12 Source: patient Mode of arrival: ambulatory Limitations: no limitations History of Present Illness ED Provider: Dr. Zeynep Rand HPI narrative: Patient comes to the emergency room complaining of hives. Patient states that she is not sure what she is allergic to. Patient started having itchiness hives, took a warm shower, states that initially the rash started gone away. However, around 7 hours ago, the patient's rash but worse. Patient denies any wheezing, any shortness of breath, no oropharyngeal swelling. Patient states that today she was seen by her primary care physician/OBGYN for a [facility], patient is 28 weeks of gestational age, . Patient states that she was given a prescription for Reglan patient is new for her. However, patient has not had any doses yet, she has not been unable to pick it up from the pharmacy. Patient denies any new products. Patient denies any vaginal leakage or vaginal bleeding, no cramps Related Data Home Medications ?Medication ?Instructions ?Recorded ?Confirmed albuterol sulfate 90 mcg/actuation 2 puff inhalation Q 4H PRN 05/15/23 05/15/23 aerosol inhaler shortness of breath or wheez ing cholecalciferol (vitamin D3) 25 25 mcg PO DAILY 05/15/23 mcg (1,000 unit) capsule (Vitamin D3) desogestrel 0.15 mg-ethinyl 1 tab PO DAILY 05/15/23 estradiol 0.03 mg tablet (Isibloom) cetirizine 10 mg tablet 10 mg PO DAILY 01/09/24 fluticasone propionate 50 1 spray intranasal Q12H 12/15 11/06 mcg/actuation nasal spray,suspension nebulizers 01/09/24 Previous Rx's ?Medication ?Instructions ?Recorded fluticasone fur. 200 mcg-umeclid 1 inh inhalation KAIT Y 30 days #60 01/09/24 62.5 mcg-vilant 25 mcg ea inhalat.powder (Trelegy Ellipta) fcylctqzqa-bxwbgfbomuehz-sfthgrhe 1 tab PO Q6H PRN hae adace #20 tabs 03/10/24 50 mg-325 mg-40 mg tablet ondansetron 4 mg disintegrating 4 mg PO Q6-8H PRN naus ea and 03/10/24 tablet vomiting #7 tabs albuterol sulfate 2.5 mg/3 mL 2.5 mg (3 mL) inhalation Q6H PRN 04/03/24 (0.083 %) solution for nebulization shortness of breat h or wheezing 30 days #90 mL budesonide-formoterol HFA 160 2 puff inhalation BID 30 days 04/03/24 mcg-4.5 mcg/actuation aerosol #10.2 grams inhaler (Symbicort) levalbuterol tartrate 45 2 puff inhalation Q6H PRN mcg/actuation aerosol inhaler shortness of breath or w heezing 30 (Xopenex HFA) days #15 grams montelukast 10 mg tablet 10 mg PO BEDTIME 90 days #90 tabs 04/03/24 azithromycin 250 mg tablet 250 mg PO DAILY 4 days #4 t abs 06/08/24 nystatin 100,000 unit/mL oral 400,000 unit (4 mL) PO Q ID 7 days 06/08/24 suspension #112 mL prednisone 20 mg tablet 40 mg (2 x 20 mg) PO DAILY 4 days 06/08/24 #8 tabs cephalexin 500 mg capsule 500 mg PO QID 7 days #28 cap s 06/23/24 rd-vei-mhtov 180 mcg-om3 32.5 1 tab PO DAILY #30 tabs 06/23/24 is-nlk-nyx-other ez5q-ekhb chew tablet ( Gummies (DHA-EPA)) vit no.95-ferrous 1 tab PO DAILY #30 tabs 07/10 fumarate 28 mg-folic acid 800 mcg tablet () prednisone 20 mg tablet See Rx Instructions PO DAILY 10 08/24/24 days #15 tabs Allergies Allergy/AdvReac Type Severity Reaction Status Date / Time Seasonal Allergies Allergy Runny Nose Verified 12/13/24 00:13 Review of Systems 2 Review of Systems: Constitutional : No Weight loss, No Fever, No Chills, No Night Sweats, No Fatigue, No Malaise ENT/Mouth : No Hearing loss, No Ear Pain, No Nasal Congestion, No Sinus Pain, No Hoarseness, No sore throat, No Rhinorrhea, No Swallowing Difficulty Eyes: No Eye Pain, No Swelling, No Redness, No Foreign Body, No Discharge, No Vision Changes Cardiovascular : No Chest Pain, No SOB, No Dyspnea on Exertion, No Orthopnea, No Edema, No Palpitations Respiratory : No Cough, No Sputum, No Wheezing, No Smoke Exposure, No Dyspnea Gastrointestinal : No Nausea, No Vomiting, No Diarrhea, No Constipation, No abdominal Pain, No Hematochezia, No Melena Genitourinary : no irregular bleeding, No Dysuria, No Urinary Frequency, No Hematuria, No Urinary Incontinence, No Urgency, No Flank Pain, No Urinary Flow Changes, No Hesitancy Musculoskeletal : No joint pain, No Myalgias, No Joint Swelling Skin : Complaining of hives, No Skin Lesions, No rash Neuro : No Weakness, No Numbness, No Paresthesias, No Loss of Consciousness, No Dizziness, No Headache Psych : No Anxiety/Panic, No Depression, No SI/HI/AH/VH, No Social Issues, Heme/Lymph: No Bruising, No Bleeding,No Lymphadenopathy Endocrine : No Polyuria, No Polydipsia, No Temperature Intolerance [facility] Past Medical History Medical History Chronic allergic rhinitis Asthma Allergies Social History Social History Alcohol intake: never Patient Tobacco Use Status: Never used Tobacco Smoked in Last 30 Days: No Use of substances other than those prescribed or required for medical reasons: No Advance Directives: No Advance Directives Information Provided: Yes Physical Exam ED Exam Exam: Appearance: Alert. Oriented X3. No acute distress. Eyes: Pupils equal, round and reactive to light. ENT: Pharynx normal. Normal lips and tongue, no signs of angioedema Neck: Normal inspection. Neck supple. No lymph nodes noted. No crepitus CVS: Normal heart rate and rhythm. Pulses normal. Normal S1 and S2 Respiratory: No respiratory distress. Breath sounds normal. No Wheezing. No rales Abdomen: Soft and nontender. Gravid uterus. Bedside ultrasound shows a heart rate in the 130s, good movement Skin: Patient has hives in the lower extremities, thighs to toes in in the forearms. Extremities: No lower extremity edema. No Lacerations. No Rash Neuro: Oriented X 3. No motor deficit. No sensory deficit. Moving all extremities. No slurred speech. CN 2 through 12 grossly intact Psych: calm, cooperative, normal affect Vital Signs: Vital Signs - 24 hr 12/13/24 00:05 12/13/24 02:12 12/13/24 05:45 Temperature 98.1 F 98.6 F 98.6 F Pulse Rate 98 86 87 Respiratory Rate 16 16 16 Blood Pressure 110/58 L 115/78 108/73 Pulse Oximetry 99 97 98 Oxygen Delivery Method Room Air Room Air Room Air BMI result Body Mass Index 25.2 Course Course Course Narrative: Patient has any prescription for Reglan. However, patient has been unable to pick it up, has not had any doses. Patient reporting hives, itchiness, no difficulty breathing or wheezing. Patient is known to be 20 weeks of gestational age. Denies any new products soaps or anything that she can think of that may affect her. Overall, patient states that the hives are slowly starting to resolve by themselves. But it is still very itchy Patient receiving IV fluids, diphenhydramine, famotidine and Solu-Medrol. Medications Administered Discontinued Medications Generic Name Dose Route Start Last Admin Trade Name Freq PRN Reason Stop Dose Admin Diphenhydramine HCl 25 mg 12/13/24 05:17 12/13/24 05:31 Diphenhydramine Hcl 50 Mg/Ml Vial IVPUSH 12/13/24 05:18 25 mg ONCE ONE Administration Famotidine 20 mg 12/13/24 05:17 12/13/24 05:32 Famotidine/Pf 20 Mg/2 Ml Vial IVPUSH 12/13/24 05:18 20 mg ONCE ONE Administration Sodium Chloride 500 mls @ 999 mls/hr 12/13/24 05:30 12/13/24 05:38 Ns IV 12/13/24 06:00 999 mls/hr .Q31M ELBERT Administration Methylprednisolone Sodium Succinate 125 mg 12/13/24 05:17 12/13/24 05:32 Methylprednisolone Sod Succ 125 Mg/2 Ml Vial IVPUSH 12/13/24 05:18 125 mg ONCE ONE Administration Medical Decision Making Medical Decision Making [facility] Narrative: After the above-mentioned medication, patient has hives nearly resolved, patient feeling less itchy and overall feels much better. Patient has an appointment pending with her OBGYN in the next couple of days. Patient will ask for a referral for an bridge manager to determine what she is allergic to Differential Diagnosis Differential Diagnoses: The differential diagnosis associated with the presentation includes (Hypersensitivity reaction, angioedema, allergic reaction) Admission/Observation Consideration of admission/observation: Escalation of care including admission/observation considered (Given patient's gestational age and symptoms, observation/transfer was considered.) Lab Data MDM Lab Attestation statement: I reviewed the patient's lab results. 12/13/24 02:30 12/13/24 02:30 Labs: Lab Results 12/13/24 Range/Units 02:30 WBC 12.2 H (4.8-10.8) X10*3/uL RBC 4.17 L D (4.20-5.50) X10*6/uL Hgb 10.4 L D (12.0-16.0) g/dl Hct 31.5 L D (37.0-47.0) % MCV 75.5 L (80.0-98.0) fL MCH 24.9 L (27.0-33.0) pg MCHC 33.0 (31.0-35.0) g/dl RDW 13.1 (11.0-16.0) % Plt Count 246 (160-400) X10*3/uL MPV 10.6 (9.4-12.3) fL Immature Gran % (Auto) 1.7 H (0.0-0.4) % Neut % (Auto) 72.4 (45-73) % Lymph % (Auto) 15.5 L (20-40) % [place] % (Auto) 7.6 (2-11) % Eos % (Auto) 2.5 (0-4) % Baso % (Auto) 0.3 (0-2) % Lymph # (Auto) 1.9 (1.2-4.9) X10*3/uL [place] # (Auto) 0.9 (0.1-1.2) X10*3/uL Eos # (Auto) 0.3 (0.0-0.4) X10*3/uL Baso # (Auto) 0.0 (0.0-0.2) X10*3/uL Abs Immat Gran (auto) 0.21 H (0.00-0.03) X10*3/uL Absolute Neuts (auto) 8.9 H (2.0-8.3) x10*3/uL Absolute Nucleated RBC 0.000 (0.0-0.012) X10*3/uL Nucleated RBC % (auto) 0.0 (0.0-0.2) /100WBC Sodium 137 (135-145) mmol/L Potassium 3.6 (3.3-5.1) mmol/L Chloride 108 (96-108) mmol/L Carbon Dioxide 20 L (22-29) mmol/L Anion Gap 13 (12-20) BUN 8 L (9-16) mg/dL Creatinine 0.51 (0.5-1.4) mg/dL Estim Creat Clear Calc 163.3 Estimated GFR > 60 Random Glucose 87 (60-115) mg/dL Calcium 8.9 D (8.4-10.2) mg/dL Total Bilirubin 0.3 (0.0-1.0) mg/dL AST 18 (5-31) U/L ALT 8 (0-31) U/L Alkaline Phosphatase 130 H (39-117) U/L Total Protein 6.9 (6.5-8.0) g/dL Albumin 3.7 (3.5-5.0) g/dL Beta HCG, Quant 6799 mIU/mL Critical Care Time Critical Care Time Critical Care Time: Yes Total Critical Care Time: 45 Attestation: I have personally provided critical care time. Time includes review of lab data, radiology results, discussion with consultants, and monitoring for potential decompensation. Intervention performed as documented. Discharge Plan Discharge Clinical Impression: Allergic reaction Patient Disposition: Home, Self-Care Instructions: General Allergic Reaction (ED) Additional Instructions: Please follow-up with your primary care physician tomorrow. If you have any worsening or new symptoms, please return to the emergency room or call 911 Prescriptions: No Action prednisone 20 mg tablet See Rx Instructions PO DAILY 10 Days Qty: 15 0RF Rx Instructions: PO daily; Take 2 tabs daily x 5 days, then 1 tablet daily x 5 days uqiojuzfuj-eevavyzvcgtdl-pdkn 50-325-40 mg tablet 1 tab PO Q6H PRN (Reason: haeadace) Qty: 20 0RF ondansetron 4 mg tablet,disintegrating 4 mg PO Q6-8H PRN (Reason: nausea and vomiting) Qty: 7 0RF Gummies (DHA-EPA) 180 mcg-32.5mg- 25 mg-7.5 mg tablet,chewable 1 tab PO DAILY Qty: 30 0RF cephalexin 500 mg capsule 500 mg PO QID 7 Days Qty: 28 0RF PNV cmb#95-ferrous fumarate-FA [] 28 mg iron- 800 mcg tablet 1 tab PO DAILY Qty: 30 0RF desogestrel-ethinyl estradiol [Isibloom] 0.15-0.03 mg tablet 1 tab PO DAILY albuterol sulfate 90 mcg/actuation HFA aerosol inhaler 2 puff inhalation Q4H PRN (Reason: shortness of breath or wheezing) cholecalciferol (vitamin D3) [Vitamin D3] 25 mcg (1,000 unit) capsule 25 mcg PO DAILY azithromycin 250 mg tablet 250 mg PO DAILY 4 Days Qty: 4 0RF Rx Instructions: start on day 2 of therapy prednisone 20 mg tablet 40 mg PO DAILY 4 Days Qty: 8 0RF nystatin 100,000 unit/mL suspension 400,000 unit PO QID 7 Days Qty: 112 0RF Rx Instructions: administer 1/2 of dose in each side of the mouth fluticasone propionate 50 mcg/actuation spray,suspension 1 spray intranasal Q12H Rx Instructions: administer into each nostril cetirizine 10 mg tablet 10 mg PO DAILY (DME) nebulizers Mis See Rx Instructions .ROUTE Rx Instructions: As directed Trelegy Ellipta 200-62.5-25 mcg blister with device 1 inh inhalation DAILY 30 Days Qty: 60 12RF levalbuterol tartrate [Xopenex HFA] 45 mcg/actuation HFA aerosol inhaler 2 puff inhalation Q6H PRN (Reason: shortness of breath or wheezing) 30 Days Qty: 15 11RF budesonide-formoterol [Symbicort] 160-4.5 mcg/actuation HFA aerosol inhaler 2 puff inhalation BID 30 Days Qty: 10.2 11RF montelukast 10 mg tablet 10 mg PO BEDTIME 90 Days Qty: 90 3RF albuterol sulfate 2.5 mg /3 mL (0.083 %) solution for nebulization 2.5 mg inhalation Q6H PRN (Reason: shortness of breath or wheezing) 30 Days Qty: 90 11RF Print Language: Brazilian
[2024-12-13 05:45] VITALS: BP 108/73; PULSE 87; RESP 16; TEMP 37; O2SAT 98
[2024-12-13 06:57] VITALS: BP 108/73; PULSE 87; RESP 16; TEMP 37; O2SAT 98
== END 2024-12-13 06:58 | disposition home or self-care (01) ==
PROVIDERS: Emergency Provider Emergency Medicine; PCP Pediatrics
DX: O26.893 Other specified pregnancy related conditions, third trimester (principal); Z3A.28 28 weeks gestation of pregnancy; L50.0 Allergic urticaria; R10.2 Pelvic and perineal pain; R11.0 Nausea; Z79.899 Other long term (current) drug therapy
CPT/HCPCS: 36415; 80053; 84702; 85025; 96361; 96374; 96375; 99284; J1200; J1308; J2919

== ENCOUNTER 2025-02-11 10:00 | Emergency (ER) | payer OTHER, SELFPAY ==
--- NOTE | 2025-02-11 | ECG_ITS ---
Test Reason : cp Blood Pressure : */* mmHG Vent. Rate : 106 BPM Atrial Rate : 106 BPM P-R Int : 136 ms QRS Dur : 76 ms QT Int : 332 ms P-R-T Axes : 43 79 5 degrees QTcB Int : 441 ms Sinus tachycardia Otherwise normal ECG When compared with ECG of 09-Mar-2024 19:48, T wave inversion now evident in Inferior leads Referred By: Generic ED Physician Electronically Signed By: LORA PALMER
[2025-02-11 10:21] VITALS: BP 113/54; PULSE 113; RESP 16; TEMP 36.7; O2SAT 98; BMI 27.6
--- NOTE | 2025-02-11 10:21 | ED_ITS ---
HPI - General Adult General Chief complaint: Upper Respiratory Symptoms Stated complaint: CP, cold symptoms Time Seen by Provider: 02/11/25 10:45 Source: patient Mode of arrival: ambulatory Limitations: no limitations History of Present Illness ED Provider: DR. Stevens HPI narrative: 19-year-old female 37 week due date is 03/01/2025 came in for evaluation of generalized body ache, runny nose, coughing, difficulty breathing and feeling chest tightness, +exposure to a sick contacts brother had similar symptoms and diagnosed with COVID infection. No vaginal discharge, no vaginal bleed, no abdominal pain, feels movement. Related Data Home Medications ?Medication ?Instructions ?Recorded ?Confirmed albuterol sulfate 90 mcg/actuation 2 puff inhalation Q 4H PRN 05/15/23 05/15/23 aerosol inhaler shortness of breath or wheez ing cholecalciferol (vitamin D3) 25 25 mcg PO DAILY 05/15/23 mcg (1,000 unit) capsule (Vitamin D3) desogestrel 0.15 mg-ethinyl 1 tab PO DAILY 05/15/23 estradiol 0.03 mg tablet (Isibloom) cetirizine 10 mg tablet 10 mg PO DAILY 01/09/24 fluticasone propionate 50 1 spray intranasal Q12H 12/15 11/06 mcg/actuation nasal spray,suspension nebulizers 01/09/24 Previous Rx's ?Medication ?Instructions ?Recorded fluticasone fur. 200 mcg-umeclid 1 inh inhalation KAIT Y 30 days #60 01/09/24 62.5 mcg-vilant 25 mcg ea inhalat.powder (Trelegy Ellipta) aogyblaefb-oohyxxmiwdblv-jnwfcjit 1 tab PO Q6H PRN hae adace #20 tabs 03/10/24 50 mg-325 mg-40 mg tablet ondansetron 4 mg disintegrating 4 mg PO Q6-8H PRN naus ea and 03/10/24 tablet vomiting #7 tabs albuterol sulfate 2.5 mg/3 mL 2.5 mg (3 mL) inhalation Q6H PRN 04/03/24 (0.083 %) solution for nebulization shortness of breat h or wheezing 30 days #90 mL budesonide-formoterol HFA 160 2 puff inhalation BID 30 days 04/03/24 mcg-4.5 mcg/actuation aerosol #10.2 grams inhaler (Symbicort) levalbuterol tartrate 45 2 puff inhalation Q6H PRN mcg/actuation aerosol inhaler shortness of breath or w heezing 30 (Xopenex HFA) days #15 grams montelukast 10 mg tablet 10 mg PO BEDTIME 90 days #90 tabs 04/03/24 azithromycin 250 mg tablet 250 mg PO DAILY 4 days #4 t abs 06/08/24 nystatin 100,000 unit/mL oral 400,000 unit (4 mL) PO Q ID 7 days 06/08/24 suspension #112 mL prednisone 20 mg tablet 40 mg (2 x 20 mg) PO DAILY 4 days 06/08/24 #8 tabs cephalexin 500 mg capsule 500 mg PO QID 7 days #28 cap s 06/23/24 di-mxn-olidx 180 mcg-om3 32.5 1 tab PO DAILY #30 tabs 06/23/24 dj-bvr-syq-other lw8y-udym chew tablet ( Gummies (DHA-EPA)) vit no.95-ferrous 1 tab PO DAILY #30 tabs 07/10 fumarate 28 mg-folic acid 800 mcg tablet () prednisone 20 mg tablet See Rx Instructions PO DAILY 10 08/24/24 days #15 tabs Allergies Allergy/AdvReac Type Severity Reaction Status Date / Time Seasonal Allergies Allergy Runny Nose Verified 02/11/25 10:23 Review of Systems Review of Systems: All other systems are reviewed and are negative Constitutional: Reports as per HPI and Reports no additional constitutional complaints Eyes: Reports as per HPI and Reports no additional eye complaints Reports system reviewed and no additional complaints, except as documented Cardiovascular: Reports as per HPI and Reports no additional cardiovascular complaints Respiratory: Reports as per HPI and Reports no additional respiratory complaints Gastrointestinal: Reports as per HPI and Reports no additional gastrointestinal complaints Genitourinary: Reports no additional female genitourinary complaints Musculoskeletal: Reports no additional musculoskeletal complaints Skin/Breast: Reports system reviewed and no additional complaints, except as docu Psychiatric: Reports no additional psychiatric complaints Endocrine: Reports no additional endocrine complaints Hematologic/Lymphatic: Reports no additional hematologic/lymphatic complaints Allergic/Immunologic: Reports no additional allergic/immunologic complaints Reports system reviewed and no additional complaints, except as documented and R eports Abnormal speech present [facility] Past Medical History Medical History Chronic allergic rhinitis Asthma Allergies Social History Social History Alcohol intake: never Patient Tobacco Use Status: Never used Tobacco Advance Directives: No Advance Directives Information Provided: No Physical Exam ED Vital Signs: Vital Signs - 24 hr 02/11/25 10:21 02/11/25 11:13 Temperature 98.1 F Pulse Rate 113 H 103 H Respiratory Rate 16 18 Blood Pressure 113/54 L Pulse Oximetry 98 Oxygen Delivery Method Room Air BMI result Body Mass Index 27.6 Vital signs have been reviewed and appear to be correct. Blood pressure elevated. Heart rate normal. Respiratory rate normal. Temperature normal. Oxygen saturation normal. Appearance: Alert. Oriented X3. No acute distress. Head: Normal external exam. Normocephalic. Atraumatic. No Mccall signs noted. No raccoon eyes noted Eyes: PERRLA. EOMI. Conjunctiva and sclera normal. Eyelids normal. ENT: TM's Normal. Pharynx normal. Uvula midline. Moist mucous membranes. No trismus noted. No drooling noted. No muffled voice noted. Neck: Normal inspection. Neck supple. FROM. No adenopathy. Thyroid Normal. No meningeal signs. No neck mass noted. CVS: Normal heart rate and rhythm. Heart sound normal. No murmurs noted. Pulses normal throughout. Respiratory: No respiratory distress. Painless inspiration. Breath sounds normal. No wheezes/rales/rhonchi noted. Chest nontender. No accessory muscle usage noted or decreased air movement noted. Abdomen: Soft and nontender. Bowel sounds normal in all 4 quadrants. No distention noted. No organomegaly noted. No visible injury noted. Back: No CVA tenderness. Full range of motion noted. Skin: Skin warm and dry. Normal skin color. Normal skin turgor. No rashes/lesions/lacerations noted. Extremities: No lower extremity edema. Extremities exhibit normal range of motion. Extremities nontender. Neuro: Oriented X 3. Cranial nerve exam: II-XII are grossly intact No motor deficit. No sensory deficit. Reflexes normal. Course Course Course Narrative: Rapid medical examination performed in triage by Mirna Yancey PA-C. Patient is a 19 year old assigned female at presenting to the emergency department with chest pain and a cough. Patient is currently 37 weeks and OBGYN with [facility]. Detailed physical exam and review of systems are deferred to the clinical laboratory technician. Imaging and swabs ordered. Patient placed back in the waiting room pending room availability and results. Reevaluation(s) Reevaluation #1: Thirty-seven week presented with flu-like symptoms, patient is positive for COVID-19. apply contact precautions, frequent hand wash. Time: 11:06 Medications Administered Discontinued Medications Generic Name Dose Route Start Last Admin Trade Name Freq PRN Reason Stop Dose Admin Albuterol Sulfate 4 puff 02/11/25 11:08 02/11/25 11:11 Albuterol Sulfate 90 Mcg 8 Gm Inhaler INHALE 02/11/25 11:09 4 puff ONCE ONE Administration Medical Decision Making Differential Diagnosis Differential Diagnoses: The differential diagnosis associated with the presentation includes ( Asthma exacerbation, upper respiratory infection, pneumonia, complicated 1st In her 3rd trimester.) Admission/Observation Consideration of admission/observation: Escalation of care including admission/observation considered Lab Data MDM Lab Attestation statement: I reviewed the patient's lab results. Labs: Lab Results 02/11/25 Range/Units 10:30 COVID-19 (VERONICA) Positive A (Negative) COVID-19 Clin Com See Note Influenza Type A (JACOBO) Negative (Negative) Influenza Type B (JACOBO) Negative (Negative) Influenza A & B Note See Note Discharge Plan Discharge Clinical Impression: COVID-19 virus infection, Third trimester Patient Disposition: Home, Self-Care Instructions: COVID-19 (Coronavirus Disease 2019) (ED) Prescriptions: No Action prednisone 20 mg tablet See Rx Instructions PO DAILY 10 Days Qty: 15 0RF Rx Instructions: PO daily; Take 2 tabs daily x 5 days, then 1 tablet daily x 5 days tgificobhv-qsctcawctwoqs-jfmd 50-325-40 mg tablet 1 tab PO Q6H PRN (Reason: haeadace) Qty: 20 0RF ondansetron 4 mg tablet,disintegrating 4 mg PO Q6-8H PRN (Reason: nausea and vomiting) Qty: 7 0RF Gummies (DHA-EPA) 180 mcg-32.5mg- 25 mg-7.5 mg tablet,chewable 1 tab PO DAILY Qty: 30 0RF cephalexin 500 mg capsule 500 mg PO QID 7 Days Qty: 28 0RF PNV no.95-ferrous fumarate-FA [] 28 mg iron- 800 mcg tablet 1 tab PO DAILY Qty: 30 0RF desogestrel-ethinyl estradiol [Isibloom] 0.15-0.03 mg tablet 1 tab PO DAILY albuterol sulfate 90 mcg/actuation HFA aerosol inhaler 2 puff inhalation Q4H PRN (Reason: shortness of breath or wheezing) cholecalciferol (vitamin D3) [Vitamin D3] 25 mcg (1,000 unit) capsule 25 mcg PO DAILY azithromycin 250 mg tablet 250 mg PO DAILY 4 Days Qty: 4 0RF Rx Instructions: start on day 2 of therapy prednisone 20 mg tablet 40 mg PO DAILY 4 Days Qty: 8 0RF nystatin 100,000 unit/mL suspension 400,000 unit PO QID 7 Days Qty: 112 0RF Rx Instructions: administer 1/2 of dose in each side of the mouth fluticasone propionate 50 mcg/actuation spray,suspension 1 spray intranasal Q12H Rx Instructions: administer into each nostril cetirizine 10 mg tablet 10 mg PO DAILY (DME) nebulizers [facility] See Rx Instructions .ROUTE Rx Instructions: As directed Trelegy Ellipta 200-62.5-25 mcg blister with device 1 inh inhalation DAILY 30 Days Qty: 60 12RF levalbuterol tartrate [Xopenex HFA] 45 mcg/actuation HFA aerosol inhaler 2 puff inhalation Q6H PRN (Reason: shortness of breath or wheezing) 30 Days Qty: 15 11RF budesonide-formoterol [Symbicort] 160-4.5 mcg/actuation HFA aerosol inhaler 2 puff inhalation BID 30 Days Qty: 10.2 11RF montelukast 10 mg tablet 10 mg PO BEDTIME 90 Days Qty: 90 3RF albuterol sulfate 2.5 mg /3 mL (0.083 %) solution for nebulization 2.5 mg inhalation Q6H PRN (Reason: shortness of breath or wheezing) 30 Days Qty: 90 11RF Print Language: Portuguese
[2025-02-11 10:49] LABS: COVID-19 Test Positive (Negative); IDNOW Serial# 55D5AD1C
[2025-02-11 10:57] LABS: IDNOW Serial# 58CA691E; Influenza B2 Negative (Negative)
[2025-02-11] MEDS: Albuterol Sulfate 90 MCG 8 GM INHALER 4 PUFF INHALE (11:11)
[2025-02-11 11:13] VITALS: PULSE 103; RESP 18; O2SAT 98
[2025-02-11 12:27] VITALS: BP 110/55; PULSE 103; RESP 17; TEMP 36.7; O2SAT 99
--- OUTSIDE RECORDS SUMMARY | 2025-02-11 12:45 | XMS_ITS | Clinical Summary ---
Author Organization [employer] [facility] ity Address [address] [place] [address] Care Team Providers Care Radiology Resident Name Role Phone Unavailable Primary Care Provider [...] of 3 - 19+ 3-dose series) 10/03/2022 Depression Screening 05/16/2024 Cervical Cancer Screening: P ap Smear 10/03/2024 COVID-19 Vaccine (1 - 2023-2 5 season) 2025 Influenza Vaccine (#1) 2025 HIB Vaccines Aged [...]
== END 2025-02-11 12:30 | disposition home or self-care (01) ==
PROVIDERS: Physician Assistant Medical; Emergency Provider Emergency Medicine
DX: O98.513 Other viral diseases complicating pregnancy, third trimester (principal); R07.89 Other chest pain; M79.10 Myalgia, unspecified site; U07.1 COVID-19; Z3A.37 37 weeks gestation of pregnancy; Z79.899 Other long term (current) drug therapy
CPT/HCPCS: 87502; 87635; 93005; 94640; 99284

== ENCOUNTER → 2025-02-11 10:07 | Outpatient (BNV) | payer OTHER, SELFPAY | PROVIDERS: Emergency Provider Emergency Medicine; Visit Provider Internal Medicine | DX: R00.0 Tachycardia, unspecified (principal) | CPT/HCPCS: 93010 ==